=== PATIENT | male | born 1965 | race Caucasian/White ===

== ENCOUNTER 2020-08-30 17:25 | Inpatient (IN) | payer MEDICAID, SELFPAY ==
[2020-08-30] VITALS (10 sets, daily range): BP systolic 108–186; BP diastolic 54–142; PULSE 89–116; RESP 16–32; TEMP 36.4–36.6; O2SAT 92–98; BMI 48.8
--- NOTE | 2020-08-30 17:41 | XRR_ITS ---
PROCEDURE INFORMATION: Exam: XR Chest, 1 View Exam date and time: 08/30/2020 5:45 PM Age: 55 years old Clinical indication: Shortness of breath; Additional info: Edema, shortness of breath TECHNIQUE: Imaging protocol: XR of the chest Views: 1 view. COMPARISON: No relevant prior studies available. FINDINGS: Lungs: Mild pulmonary venous congestion demonstrated. No consolidative pulmonary infiltrate noted. Pleural space: No pleural effusion. No pneumothorax. Heart/Mediastinum: Mild cardiomegaly is noted. Bones/joints: Unremarkable. XR/XR chest 1V portable [id number] IMPRESSION: 1. Mild cardiomegaly is noted. 2. Mild pulmonary venous congestion demonstrated. No consolidative pulmonary infiltrate noted.
--- NOTE | 2020-08-30 17:47 | ECG_ITS ---
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 Measurements Intervals [place] Rate: 111 P: -9 NH: 190 QRS: -3 QRSD: 75 T: 0 QT: 329 QTc: 449 Interpretive Statements SINUS TACHYCARDIA LOW QRS VOLTAGE [QRS DEFLECTION < 0.5/1.0 mV IN LIMB/CHEST LEADS] ANTEROSEPTAL MYOCARDIAL INFARCTION , OF INDETERMINATE AGE [40+ ms Q WAVE IN V1-V4] No previous ECG available for comparison Electronically Signed On 08-30-2020 18:37:29 TRANSPLANT CASE MANAGER by Reynaldo Vizcaino M.D. [id number]
--- NOTE | 2020-08-30 18:01 | ED_ITS ---
Documented by User: MADDISON Mccann 08/30/20 18:31 HPI - SOB/Dyspnea General: Chief Complaint: Shortness of Breath/Dyspnea Stated Complaint: SEVERE PITTING EDEMA/ WEAKNESS Time Seen by Provider: 08/30/20 17:53 History of Present Illness: HPI Narrative: Patient arrives via ambulance with complaints of increasing shortness of breath over the last month. Patient has swelling which he said started in his feet is moved his way up to his chest now. Patient has not been able to take care of himself due to the increased swelling. Does have shortness of breath with exertion. Does complain about sores about his body. Said is been a while since he has had any health care provided. Says he has no history of CHF. Lives at home with his . He has no history of medical problems that he is aware of patient states MD elicited complaint: shortness of breath Timing: constant and progressively worsening Severity: severe Relieving factors: upright position Associated symptoms: Reports no associated symptoms and orthopnea; Deny abdominal pain, chest pain, extremity pain, fever(s), nausea or vomiting Treatment prior to arrival: none Review of Systems Const: Denies: fever(s), chills or body aches Eyes: Denies: change in vision or blurry vision ENMT: Denies: throat pain or nasal congestion Card: Reports: edema, dyspnea on exertion and orthopnea; Denies: chest pain Resp: Denies: dyspnea, productive cough or non-productive cough GI: Denies: abdominal pain, nausea or vomiting : Denies: difficulty urinating Musc: Denies: extremity pain Skin/Breast: Reports: rash and erythema Neuro: Denies: headache(s) Psych: Denies: anxiety or depression Sorin/Lymph: Denies: easy bruising PFSH ED PFSH: Medical History (Updated 08/31/20 @ 00:38 by Jone Trevino MD, [facility] [place] No pertinent past medical history Surgical History (Updated 08/30/20 @ 21:35 by Misael Quinonez MD) No pertinent past surgical history Family History (Updated 08/30/20 @ 21:35 by Misael Quinonez MD) Mother CAD (coronary artery disease) Social History (Updated 08/30/20 @ 21:35 by Misael Quinonez MD) Smoking and tobacco status: current every day smoker cigarettes [ Other cigar ette details: Has been smoking 2 packs/day, currently 1 pack/day ] Alcohol intake: never Substance/Drug Use: never Household members: spouse Housing: House Physical Exam Const: COMMON NORMALS: no acute distress and patient oriented x3 GENERAL APPEARANCE: disheveled and Edematous HENMT: COMMON NORMALS: normocephalic HEAD & SCALP: normal to inspection and normocephalic FACE & SINUS: normal facial exam Eye: COMMON NORMALS: conjunctivae normal GENERAL EYE: appearance normal, both eyes and all related structures CONJUNCTIVA: Yes conjunctivae normal Neck/C-Spine: COMMON NORMALS: no JVD Chest: COMMONS NORMALS: normal inspection of the chest Resp: EFFORT & INSPECTION: Yes tachypneic AUSCULTATION: diminished lung sounds PERCUSSION: dullness Cardio: COMMON NORMALS: no JVD and regular rhythm RATE: tachycardic RHYTHM: regular rhythm OTHER: 4+ 2+ edema from feet up to upper chest area redness and cold lower extremities. GI: INSPECTION: Yes Abdominal wall edema AUSCULTATION: Yes normoactive bowel sounds PALPATION: Yes Firmness to palpation present (GI) : SCROTUM: Yes edematous Extremity: COMMON NORMALS: normal to inspection and full ROM Neuro: COMMON NORMALS: patient oriented x3 Skin: OTHER: Scattered red papules across abdomen sores lower extremities extremities very cold Course Vital Signs: Vital signs: Vital Signs Temperature 97.9 F 08/30/20 22:45 Pulse Rate 114 H 08/30/20 22:45 Respiratory Rate 24 H 08/30/20 22:45 Blood Pressure 108/77 08/30/20 22:45 Pulse Oximetry 98 08/30/20 22:45 MDM - SOB/Dyspnea Lab Data: Labs: Lab Results 08/30/20 08/30/20 08/30/20 Range/Units 19:03 19:57 19:57 WBC 10.1 H (4.0-10.0) 10^3/ uL RBC 5.47 H (4.1-5.3) 10^6/u L Hgb 14.4 (11.7-16.6) g/dL Hct 47.1 (42.0-52.0) % MCV 86.1 (80-94) fL MCH 26.3 L (28.0-34.0) pg MCHC 30.6 (30.0-36.0) g/dL RDW 15.4 H (12.1-15.1) % Plt Count 368 (130-400) 10^3/c mm MPV 9.8 (7.4-10.4) fL Neut % (Auto) 78.1 % Lymph % (Auto) 14.4 % Evangeline % (Auto) 6.0 % Eos % (Auto) 0.6 % Baso % (Auto) 0.4 % Neut # (Auto) 7.88 H (1.8-7.7) 10^3/u L Lymph # (Auto) 1.5 (0.8-4.8) 10^3/u L Evangeline # (Auto) 0.6 (0.2-0.9) 10^3/u L Eos # (Auto) 0.1 (0.0-0.8) 10^3/u L Baso # (Auto) 0.0 (0.0-0.1) 10^3/u L Nucleated RBC % (a uto) 0 % Nucleated RBCs # 0.0 /100WBC PT (12.1-14.9) SECO NDS INR (0.8-1.2) D-Dimer (0-0.59) ug/mIFE U Specimen Type Arterial Sample Site Brachial, right ABG pH 7.41 (7.35-7.45) ABG pCO2 39.8 (35-45) mmHg ABG pO2 97.8 (80.0-100.0) mmH g ABG HCO3 25.3 (22-26) mmol/L ABG Base Excess 0.7 (-2.0-2.0) mmol/ L Benjamin Test N/a Hematocrit 43.6 (42-52) % Hgb O2 Saturation 95.9 (95-100) % Carboxyhemoglobin 1.3 (0.4-20.1) %THgb Methemoglobin 0.7 (0.4-1.5) % Total Hemoglobin 14.2 (14-18) g/dL O2 Delivery Device Nc O2 Liters/Min 2.0 % Metal Trades Instructor ID Harkr Sodium 140 (136-145) mmol/L Potassium 4.3 (3.5-5.1) mmol/L Chloride 103 (98-107) mmol/L Carbon Dioxide 28 (22-29) mmol/L Anion Gap 13.3 (5-19) BUN 10 (6-20) mg/dL Creatinine 0.8 (0.7-1.2) mg/dL GFR Calculation 101.1 (90-130) mL/min Glucose 202 H (65-115) mg/dL Estimat Average Gl ucose Hemoglobin A1c (4.0-6.0) % Calculated Osmolal ity 295 (285-295) mOsm/k g Calcium 9.4 (8.5-10.5) mg/dL Total Bilirubin 0.5 (0.15-1.2) mg/dL AST 15 (0-40) U/L ALT 15 (0-41) U/L Alkaline Phosphata se 208 H (40-130) IU/L Troponin T Baselin e (0-15) ng/L NT-Pro-B Natriuret Pep 6129 H (0-125) pg/mL Total Protein 6.2 L (6.6-8.7) g/dL Albumin 3.5 (3.5-5.2) g/dL Globulin 2.7 (1.3-4.6) g/dL TSH (0.27-4.20) uIU/ mL Urine Color (Yellow) Urine Appearance (CLEAR) Urine pH (5-7) Ur Specific Gravit y (1.005-1.030) Urine Protein (Negative) Urine Glucose (UA) (Normal) Urine Ketones (Negative) Urine Blood (Negative) Urine Nitrate (Negative) Urine Bilirubin (Negative) Urine Urobilinogen (Negative) mg/dL Ur Leukocyte Kusum ase (Negative) Urine RBC (0-2) /hpf Urine WBC (0-5) /hpf Ur Squamous Epith Cells (0-5) /hpf Amorphous Sediment /hpf Urine Bacteria (NONE) /hpf Hyaline Casts /lpf 08/30/20 08/30/20 08/30/20 Range/Units 19:57 19:57 19:57 WBC (4.0-10.0) 10^3/ uL RBC (4.1-5.3) 10^6/u L Hgb (11.7-16.6) g/dL Hct (42.0-52.0) % MCV (80-94) fL MCH (28.0-34.0) pg MCHC (30.0-36.0) g/dL RDW (12.1-15.1) % Plt Count (130-400) 10^3/c mm MPV (7.4-10.4) fL Neut % (Auto) % Lymph % (Auto) % Evangeline % (Auto) % Eos % (Auto) % Baso % (Auto) % Neut # (Auto) (1.8-7.7) 10^3/u L Lymph # (Auto) (0.8-4.8) 10^3/u L Evangeline # (Auto) (0.2-0.9) 10^3/u L Eos # (Auto) (0.0-0.8) 10^3/u L Baso # (Auto) (0.0-0.1) 10^3/u L Nucleated RBC % (a uto) % Nucleated RBCs # /100WBC PT 14.60 (12.1-14.9) SECO NDS INR 1.11 (0.8-1.2) D-Dimer 1.92 H (0-0.59) ug/mIFE U Specimen Type Sample Site ABG pH (7.35-7.45) ABG pCO2 (35-45) mmHg ABG pO2 (80.0-100.0) mmH g ABG HCO3 (22-26) mmol/L ABG Base Excess (-2.0-2.0) mmol/ L Benajmin Test Hematocrit (42-52) % Hgb O2 Saturation (95-100) % Carboxyhemoglobin (0.4-20.1) %THgb Methemoglobin (0.4-1.5) % Total Hemoglobin (14-18) g/dL O2 Delivery Device O2 Liters/Min % Metal Trades Instructor ID Sodium (136-145) mmol/L Potassium (3.5-5.1) mmol/L Chloride (98-107) mmol/L Carbon Dioxide (22-29) mmol/L Anion Gap (5-19) BUN (6-20) mg/dL Creatinine (0.7-1.2) mg/dL GFR Calculation (90-130) mL/min Glucose (65-115) mg/dL Estimat Average Gl ucose Hemoglobin A1c (4.0-6.0) % Calculated Osmolal ity (285-295) mOsm/k g Calcium (8.5-10.5) mg/dL Total Bilirubin (0.15-1.2) mg/dL AST (0-40) U/L ALT (0-41) U/L Alkaline Phosphata se (40-130) IU/L Troponin T Baselin e 49 H (0-15) ng/L NT-Pro-B Natriuret Pep (0-125) pg/mL Total Protein (6.6-8.7) g/dL Albumin (3.5-5.2) g/dL Globulin (1.3-4.6) g/dL TSH (0.27-4.20) uIU/ mL Urine Color (Yellow) Urine Appearance (CLEAR) Urine pH (5-7) Ur Specific Gravit y (1.005-1.030) Urine Protein (Negative) Urine Glucose (UA) (Normal) Urine Ketones (Negative) Urine Blood (Negative) Urine Nitrate (Negative) Urine Bilirubin (Negative) Urine Urobilinogen (Negative) mg/dL Ur Leukocyte Kusum ase (Negative) Urine RBC (0-2) /hpf Urine WBC (0-5) /hpf Ur Squamous Epith Cells (0-5) /hpf Amorphous Sediment /hpf Urine Bacteria (NONE) /hpf Hyaline Casts /lpf 08/30/20 08/30/20 08/30/20 Range/Units 19:57 19:57 21:15 WBC (4.0-10.0) 10^3/ uL RBC (4.1-5.3) 10^6/u L Hgb (11.7-16.6) g/dL Hct (42.0-52.0) % MCV (80-94) fL MCH (28.0-34.0) pg MCHC (30.0-36.0) g/dL RDW (12.1-15.1) % Plt Count (130-400) 10^3/c mm MPV (7.4-10.4) fL Neut % (Auto) % Lymph % (Auto) % Evangeline % (Auto) % Eos % (Auto) % Baso % (Auto) % Neut # (Auto) (1.8-7.7) 10^3/u L Lymph # (Auto) (0.8-4.8) 10^3/u L Evangeline # (Auto) (0.2-0.9) 10^3/u L Eos # (Auto) (0.0-0.8) 10^3/u L Baso # (Auto) (0.0-0.1) 10^3/u L Nucleated RBC % (a uto) % Nucleated RBCs # /100WBC PT (12.1-14.9) SECO NDS INR (0.8-1.2) D-Dimer (0-0.59) ug/mIFE U Specimen Type Sample Site ABG pH (7.35-7.45) ABG pCO2 (35-45) mmHg ABG pO2 (80.0-100.0) mmH g ABG HCO3 (22-26) mmol/L ABG Base Excess (-2.0-2.0) mmol/ L Benjamin Test Hematocrit (42-52) % Hgb O2 Saturation (95-100) % Carboxyhemoglobin (0.4-20.1) %THgb Methemoglobin (0.4-1.5) % Total Hemoglobin (14-18) g/dL O2 Delivery Device O2 Liters/Min % Metal Trades Instructor ID Sodium (136-145) mmol/L Potassium (3.5-5.1) mmol/L Chloride (98-107) mmol/L Carbon Dioxide (22-29) mmol/L Anion Gap (5-19) BUN (6-20) mg/dL Creatinine (0.7-1.2) mg/dL GFR Calculation (90-130) mL/min Glucose (65-115) mg/dL Estimat Average Gl ucose 318 Hemoglobin A1c 12.7 H (4.0-6.0) % Calculated Osmolal ity (285-295) mOsm/k g Calcium (8.5-10.5) mg/dL Total Bilirubin (0.15-1.2) mg/dL AST (0-40) U/L ALT (0-41) U/L Alkaline Phosphata se (40-130) IU/L Troponin T Baselin e (0-15) ng/L NT-Pro-B Natriuret Pep (0-125) pg/mL Total Protein (6.6-8.7) g/dL Albumin (3.5-5.2) g/dL Globulin (1.3-4.6) g/dL TSH 4.66 H (0.27-4.20) uIU/ mL Urine Color Yellow (Yellow) Urine Appearance Sl cloudy A (CLEAR) Urine pH 5 (5-7) Ur Specific Gravit y 1.020 (1.005-1.030) Urine Protein 3+ H (Negative) Urine Glucose (UA) Norm (Normal) Urine Ketones 1+ H (Negative) Urine Blood 2+ H (Negative) Urine Nitrate Negative (Negative) Urine Bilirubin Neg (Negative) Urine Urobilinogen 1 H (Negative) mg/dL Ur Leukocyte Kusum ase Trace H (Negative) Urine RBC 5-10 H (0-2) /hpf Urine WBC 0-4 H (0-5) /hpf Ur Squamous Epith Cells 0-4 H (0-5) /hpf Amorphous Sediment 2+ /hpf Urine Bacteria 1+ H (NONE) /hpf Hyaline Casts 0-4 H /lpf Discharge Plan Discharge Patient Disposition: Admitted As Inpatient Admit Provider: Misael Quinonez Clinical Impression: New onset of congestive heart failure, Anasarca, Acute respiratory failure with hypoxia Condition: Stable Coding Level of Care Code ED Secondary Market Manager for Chg Fwd Exam Comprehensive Documented by User: Jone Trevino [place], [facility]/31/20 00:38 HPI - SOB/Dyspnea General: Chief Complaint: Shortness of Breath/Dyspnea Stated Complaint: SEVERE PITTING EDEMA/ WEAKNESS Time Seen by Provider: 08/30/20 17:53 [facility] ED PFSH: Medical History (Updated 08/31/20 @ 00:38 by Jone Trevino MD, [facility] No pertinent past medical history Surgical History (Updated 08/30/20 @ 21:35 by Misael Quinonez MD) No pertinent past surgical history Family History (Updated 08/30/20 @ 21:35 by Misael Quinonez MD) Mother CAD (coronary artery disease) Social History (Updated 08/30/20 @ 21:35 by Misael Quinonez MD) Smoking and tobacco status: current every day smoker cigarettes [ Other cigarette details: Has been smoking 2 packs/day, currently 1 pack/day ] Alcohol intake: never Substance/Drug Use: never Household members: spouse Housing: House Course Vital Signs: Vital signs: Vital Signs Temperature 97.9 F 08/30/20 22:45 Pulse Rate 114 H 08/30/20 22:45 Respiratory Rate 24 H 08/30/20 22:45 Blood Pressure 108/77 08/30/20 22:45 Pulse Oximetry 98 08/30/20 22:45 MDM - SOB/Dyspnea MDM Narrative: Medical decision making narrative: See the VERIFYING SPECIALIST's note for history and physical. I evaluated and examined this patient. Essentially the patient is a 55-year-old male with no prior history of CHF but who presents with a month-long history of gradual generalized body swelling. He has anasarca and on evaluation congestive heart failure. He is also short of breath and hypoxic and required oxygen supplementation. He is admitted to the hospital for further evaluation and management. Patient is admitted under the care of Dr. Quinonez. Lab Data: Labs: Lab Results 08/30/20 08/30/20 08/30/20 Range/Units 19:03 19:57 19:57 WBC 10.1 H (4.0-10.0) 10^3/ uL RBC 5.47 H (4.1-5.3) 10^6/u L Hgb 14.4 (11.7-16.6) g/dL Hct 47.1 (42.0-52.0) % MCV 86.1 (80-94) fL MCH 26.3 L (28.0-34.0) pg MCHC 30.6 (30.0-36.0) g/dL RDW 15.4 H (12.1-15.1) % Plt Count 368 (130-400) 10^3/c mm MPV 9.8 (7.4-10.4) fL Neut % (Auto) 78.1 % Lymph % (Auto) 14.4 % Evangeline % (Auto) 6.0 % Eos % (Auto) 0.6 % Baso % (Auto) 0.4 % Neut # (Auto) 7.88 H (1.8-7.7) 10^3/u L Lymph # (Auto) 1.5 (0.8-4.8) 10^3/u L Evangeline # (Auto) 0.6 (0.2-0.9) 10^3/u L Eos # (Auto) 0.1 (0.0-0.8) 10^3/u L Baso # (Auto) 0.0 (0.0-0.1) 10^3/u L Nucleated RBC % (a uto) 0 % Nucleated RBCs # 0.0 /100WBC PT (12.1-14.9) SECO NDS INR (0.8-1.2) D-Dimer (0-0.59) ug/mIFE U Specimen Type Arterial Sample Site Brachial, right ABG pH 7.41 (7.35-7.45) ABG pCO2 39.8 (35-45) mmHg ABG pO2 97.8 (80.0-100.0) mmH g ABG HCO3 25.3 (22-26) mmol/L ABG Base Excess 0.7 (-2.0-2.0) mmol/ L Benjamin Test N/a Hematocrit 43.6 (42-52) % Hgb O2 Saturation 95.9 (95-100) % Carboxyhemoglobin 1.3 (0.4-20.1) %THgb Methemoglobin 0.7 (0.4-1.5) % Total Hemoglobin 14.2 (14-18) g/dL O2 Delivery Device Nc O2 Liters/Min 2.0 % Metal Trades Instructor ID Harkr Sodium 140 (136-145) mmol/L Potassium 4.3 (3.5-5.1) mmol/L Chloride 103 (98-107) mmol/L Carbon Dioxide 28 (22-29) mmol/L Anion Gap 13.3 (5-19) BUN 10 (6-20) mg/dL Creatinine 0.8 (0.7-1.2) mg/dL GFR Calculation 101.1 (90-130) mL/min Glucose 202 H (65-115) mg/dL Estimat Average Gl ucose Hemoglobin A1c (4.0-6.0) % Calculated Osmolal ity 295 (285-295) mOsm/k g Calcium 9.4 (8.5-10.5) mg/dL Total Bilirubin 0.5 (0.15-1.2) mg/dL AST 15 (0-40) U/L ALT 15 (0-41) U/L Alkaline Phosphata se 208 H (40-130) IU/L Troponin T Baselin e (0-15) ng/L NT-Pro-B Natriuret Pep 6129 H (0-125) pg/mL Total Protein 6.2 L (6.6-8.7) g/dL Albumin 3.5 (3.5-5.2) g/dL Globulin 2.7 (1.3-4.6) g/dL TSH (0.27-4.20) uIU/ mL Urine Color (Yellow) Urine Appearance (CLEAR) Urine pH (5-7) Ur Specific Gravit y (1.005-1.030) Urine Protein (Negative) Urine Glucose (UA) (Normal) Urine Ketones (Negative) Urine Blood (Negative) Urine Nitrate (Negative) Urine Bilirubin (Negative) Urine Urobilinogen (Negative) mg/dL Ur Leukocyte Kusum ase (Negative) Urine RBC (0-2) /hpf Urine WBC (0-5) /hpf Ur Squamous Epith Cells (0-5) /hpf Amorphous Sediment /hpf Urine Bacteria (NONE) /hpf Hyaline Casts /lpf 08/30/20 08/30/20 08/30/20 Range/Units 19:57 19:57 19:57 WBC (4.0-10.0) 10^3/ uL RBC (4.1-5.3) 10^6/u L Hgb (11.7-16.6) g/dL Hct (42.0-52.0) % MCV (80-94) fL MCH (28.0-34.0) pg MCHC (30.0-36.0) g/dL RDW (12.1-15.1) % Plt Count (130-400) 10^3/c mm MPV (7.4-10.4) fL Neut % (Auto) % Lymph % (Auto) % Evangeline % (Auto) % Eos % (Auto) % Baso % (Auto) % Neut # (Auto) (1.8-7.7) 10^3/u L Lymph # (Auto) (0.8-4.8) 10^3/u L Evangeline # (Auto) (0.2-0.9) 10^3/u L Eos # (Auto) (0.0-0.8) 10^3/u L Baso # (Auto) (0.0-0.1) 10^3/u L Nucleated RBC % (a uto) % Nucleated RBCs # /100WBC PT 14.60 (12.1-14.9) SECO NDS INR 1.11 (0.8-1.2) D-Dimer 1.92 H (0-0.59) ug/mIFE U Specimen Type Sample Site ABG pH (7.35-7.45) ABG pCO2 (35-45) mmHg ABG pO2 (80.0-100.0) mmH g ABG HCO3 (22-26) mmol/L ABG Base Excess (-2.0-2.0) mmol/ L Benjamin Test Hematocrit (42-52) % Hgb O2 Saturation (95-100) % Carboxyhemoglobin (0.4-20.1) %THgb Methemoglobin (0.4-1.5) % Total Hemoglobin (14-18) g/dL O2 Delivery Device O2 Liters/Min % Metal Trades Instructor ID Sodium (136-145) mmol/L Potassium (3.5-5.1) mmol/L Chloride (98-107) mmol/L Carbon Dioxide (22-29) mmol/L Anion Gap (5-19) BUN (6-20) mg/dL Creatinine (0.7-1.2) mg/dL GFR Calculation (90-130) mL/min Glucose (65-115) mg/dL Estimat Average Gl ucose Hemoglobin A1c (4.0-6.0) % Calculated Osmolal ity (285-295) mOsm/k g Calcium (8.5-10.5) mg/dL Total Bilirubin (0.15-1.2) mg/dL AST (0-40) U/L ALT (0-41) U/L Alkaline Phosphata se (40-130) IU/L Troponin T Baselin e 49 H (0-15) ng/L NT-Pro-B Natriuret Pep (0-125) pg/mL Total Protein (6.6-8.7) g/dL Albumin (3.5-5.2) g/dL Globulin (1.3-4.6) g/dL TSH (0.27-4.20) uIU/ mL Urine Color (Yellow) Urine Appearance (CLEAR) Urine pH (5-7) Ur Specific Gravit y (1.005-1.030) Urine Protein (Negative) Urine Glucose (UA) (Normal) Urine Ketones (Negative) Urine Blood (Negative) Urine Nitrate (Negative) Urine Bilirubin (Negative) Urine Urobilinogen (Negative) mg/dL Ur Leukocyte Kusum ase (Negative) Urine RBC (0-2) /hpf Urine WBC (0-5) /hpf Ur Squamous Epith Cells (0-5) /hpf Amorphous Sediment /hpf Urine Bacteria (NONE) /hpf Hyaline Casts /lpf 08/30/20 08/30/20 08/30/20 Range/Units 19:57 19:57 21:15 WBC (4.0-10.0) 10^3/ uL RBC (4.1-5.3) 10^6/u L Hgb (11.7-16.6) g/dL Hct (42.0-52.0) % MCV (80-94) fL MCH (28.0-34.0) pg MCHC (30.0-36.0) g/dL RDW (12.1-15.1) % Plt Count (130-400) 10^3/c mm MPV (7.4-10.4) fL Neut % (Auto) % Lymph % (Auto) % Evangeline % (Auto) % Eos % (Auto) % Baso % (Auto) % Neut # (Auto) (1.8-7.7) 10^3/u L Lymph # (Auto) (0.8-4.8) 10^3/u L Evangeline # (Auto) (0.2-0.9) 10^3/u L Eos # (Auto) (0.0-0.8) 10^3/u L Baso # (Auto) (0.0-0.1) 10^3/u L Nucleated RBC % (a uto) % Nucleated RBCs # /100WBC PT (12.1-14.9) SECO NDS INR (0.8-1.2) D-Dimer (0-0.59) ug/mIFE U Specimen Type Sample Site ABG pH (7.35-7.45) ABG pCO2 (35-45) mmHg ABG pO2 (80.0-100.0) mmH g ABG HCO3 (22-26) mmol/L ABG Base Excess (-2.0-2.0) mmol/ L Benjamin Test Hematocrit (42-52) % Hgb O2 Saturation (95-100) % Carboxyhemoglobin (0.4-20.1) %THgb Methemoglobin (0.4-1.5) % Total Hemoglobin (14-18) g/dL O2 Delivery Device O2 Liters/Min % Metal Trades Instructor ID Sodium (136-145) mmol/L Potassium (3.5-5.1) mmol/L Chloride (98-107) mmol/L Carbon Dioxide (22-29) mmol/L Anion Gap (5-19) BUN (6-20) mg/dL Creatinine (0.7-1.2) mg/dL GFR Calculation (90-130) mL/min Glucose (65-115) mg/dL Estimat Average Gl ucose 318 Hemoglobin A1c 12.7 H (4.0-6.0) % Calculated Osmolal ity (285-295) mOsm/k g Calcium (8.5-10.5) mg/dL Total Bilirubin (0.15-1.2) mg/dL AST (0-40) U/L ALT (0-41) U/L Alkaline Phosphata se (40-130) IU/L Troponin T Baselin e (0-15) ng/L NT-Pro-B Natriuret Pep (0-125) pg/mL Total Protein (6.6-8.7) g/dL Albumin (3.5-5.2) g/dL Globulin (1.3-4.6) g/dL TSH 4.66 H (0.27-4.20) uIU/ mL Urine Color Yellow (Yellow) Urine Appearance Sl cloudy A (CLEAR) Urine pH 5 (5-7) Ur Specific Gravit y 1.020 (1.005-1.030) Urine Protein 3+ H (Negative) Urine Glucose (UA) Norm (Normal) Urine Ketones 1+ H (Negative) Urine Blood 2+ H (Negative) Urine Nitrate Negative (Negative) Urine Bilirubin Neg (Negative) Urine Urobilinogen 1 H (Negative) mg/dL Ur Leukocyte Kusum ase Trace H (Negative) Urine RBC 5-10 H (0-2) /hpf Urine WBC 0-4 H (0-5) /hpf Ur Squamous Epith Cells 0-4 H (0-5) /hpf Amorphous Sediment 2+ /hpf Urine Bacteria 1+ H (NONE) /hpf Hyaline Casts 0-4 H /lpf Discharge Plan Discharge Patient Disposition: Admitted As Inpatient Admit Provider: Misael Quinonez Clinical Impression: New onset of congestive heart failure, Anasarca, Acute respiratory failure with hypoxia Condition: Stable Coding Level of Care Code ED Secondary Market Manager for Chg Fwd Exam Comprehensive
[2020-08-30 19:23] LABS: ABG PCO2 39.8 mmHg (35-45); ABG PH Result 7.41 (7.35-7.45); Arterial Blood Gas Hematocrit 43.6 % (42-52); Base Excess ABG 0.7 mmol/L (-2.0-2.0); Blood Gas Sample Type Arterial; Carboxyhemoglobin 1.3 %THgb (0.4-20.1); HCO3 ABG 25.3 mmol/L (22-26); HGB O2 Sat 95.9 % (95-100); Methemoglobin 0.7 % (0.4-1.5); PO2 ABG 97.8 mmHg (80.0-100.0); Total Hemoglobin 14.2 g/dL (14-18)
[2020-08-30 19:24] LABS: Blood Gas Operator Identificat HARKR; Blood Gas Sample Site Brachial, right; Oxygen Device NC
--- NOTE | 2020-08-30 19:47 | ECG_ITS ---
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 Measurements Intervals Harvel Rate: 110 P: -2 AK: 192 QRS: 10 QRSD: 77 T: 0 QT: 313 QTc: 425 Interpretive Statements SINUS TACHYCARDIA LOW QRS VOLTAGE [QRS DEFLECTION < 0.5/1.0 mV IN LIMB/CHEST LEADS] ANTEROSEPTAL MYOCARDIAL INFARCTION , PROBABLY OLD [40+ ms Q WAVE IN V1-V4] Compared to ECG 08/30/2020 18:08:44 No significant changes Electronically Signed On 08-31-2020 8:51:51 HAIR WORKER by Nati Rubio M.D. [id number]
[2020-08-30 20:07] LABS: Basophils % 0.4 %; Eosinophils # 0.1 10^3/uL (0.0-0.8); Eosinophils % 0.6 %; Hematocrit 47.1 % (42.0-52.0); Hemoglobin 14.4 g/dL (11.7-16.6); Lymphocytes # 1.5 10^3/uL (0.8-4.8); Lymphocytes % 14.4 %; Mean Corpuscular HGB Conc 30.6 g/dL (30.0-36.0); Mean Corpuscular Hemoglobin 26.3 pg (28.0-34.0); Mean Corpuscular Volume 86.1 fL (80-94); Mean Platelet Volume 9.8 fL (7.4-10.4); Monocytes # 0.6 10^3/uL (0.2-0.9); Neutrophils # 7.88 10^3/uL (1.8-7.7); Neutrophils % 78.1 %; Nucleated Red Blood Cells % 0 %; Platelet Count 368 10^3/cmm (130-400); Red Blood Count 5.47 10^6/uL (4.1-5.3); Red Cell Distribution Width 15.4 % (12.1-15.1); White Blood Count 10.1 10^3/uL (4.0-10.0)
--- NOTE | 2020-08-30 20:19 | PC.NURSE ---
EKG done at 2017 and shown to ER physician
[2020-08-30 20:21] LABS: INR 1.11 (0.8-1.2)
[2020-08-30 20:27] LABS: Troponin(5th) Baseline 49 ng/L (0-15)
[2020-08-30 20:37] LABS: Alanine Aminotransferase 15 U/L (0-41); Albumin Level 3.5 g/dL (3.5-5.2); Alkaline Phosphatase 208 IU/L (40-130); Aspartate Amino Transferase 15 U/L (0-40); Blood Urea Nitrogen 10 mg/dL (6-20); Calcium 9.4 mg/dL (8.5-10.5); Carbon Dioxide 28 mmol/L (22-29); Chloride 103 mmol/L (98-107); Globulin 2.7 g/dL (1.3-4.6); Glomerular Filtration Rate 101.1 mL/min (90-130); Glucose 202 mg/dL (65-115); NT Pro B Type Natriuretic Pept 6129 pg/mL (0-125); Osmolality Calculated 295 mOsm/kg (285-295); Sodium 140 mmol/L (136-145); Total Bilirubin 0.5 mg/dL (0.15-1.2); Total Protein 6.2 g/dL (6.6-8.7)
[2020-08-30 20:39] LABS: Anion Gap 13.3 (5-19); Potassium 4.3 mmol/L (3.5-5.1)
[2020-08-30] MEDS: FUROsemide 10 mg/mL SDV 4mL 40 MG IVP (20:59)
--- NOTE | 2020-08-30 21:00 | P.HP_ITS ---
Providers/Chief Complaint Chief Complaint: SEVERE PITTING EDEMA/ WEAKNESS History of Present Illness Aby Clement is a 55 year old male who has not seen his PCP in a long time came in today with worsening edema. Patient is stating that he smokes cigarettes about 1 to 1.5 packs a day, quit alcohol long time ago, never had any NE, CHF stroke or cancer diagnosis. He mostly keeps him to himself although lives with his son and . He has been using bedside commode. In last 1 to 2 months he has been noticing that he is getting more swollen, initially he did not pay any attention, but lately this has been making his breathing very difficult because of distended abdomen. He is denying chest pain, nausea, vomiting, fever. He is stating that he is not able to lay flat at all, he mostly lie on his right left lateral position however endorses orthopnea and PND. He seems to have very poor insight. Diagnosis in the ER revealed hypertensive urgency, tachycardia, anasarca, BNP 6000 with pulmonary edema. I have requested D-dimer which came back high, TSH 4.6. He has been given 40 mg IV Lasix Review of Systems Const: Reports: body aches, change in weight, fatigue and malaise; Denies: fever(s) or chills Eyes: Denies: change in vision ENMT: Denies: throat pain Card: Reports: edema, swelling of feet/ankles, dyspnea on exertion and orthopnea Resp: Reports: dyspnea and non-productive cough GI: Reports: abdominal pain and constipation; Denies: nausea or vomiting : Denies: flank pain Musc: Reports: muscle cramps Skin/Breast: Reports: new lesions, lesions, dry skin and nail changes Neuro: Denies: headache(s) Psych: Denies: anxiety Endo: Denies: polyuria Sorin/Lymph: Denies: easy bruising All/Imm: Denies: urticaria Medications/Allergies Home Medications Medication Instructions Recorded Confirmed Last Taken Type acetaminophen [Tylenol Extra 250 - 500 mg PO PRN 08/30/20 08/30/20 Unknown History Strength] Allergies Allergy/AdvReac Type Severity Reaction Status Date / Time No Known Allergies Allergy Verified 08/30/20 19:29 PFSH Acute PFSH: Medical History (Updated 08/30/20 @ 22:02 by Misael Quinonez MD) No pertinent past medical history Surgical History (Updated 08/30/20 @ 21:35 by Misael Quinonez MD) No pertinent past surgical history Family History (Updated 08/30/20 @ 21:35 by Misael Quinonez MD) Mother CAD (coronary artery disease) Social History (Updated 08/30/20 @ 21:35 by Misael Quinonez MD) Smoking and tobacco status: current every day smoker cigarettes [ Other cigarette details: Has been smoking 2 packs/day, currently 1 pack/day ] Alcohol intake: never Substance/Drug Use: never Household members: spouse Housing: House Vitals/I&O/Wt Last Vital Signs Temp 97.5 F L 08/30/20 17:35 Pulse 115 H 08/30/20 19:38 Resp 18 08/30/20 18:30 BP 159/142 08/30/20 19:38 Pulse Ox 93 08/30/20 19:38 Weight last 48 hrs Weight 158.757 kg Physical Exam Narrative: EXAM NARRATIVE: Morbidly obese male Appears more than stated age, unkempt appearance, and appropriate hygiene He is soiled with feces and urine on his legs Anasarca Hyperemia around eyes without pain on eye movement no active discharge No proptosis S1, S2 sinus tachycardia active signs of fluid overload 3+ pitting edema extending from legs up to his abdominal wall, Scrotal wall edema noted as well, 3+ Abdomen distended, nontender, bowel sounds present, ascites positive Neurologically nonfocal exam awake alert oriented x3 GCS 15 Seems to have poor insight Flat affect Bilateral diminished breath sounds without audible wheeze Data : 08/30/20 19:57 08/30/20 19:57 A&P Assessment and plan (1) New onset of congestive heart failure: Status: Acute (2) Anasarca: Status: Acute (3) Acute respiratory failure with hypoxia: Status: Acute Additional A&P Information Generalized anasarca Most likely new onset CHF We will get echo in the morning, since he is na?ve to Lasix I would keep him on 40 IV Lasix for now Abnormal TSH, will check free T4 Abnormal D-dimer, requested CTA to rule out PE Genital edema: Would request Light catheter placement for accurate urine output, no active gangrene noted Acute hypoxic respiratory failure requiring 3 L nasal cannula I do believe this is secondary to abdominal distention and bibasilar atelectasis and pulmonary congestion ABG revealed PaO2 97% on 2 L: Considering D-dimer I have requested CTA For now I would start him on therapeutic dose of Lovenox until PE is ruled out Unkempt appearance and low mood We will start him on low-dose antidepressant as well Nicotine dependence: Would need extensive counseling, will start him on nicotine replacement therapy DVT prophylaxis not needed currently on therapeutic dose of Lovenox Cardiac diet with fluid restriction Full code Will need to set up primary care physician for him as well before discharge Attestations Medical Necessity Statement*: Anticipating discharge in less than 48 hours continued work-up for anasarca, new onset CHF, Time Spent in Patient Care: (>than 50% of time spent in counselling and/or direct pt care on unit) . 45mins Coding Level of Care Code Acute Mica Splitter for Dale Castillo Diagnoses New onset of congestive heart failure I50.9 Anasarca R60.1 Acute respiratory failure with hypoxia J96.01
[2020-08-30 21:31] LABS: Blood Urine 2+ (Negative); Glucose Urine UA Norm (Normal); Ketones Urine 1+ (Negative); Protein Urine 3+ (Negative); Urine Color Yellow (Yellow); pH Urine 5 (5-7)
[2020-08-30 21:32] LABS: Add Urine Microscopic? YES; Bilirubin Urine Neg (Negative); Leukocyte Esterase Urine Trace (Negative); Nitrate Urine Negative (Negative); Urobilinogen Urine 1 mg/dL (Negative)
[2020-08-30 21:33] LABS: D Dimer 1.92 ug/mIFEU (0-0.59)
[2020-08-30 21:40] LABS: Thyroid Stimulating Hormone 4.66 uIU/mL (0.27-4.20)
[2020-08-30 21:44] LABS: Add Urine Culture? Yes; Amorphous Sediment Urine 2+ /hpf; Bacteria Urine 1+ /hpf; Hyaline Casts Urine 0-4 /lpf; Squamous Epithelial Cell Urine 0-4 /hpf (0-5); WBC Urine 0-4 /hpf (0-5)
--- NOTE | 2020-08-30 21:52 | CTR_ITS ---
PROCEDURE INFORMATION: Exam: CT Angiography Chest With Contrast Exam date and time: 08/30/2020 9:55 PM Age: 55 years old Clinical indication: Bloating; Cough and shortness of breath; Patient HX: Cough, SOB, and hypoxia. Abd distention. Weeping edema. TECHNIQUE: Imaging protocol: Computed tomographic angiography of the chest with intravenous contrast. 3D rendering (Not supervised by radiologist): MIP and/or 3D reconstructed images were created by the technologist. Radiation optimization: All CT scans at this facility use at least one of these dose optimization techniques: automated exposure control; mA and/or kV adjustment per patient size (includes targeted exams where dose is matched to clinical indication); or iterative reconstruction. Contrast material: OMNI 350; Contrast volume: 95 ml; Contrast route: INTRAVENOUS (IV); COMPARISON: CR XR chest 1V portable [id number] 08/30/2020 5:41 PM RADIATION DOSE METRICS: Total DLP (mGy-cm): 2742.94 FINDINGS: Pulmonary arteries: Pulmonary arteries are well opacified. Pulmonary arteries are normal in caliber. No filling defects are demonstrated. No evidence of pulmonary embolism. Aorta: Aorta is unopacified. No aortic aneurysm. Lungs: Mild compressive atelectasis in the right lower lobe posteriorly. The left lung is free of infiltrates. Pleural space: Small to moderate sized right pleural effusion. No left pleural effusion. Heart: Cardiomegaly is present. No pericardial effusion. Lymph nodes: Unremarkable. No enlarged lymph nodes. Bones/joints: Mild degenerative spine changes. No acute osseous abnormality. Soft tissues: Diffuse subcutaneous edema, consistent with anasarca. IMPRESSION: 1. Cardiomegaly is present. No pericardial effusion. 2. Small to moderate sized right pleural effusion. 3. Diffuse subcutaneous edema, consistent with anasarca. 4. Pulmonary arteries are well opacified. Pulmonary arteries are normal in caliber. No filling defects are demonstrated. No evidence of pulmonary embolism. PROCEDURE INFORMATION: Exam: CT Abdomen And Pelvis With Contrast Exam date and time: 08/30/2020 9:55 PM Age: 55 years old Clinical indication: Bloating; Cough and shortness of breath; Patient HX: Cough, SOB, and hypoxia. Abd distention. Weeping edema. TECHNIQUE: Imaging protocol: Computed tomography of the abdomen and pelvis with intravenous contrast. Radiation optimization: All CT scans at this facility use at least one of these dose optimization techniques: automated exposure control; mA and/or kV adjustment per patient size (includes targeted exams where dose is matched to clinical indication); or iterative reconstruction. Contrast material: OMNI 350; Contrast volume: 95 ml; Contrast route: INTRAVENOUS (IV); COMPARISON: CR XR chest 1V portable [id number] 08/30/2020 5:41 PM RADIATION DOSE METRICS: Total DLP (mGy-cm): 2742.94 FINDINGS: Lungs: Please see accompanying CT chest report from same date. Liver: The liver is unremarkable in appearance. Gallbladder and bile ducts: No calcified stones. No ductal dilation. Pancreas: The pancreas is normal in appearance. No pancreatic duct dilatation. Spleen: The spleen is normal in size and appearance. Adrenal glands: The adrenal glands appear within normal limits. Kidneys and ureters: 2.6 cm simple appearing right renal cyst. No hydronephrosis of the kidneys. Stomach and bowel: No acute gastric abnormality demonstrated. The small bowel is unremarkable as demonstrated. Appendix: No evidence of appendicitis. Intraperitoneal space: Moderate ascites in the abdomen and pelvis. Vasculature: The aorta is atherosclerotic. No aortic aneurysm. Lymph nodes: Mild nonspecific bilateral inguinal adenopathy. Lymph nodes measuring up to 2 cm in length are noted. Urinary bladder: The urinary bladder is unremarkable in appearance. Reproductive: Unremarkable as visualized. Bones/joints: Unremarkable. No acute fracture. Soft tissues: Diffuse subcutaneous edema, consistent with anasarca. Small left inguinal hernia noted, containing only fat. CT/CT angio chest w abd pel w con IMPRESSION: 1. Moderate ascites in the abdomen and pelvis. 2. Diffuse subcutaneous edema, consistent with anasarca. 3. Mild nonspecific bilateral inguinal adenopathy. Lymph nodes measuring up to 2 cm in length are noted. 4. Small left inguinal hernia noted, containing only fat. COMMENTS: Consistent with the [employer]'s Incidental Findings Committee white paper (J Am Jessica Radiol 2018): Any incidental renal lesion less than 1 cm or classified as too small to characterize, or any incidental cystic renal lesion characterized as simple-appearing, is likely benign. No follow-up imaging is recommended for these lesions per consensus recommendations based on imaging criteria. Radiation Dose CTDIVOL = (mGy): DLP = 2742.94~2742.94 (mGy-cm)
[2020-08-30] MEDS: iohexol 350 mg/mL 100 mL Btl 95 ML IV (22:04)
[2020-08-30 22:34] LABS: Troponin 5 2HR 46.67 ng/L (0-15)
[2020-08-30 22:43] LABS: Troponin 5 2HR Delta -2.33 ABS# (0-10)
--- NOTE | 2020-08-30 23:47 | ECG_ITS ---
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 Measurements Intervals [place] Rate: 111 P: -13 AL: 192 QRS: 36 QRSD: 76 T: 0 QT: 342 QTc: 465 Interpretive Statements SINUS TACHYCARDIA LOW QRS VOLTAGE [QRS DEFLECTION < 0.5/1.0 mV IN LIMB/CHEST LEADS] ANTEROSEPTAL MYOCARDIAL INFARCTION [40+ ms Q WAVE IN V1-V4], PROBABLY OLD Compared to ECG 08/30/2020 20:15:56 No significant changes Electronically Signed On 08-31-2020 8:45:23 PREMIUM SERVICE REPRESENTATIVE by Nati Rubio M.D. [id number]
[2020-08-30] MEDS: enoxaparin 80 mg/0.8 mL Syringe 160 MG SUBCUT (23:56)
[2020-08-31] VITALS (9 sets, daily range): BP systolic 85–135; BP diastolic 52–94; PULSE 103–113; RESP 17–71; TEMP 36.3–37.2; O2SAT 93–97
[2020-08-31 00:20] LABS: Estmated Average Glucose 318; Hemoglobin A1C 12.7 % (4.0-6.0)
[2020-08-31 00:58] LABS: Urine Creatinine 116 mg/dL (39-259); Urine Random Sodium 53 mmol/L
[2020-08-31 01:03] LABS: Creatinine Urine, Random 116 mg/dL (39-259)
[2020-08-31 01:20] LABS: Microalbum Creatinine Ratio Ur 1457 mg/dL (0-20); Microalbumin Random Urine 169 ug/dL (0-20)
[2020-08-31 01:25] LABS: Potassium Urine Random 26.16
[2020-08-31] MEDS: FUROsemide 10 mg/mL SDV 4mL 40 MG IVP ×2 (09:27→21:49)
--- NOTE | 2020-08-31 12:13 | PM.PN ---
Subjective Subjective: Interval history: Mr. Clement, his reporting that his current symptoms, of generalized swelling of the entire body and decreased functional status, started roughly 2-3 months back and has got progressively worsened. His vitals have for most part remained stable,has remained afebrile, is saturating well on 2-3 Ls oxygen via NC.Though he has been tachycardic. Making good urine output ( 1650 ml ) Medications: Reviewed: Yes Vitals/I&O/Wt Last Vital Signs Temp 98.1 F 08/31/20 11:26 Pulse 112 H 08/31/20 11:26 Resp 18 08/31/20 11:26 BP 104/69 08/31/20 11:26 Pulse Ox 94 08/31/20 11:26 08/30/20 08/31/20 08/31/20 22:59 06:59 14:59 Intake Total 240 / 240 1194 / 1194 Output Total 950 / 950 400 / 400 Balance -710 / -710 794 / 794 Weight last 48 hrs Weight 158.757 kg Physical Exam Const: COMMON NORMALS: patient oriented x3 HENMT: COMMON NORMALS: normocephalic and atraumatic HEAD & SCALP: normocephalic and atraumatic Chest: COMMONS NORMALS: normal inspection of the chest CHEST: Yes Symmetrical chest wall rise Resp: COMMON NORMALS: normal respiratory effort EFFORT & INSPECTION: Yes symmetric chest movement OTHER: Diminished Breath Sounds at the bases Cardio: COMMON NORMALS: regular rate, regular rhythm, S1 normal heart sound present, S2 normal heart sound present, No gallops present (Cardio), No murmurs present (Cardio), No rub (Cardio) and Peripheral pulses 2+ throughout RATE: regular rate RHYTHM: regular rhythm HEART SOUNDS: S1 normal heart sound present and S2 normal heart sound present PERIPHERAL PULSES: Peripheral pulses 2+ throughout GI: COMMON NORMALS: Soft to palpation, non-tender and no masses AUSCULTATION: Yes normoactive bowel sounds PALPATION: Yes Soft to palpation RECTAL EXAM: Yes deferred OTHER: Abodominal distension, Generalized pitting edema of the anterior abdominal wall Extremity: OTHER: 3+ B/L Pitting edema Upto the mid leg with chronic skin changes, features of stasis dermatitis present. Neuro: COMMON NORMALS: patient oriented x3 Data : 08/30/20 19:57 08/30/20 19:57 A&P Assessment and plan (1) New onset of congestive heart failure: Patient has been admitted with worsening generalized swelling of whole body as well as worsening SOB. Pro Bnp : 6129 2D Echo :Pending EKG: Sinus tachycardia, QRS, rate 111, corrected QTC is 465. Continue Lasix 40 mg IV every 12 hours Monitor intake output Monitor daily weight We will decrease lisinopril dose to 5 mg oral daily, given borderline blood pressure Status: Acute (2) Anasarca: Likely secondary to decompensated heart failure Has generalized swelling of the entire body. Also has ascites, pleural effusion. Serum Albumin is normal: 3.5. We will continue with IV diuresis for now Status: Acute (3) Diabetes: Newly diagnosed UnControlled diabetes. Will order ( 4 autoantibodies are markers of beta cell autoimmunity in type 1 diabetes: islet cell antibodies (ICA, against cytoplasmic proteins in the beta cell), antibodies to glutamic acid decarboxylase (KATHYA-65), insulin autoantibodies (IAA), and IA-2A, to protein tyrosine phosphatase ) LDSSI FSG Status: Acute (4) Acute respiratory failure with hypoxia: Status: Acute Additional A&P Information DVT PPX: Lovenox 40 Mg sc daily Code Status :Full code Disposition :Home Attestations Medical Necessity Statement*: Needs to be in hospital for the management of decompensated heart failure and anasarca as well as hypoxic respiratory failure, and the need of IV diuresis. Coding Level of Care Code Acute Electrical Electronics Technician for [facility] Fwd Diagnoses New onset of congestive heart failure I50.9 Anasarca R60.1 Diabetes E11.9 Acute respiratory failure with hypoxia J96.01
--- NOTE | 2020-08-31 13:21 | PC.CHAP ---
Pastoral Care Encounter/Spiritual Assessment Type of Contact [] Declined vp legal affairs visit [] Patient/Family/Request visit [] Outpatient visit [] Follow-up visit [] Physician referral [] Code/Alert [X] Routine visit [] Staff referral [] Actively dying [] Patient sleeping [] Family support [] [] Out of room [] Palliative care [] [] Receiving care in room [] Pre-surgical visit [] Trauma [] Long length of stay [] ICU visit [] Other: Relational/Emotional Strength [X] Patient feels connected with others/family/visitors/staff [] Distress [] Loneliness/isolation [] Abandonment Spirituality of Patient [] Person of Yaneth [] Attends Druze of their Yaneth [X] Believes in Prayer [] Reads Bible or Hoahaoism materials [] There are Spiritual issues to be addressed [facility] Interventions [X] Prayer [X] Active listening [X] Non-anxious presence [] Spiritual/emotional support [] Crisis/trauma care [] Spiritual counseling [] Bereavement support [] Provided bereavement packet [] Provided Bible/devotional materials [] Provided toy/stuffed animal, coloring book to patient or family member [] Provided Communion [] Anointing/[place] [] Salvation [X] Completed spiritual assessment [] Other: Impact on Illness or Injury [] Angry [] Fearful [] Anxious [] Often cries [] Exhaustion [] Unable to work [] Unable to attend orthodox [] Unable to walk/stand [] Unable to read [] Unable to drive [] Unable to eat/drink [] Unable to sleep [] Unable to be with family [] Patient intubated [] Other: Summary: Pt was uncomfortable and sad. He had been dealing with the fluid buildup for some time and admits that he should have sought care sooner. He has a 9yo son who is worried and wants to see his dad. Pt was teary throughout the visit and appreciated the prayer. Time spent with patient: 5 - 7 mins
[2020-08-31 16:50] LABS: Glucose Point of Care 148 mg/dL (70-110)
[2020-08-31] MEDS: acetaminophen-codeine 300-30mg Tablet 1 TAB PO (17:55)
[2020-08-31 21:05] LABS: Glucose Point of Care 160 mg/dL (70-110)
[2020-09-01] VITALS (8 sets, daily range): BP systolic 104–123; BP diastolic 62–76; PULSE 57–116; RESP 16–26; TEMP 36.4–37.6; O2SAT 92–99
--- NOTE | 2020-09-01 | USCV_ITS ---
Aby Clement Age: 55 Gender: M : 1965 Exam Date: 09/01/2020 09:59 Ordering Phys: Misael Quinonez MD Technologist: Katharine Cason [place] [facility] [place] CHF BP: 115 / 76 HR: 111 Rhythm: Sinus tachycardia Technical Quality: Suboptimal MEASUREMENTS (Male / Female) Normal Values 2D ECHO LV Diastolic Diameter PLAX 5.3 cm 4.2 - 5.9 / 3.9 - 5.3 cm LV Systolic Diameter PLAX 5.0 cm LV Chamber Size 5.1 cm IVS Diastolic Thickness 1.1 cm 0.6 - 1.0 / 0.6 - 0.9 cm IVS Systolic Thickness 1.3 cm LVPW Diastolic Thickness 1.0 cm 0.6 - 1.0 / 0.6 - 0.9 cm LVPW Systolic Thickness 1.3 cm RV Chamber Size 4.4 cm LV Ejection Fraction 2D Teich 14.3 % LA Width 4.4 cm LA Height 6.1 cm RA Width 5.5 cm RA Height 5.9 cm M-MODE LV Diastolic Diameter MM 6.8 cm 4.2 - 5.9 / 3.9 - 5.3 cm LV Systolic Diameter MM 6.2 cm LV Ejection Fraction MM Teich 19.1 % IVS Diastolic Thickness MM 0.7 cm 0.6 - 1.0 / 0.6 - 0.9 cm IVS Systolic Thickness MM 0.6 cm LVPW Diastolic Thickness MM 1.3 cm 0.6 - 1.0 / 0.6 - 0.9 cm LVPW Systolic Thickness MM 1.5 cm RV Diastolic Diameter MM 1.6 cm FINDINGS Left Ventricle Mildly increased left ventricular cavity size. Severely decreased left ventricular systolic function. Left ventricular ejection fraction is estimated at 15 %. Severe global hypokinesis. Flattened septum in diastole consistent with right ventricle volume overload. Right Ventricle Mildly increased right ventricular size. Moderately decreased right ventricular systolic function. Right ventricular systolic pressure 31 mmHg. Right Atrium Normal right atrial size. Right atrial pressure estimated at 15 mmHg. Left Atrium Mildly increased left atrial size. Mitral Valve Structurally normal mitral valve. No mitral valve stenosis. Mild mitral valve regurgitation. Aortic Valve Structurally normal trileaflet aortic valve. No aortic valve stenosis. No aortic valve regurgitation. Tricuspid Valve Structurally normal tricuspid valve. No tricuspid valve stenosis. [id number] tricuspid valve regurgitation. Pulmonic Valve Structurally normal pulmonic valve. Trace pulmonary valve regurgitation. Pericardium No pericardial effusion. Aorta Normal-sized aortic root. Dilated inferior vena cava with less than 50% respiratory variation. CONCLUSIONS 1. Mildly dilated left ventricular cavity. Severely decreased left ventricular systolic function. Left ventricular ejection fraction is estimated at 15 %. Severe global hypokinesis. Flattened septum in diastole consistent with right ventricle volume overload. 2. Mildly dilated right ventricle. Moderately decreased right ventricular systolic function. 3. Pulmonary artery pressure estimated at 31 mmHg. 4. Mild mitral valve regurgitation. 5. Mild to moderate tricuspid valve regurgitation. 6. No prior similar studies to compare. Nati Rubio MD Edited by: CV Domestic Cleaner (Electronically Signed) Final Date: 01 September 2020 16:06 Amended: 03 September 2020 10:47 C
[2020-09-01 05:34] LABS: Basophils # 0.1 10^3/uL (0.0-0.1); Basophils % 0.6 %; Eosinophils # 0.1 10^3/uL (0.0-0.8); Eosinophils % 1.1 %; Hematocrit 40.9 % (42.0-52.0); Hemoglobin 12.3 g/dL (11.7-16.6); Lymphocytes # 1.5 10^3/uL (0.8-4.8); Lymphocytes % 19.1 %; Mean Corpuscular HGB Conc 30.1 g/dL (30.0-36.0); Mean Corpuscular Hemoglobin 25.8 pg (28.0-34.0); Mean Corpuscular Volume 85.7 fL (80-94); Monocytes # 0.5 10^3/uL (0.2-0.9); Monocytes % 6.2 %; Neutrophils # 5.72 10^3/uL (1.8-7.7); Neutrophils % 72.7 %; Nucleated Red Blood Cells % 0 %; Platelet Count 317 10^3/cmm (130-400); Red Blood Count 4.77 10^6/uL (4.1-5.3); Red Cell Distribution Width 15.5 % (12.1-15.1); White Blood Count 7.9 10^3/uL (4.0-10.0)
[2020-09-01 05:59] LABS: Alanine Aminotransferase 12 U/L (0-41); Albumin Level 3.2 g/dL (3.5-5.2); Alkaline Phosphatase 161 IU/L (40-130); Anion Gap 13.7 (5-19); Aspartate Amino Transferase 13 U/L (0-40); Blood Urea Nitrogen 13 mg/dL (6-20); Calcium 8.7 mg/dL (8.5-10.5); Carbon Dioxide 26 mmol/L (22-29); Chloride 105 mmol/L (98-107); Globulin 2.5 g/dL (1.3-4.6); Glomerular Filtration Rate 78.2 mL/min (90-130); Glucose 119 mg/dL (65-115); Magnesium 1.8 mg/dL (1.7-2.3); Osmolality Calculated 293 mOsm/kg (285-295); Potassium 3.7 mmol/L (3.5-5.1); Sodium 141 mmol/L (136-145); Total Bilirubin 0.4 mg/dL (0.15-1.2); Total Protein 5.7 g/dL (6.6-8.7)
[2020-09-01 06:41] LABS: Glucose Point of Care 124 mg/dL (70-110)
[2020-09-01] MEDS: polyethylene glycol 3350 Pkt 17 gm PO (08:05)
[2020-09-01] MEDS: lisinopril 5 mg Tablet PO (08:05)
[2020-09-01] MEDS: metoprolol tartrate 25 mg Tablet 12.5 MG PO (08:52)
[2020-09-01] MEDS: FUROsemide 10 mg/mL SDV 4mL 40 MG IVP ×2 (08:53→22:14)
[2020-09-01] MEDS: enoxaparin 40 mg/0.4 mL Syringe SUBCUT (10:30)
--- NOTE | 2020-09-01 10:45 | USR_ITS ---
PROCEDURE INFORMATION: Exam: US Duplex Lower Extremity Veins, Bilateral Exam date and time: 09/01/2020 12:44 PM Age: 55 years old Clinical indication: Edema, localized; Lower extremity, bilateral; Additional info: Dvt TECHNIQUE: Imaging protocol: Real-time duplex ultrasound of the extremities with 2-D mercer scale, color Doppler flow and spectral waveform analysis with image documentation. Complete exam focused on the bilateral lower extremity veins. COMPARISON: No relevant prior studies available. FINDINGS: Right deep veins: Unremarkable. The common femoral, femoral, proximal profunda femoral and popliteal veins are patent without thrombus. Normal Doppler waveforms. Normal compressibility and/or augmentation response. Right superficial veins: Saphenofemoral junction is patent without thrombus. Left deep veins: Unremarkable. The common femoral, femoral, proximal profunda femoral and popliteal veins are patent without thrombus. Normal Doppler waveforms. Normal compressibility and/or augmentation response. Left superficial veins: Saphenofemoral junction is patent without thrombus. Soft tissues: Unremarkable. This exam is limited by the patient's body habitus. US/CV venous duplex [facility] [id number] IMPRESSION: No evidence of deep vein thrombosis.
[2020-09-01 11:17] LABS: Glucose Point of Care 148 mg/dL (70-110)
[2020-09-01] MEDS: cefTRIAXone 1,000 MG in sodium chloride 0.9% (plus) 50 ML 100 MG IV (11:44)
--- NOTE | 2020-09-01 15:41 | PM.CONSULT ---
Providers/Reason For Consult Consulting Physican/Specialty*: Dr. Rubio, cardiology Reason for Consult*: Decompensated congestive heart failure, newly diagnosed cardiomyopathy Attending Physician: Clark Doyle MD History of Present Illness History of Present Illness Aby Clement is a 55 year old male who does not see a doctor on a regular basis. He is a chronic active smoker and smokes 1 to 1.5 pack/day with no prior known history of [place], CHF or CVA. He presented to the hospital with worsening leg swelling that has progressively worsened in the last 1 to 2 months. He also complains of shortness of breath and abdominal distention with fluid leak from legs and hands. Positive orthopnea and paroxysmal nocturnal dyspnea. Blood pressure on arrival was 157/106 mmHg. labs on arrival with hemoglobin 14.4, WBC 10.1, potassium 4.3, CO2 28, BUN 10, creatinine 0.8, hemoglobin A1c 12.7. Alkaline phosphatase elevated at 208, baseline troponin T of 49 that decreased to 47 and at 2 hours. NT proBNP of 6129. Total protein 6.2 and albumin 3.5. TSH 4.7. Since admission he was started on Lasix IV and his total urine output has been 3.6 L and he is -1.5 L since admission. Review of Systems Const: Reports: body aches, change in weight, fatigue and malaise; Denies: fever(s) or chills Eyes: Denies: change in vision ENMT: Denies: throat pain Card: Reports: edema, swelling of feet/ankles, dyspnea on exertion and orthopnea Resp: Reports: dyspnea and non-productive cough GI: Reports: abdominal pain and constipation; Denies: nausea or vomiting : Denies: flank pain Musc: Reports: muscle cramps Skin/Breast: Reports: new lesions, lesions, dry skin and nail changes Neuro: Denies: headache(s) Psych: Denies: anxiety Endo: Denies: polyuria Sorin/Lymph: Denies: easy bruising All/Imm: Denies: urticaria Meds/Allergies Home Medications and Allergies Home Medications Medication Instructions Recorded Confirmed Last Taken Type acetaminophen [Tylenol Extra 250 - 500 mg PO PRN 08/30/20 08/30/20 Unknown History Strength] Allergies Allergy/AdvReac Type Severity Reaction Status Date / Time No Known Allergies Allergy Verified 08/30/20 19:29 Current Medications Current Medications Generic Name Dose Route Start Last Admin Trade Name Freq PRN Reason Stop Dose Admin Acetaminophen/Codeine Phosphate 1 tab 08/31/20 17:39 08/31/20 17:55 Acetaminophen-Codeine 300-30mg Tablet PO 1 tab Q4H PRN Administration MODERATE PAIN Enoxaparin Sodium 40 mg 09/01/20 10:00 09/01/20 10:30 Enoxaparin 40 Mg/0.4 Ml Syringe SUBCUT 40 mg Q24H [facility] Administration Furosemide 40 mg 08/31/20 19:00 09/01/20 08:53 Furosemide 10 Mg/Ml Sdv 4ml IVP 40 mg Q12H [facility] Administration Ceftriaxone Sodium 1,000 mg/ 50 mls @ 100 mls/hr 09/01/20 11:00 09/01/20 11:44 Sodium Chloride IV 100 mls/hr Q24H [facility] Administration Protocol Insulin Aspart 0 unit 08/31/20 18:00 09/01/20 11:48 Insulin Aspart 100 Unit/1 Ml SUBCUT 2 unit WM&BEDTIME [facility] Administration Protocol Lisinopril 5 mg 09/01/20 09:00 09/01/20 08:05 Lisinopril 5 Mg Tablet PO 5 mg DAILY [facility] Administration Polyethylene Glycol 17 gm 08/31/20 09:00 09/01/20 08:05 Polyethylene Glycol 3350 Pkt 17 Gm PO 17 gm DAILY [facility] Administration PFSH Acute PFSH: Medical History No pertinent past medical history Surgical History No pertinent past surgical history Family History Mother CAD (coronary artery disease) Social History Smoking and tobacco status: current every day smoker cigarettes [ Other cigarette details: Has been smoking 2 packs/day, currently 1 pack/day ] Alcohol intake: never Substance/Drug Use: never Household members: spouse Housing: House Vitals/I&O/Wt Last Vital Signs Temp 98.3 F 09/01/20 12:00 Pulse 112 H 09/01/20 12:00 Resp 17 09/01/20 12:00 BP 106/72 09/01/20 12:00 Pulse Ox 93 09/01/20 12:00 09/01/20 09/01/20 09/01/20 06:59 14:59 22:59 Intake Total 540 / 540 60 / 600 Output Total 700 / 1775 925 / 925 Balance -700 / -461 -385 / -385 60 / -325 Weight last 48 hrs Weight 350 lb Physical Exam Const: COMMON NORMALS: no acute distress, patient oriented x3, alert and well nourished GENERAL APPEARANCE: cooperative, comfortable, well kempt and well developed NUTRITIONAL APPEARANCE: obese ORIENTATION/CONSCIOUSNESS: Yes oriented to person, Yes oriented to place and Yes oriented to time HENMT: COMMON NORMALS: normocephalic, atraumatic, hearing grossly normal bilaterally, external ears normal and Normal external nose present HEAD & SCALP: normocephalic and atraumatic FACE & SINUS: face symmetric NOSE: Normal external nose present EXTERNAL EAR: Yes external ears normal Eye: COMMON NORMALS: Equal, round and reactive pupils present, EOMs intact bilaterally and conjunctivae normal ALIGNMENT: Yes alignment normal CONJUNCTIVA: Yes conjunctivae normal SCLERA: sclerae normal PUPIL: Yes Equal, round and reactive pupils present Neck/C-Spine: COMMON NORMALS: no lymphadenopathy, supple, no JVD and Thyroid normal; negative for No carotid bruits GENERAL: Yes trachea midline THYROID: Thyroid normal Lymph: LYMPHATIC: No no lymphadenopathy noted Chest: COMMONS NORMALS: normal inspection of the chest CHEST: Yes Symmetrical chest wall rise and No tenderness Resp: COMMON NORMALS: normal respiratory effort, No use of accessory muscles and clear to auscultation bilaterally EFFORT & INSPECTION: Yes able to speak in complete sentences and No audible wheezes AUSCULTATION: clear to auscultation bilaterally, no crackles, no rales, no rhonchi and no wheezes Cardio: COMMON NORMALS: no JVD, regular rate, regular rhythm, S1 normal heart sound present, S2 normal heart sound present and Peripheral pulses 2+ throughout; negative for No gallops present (Cardio) and negative for No clicks present (Cardio) JUGULAR VENOUS DISTENTION: no JVD PALPATION: normal PMI, no heave, no palpable S3, no palpable S4 and no thrill RATE: regular rate RHYTHM: regular rhythm HEART SOUNDS: S1 normal heart sound present, S2 normal heart sound present, no gallops and no murmurs BRUITS: no carotid bruits PERIPHERAL PULSES: Peripheral pulses 2+ throughout GI: COMMON NORMALS: Normal to inspection, nondistended, normoactive bowel sounds present and non-tender INSPECTION: Yes Abdominal wall edema and Yes Anasarca PALPATION: Yes Firmness to palpation present (GI) and Yes Other GI palpation findings present (obese and distended) PERCUSSION: dullness to percussion RECTAL EXAM: Yes deferred : PENIS: other (scrotal and penile edema) Back/Pelvis: GENERAL BACK: Yes other (edema noted on back) Extremity: NARRATIVE EXTREMITY EXAM: 4+ edema, Anasarca+ , woody induration noted Neuro: COMMON NORMALS: patient oriented x3 and no focal motor deficits SENSORIUM/ORIENTATION: Yes alert, Yes oriented to person, Yes oriented to place and Yes oriented to time CRANIAL NERVES: Yes CN normal except as noted Psych: COMMON NORMALS: Normal thought process present APPEARANCE: Yes well kempt MOOD & AFFECT: Yes euthymic mood THOUGHT PROCESS: Normal thought process present THOUGHT CONTENT: Yes Normal thought content present ATTENTION/CONCENTRATION: Yes attention grossly intact MEMORY/COGNITION: Yes memory grossly intact INSIGHT: Good insight present (Psych) JUDGEMENT: Good judgement present (Psych) Skin: NARRATIVE SKIN EXAM: Bilateral leg erythema and serous to pustular discharge Data Micro: Micro: Microbiology 08/30/20 21:15 Urine Culture - Pr eliminary Urine,Clean Catch Imaging^: CXR: I personally reviewed and interpreted this imaging study as follows: My impression: Chest x-ray with mild cardiomegaly and mild pulmonary venous congestion. Other Data: Other data: CT scan of chest abdomen and pelvis on 30 August 2020 IMPRESSION: 1. Cardiomegaly is present. No pericardial effusion. 2. Small to moderate sized right pleural effusion. 3. Diffuse subcutaneous edema, consistent with anasarca. 4. Pulmonary arteries are well opacified. Pulmonary arteries are normal in caliber. No filling defects are demonstrated. No evidence of pulmonary embolism. IMPRESSION: 1. Moderate ascites in the abdomen and pelvis. 2. Diffuse subcutaneous edema, consistent with anasarca. 3. Mild nonspecific bilateral inguinal adenopathy. Lymph nodes measuring up to 2 cm in length are noted. 4. Small left inguinal hernia noted, containing only fat. Venous duplex on 01 September 2020 with no evidence of DVT. EKG on arrival showed sinus tachycardia with normal axis and low QRS voltage and possible old anteroseptal infarct. A&P Assessment and plan (1) Acute respiratory failure with hypoxia: Status: Acute (2) New onset of congestive heart failure: Severely depressed LVEF of 15% along with moderately depressed RV function. -newly diagnosed. continue with IV lasix. -I/O charting and daily weight. -Further work up for ischemic etiology once patient is euvolemic. Status: Acute (3) Anasarca: Status: Acute (4) Diabetes: Status: Acute Qualifiers: Diabetes mellitus type: type 2 Diabetes mellitus half-way insulin use: unspecified half-way insulin use status Additional A&P Information Bilateral leg cellulitis Elevated alkaline phosphatase Elevated TSH Suspect Sleep apnea Morbid obesity Chronic active smoker Thank you for allowing me to participate in patient's care. Please feel free to call with questions or concerns. Coding Level of Care Code Acute Operations Intelligence for Dale Fwd Exam Comprehensive Diagnoses Acute respiratory failure with hypoxia J96.01 New onset of congestive heart failure I50.9 Anasarca R60.1 Diabetes E11.9 Diabetes mellitus type: type 2 Diabetes mellitus technician terminal and repeater insulin use: unspecified half-way insulin use status
[2020-09-01 16:58] LABS: Glucose Point of Care 185 mg/dL (70-110)
[2020-09-01] MEDS: carvedilol 3.125 mg Tablet PO (17:03)
--- NOTE | 2020-09-01 21:00 | PM.PN ---
Subjective Subjective: Interval history: Patient was seen and examined today by the bedside. Deny any chest pain,still have sob on ambulation deny nausea,vomiting. He is diuresing well with I.V lasix with net negative of 1.3 Litres. Has remained afebrile though has tachycardia. Other vitals and labs have been reviewed. Medications: Reviewed: Yes Vitals/I&O/Wt Last Vital Signs Temp 99.6 F 09/01/20 19:20 Pulse 108 H 09/01/20 20:04 Resp 16 09/01/20 20:04 BP 104/73 09/01/20 19:20 Pulse Ox 94 09/01/20 20:04 09/01/20 09/01/20 09/01/20 06:59 14:59 22:59 Intake Total 540 / 540 360 / 900 Output Total 700 / 1775 925 / 925 150 / 1075 Balance -700 / -461 -385 / -385 210 / -175 Physical Exam Const: COMMON NORMALS: patient oriented x3 HENMT: COMMON NORMALS: normocephalic and atraumatic HEAD & SCALP: normocephalic and atraumatic Chest: COMMONS NORMALS: normal inspection of the chest and normal palpation of entire chest wall CHEST: Yes Symmetrical chest wall rise Resp: COMMON NORMALS: normal respiratory effort and clear to auscultation bilaterally EFFORT & INSPECTION: Yes symmetric chest movement AUSCULTATION: clear to auscultation bilaterally Cardio: COMMON NORMALS: regular rate, regular rhythm, S1 normal heart sound present, S2 normal heart sound present, No gallops present (Cardio), No murmurs present (Cardio) and No rub (Cardio) RATE: regular rate RHYTHM: regular rhythm HEART SOUNDS: S1 normal heart sound present and S2 normal heart sound present GI: AUSCULTATION: Yes normoactive bowel sounds RECTAL EXAM: Yes deferred OTHER: Generalized pitting edema of the anterior abdominal wall : OTHER: Scrotal swelling due to edema present Extremity: OTHER: 3+ B/L Pitting edema Upto the mid leg with chronic skin changes, features of stasis dermatitis present and weeping wounds. Neuro: COMMON NORMALS: patient oriented x3 Data : 09/01/20 05:08 09/01/20 05:08 Micro: Microbiology 08/30/20 21:15 Urine Culture - Preliminary Urine,Clean Catch A&P Assessment and plan (1) New onset of congestive heart failure: Patient has been admitted with worsening generalized swelling of whole body as well as worsening SOB. Pro Bnp : 6129 2D Echo : LVEF 15 % (Final report pending ) EKG: Sinus tachycardia, QRS, rate 111, corrected QTC is 465. Lasix 40 mg IV every 12 hours Linopril dose to 5 mg oral daily Cravedelol 3.125 mg q12 h daily Metolazone 5 mg PO Daily Monitor intake output Monitor daily weight Appreciate Cardiology Rec Status: Acute (2) Cellulitis: Cellulitis of B/L L/E CV venous duplex LE BI:No DVT Continue Ceftriaxone 1 gm I.V Q24H Daily Wound care consult Status: Acute (3) Anasarca: Likely secondary to decompensated heart failure Has generalized swelling of the entire body. Also has ascites, pleural effusion. Serum Albumin is normal: 3.5. We will continue with IV diuresis for now Status: Acute (4) Diabetes: Newly diagnosed UnControlled diabetes. Will order ( 4 autoantibodies are markers of beta cell autoimmunity in type 1 diabetes: islet cell antibodies (ICA, against cytoplasmic proteins in the beta cell), antibodies to glutamic acid decarboxylase ([id number]), insulin autoantibodies (IAA), and IA-2A, to protein tyrosine phosphatase ) LDSSI FSG Status: Acute Qualifiers: Diabetes mellitus type: type 2 Diabetes mellitus ocean transportation intermediary insulin use: unspecified ocean transportation intermediary insulin use status (5) Acute respiratory failure with hypoxia: Status: Acute Additional A&P Information DVT PPX: Lovenox 40 Mg sc daily Code Status :Full code Disposition :Home Attestations Medical Necessity Statement*: Patient needs to be in hospital for the management of Decompensated H.F Coding Level of Care Code Acute Orientation & Mobility Specialist for g Fwd Diagnoses New onset of congestive heart failure I50.9 Cellulitis L03.90 Anasarca R60.1 Diabetes E11.9 Diabetes mellitus type: type 2 Diabetes mellitus mcfp insulin use: unspecified ocean transportation intermediary insulin use status Acute respiratory failure with hypoxia J96.01
[2020-09-01 21:01] LABS: Glucose Point of Care 185 mg/dL (70-110)
[2020-09-02] VITALS (10 sets, daily range): BP systolic 91–124; BP diastolic 68–81; PULSE 82–104; RESP 16–20; TEMP 36.1–37; O2SAT 92–100
[2020-09-02] MEDS: acetaminophen-codeine 300-30mg Tablet 1 TAB PO ×2 (02:48→22:01)
[2020-09-02 05:16] LABS: Basophils # 0.1 10^3/uL (0.0-0.1); Basophils % 0.6 %; Eosinophils # 0.1 10^3/uL (0.0-0.8); Eosinophils % 0.9 %; Hematocrit 41.2 % (42.0-52.0); Hemoglobin 12.5 g/dL (11.7-16.6); Lymphocytes # 1.3 10^3/uL (0.8-4.8); Lymphocytes % 14.7 %; Mean Corpuscular HGB Conc 30.3 g/dL (30.0-36.0); Mean Corpuscular Hemoglobin 26.3 pg (28.0-34.0); Mean Corpuscular Volume 86.6 fL (80-94); Mean Platelet Volume 9.9 fL (7.4-10.4); Monocytes # 0.6 10^3/uL (0.2-0.9); Monocytes % 6.6 %; Neutrophils # 6.95 10^3/uL (1.8-7.7); Neutrophils % 76.9 %; Nucleated Red Blood Cells % 0 %; Platelet Count 311 10^3/cmm (130-400); Red Blood Count 4.76 10^6/uL (4.1-5.3); Red Cell Distribution Width 15.5 % (12.1-15.1)
[2020-09-02 05:37] LABS: Alanine Aminotransferase 13 U/L (0-41); Albumin Level 2.9 g/dL (3.5-5.2); Alkaline Phosphatase 175 IU/L (40-130); Anion Gap 15.1 (5-19); Aspartate Amino Transferase 17 U/L (0-40); Blood Urea Nitrogen 16 mg/dL (6-20); Calcium 8.6 mg/dL (8.5-10.5); Carbon Dioxide 25 mmol/L (22-29); Chloride 108 mmol/L (98-107); Globulin 2.7 g/dL (1.3-4.6); Glomerular Filtration Rate 78.2 mL/min (90-130); Glucose 145 mg/dL (65-115); Osmolality Calculated 302 mOsm/kg (285-295); Potassium 4.1 mmol/L (3.5-5.1); Sodium 144 mmol/L (136-145); Total Bilirubin 0.5 mg/dL (0.15-1.2); Total Protein 5.6 g/dL (6.6-8.7)
[2020-09-02 06:46] LABS: Glucose Point of Care 124 mg/dL (70-110)
[2020-09-02] MEDS: carvedilol 3.125 mg Tablet PO ×2 (08:14→17:22)
[2020-09-02] MEDS: metOLazone 5 MG Tablet PO (08:14)
[2020-09-02] MEDS: lisinopril 5 mg Tablet PO (08:14)
[2020-09-02] MEDS: enoxaparin 40 mg/0.4 mL Syringe SUBCUT (08:15)
[2020-09-02] MEDS: FUROsemide 10 mg/mL SDV 4mL 40 MG IVP (09:22)
[2020-09-02 11:05] LABS: Glucose Point of Care 218 mg/dL (70-110)
[2020-09-02] MEDS: cefTRIAXone 1,000 MG in sodium chloride 0.9% (plus) 50 ML 100 MG IV (11:35)
--- NOTE | 2020-09-02 11:35 | PC.NURSE ---
Let nurse know about high heart rate 101
--- NOTE | 2020-09-02 13:16 | P.PN_ITS ---
Subjective Subjective: Interval history: Continues to complain of shortness of breath. No events on telemetry. Urine output 2.5 L from yesterday with negative balance of 1.9 L. Length of stay -3.1 L. Medications: Reviewed: Yes Medication Review Details: Current Medications Acetaminophen/Codeine Phosphate (Acetaminophen-Codeine 300-30mg Tablet) 1 tab PO Q4H PRN PRN Reason: MODERATE PAIN Last Admin: 09/02/20 02:48 Dose: 1 tab Documented by: Albuterol/Ipratropium (Ipratropium-Albuterol 3 Ml Neb) 3 ml INHALATION Q6H PRN PRN Reason: SHORTNESS OF BREATH Carvedilol (Carvedilol 3.125 Mg Tablet) 3.125 mg PO BID COUNTS INCLUDE 234 BEDS AT THE [facility] Last Admin: 09/02/20 17:22 Dose: 3.125 mg Documented by: Dextrose (Dextrose 50% Syringe 50 Ml) 25 ml IVP ONCE PRN; Protocol PRN Reason: hypoglycemia protocol Dextrose (Dextrose 50% Syringe 50 Ml) 50 ml IVP PRN PRN; Protocol PRN Reason: hypoglycemia protocol Enoxaparin Sodium (Enoxaparin 40 Mg/0.4 Ml Syringe) 40 mg SUBCUT Q24H COUNTS INCLUDE 234 BEDS AT THE [facility] Last Admin: 09/02/20 08:15 Dose: 40 mg Documented by: Furosemide (Furosemide 10 Mg/Ml Sdv 10ml) 60 mg IVP 0800,1600 COUNTS INCLUDE 234 BEDS AT THE [facility] Last Admin: 09/02/20 16:41 Dose: 60 mg Documented by: Glucagon (Glucagon 1 Mg/Ml Inj 1 Ml) 1 mg IM ONCE PRN; Protocol PRN Reason: Adult Acute Hypoglycemia Prot. Dextrose (D5w) 500 mls @ 100 mls/hr IV ONCE PRN; Protocol PRN Reason: Adult Acute Hypoglycemia Prot Ceftriaxone Sodium 1,000 mg/ (Sodium Chloride) 50 mls @ 100 mls/hr IV Q24H COUNTS INCLUDE 234 BEDS AT THE [facility]; Protocol Last Admin: 09/02/20 11:35 Dose: 100 mls/hr Documented by: Insulin Aspart (Insulin Aspart 100 Unit/1 Ml) 0 unit SUBCUT WM&BEDTIME COUNTS INCLUDE 234 BEDS AT THE [facility]; Protocol Last Admin: 09/02/20 17:22 Dose: 4 unit Documented by: Lisinopril (Lisinopril 5 Mg Tablet) 5 mg PO DAILY COUNTS INCLUDE 234 BEDS AT THE [facility] Last Admin: 09/02/20 08:14 Dose: 5 mg Documented by: Metolazone (Metolazone 5 Mg Tablet) 5 mg PO DAILY COUNTS INCLUDE 234 BEDS AT THE [facility] Last Admin: 09/02/20 08:14 Dose: 5 mg Documented by: Polyethylene Glycol (Polyethylene Glycol 3350 Pkt 17 Gm) 17 gm PO DAILY COUNTS INCLUDE 234 BEDS AT THE [facility] Last Admin: 09/02/20 08:17 Dose: Not Given Documented by: Vitals/I&O/Wt Last Vital Signs Temp 97.4 F L 09/02/20 11:27 Pulse 101 H 09/02/20 11:27 Resp 19 H 09/02/20 11:27 BP 100/70 09/02/20 11:27 Pulse Ox 96 09/02/20 11:27 09/01/20 09/02/20 09/02/20 22:59 06:59 14:59 Intake Total 360 / 950 220 / 220 Output Total 150 / 1075 400 / 1475 1000 / 1000 Balance 210 / -125 -400 / -525 -780 / -780 Physical Exam Const: COMMON NORMALS: no acute distress, patient oriented x3, alert and well nourished GENERAL APPEARANCE: cooperative, comfortable, well kempt and well developed NUTRITIONAL APPEARANCE: obese ORIENTATION/CONSCIOUSNESS: Yes oriented to person, Yes oriented to place and Yes oriented to time HENMT: COMMON NORMALS: normocephalic, atraumatic, hearing grossly normal bilaterally, external ears normal and Normal external nose present HEAD & SCALP: normocephalic and atraumatic FACE & SINUS: face symmetric NOSE: Normal external nose present EXTERNAL EAR: Yes external ears normal Eye: COMMON NORMALS: Equal, round and reactive pupils present, EOMs intact bilaterally and conjunctivae normal ALIGNMENT: Yes alignment normal CONJUNCTIVA: Yes conjunctivae normal SCLERA: sclerae normal PUPIL: Yes Equal, round and reactive pupils present Neck/C-Spine: COMMON NORMALS: no lymphadenopathy, supple, no JVD and Thyroid normal; negative for No carotid bruits GENERAL: Yes trachea midline THYROID: Thyroid normal Lymph: LYMPHATIC: No no lymphadenopathy noted Chest: COMMONS NORMALS: normal inspection of the chest CHEST: Yes Symmetrical chest wall rise and No tenderness Resp: COMMON NORMALS: normal respiratory effort, No use of accessory muscles and clear to auscultation bilaterally EFFORT & INSPECTION: Yes able to speak in complete sentences and No audible wheezes AUSCULTATION: clear to auscultation bilaterally, no crackles, no rales, no rhonchi and no wheezes Cardio: COMMON NORMALS: no JVD, regular rate, regular rhythm, S1 normal heart sound present, S2 normal heart sound present and Peripheral pulses 2+ throughout; negative for No gallops present (Cardio) and negative for No clicks present (Cardio) JUGULAR VENOUS DISTENTION: no JVD PALPATION: normal PMI, no heave, no palpable S3, no palpable S4 and no thrill RATE: regular rate RHYTHM: regular rhythm HEART SOUNDS: S1 normal heart sound present, S2 normal heart sound present, no gallops and no murmurs BRUITS: no carotid bruits PERIPHERAL PULSES: Peripheral pulses 2+ throughout GI: COMMON NORMALS: Normal to inspection, nondistended, normoactive bowel sounds present and non-tender INSPECTION: Yes Abdominal wall edema and Yes Anasarca PALPATION: Yes Firmness to palpation present (GI) and Yes Other GI palpation findings present (obese and distended) PERCUSSION: dullness to percussion RECTAL EXAM: Yes deferred : PENIS: other (scrotal and penile edema) Back/Pelvis: GENERAL BACK: Yes other (edema noted on back) Extremity: NARRATIVE EXTREMITY EXAM: 4+ edema, Anasarca+ , woody induration noted Neuro: COMMON NORMALS: patient oriented x3 and no focal motor deficits SENSORIUM/ORIENTATION: Yes alert, Yes oriented to person, Yes oriented to place and Yes oriented to time CRANIAL NERVES: Yes CN normal except as noted Psych: COMMON NORMALS: Normal thought process present APPEARANCE: Yes well kempt MOOD & AFFECT: Yes euthymic mood THOUGHT PROCESS: Normal thought process present THOUGHT CONTENT: Yes Normal thought content present ATTENTION/CONCENTRATION: Yes attention grossly intact MEMORY/COGNITION: Yes memory grossly intact INSIGHT: Good insight present (Psych) JUDGEMENT: Good judgement present (Psych) Skin: NARRATIVE SKIN EXAM: Bilateral leg erythema and serous to pustular discharge Data : 09/02/20 05:04 09/02/20 05:04 Micro: Microbiology 08/30/20 21:15 Urine Culture - Final Urine,Clean Catch Attestation for Other Data: I personally reviewed and interpreted the following: Other data: # TTE (09/01/20) 1. Mildly dilated left ventricular cavity. Severely decreased left ventricular systolic function. Left ventricular ejection fraction is estimated at 15 %. Severe global hypokinesis. Flattened septum in diastole consistent with right ventricle volume overload. 2. Mildly dilated right ventricle. Moderately decreased right ventricular systolic function. 3. Pulmonary artery pressure estimated at 31 mmHg. 4. Mild mitral valve regurgitation. 5. Mild to moderate tricuspid valve regurgitation. A&P Assessment and plan (1) Acute respiratory failure with hypoxia: In setting of decompensated congestive heart failure Status: Acute (2) New onset of congestive heart failure: Severely depressed LVEF of 15% along with moderately depressed RV function. -newly diagnosed. continue with 60 mg IV lasix BID. Metolazone added. -Started on low-dose Coreg -I/O charting and daily weight. -Further work up for ischemic etiology once patient is euvolemic. Status: Acute (3) Anasarca: Status: Acute (4) Diabetes: Status: Acute Qualifiers: Diabetes mellitus group home insulin use: unspecified processor solid propellant insulin use status Diabetes mellitus type: type 2 Additional A&P Information Mild mitral regurgitation Mild to moderate tricuspid valve regurgitation Bilateral leg cellulitis : On antibiotics as per primary team. Elevated alkaline phosphatase Elevated TSH Suspect Sleep apnea Morbid obesity Chronic active smoker Thank you for allowing me to participate in patient's care. Please feel free to call with questions or concerns. Attestations Medical Necessity Statement*: Needs to stay in the hospital for decompensated congestive heart failure Time Spent in Patient Care: 16 - 35 minutes (>than 50% of time spent in counselling and/or direct pt care on unit) . Coding Level of Care Code Acute Software Intern for Dale Fwparul Exam Comprehensive Diagnoses Acute respiratory failure with hypoxia J96.01 New onset of congestive heart failure I50.9 Anasarca R60.1 Diabetes E11.9 Diabetes mellitus processor solid propellant insulin use: unspecified group home insulin use status Diabetes mellitus type: type 2
--- NOTE | 2020-09-02 16:22 | PM.PN ---
Subjective Subjective: Interval history: Aby reports he still feels quite swollen. History and physical as well as progress notes reviewed. Medications: Reviewed: Yes Vitals/I&O/Wt Last Vital Signs Temp 97.4 F L 09/02/20 16:00 Pulse 103 H 09/02/20 16:00 Resp 18 09/02/20 16:00 BP 100/70 09/02/20 16:00 Pulse Ox 100 09/02/20 16:00 09/02/20 09/02/20 09/02/20 06:59 14:59 22:59 Intake Total 460 / 460 Output Total 400 / 1475 1000 / 1000 Balance -400 / -525 -540 / -540 Physical Exam Narrative: EXAM NARRATIVE: General exam is mild respiratory distress Cardiovascular regular rate and rhythm, no murmur Lungs clear Abdomen is soft, pitting edema noted. Extremities 4+ edema Data : 09/02/20 05:04 09/02/20 05:04 Micro: Microbiology 08/30/20 21:15 Urine Culture - Final Urine,Clean Catch A&P Assessment and plan (1) New onset of congestive heart failure: Awaiting echocardiogram report. Apparently EF is quite low Appreciate cardiology consultation Lasix increased today to 60 mg IV every 12 hours. Metolazone 5 mg a day as well Continue carvedilol, and lisinopril as tolerated by blood pressure Further cardiac work-up when compensation is better Status: Acute (2) Cellulitis: Was placed on ceftriaxone for concern of bilateral lower extremity cellulitis We will follow closely and if no evidence of this by tomorrow I will discontinue Rocephin. 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
[2020-09-02] MEDS: FUROsemide 10 mg/mL SDV 10mL 60 MG IVP (16:41)
[2020-09-02 16:57] LABS: Glucose Point of Care 190 mg/dL (70-110)
--- NOTE | 2020-09-02 18:34 | PM.CONSULT ---
Providers/Reason For Consult Consulting Physican/Specialty*: Urology/Wild Reason for Consult*: Retention, inability to pass catheter Attending Physician: Ole Masters MD History of Present Illness History of Present Illness Aby Clement is a 55 year old male being treated for hypoxia, worsening edema, and malaise. Has managed to void but began having increased difficulty emptying bladder and it was felt necessary to place clay. Has severe genital edema PROCEDURE: CYSTOSCOPY/CATHETER PLACEMENT Could not reach the glans penis even after direct compression of penis. Prepped and draped with sterile technique. Flex cysto passed into preputial skin and glans penis identified deeply retracted in the edematous mons. Able to manipulate scope into the meatus and into bladder which was distended. Guidewire passed into bladder then a 14 fr [place] tipped catheter placed over guidewire with good function. had to pass as far in as possible to be able to inflate balloon in bladder, clear of prostatic lumen. Drained well. Recommend maintaining clay until edema better controlled. Review of Systems Narrative: orthopnea Const: Reports: body aches, change in weight, fatigue and malaise Eyes: Denies: change in vision ENMT: Denies: throat pain Card: Reports: edema, swelling of feet/ankles, dyspnea on exertion and orthopnea Resp: Reports: dyspnea and non-productive cough GI: Reports: abdominal pain and constipation; Denies: nausea : Denies: flank pain Musc: Reports: muscle cramps Skin/Breast: Reports: new lesions, lesions, dry skin and nail changes Neuro: Denies: headache(s) Psych: Denies: anxiety Endo: Denies: polyuria Sorin/Lymph: Denies: easy bruising All/Imm: Denies: urticaria Meds/Allergies Home Medications and Allergies Home Medications Medication Instructions Recorded Confirmed Last Taken Type acetaminophen [Tylenol Extra 250 - 500 mg PO PRN 08/30/20 08/30/20 Unknown History Strength] Allergies Allergy/AdvReac Type Severity Reaction Status Date / Time No Known Allergies Allergy Verified 08/30/20 19:29 Current Medications Current Medications Generic Name Dose Route Start Last Admin Trade Name Freq PRN Reason Stop Dose Admin Acetaminophen/Codeine Phosphate 1 tab 08/31/20 17:39 09/02/20 02:48 Acetaminophen-Codeine 300-30mg Tablet PO 1 tab Q4H PRN Administration MODERATE PAIN Carvedilol 3.125 mg 09/01/20 18:00 09/02/20 17:22 Carvedilol 3.125 Mg Tablet PO 3.125 mg BID [facility] Administration Enoxaparin Sodium 40 mg 09/01/20 10:00 09/02/20 08:15 Enoxaparin 40 Mg/0.4 Ml Syringe SUBCUT 40 mg Q24H [facility] Administration Furosemide 60 mg 09/02/20 16:00 09/02/20 16:41 Furosemide 10 Mg/Ml Sdv 10ml IVP 60 mg 0800,1600 [facility] Administration Ceftriaxone Sodium 1,000 mg/ 50 mls @ 100 mls/hr 09/01/20 11:00 09/02/20 11:35 Sodium Chloride IV 100 mls/hr Q24H [facility] Administration Protocol Insulin Aspart 0 unit 08/31/20 18:00 09/02/20 17:22 Insulin Aspart 100 Unit/1 Ml SUBCUT 4 unit WM&BEDTIME [facility] Administration Protocol Lisinopril 5 mg 09/01/20 09:00 09/02/20 08:14 Lisinopril 5 Mg Tablet PO 5 mg DAILY [facility] Administration Metolazone 5 mg 09/02/20 09:00 09/02/20 08:14 Metolazone 5 Mg Tablet PO 5 mg DAILY [facility] Administration Polyethylene Glycol 17 gm 08/31/20 09:00 09/02/20 08:17 Polyethylene Glycol 3350 Pkt 17 Gm PO Not Given DAILY [facility] PFSH Acute PFSH: Medical History No pertinent past medical history Surgical History No pertinent past surgical history Family History Mother CAD (coronary artery disease) Social History Smoking and tobacco status: current every day smoker cigarettes [ Other cigarette details: Has been smoking 2 packs/day, currently 1 pack/day ] Alcohol intake: never Substance/Drug Use: never Household members: spouse Housing: House Vitals/I&O/Wt Last Vital Signs Temp 97.4 F L 09/02/20 16:00 Pulse 103 H 09/02/20 16:00 Resp 18 09/02/20 16:00 BP 100/70 09/02/20 16:00 Pulse Ox 100 09/02/20 16:00 09/02/20 09/02/20 09/02/20 06:59 14:59 22:59 Intake Total 460 / 460 Output Total 400 / 1475 1000 / 1000 900 / 1900 Balance -400 / -525 -540 / -540 -900 / -1440 Physical Exam Const: COMMON NORMALS: no acute distress, alert and well nourished GENERAL APPEARANCE: well kempt and well developed ORIENTATION/CONSCIOUSNESS: not confused HENMT: COMMON NORMALS: normocephalic and atraumatic HEAD & SCALP: normocephalic and atraumatic Eye: COMMON NORMALS: conjunctivae normal and no scleral icterus CONJUNCTIVA: Yes conjunctivae normal Neck/C-Spine: COMMON NORMALS: full ROM Resp: COMMON NORMALS: normal respiratory effort EFFORT & INSPECTION: No labored and No Actively coughing : PENIS: uncircumcised and Localized penile swelling present (severe) MEATUS: other (can't see due to edema) SCROTUM: Yes scrotal swelling TESTES: Yes other (Can't palpate through scrotal edema) Extremity: OTHER: Severe edema Neuro: SENSORIUM/ORIENTATION: Yes alert Psych: COMMON NORMALS: mental status grossly normal APPEARANCE: Yes grossly normal and Yes well kempt ATTITUDE: Yes calm and Yes engaged Skin: COMMON NORMALS: no rashes or lesions noted and no jaundice GENERAL SKIN EXAM: no rashes or lesions noted Urinary Catheter Management^: Clay: Cath Placed During This Visit: yes Reason for Continuing Indwelling Catheter: Accurate Measurement of Urinary Output in Critically Ill Patients Urinary Catheter Date of Insertion: 09/02/20 Urinary Catheter Time of Insertion: 09:00 Data Micro: Micro: Microbiology 08/30/20 21:15 Urine Culture - Fi nal Urine,Clean Catch A&P Assessment and plan (1) Acute urinary retention: Status: Acute (2) Genital edema, male: Status: Acute (3) Anasarca: Status: Acute Consult Attestations Medical Necessity Statement: see attending Coding Level of Care Code 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
--- NOTE | 2020-09-02 18:51 | P.PCN_ITS ---
Other Information: PROCEDURE: CYSTOSCOPY/CATHETER PLACEMENT Could not reach the glans penis even after direct compression of penis. Prepped and draped with sterile technique. Flex cysto passed into preputial skin and glans penis identified deeply retracted in the edematous mons. Able to manipulate scope into the meatus and into bladder which was distended. Guidewire passed into bladder then a 14 fr [place] tipped catheter placed over guidewire with good function. had to pass as far in as possible to be able to inflate balloon in bladder, clear of prostatic lumen. Drained well. Coding Level of Care Code Acute Pattern Keeper for [facility]
--- NOTE | 2020-09-02 21:06 | US_ITS ---
WS: [id number] TESTICULAR ULTRASOUND HISTORY: Scrotal swelling COMPARISON: None available. TECHNIQUE: Real-time and color Doppler imaging or utilized to perform a testicular ultrasound. Difficult and limited evaluation of the testicles due to the severe scrotal edema. Right testicle: 4.3 cm x 2.7 cm x 3.3 cm. Normal size and echogenicity. No mass or torsion. Limited evaluation by color Doppler due to the displacement of the testicles by edema. There does [place] ear to be normal Doppler present. Diastolic velocity is limited. No significant hydrocele. Right epididymis: Echogenic epididymis. No increased vascularity. Left testicle: 3.8 cm x 2.9 cm x 3.0 cm. Normal size and echogenicity. No mass or torsion. Limited Doppler evaluation. Systolic and diastolic velocities are both present. No significant hydrocele. Left epididymis: Mild echogenic epididymis. Diffuse severe scrotal wall edema. There is subcutaneous edema and scrotal wall edema displacing the testicles. Edema extends into the thighs in the perineum. US/US scrotum [id number] IMPRESSION: 1. Severe diffuse scrotal wall and surrounding soft tissue edema. 2. No abnormality in the testicles identified but limited evaluation due to th e displacement by the edema.
[2020-09-02 21:12] LABS: Glucose Point of Care 181 mg/dL (70-110)
[2020-09-03] VITALS (7 sets, daily range): BP systolic 99–109; BP diastolic 68–75; PULSE 95–101; RESP 18–19; TEMP 36.2–36.7; O2SAT 92–98
[2020-09-03 06:42] LABS: Glucose Point of Care 133 mg/dL (70-110)
--- NOTE | 2020-09-03 07:21 | P.PN_ITS ---
Subjective Subjective: Interval history: States that he feels somewhat better. He thinks his swelling has decreased slightly. Catheter seems to be functioning well. No gross hematuria. Tolerating it well. Still having some shortness of breath. Vitals/I&O/Wt Last Vital Signs Temp 97.2 F L 09/03/20 04:00 Pulse 98 09/03/20 04:00 Resp 18 09/03/20 04:00 BP 102/75 09/03/20 04:00 Pulse Ox 94 09/03/20 04:00 09/02/20 09/03/20 09/03/20 22:59 06:59 14:59 Intake Total 180 / 640 Output Total 1800 / 2800 1100 / 3900 Balance -1620 / -2160 -1100 / -3260 Physical Exam Const: COMMON NORMALS: no acute distress, alert and well nourished GENERAL APPEARANCE: well developed ORIENTATION/CONSCIOUSNESS: not confused HENMT: COMMON NORMALS: normocephalic and atraumatic HEAD & SCALP: normocephalic and atraumatic Eye: COMMON NORMALS: conjunctivae normal and no scleral icterus CONJUNCTIVA: Yes conjunctivae normal Resp: COMMON NORMALS: normal respiratory effort EFFORT & INSPECTION: No labored and No Actively coughing : OTHER: Not dramatically reduced as far as genital edema. Catheter in good position for yesterday's placement findings. Urine is clear. Neuro: SENSORIUM/ORIENTATION: Yes alert Psych: COMMON NORMALS: mental status grossly normal ATTITUDE: Yes calm and Yes engaged Urinary Catheter Management^: Light: Cath Placed During This Visit: yes Reason for Continuing Indwelling Catheter: Acute Urinary Retention or Obstruction Urinary Catheter Date of Insertion: 09/02/20 Urinary Catheter Time of Insertion: 09:00 Data : 09/02/20 05:04 09/02/20 05:04 Micro: Microbiology 08/30/20 21:15 Urine Culture - Final Urine,Clean Catch A&P Assessment and plan (1) Genital edema, male: About the same clinically. Catheter is functioning well. Recommend maintaining catheter until significant reduction in genital edema. Would require a repeat flexible cystoscopy for catheter placement if the catheter was removed at this stage and he was unable to void adequately. Status: Acute (2) Acute urinary retention: No severe progressive symptoms prior. 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
[2020-09-03] MEDS: FUROsemide 10 mg/mL SDV 10mL 60 MG IVP ×2 (07:52→18:27)
[2020-09-03 08:24] LABS: Basophils # 0.1 10^3/uL (0.0-0.1); Basophils % 0.6 %; Eosinophils # 0.2 10^3/uL (0.0-0.8); Hematocrit 43.1 % (42.0-52.0); Hemoglobin 13.2 g/dL (11.7-16.6); Lymphocytes # 1.3 10^3/uL (0.8-4.8); Lymphocytes % 14.1 %; Mean Corpuscular HGB Conc 30.6 g/dL (30.0-36.0); Mean Corpuscular Hemoglobin 26.2 pg (28.0-34.0); Mean Corpuscular Volume 85.7 fL (80-94); Mean Platelet Volume 9.9 fL (7.4-10.4); Monocytes # 0.5 10^3/uL (0.2-0.9); Monocytes % 5.7 %; Neutrophils # 6.82 10^3/uL (1.8-7.7); Neutrophils % 77.1 %; Nucleated Red Blood Cells % 0 %; Platelet Count 309 10^3/cmm (130-400); Red Blood Count 5.03 10^6/uL (4.1-5.3); Red Cell Distribution Width 15.5 % (12.1-15.1); White Blood Count 8.8 10^3/uL (4.0-10.0)
[2020-09-03] MEDS: lisinopril 5 mg Tablet PO (08:48)
[2020-09-03] MEDS: metOLazone 5 MG Tablet PO (08:48)
[2020-09-03] MEDS: carvedilol 3.125 mg Tablet PO ×2 (08:48→18:28)
[2020-09-03 08:52] LABS: Alanine Aminotransferase 13 U/L (0-41); Albumin Level 3.1 g/dL (3.5-5.2); Alkaline Phosphatase 177 IU/L (40-130); Anion Gap 13.8 (5-19); Aspartate Amino Transferase 15 U/L (0-40); Blood Urea Nitrogen 19 mg/dL (6-20); Calcium 8.8 mg/dL (8.5-10.5); Carbon Dioxide 29 mmol/L (22-29); Chloride 96 mmol/L (98-107); Globulin 2.8 g/dL (1.3-4.6); Glucose 124 mg/dL (65-115); Magnesium 1.9 mg/dL (1.7-2.3); Osmolality Calculated 284 mOsm/kg (285-295); Potassium 3.8 mmol/L (3.5-5.1); Sodium 135 mmol/L (136-145); Total Bilirubin 0.4 mg/dL (0.15-1.2); Total Protein 5.9 g/dL (6.6-8.7)
[2020-09-03] MEDS: enoxaparin 40 mg/0.4 mL Syringe SUBCUT (08:53)
[2020-09-03] MEDS: polyethylene glycol 3350 Pkt 17 gm PO (08:54)
--- NOTE | 2020-09-03 09:40 | P.PN_ITS ---
Subjective Subjective: Interval history: Aby reports he is feeling less swollen. Less short of breath. Overall feels better. Medications: Reviewed: Yes Vitals/I&O/Wt Last Vital Signs Temp 97.5 F L 09/03/20 07:39 Pulse 99 09/03/20 08:03 Resp 18 09/03/20 08:03 BP 105/73 09/03/20 07:39 Pulse Ox 95 09/03/20 08:03 09/02/20 09/03/20 09/03/20 22:59 06:59 14:59 Intake Total 180 / 640 Output Total 1800 / 2800 1100 / 3900 Balance -1620 / -2160 -1100 / -3260 Physical Exam Narrative: EXAM NARRATIVE: General exam is mild respiratory distress Cardiovascular regular rate and rhythm, no murmur Lungs clear Abdomen is soft, pitting edema noted. Extremities 4+ edema Urinary Catheter Management^: Light: Cath Placed During This Visit: yes Reason for Continuing Indwelling Catheter: Acute Urinary Retention or Obstruction Urinary Catheter Date of Insertion: 09/02/20 Urinary Catheter Time of Insertion: 09:00 Data : 09/03/20 08:00 09/03/20 08:00 Micro: Microbiology 08/30/20 21:15 Urine Culture - Final Urine,Clean Catch A&P Assessment and plan (1) New onset of congestive heart failure: Awaiting echocardiogram report. Apparently EF is quite low Appreciate cardiology consultation Continue Lasix 60 mg IV every 12 hours. Metolazone 5 mg a day as well. Currently diuresing well, over 3500 cc over the last 24 hours. Continue carvedilol, and lisinopril as tolerated by blood pressure Further cardiac work-up when compensation is better Status: Acute (2) Cellulitis: Was placed on ceftriaxone for concern of bilateral lower extremity cellulitis We will follow closely and if no evidence of this by tomorrow I will discontinue Rocephin. The concern may have been generated secondary to appearance of venous stasis with some ulceration. 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 Coding Level of Care Code Acute Uat Tester for g Fwd Diagnoses New onset of congestive heart failure I50.9 Cellulitis L03.90 Anasarca R60.1 Diabetes E11.9 Diabetes mellitus type: type 2 Diabetes mellitus intermediate insulin use: unspecified intermediate insulin use status Acute respiratory failure with hypoxia J96.01
[2020-09-03 10:47] LABS: Glucose Point of Care 243 mg/dL (70-110)
[2020-09-03] MEDS: acetaminophen-codeine 300-30mg Tablet 1 TAB PO ×2 (11:52→20:33)
--- NOTE | 2020-09-03 13:26 | PC.RESP ---
SMOKING CESSATION INFORMATION SENT TO PATIENT.
[2020-09-03 16:51] LABS: Glucose Point of Care 169 mg/dL (70-110)
--- NOTE | 2020-09-03 18:17 | P.PN_ITS ---
Subjective Subjective: Interval history: He had Light catheter placed yesterday by Dr. Wild. Patient states that his symptom of shortness of breath has improved and is is able to move his feet today. Short runs of NSVT on telemetry. Tachycardia has improved. Echo was read over the weekend but seems like it did not crossed over to expanse until today. # TTE (09/01/20) 1. Mildly dilated left ventricular cavity. Severely decreased left ventricular systolic function. Left ventricular ejection fraction is estimated at 15 %. Severe global hypokinesis. Flattened septum in diastole consistent with right ventricle volume overload. 2. Mildly dilated right ventricle. Moderately decreased right ventricular systolic function. 3. Pulmonary artery pressure estimated at 31 mmHg. 4. Mild mitral valve regurgitation. 5. Mild to moderate tricuspid valve regurgitation. Medications: Reviewed: Yes Medication Review Details: Current Medications Acetaminophen/Codeine Phosphate (Acetaminophen-Codeine 300-30mg Tablet) 1 tab PO Q4H PRN PRN Reason: MODERATE PAIN Last Admin: 09/03/20 11:52 Dose: 1 tab Documented by: Albuterol/Ipratropium (Ipratropium-Albuterol 3 Ml Neb) 3 ml INHALATION Q6H PRN PRN Reason: SHORTNESS OF BREATH Carvedilol (Carvedilol 3.125 Mg Tablet) 3.125 mg PO BID [facility] Last Admin: 09/03/20 08:48 Dose: 3.125 mg Documented by: Dextrose (Dextrose 50% Syringe 50 Ml) 25 ml IVP ONCE PRN; Protocol PRN Reason: hypoglycemia protocol Dextrose (Dextrose 50% Syringe 50 Ml) 50 ml IVP PRN PRN; Protocol PRN Reason: hypoglycemia protocol Enoxaparin Sodium (Enoxaparin 40 Mg/0.4 Ml Syringe) 40 mg SUBCUT Q24H [facility] Last Admin: 09/03/20 08:53 Dose: 40 mg Documented by: Furosemide (Furosemide 10 Mg/Ml Sdv 10ml) 60 mg IVP 0800,1600 [facility] Last Admin: 09/03/20 07:52 Dose: 60 mg Documented by: Glucagon (Glucagon 1 Mg/Ml Inj 1 Ml) 1 mg IM ONCE PRN; Protocol PRN Reason: Adult Acute Hypoglycemia Prot. Dextrose (D5w) 500 mls @ 100 mls/hr IV ONCE PRN; Protocol PRN Reason: Adult Acute Hypoglycemia Prot Insulin Aspart (Insulin Aspart 100 Unit/1 Ml) 0 unit SUBCUT WM&BEDTIME [facility]; Protocol Last Admin: 09/03/20 13:01 Dose: 6 unit Documented by: Lisinopril (Lisinopril 5 Mg Tablet) 5 mg PO DAILY [facility] Last Admin: 09/03/20 08:48 Dose: 5 mg Documented by: Metolazone (Metolazone 5 Mg Tablet) 5 mg PO DAILY [facility] Last Admin: 09/03/20 08:48 Dose: 5 mg Documented by: Polyethylene Glycol (Polyethylene Glycol 3350 Pkt 17 Gm) 17 gm PO DAILY [facility] Last Admin: 09/03/20 08:54 Dose: 17 gm Documented by: Vitals/I&O/Wt Last Vital Signs Temp 98.0 F 09/03/20 16:00 Pulse 98 09/03/20 16:00 Resp 18 09/03/20 16:00 BP 100/69 09/03/20 16:00 Pulse Ox 94 09/03/20 16:00 09/03/20 09/03/20 09/03/20 06:59 14:59 22:59 Intake Total 520 / 520 120 / 640 Output Total 1100 / 3900 1000 / 1000 Balance -1100 / -3260 -480 / -480 120 / -360 Physical Exam Narrative: EXAM NARRATIVE: Const COMMON NORMALS: no acute distress, patient oriented x3, alert and well nourished GENERAL APPEARANCE: cooperative, comfortable, well kempt and well developed NUTRITIONAL APPEARANCE: obese ORIENTATION/CONSCIOUSNESS: Yes oriented to person, Yes oriented to place and Yes oriented to time [facility] COMMON NORMALS: normocephalic, atraumatic, hearing grossly normal bilaterally, external ears normal and Normal external nose present HEAD & SCALP: normocephalic and atraumatic FACE & SINUS: face symmetric NOSE: Normal external nose present EXTERNAL EAR: Yes external ears normal Eye COMMON NORMALS: Equal, round and reactive pupils present, EOMs intact bilaterally and conjunctivae normal ALIGNMENT: Yes alignment normal CONJUNCTIVA: Yes conjunctivae normal SCLERA: sclerae normal PUPIL: Yes Equal, round and reactive pupils present Neck/C-Spine COMMON NORMALS: no lymphadenopathy, supple, no JVD and Thyroid normal; negative for No carotid bruits GENERAL: Yes trachea midline THYROID: Thyroid normal Lymph LYMPHATIC: No no lymphadenopathy noted Chest COMMONS NORMALS: normal inspection of the chest CHEST: Yes Symmetrical chest wall rise and No tenderness Resp COMMON NORMALS: normal respiratory effort, No use of accessory muscles and clear to auscultation bilaterally EFFORT & INSPECTION: Yes able to speak in complete sentences and No audible wheezes AUSCULTATION: clear to auscultation bilaterally, no crackles, no rales, no rhonchi and no wheezes Cardio COMMON NORMALS: no JVD, regular rate, regular rhythm, S1 normal heart sound present, S2 normal heart sound present and Peripheral pulses 2+ throughout; negative for No gallops present (Cardio) and negative for No clicks present (Cardio) JUGULAR VENOUS DISTENTION: no JVD PALPATION: normal PMI, no heave, no palpable S3, no palpable S4 and no thrill RATE: regular rate RHYTHM: regular rhythm HEART SOUNDS: S1 normal heart sound present, S2 normal heart sound present, no gallops and no murmurs BRUITS: no carotid bruits PERIPHERAL PULSES: Peripheral pulses 2+ throughout GI COMMON NORMALS: Normal to inspection, nondistended, normoactive bowel sounds present and non-tender INSPECTION: Yes Abdominal wall edema and Yes Anasarca PALPATION: Yes Firmness to palpation present (GI) and Yes Other GI palpation findings present (obese and distended) PERCUSSION: dullness to percussion RECTAL EXAM: Yes deferred PENIS: other (scrotal and penile edema) Back/Pelvis GENERAL BACK: Yes other (edema noted on back) Extremity NARRATIVE EXTREMITY EXAM: 4+ edema, Anasarca+ , woody induration noted Neuro COMMON NORMALS: patient oriented x3 and no focal motor deficits SENSORIUM/ORIENTATION: Yes alert, Yes oriented to person, Yes oriented to place and Yes oriented to time CRANIAL NERVES: Yes CN normal except as noted Psych COMMON NORMALS: Normal thought process present APPEARANCE: Yes well kempt MOOD & AFFECT: Yes euthymic mood THOUGHT PROCESS: Normal thought process present THOUGHT CONTENT: Yes Normal thought content present ATTENTION/CONCENTRATION: Yes attention grossly intact MEMORY/COGNITION: Yes memory grossly intact INSIGHT: Good insight present (Psych) JUDGEMENT: Good judgement present (Psych) Skin NARRATIVE SKIN EXAM: Bilateral leg erythema and serous to pustular discharge Urinary Catheter Management^: Light: Cath Placed During This Visit: yes Reason for Continuing Indwelling Catheter: Acute Urinary Retention or Obstruction Urinary Catheter Date of Insertion: 09/02/20 Urinary Catheter Time of Insertion: 09:00 Data : 09/03/20 08:00 09/03/20 08:00 Attestation for Other Data: I personally reviewed and interpreted the following: Other data: # TTE (09/01/20) 1. Mildly dilated left ventricular cavity. Severely decreased left ventricular systolic function. Left ventricular ejection fraction is estimated at 15 %. Severe global hypokinesis. Flattened septum in diastole consistent with right ventricle volume overload. 2. Mildly dilated right ventricle. Moderately decreased right ventricular systolic function. 3. Pulmonary artery pressure estimated at 31 mmHg. 4. Mild mitral valve regurgitation. 5. Mild to moderate tricuspid valve regurgitation. A&P Assessment and plan (1) Acute respiratory failure with hypoxia: In setting of decompensated congestive heart failure Status: Acute (2) New onset of congestive heart failure: Severely depressed LVEF of 15% along with moderately depressed RV function. -newly diagnosed. continue with 60 mg IV lasix BID. Metolazone added. -continue low-dose Coreg; urine output 9.1 L with negative balance of 5.3 L; urine output 3.9 L from yesterday -3.2 L. -I/O charting and daily weight. -Further work up for ischemic etiology once patient is euvolemic. Status: Acute (3) Anasarca: Status: Acute (4) Diabetes: Status: Acute Qualifiers: Diabetes mellitus type: type 2 Diabetes mellitus snf insulin use: unspecified terminal gauger insulin use status Additional A&P Information Mild mitral regurgitation Mild to moderate tricuspid valve regurgitation Bilateral leg cellulitis : On antibiotics as per primary team. Elevated alkaline phosphatase Elevated TSH Suspect Sleep apnea Morbid obesity Chronic active smoker Thank you for allowing me to participate in patient's care. Please feel free to call with questions or concerns. Attestations Medical Necessity Statement*: Needs to stay in the hospital for decompensated congestive heart failure Time Spent in Patient Care: 16 - 35 minutes (>than 50% of time spent in counselling and/or direct pt care on unit) . Coding Level of Care Code Established Pt Acute Television Inspector for Dale Castillo Patient Type Established History Detailed Exam Detailed Medical Decision Making Moderate Complexity Diagnoses Acute respiratory failure with hypoxia J96.01 New onset of congestive heart failure I50.9 Anasarca R60.1 Diabetes E11.9 Diabetes mellitus type: type 2 Diabetes mellitus terminal gauger insulin use: unspecified terminal gauger insulin use status Time Spent (min) 25
--- NOTE | 2020-09-03 19:02 | PC.NURSE ---
Report to Eileen GUILLERMO at this time.
[2020-09-03] MEDS: docusate sodium 100 mg Capsule 200 MG PO (20:32)
[2020-09-03] MEDS: potassium chloride ER 20 mEq Tablet PO (20:32)
[2020-09-03] MEDS: magnesium oxide 400 mg tablet PO (20:33)
[2020-09-03 20:47] LABS: Glucose Point of Care 331 mg/dL (70-110)
[2020-09-04] VITALS (7 sets, daily range): BP systolic 90–113; BP diastolic 60–83; PULSE 62–101; RESP 17–20; TEMP 36.4–37.9; O2SAT 90–94
[2020-09-04 07:26] LABS: Glucose Point of Care 128 mg/dL (70-110)
[2020-09-04] MEDS: FUROsemide 10 mg/mL SDV 10mL 60 MG IVP ×2 (08:38→15:50)
[2020-09-04 09:25] LABS: Anion Gap 15.1 (5-19); Blood Urea Nitrogen 21 mg/dL (6-20); Calcium 8.9 mg/dL (8.5-10.5); Carbon Dioxide 29 mmol/L (22-29); Chloride 98 mmol/L (98-107); Glucose 105 mg/dL (65-115); Magnesium 1.9 mg/dL (1.7-2.3); Osmolality Calculated 289 mOsm/kg (285-295); Potassium 4.1 mmol/L (3.5-5.1); Sodium 138 mmol/L (136-145)
[2020-09-04] MEDS: magnesium oxide 400 mg tablet PO (09:28)
[2020-09-04] MEDS: lisinopril 5 mg Tablet PO (09:29)
[2020-09-04] MEDS: metOLazone 5 MG Tablet PO (09:29)
[2020-09-04] MEDS: carvedilol 3.125 mg Tablet PO ×2 (09:29→18:16)
[2020-09-04] MEDS: potassium chloride ER 20 mEq Tablet PO (09:29)
[2020-09-04] MEDS: enoxaparin 40 mg/0.4 mL Syringe SUBCUT (10:48)
--- NOTE | 2020-09-04 10:54 | P.PN_ITS ---
Subjective Subjective: Interval history: Aby reports he is doing okay today. Feels a little less swollen. Some cramping in his extremities. Medications: Reviewed: Yes Vitals/I&O/Wt Last Vital Signs Temp 98.3 F 09/04/20 08:00 Pulse 98 09/04/20 08:00 Resp 18 09/04/20 08:00 BP 107/74 09/04/20 08:00 Pulse Ox 93 09/04/20 08:00 09/03/20 09/04/20 09/04/20 22:59 06:59 14:59 Intake Total 400 / 920 240 / 240 Output Total 1650 / 2650 725 / 3375 950 / 950 Balance -1250 / -1730 -725 / -2455 -710 / -710 Physical Exam Narrative: EXAM NARRATIVE: General exam is mild respiratory distress Cardiovascular regular rate and rhythm, no murmur Lungs clear Abdomen is soft, pitting edema noted. Extremities 4+ edema. Legs appear slightly looser. Some erythema around the excoriations but nothing that appears like overt cellulitis. Urinary Catheter Management^: Light: Cath Placed During This Visit: yes Reason for Continuing Indwelling Catheter: Acute Urinary Retention or Obstruction Urinary Catheter Date of Insertion: 09/02/20 Urinary Catheter Time of Insertion: 09:00 Data : 09/03/20 08:00 09/04/20 08:08 A&P Assessment and plan (1) New onset of congestive heart failure: Awaiting echocardiogram report. Apparently EF is quite low Appreciate cardiology consultation Continue Lasix 60 mg IV every 12 hours. Metolazone 5 mg a day as well. Diure sed slightly less than 3 L. In the last 24 hours. He continues to diurese very well. Continue carvedilol, and lisinopril as tolerated by blood pressure Further cardiac work-up when compensation is better Status: Acute (2) Cellulitis: Was placed on ceftriaxone for concern of bilateral lower extremity cellulitis We will follow closely and if no evidence of this by tomorrow I will discontinue Rocephin. The concern may have been generated secondary to appearance of venous stasis with some ulceration. Rocephin has been discontinued Status: Acute (3) Anasarca: Continue IV diuresis Status: Acute (4) Diabetes: Sliding scale insulin Status: Acute Qualifiers: Diabetes mellitus type: type 2 Diabetes mellitus emt intermediate insulin use: unspecified emt intermediate insulin use status (5) Acute respiratory failure with hypoxia: Oxygen as needed, wean as tolerated Status: Acute Additional A&P Information Full code Lovenox for DVT prophylaxis Attestations Medical Necessity Statement*: Needs continued diuresis secondary to anasarca and hospitalization for this. Coding Level of Care Code Acute Renewals Representative for [facility] Fwd Diagnoses New onset of congestive heart failure I50.9 Cellulitis L03.90 Anasarca R60.1 Diabetes E11.9 Diabetes mellitus type: type 2 Diabetes mellitus emt intermediate insulin use: unspecified custodial insulin use status Acute respiratory failure with hypoxia J96.01
[2020-09-04 11:12] LABS: Glucose Point of Care 203 mg/dL (70-110)
[2020-09-04 17:18] LABS: Glucose Point of Care 197 mg/dL (70-110)
--- NOTE | 2020-09-04 19:21 | P.PN_ITS ---
Subjective Subjective: Interval history: No new complaints; moved his bowels. NSVT's on telemetry. Medications: Reviewed: Yes Medication Review Details: Current Medications Albuterol/Ipratropium (Ipratropium-Albuterol 3 Ml Neb) 3 ml INHALATION Q6H PRN PRN Reason: SHORTNESS OF BREATH Carvedilol (Carvedilol 3.125 Mg Tablet) 3.125 mg PO BID [facility] Last Admin: 09/04/20 18:16 Dose: 3.125 mg Documented by: Dextrose (Dextrose 50% Syringe 50 Ml) 25 ml IVP ONCE PRN; Protocol PRN Reason: hypoglycemia protocol Dextrose (Dextrose 50% Syringe 50 Ml) 50 ml IVP PRN PRN; Protocol PRN Reason: hypoglycemia protocol Docusate Sodium (Docusate Sodium 100 Mg Capsule) 200 mg PO BEDTIME [facility] Last Admin: 09/03/20 20:32 Dose: 200 mg Documented by: Enoxaparin Sodium (Enoxaparin 40 Mg/0.4 Ml Syringe) 40 mg SUBCUT Q24H [facility] Last Admin: 09/04/20 10:48 Dose: 40 mg Documented by: Furosemide (Furosemide 10 Mg/Ml Sdv 10ml) 60 mg IVP 0800,1600 [facility] Last Admin: 09/04/20 08:38 Dose: 60 mg Documented by: Glucagon (Glucagon 1 Mg/Ml Inj 1 Ml) 1 mg IM ONCE PRN; Protocol PRN Reason: Adult Acute Hypoglycemia Prot. Dextrose (D5w) 500 mls @ 100 mls/hr IV ONCE PRN; Protocol PRN Reason: Adult Acute Hypoglycemia Prot Insulin Aspart (Insulin Aspart 100 Unit/1 Ml) 0 unit SUBCUT WM&BEDTIME [facility]; Protocol Last Admin: 09/04/20 18:16 Dose: 4 unit Documented by: Lisinopril (Lisinopril 5 Mg Tablet) 5 mg PO DAILY [facility] Last Admin: 09/04/20 09:29 Dose: 5 mg Documented by: Magnesium Oxide (Magnesium Oxide 400 Mg Tablet) 400 mg PO DAILY [facility] Last Admin: 09/04/20 09:28 Dose: 400 mg Documented by: Metolazone (Metolazone 5 Mg Tablet) 5 mg PO DAILY [facility] Last Admin: 09/04/20 09:29 Dose: 5 mg Documented by: Polyethylene Glycol (Polyethylene Glycol 3350 Pkt 17 Gm) 17 gm PO DAILY [facility] Last Admin: 09/04/20 09:28 Dose: Not Given Documented by: Potassium Chloride (Potassium Chloride Er 20 Meq Tablet) 20 meq PO DAILY [facility] Last Admin: 09/04/20 09:29 Dose: 20 meq Documented by: Vitals/I&O/Wt Last Vital Signs Temp 100.2 F H 09/04/20 15:35 Pulse 84 09/04/20 15:35 Resp 18 09/04/20 15:35 BP 90/60 09/04/20 15:35 Pulse Ox 90 09/04/20 15:35 09/04/20 09/04/20 09/04/20 06:59 14:59 22:59 Intake Total 480 / 480 240 / 720 Output Total 725 / 3375 950 / 950 1 / 951 Balance -725 / -2455 -470 / -470 239 / -231 Intake & Output 09/02/20 09/03/20 09/04/20 09/05/20 06:59 06:59 06:59 06:59 Intake Total 950 / 950 640 / 640 920 / 920 720 / 720 Output Total 1475 / 1475 3900 / 3900 3375 / 3375 951 / 951 Balance -525 / -525 -3260 / -3260 -2455 / -2455 -231 / -231 Physical Exam Narrative: EXAM NARRATIVE: Const COMMON NORMALS: no acute distress, patient oriented x3, alert and well nourished GENERAL APPEARANCE: cooperative, comfortable, well kempt and well developed NUTRITIONAL APPEARANCE: obese ORIENTATION/CONSCIOUSNESS: Yes oriented to person, Yes oriented to place and Yes oriented to time [facility] COMMON NORMALS: normocephalic, atraumatic, hearing grossly normal bilaterally, external ears normal and Normal external nose present HEAD & SCALP: normocephalic and atraumatic FACE & SINUS: face symmetric NOSE: Normal external nose present EXTERNAL EAR: Yes external ears normal Eye COMMON NORMALS: Equal, round and reactive pupils present, EOMs intact bilaterally and conjunctivae normal ALIGNMENT: Yes alignment normal CONJUNCTIVA: Yes conjunctivae normal SCLERA: sclerae normal PUPIL: Yes Equal, round and reactive pupils present Neck/C-Spine COMMON NORMALS: no lymphadenopathy, supple, no JVD and Thyroid normal; negative for No carotid bruits GENERAL: Yes trachea midline THYROID: Thyroid normal Lymph LYMPHATIC: No no lymphadenopathy noted Chest COMMONS NORMALS: normal inspection of the chest CHEST: Yes Symmetrical chest wall rise and No tenderness Resp COMMON NORMALS: normal respiratory effort, No use of accessory muscles and clear to auscultation bilaterally EFFORT & INSPECTION: Yes able to speak in complete sentences and No audible wheezes AUSCULTATION: clear to auscultation bilaterally, no crackles, no rales, no rhonchi and no wheezes Cardio COMMON NORMALS: no JVD, regular rate, regular rhythm, S1 normal heart sound present, S2 normal heart sound present and Peripheral pulses 2+ throughout; negative for No gallops present (Cardio) and negative for No clicks present (Cardio) JUGULAR VENOUS DISTENTION: no JVD PALPATION: normal PMI, no heave, no palpable S3, no palpable S4 and no thrill RATE: regular rate RHYTHM: regular rhythm HEART SOUNDS: S1 normal heart sound present, S2 normal heart sound present, no gallops and no murmurs BRUITS: no carotid bruits PERIPHERAL PULSES: Peripheral pulses 2+ throughout GI COMMON NORMALS: Normal to inspection, nondistended, normoactive bowel sounds present and non-tender INSPECTION: Yes Abdominal wall edema and Yes Anasarca PALPATION: Yes Firmness to palpation present (GI) and Yes Other GI palpation findings present (obese and distended) PERCUSSION: dullness to percussion RECTAL EXAM: Yes deferred PENIS: other (scrotal and penile edema) Back/Pelvis GENERAL BACK: Yes other (edema noted on back) Extremity NARRATIVE EXTREMITY EXAM: 4+ edema, Anasarca+ Neuro COMMON NORMALS: patient oriented x3 and no focal motor deficits SENSORIUM/ORIENTATION: Yes alert, Yes oriented to person, Yes oriented to place and Yes oriented to time CRANIAL NERVES: Yes CN normal except as noted Psych COMMON NORMALS: Normal thought process present APPEARANCE: Yes well kempt MOOD & AFFECT: Yes euthymic mood THOUGHT PROCESS: Normal thought process present THOUGHT CONTENT: Yes Normal thought content present ATTENTION/CONCENTRATION: Yes attention grossly intact MEMORY/COGNITION: Yes memory grossly intact INSIGHT: Good insight present (Psych) JUDGEMENT: Good judgement present (Psych) Skin NARRATIVE SKIN EXAM: Bilateral leg erythema and serous to yellowish discharge Urinary Catheter Management^: Light: Cath Placed During This Visit: yes Reason for Continuing Indwelling Catheter: Acute Urinary Retention or Obstruction Urinary Catheter Date of Insertion: 09/02/20 Urinary Catheter Time of Insertion: 09:00 Data : 12/22/20 08:00 09/04/20 08:08 A&P Assessment and plan (1) Acute respiratory failure with hypoxia: In setting of decompensated congestive heart failure Status: Acute (2) New onset of congestive heart failure: Severely depressed LVEF of 15% along with moderately depressed RV function. -newly diagnosed. continue with 60 mg IV lasix BID. Metolazone added. -continue low-dose Coreg -I/O charting and daily weight. -Further work up for ischemic etiology once patient is euvolemic. Status: Acute (3) Anasarca: Status: Acute (4) Diabetes: Status: Acute Qualifiers: Diabetes mellitus type: type 2 Diabetes mellitus long-term insulin use: unspecified long-term insulin use status Additional A&P Information Mild mitral regurgitation Mild to moderate tricuspid valve regurgitation Bilateral leg cellulitis : On antibiotics as per primary team. Elevated alkaline phosphatase Elevated TSH Suspect Sleep apnea Morbid obesity Chronic active smoker Thank you for allowing me to participate in patient's care. Please feel free to call with questions or concerns. Attestations Medical Necessity Statement*: Needs to stay in the hospital for decompensated congestive heart failure Time Spent in Patient Care: 16 - 35 minutes (>than 50% of time spent in counselling and/or direct pt care on unit) . Coding Level of Care Code Acute Chief Librarian Circulation Department for Dale Castillo Diagnoses Acute respiratory failure with hypoxia J96.01 New onset of congestive heart failure I50.9 Anasarca R60.1 Diabetes E11.9 Diabetes mellitus type: type 2 Diabetes mellitus adjunct faculty for medical terminology insulin use: unspecified long-term insulin use status
[2020-09-04 20:25] LABS: Glucose Point of Care 217 mg/dL (70-110)
[2020-09-04] MEDS: acetaminophen-codeine 300-30mg Tablet 1 TAB PO (20:52)
[2020-09-05] VITALS (8 sets, daily range): BP systolic 97–111; BP diastolic 67–75; PULSE 81–97; RESP 16–20; TEMP 36.6–37.1; O2SAT 90–97
[2020-09-05] MEDS: acetaminophen-codeine 300-30mg Tablet 1 TAB PO ×2 (04:09→19:00)
[2020-09-05 06:17] LABS: Glucose Point of Care 178 mg/dL (70-110)
[2020-09-05 06:44] LABS: Basophils % 0.5 %; Eosinophils # 0.1 10^3/uL (0.0-0.8); Eosinophils % 1.6 %; Hematocrit 43.1 % (42.0-52.0); Lymphocytes # 1.3 10^3/uL (0.8-4.8); Lymphocytes % 16.6 %; Mean Corpuscular HGB Conc 30.2 g/dL (30.0-36.0); Mean Corpuscular Hemoglobin 25.7 pg (28.0-34.0); Mean Corpuscular Volume 85.2 fL (80-94); Mean Platelet Volume 9.9 fL (7.4-10.4); Monocytes # 0.6 10^3/uL (0.2-0.9); Monocytes % 7.7 %; Neutrophils # 5.81 10^3/uL (1.8-7.7); Neutrophils % 73.2 %; Nucleated Red Blood Cells % 0 %; Platelet Count 326 10^3/cmm (130-400); Red Blood Count 5.06 10^6/uL (4.1-5.3); Red Cell Distribution Width 15.5 % (12.1-15.1); White Blood Count 7.9 10^3/uL (4.0-10.0)
[2020-09-05 07:09] LABS: Anion Gap 13.5 (5-19); Blood Urea Nitrogen 26 mg/dL (6-20); Calcium 8.8 mg/dL (8.5-10.5); Carbon Dioxide 32 mmol/L (22-29); Chloride 97 mmol/L (98-107); Glucose 198 mg/dL (65-115); Osmolality Calculated 296 mOsm/kg (285-295); Potassium 4.5 mmol/L (3.5-5.1); Sodium 138 mmol/L (136-145)
[2020-09-05] MEDS: FUROsemide 10 mg/mL SDV 10mL 60 MG IVP ×2 (09:19→16:13)
[2020-09-05] MEDS: carvedilol 3.125 mg Tablet PO ×2 (09:49→18:45)
[2020-09-05] MEDS: metOLazone 5 MG Tablet PO (09:49)
[2020-09-05] MEDS: lisinopril 5 mg Tablet PO (09:49)
[2020-09-05] MEDS: magnesium oxide 400 mg tablet PO (09:49)
[2020-09-05] MEDS: potassium chloride ER 20 mEq Tablet PO (09:50)
[2020-09-05] MEDS: enoxaparin 40 mg/0.4 mL Syringe SUBCUT (10:40)
--- NOTE | 2020-09-05 11:06 | PM.PN ---
Subjective Subjective: Interval history: Patient is feeling well. He denies any complaints of chest pain, shortness of breath or palpitations. He still has significant lower extremity edema. Vitals/I&O/Wt Last Vital Signs Temp 98.0 F 09/05/20 08:00 Pulse 97 09/05/20 08:40 Resp 16 09/05/20 08:40 BP 103/75 09/05/20 08:00 Pulse Ox 93 09/05/20 08:40 09/04/20 09/05/20 09/05/20 22:59 06:59 14:59 Intake Total 270 / 750 210 / 960 Output Total 301 / 1251 450 / 1701 800 / 800 Balance -31 / -501 -240 / -741 -800 / -800 Physical Exam Narrative: EXAM NARRATIVE: Const COMMON NORMALS: no acute distress and patient oriented x3 HENMT COMMON NORMALS: oropharynx normal Neck/C-Spine COMMON NORMALS: no JVD Resp COMMON NORMALS: normal respiratory effort AUSCULTATION: diminished lung sounds Cardio COMMON NORMALS: no JVD, regular rhythm, S1 normal heart sound present, S2 normal heart sound present and No murmurs present (Cardio) RHYTHM: regular rhythm HEART SOUNDS: S1 normal heart sound present and S2 normal heart sound present GI COMMON NORMALS: Normal to inspection, nondistended, normoactive bowel sounds present, Soft to palpation and non-tender PALPATION: Yes Soft to palpation Extremity COMMON NORMALS: no joint enlargement GENERAL: Yes edema (2+ both legs up to the thighs and lower abdomen) Neuro COMMON NORMALS: patient oriented x3 and moves all extremities Skin COMMON NORMALS: no rashes or lesions noted GENERAL SKIN EXAM: no rashes or lesions noted Urinary Catheter Management^: Light: Cath Placed During This Visit: yes Reason for Continuing Indwelling Catheter: Acute Urinary Retention or Obstruction Urinary Catheter Date of Insertion: 09/02/20 Urinary Catheter Time of Insertion: 09:00 Data : 09/06/20 05:25 09/06/20 05:25 A&P Assessment and plan (1) Acute respiratory failure with hypoxia: In setting of decompensated congestive heart failure Status: Acute (2) New onset of congestive heart failure: Severely depressed LVEF of 15% along with moderately depressed RV function. -newly diagnosed. continue with 60 mg IV lasix BID and Metolazone. -continue low-dose Coreg -I/O charting and daily weight. -Further work up for ischemic etiology once patient is euvolemic. Status: Acute (3) Anasarca: Status: Acute (4) Diabetes: Status: Acute Qualifiers: Diabetes mellitus type: type 2 Diabetes mellitus group home insulin use: unspecified group home insulin use status Additional A&P Information Mild mitral regurgitation Mild to moderate tricuspid valve regurgitation Bilateral leg cellulitis : On antibiotics as per primary team. Elevated alkaline phosphatase Elevated TSH Suspect Sleep apnea Morbid obesity Chronic active smoker Thank you for allowing me to participate in patient's care. Please feel free to call with questions or concerns. Attestations Medical Necessity Statement*: Care expected to cross 2 midnights Coding Level of Care Code Acute Senior Chemical Engineer for Dale Guptad Diagnoses Acute respiratory failure with hypoxia J96.01 New onset of congestive heart failure I50.9 Anasarca R60.1 Diabetes E11.9 Diabetes mellitus type: type 2 Diabetes mellitus group home insulin use: unspecified submarine element coordinator insulin use status
[2020-09-05 11:14] LABS: Glucose Point of Care 301 mg/dL (70-110)
[2020-09-05 18:32] LABS: Glucose Point of Care 183 mg/dL (70-110)
--- NOTE | 2020-09-05 19:19 | P.PN_ITS ---
Subjective Subjective: Interval history: He feels he is doing little better. Denies any chest pain or pressure. States his swelling has been coming down. Vitals/I&O/Wt Last Vital Signs Temp 98.7 F 09/05/20 15:44 Pulse 81 09/05/20 15:44 Resp 16 09/05/20 15:44 BP 103/73 09/05/20 15:44 Pulse Ox 96 09/05/20 15:44 09/05/20 09/05/20 09/05/20 06:59 14:59 22:59 Intake Total 210 / 960 1020 / 1020 300 / 1320 Output Total 450 / 1701 2600 / 2600 1900 / 4500 Balance -240 / -741 -1580 / -1580 -1600 / -3180 Physical Exam Const: COMMON NORMALS: no acute distress and patient oriented x3 HENMT: COMMON NORMALS: oropharynx normal Neck/C-Spine: COMMON NORMALS: no JVD Resp: COMMON NORMALS: normal respiratory effort AUSCULTATION: diminished lung sounds Cardio: COMMON NORMALS: no JVD, regular rhythm, S1 normal heart sound present, S2 normal heart sound present and No murmurs present (Cardio) RHYTHM: regular rhythm HEART SOUNDS: S1 normal heart sound present and S2 normal heart sound present GI: COMMON NORMALS: Normal to inspection, nondistended, normoactive bowel sounds present, Soft to palpation and non-tender PALPATION: Yes Soft to palpation Extremity: COMMON NORMALS: no joint enlargement GENERAL: Yes edema (2+ both legs up to the thighs and lower abdomen) Neuro: COMMON NORMALS: patient oriented x3 and moves all extremities Skin: COMMON NORMALS: no rashes or lesions noted GENERAL SKIN EXAM: no rash es or lesions noted Urinary Catheter Management^: Light: Cath Placed During This Visit: yes Reason for Continuing Indwelling Catheter: Acute Urinary Retention or Obstruction Urinary Catheter Date of Insertion: 09/02/20 Urinary Catheter Time of Insertion: 09:00 Data : 09/05/20 06:22 09/05/20 06:22 A&P Assessment and plan (1) New onset of congestive heart failure: Continue diuresis for anasarca. Swelling has been gradually improving. EF noted 15% on TTE, mild dilated related left ventricular cavity. Mildly dilated right ventricular cavity, moderately decreased right ventricular systolic function. PA pressure estimated at 31 mmHg. Mild MR. Moderate TR. Appreciate cardiology consultation Continue Lasix 60 mg IV every 12 hours. Metolazone 5 mg a day as well. Diur esing well. Continue carvedilol, and lisinopril as tolerated by blood pressure Further cardiac work-up when compensation is better If willing, prior to discharge may benefit also from setting up for LifeVest. Status: Acute (2) Cellulitis: Chronic venous stasis bilateral lower extremities. Monitor for any superimposed acute cellulitis. Was temporarily on Rocephin which was discontinued. Status: Acute (3) Anasarca: Gradually improving. Continue IV diuresis Status: Acute (4) Diabetes: Sliding scale insulin Status: Acute Qualifiers: Diabetes mellitus type: type 2 Diabetes mellitus rodent exterminator insulin use: unspecified custodial insulin use status (5) Acute respiratory failure with hypoxia: Oxygen as needed, wean as tolerated. Weaning down to room air. Status: Acute Additional A&P Information Full code Lovenox for DVT prophylaxis Attestations Medical Necessity Statement*: Continue admission for assessment of management of new CHF, anasarca. Coding Level of Care Code Acute Billing And Accounting Staff Assistant for [facility] Fwd Diagnoses New onset of congestive heart failure I50.9 Cellulitis L03.90 Anasarca R60.1 Diabetes E11.9 Diabetes mellitus type: type 2 Diabetes mellitus custodial insulin use: unspecified custodial insulin use status Acute respiratory failure with hypoxia J96.01
[2020-09-05 21:16] LABS: Glucose Point of Care 201 mg/dL (70-110)
[2020-09-06] VITALS (8 sets, daily range): BP systolic 90–107; BP diastolic 64–82; PULSE 85–101; RESP 17–19; TEMP 36.4–36.8; O2SAT 91–98
[2020-09-06 05:57] LABS: Basophils # 0.1 10^3/uL (0.0-0.1); Basophils % 0.7 %; Eosinophils # 0.2 10^3/uL (0.0-0.8); Eosinophils % 2.4 %; Hematocrit 42.4 % (42.0-52.0); Lymphocytes # 1.7 10^3/uL (0.8-4.8); Lymphocytes % 20.6 %; Mean Corpuscular HGB Conc 30.7 g/dL (30.0-36.0); Mean Corpuscular Hemoglobin 25.9 pg (28.0-34.0); Mean Corpuscular Volume 84.5 fL (80-94); Monocytes # 0.6 10^3/uL (0.2-0.9); Monocytes % 7.5 %; Neutrophils % 68.2 %; Nucleated Red Blood Cells % 0 %; Platelet Count 334 10^3/cmm (130-400); Red Blood Count 5.02 10^6/uL (4.1-5.3); Red Cell Distribution Width 15.5 % (12.1-15.1); White Blood Count 8.4 10^3/uL (4.0-10.0)
[2020-09-06 06:08] LABS: Glucose Point of Care 150 mg/dL (70-110)
[2020-09-06 07:00] LABS: Anion Gap 14.2 (5-19); Blood Urea Nitrogen 24 mg/dL (6-20); Calcium 9.3 mg/dL (8.5-10.5); Carbon Dioxide 32 mmol/L (22-29); Chloride 94 mmol/L (98-107); Glomerular Filtration Rate 78.2 mL/min (90-130); Glucose 149 mg/dL (65-115); Osmolality Calculated 289 mOsm/kg (285-295); Potassium 4.2 mmol/L (3.5-5.1); Sodium 136 mmol/L (136-145)
[2020-09-06] MEDS: metOLazone 5 MG Tablet PO (08:53)
[2020-09-06] MEDS: acetaminophen-codeine 300-30mg Tablet 1 TAB PO ×3 (08:54→20:19)
[2020-09-06] MEDS: lisinopril 5 mg Tablet PO (08:54)
[2020-09-06] MEDS: potassium chloride ER 20 mEq Tablet PO (08:54)
[2020-09-06] MEDS: carvedilol 3.125 mg Tablet PO ×2 (08:54→18:13)
[2020-09-06] MEDS: magnesium oxide 400 mg tablet PO (08:54)
[2020-09-06] MEDS: FUROsemide 10 mg/mL SDV 10mL 60 MG IVP ×2 (09:42→17:58)
--- NOTE | 2020-09-06 10:41 | P.PN_ITS ---
Subjective Subjective: Interval history: Patient has been doing well. No chest pain, shortness of breath or palpitations. Patient still has lower extremity edema. He is diuresing well. Vitals/I&O/Wt Last Vital Signs Temp 98.1 F 09/06/20 07:39 Pulse 85 09/06/20 09:00 Resp 18 09/06/20 09:00 BP 107/82 09/06/20 07:39 Pulse Ox 92 09/06/20 09:00 09/05/20 09/06/20 09/06/20 22:59 06:59 14:59 Intake Total 300 / 1320 0 / 1320 Output Total 1900 / 4500 1700 / 6200 600 / 600 Balance -1600 / -3180 -1700 / -4880 -600 / -600 Physical Exam Narrative: EXAM NARRATIVE: Const COMMON NORMALS: no acute distress and patient oriented x3 HENMT COMMON NORMALS: oropharynx normal Neck/C-Spine COMMON NORMALS: no JVD Resp COMMON NORMALS: normal respiratory effort AUSCULTATION: diminished lung sounds Cardio COMMON NORMALS: no JVD, regular rhythm, S1 normal heart sound present, S2 normal heart sound present and No murmurs present (Cardio) RHYTHM: regular rhythm HEART SOUNDS: S1 normal heart sound present and S2 normal heart sound present GI COMMON NORMALS: Normal to inspection, nondistended, normoactive bowel sounds present, Soft to palpation and non-tender PALPATION: Yes Soft to palpation Extremity COMMON NORMALS: no joint enlargement GENERAL: Yes edema (2+ both legs up to the thighs and lower abdomen) Neuro COMMON NORMALS: patient oriented x3 and moves all extremities Skin COMMON NORMALS: no rashes or lesions noted GENERAL SKIN EXAM: no rashes or lesions noted Urinary Catheter Management^: Light: Cath Placed During This Visit: yes Reason for Continuing Indwelling Catheter: Acute Urinary Retention or Obstruction Urinary Catheter Date of Insertion: 09/02/20 Urinary Catheter Time of Insertion: 09:00 Data : 09/07/20 05:46 09/07/20 05:46 A&P Assessment and plan (1) Acute respiratory failure with hypoxia: In setting of decompensated congestive heart failure. Now improved Status: Acute (2) New onset of congestive heart failure: Severely depressed LVEF of 15% along with moderately depressed RV function. -newly diagnosed. continue with 60 mg IV lasix BID and Metolazone. IS about 18 L negative balance. However patient's renal function is normal. -continue low-dose Coreg -I/O charting and daily weight. -Further work up for ischemic etiology once patient is euvolemic. Status: Acute (3) Anasarca: Status: Acute (4) Diabetes: Status: Acute Qualifiers: Diabetes mellitus type: type 2 Diabetes mellitus usp insulin use: unspecified watermelon harvesting supervisor insulin use status Additional A&P Information Mild mitral regurgitation Mild to moderate tricuspid valve regurgitation Bilateral leg cellulitis : On antibiotics as per primary team. Elevated alkaline phosphatase Elevated TSH Suspect Sleep apnea Morbid obesity Chronic active smoker Thank you for allowing me to participate in patient's care. Please feel free to call with questions or concerns. Attestations Medical Necessity Statement*: Care expected to cross 2 midnights. Coding Level of Care Code Acute Gaming Department Head for Dale Castillo Diagnoses Acute respiratory failure with hypoxia J96.01 New onset of congestive heart failure I50.9 Anasarca R60.1 Diabetes E11.9 Diabetes mellitus type: type 2 Diabetes mellitus watermelon harvesting supervisor insulin use: unspecified watermelon harvesting supervisor insulin use status
[2020-09-06] MEDS: enoxaparin 40 mg/0.4 mL Syringe SUBCUT (10:49)
[2020-09-06 12:01] LABS: Glucose Point of Care 217 mg/dL (70-110)
--- NOTE | 2020-09-06 16:54 | P.PN_ITS ---
Subjective Subjective: Interval history: He is complaining of some pain in his feet. Otherwise he is doing all right. Denies trouble breathing. No chest pain or pressure. No abdominal discomfort or diarrhea. Vitals/I&O/Wt Last Vital Signs Temp 97.5 F L 09/06/20 16:00 Pulse 85 09/06/20 16:00 Resp 18 09/06/20 16:00 BP 91/64 09/06/20 16:00 Pulse Ox 96 09/06/20 16:00 09/06/20 09/06/20 09/06/20 06:59 14:59 22:59 Intake Total 0 / 1320 360 / 360 Output Total 1700 / 6200 600 / 600 3250 / 3850 Balance -1700 / -4880 -240 / -240 -3250 / -3490 Physical Exam Const: COMMON NORMALS: no acute distress and patient oriented x3 GENERAL APPEARANCE: disheveled NUTRITIONAL APPEARANCE: obese HENMT: COMMON NORMALS: oropharynx normal Neck/C-Spine: COMMON NORMALS: no JVD Resp: COMMON NORMALS: normal respiratory effort AUSCULTATION: diminished lung sounds Cardio: COMMON NORMALS: no JVD, regular rhythm, S1 normal heart sound present, S2 normal heart sound present and No murmurs present (Cardio) RHYTHM: regular rhythm HEART SOUNDS: S1 normal heart sound present and S2 normal heart sound present GI: COMMON NORMALS: Normal to inspection, nondistended, normoactive bowel sounds present, Soft to palpation and non-tender PALPATION: Yes Soft to palpation Extremity: COMMON NORMALS: no joint enlargement GENERAL: Yes edema (2+ both legs up to the thighs and lower abdomen) OTHER: Feet with some dry cracking skin, no erythema, no suggestion of cellulitis, no open wounds. No cyanosis or dusky appearance. Neuro: COMMON NORMALS: patient oriented x3 and moves all extremities Skin: GENERAL SKIN EXAM: dry skin LESIONS: lesion noted (Chronic ulcerations mid right palm, no further drainage. ) OTHER: No surrounding erythema to suggest cellulitis. Chronic venous stasis dermatitis. Urinary Catheter Management^: Light: Cath Placed During This Visit: yes Reason for Continuing Indwelling Catheter: Acute Urinary Retention or Obstruction Urinary Catheter Date of Insertion: 09/02/20 Urinary Catheter Time of Insertion: 09:00 Data : 09/06/20 05:25 09/06/20 05:25 A&P Assessment and plan (1) New onset of congestive heart failure: He is diuresing well. He still has quite significant anasarca, however, there is no weeping from his ulcerations on the right palm. Skin is otherwise drying out and appears to be having little bit of tracking. Reinforced application of moisturizer with nursing staff. Respiratory naranjo he is doing well. We will continue with IV diuretics currently, continue to monitor intake and output, volume status, renal function. Additional work-up as per cardiology once volume status is more optimized. EF noted 15% on TTE, mild dilated related left ventricular cavity. Mildly dilated right ventricular cavity, moderately decreased right ventricular systolic function. PA pressure estimated at 31 mmHg. Mild MR. Moderate TR. Continue Lasix 60 mg IV every 12 hours. Metolazone 5 mg a day as well. Continue carvedilol, and lisinopril as tolerated by blood pressure If willing, prior to discharge may benefit also from setting up for LifeVest. Status: Acute (2) Cellulitis: Chronic venous stasis bilateral lower extremities. Monitor for any superimposed acute cellulitis. Was temporarily on Rocephin which was discontinued. Status: Acute (3) Anasarca: Gradually improving. Continue IV diuresis Status: Acute (4) Diabetes: Sliding scale insulin Status: Acute Qualifiers: Diabetes mellitus type: type 2 Diabetes mellitus medical terminologist insulin use: unspecified correction insulin use status (5) Acute respiratory failure with hypoxia: Oxygen as needed, wean as tolerated. Pretty well down to room air. Status: Acute Additional A&P Information Pain in his feet: This appears to be perhaps secondary to diuresis, shrinking of his swollen extremities, with some drying and cracking of the skin. Pulses were dopplered and marked at bedside. Requested for some moisturizer, lidocaine jelly if still in pain. Discussed with the nurse and this appears to have helped him immensely. Full code Lovenox for DVT prophylaxis Attestations Medical Necessity Statement*: Continue admission for management of CHF. Coding Level of Care Code Acute Quality Assurance Clerk for [facility] Fwd Diagnoses New onset of congestive heart failure I50.9 Cellulitis L03.90 Anasarca R60.1 Diabetes E11.9 Diabetes mellitus type: type 2 Diabetes mellitus medical terminologist insulin use: unspecified correction insulin use status Acute respiratory failure with hypoxia J96.01
[2020-09-06 17:15] LABS: Creatine Phosphokinase 39 U/L (39-308)
[2020-09-06 17:15] LABS: Glucose Point of Care 177 mg/dL (70-110)
[2020-09-06 20:58] LABS: Glucose Point of Care 282 mg/dL (70-110)
[2020-09-07] VITALS (8 sets, daily range): BP systolic 92–110; BP diastolic 54–70; PULSE 66–88; RESP 16–19; TEMP 36.4–37; O2SAT 90–98
[2020-09-07] MEDS: acetaminophen-codeine 300-30mg Tablet 1 TAB PO (05:41)
[2020-09-07 06:27] LABS: Basophils # 0.1 10^3/uL (0.0-0.1); Basophils % 0.7 %; Eosinophils # 0.2 10^3/uL (0.0-0.8); Eosinophils % 2.7 %; Hematocrit 42.2 % (42.0-52.0); Hemoglobin 12.8 g/dL (11.7-16.6); Lymphocytes # 1.3 10^3/uL (0.8-4.8); Lymphocytes % 15.6 %; Mean Corpuscular HGB Conc 30.3 g/dL (30.0-36.0); Mean Corpuscular Volume 85.8 fL (80-94); Mean Platelet Volume 10.2 fL (7.4-10.4); Monocytes # 0.7 10^3/uL (0.2-0.9); Monocytes % 7.6 %; Neutrophils % 72.9 %; Nucleated Red Blood Cells % 0 %; Platelet Count 315 10^3/cmm (130-400); Red Blood Count 4.92 10^6/uL (4.1-5.3); Red Cell Distribution Width 15.5 % (12.1-15.1); White Blood Count 8.5 10^3/uL (4.0-10.0)
[2020-09-07 06:34] LABS: Anion Gap 11.1 (5-19); Blood Urea Nitrogen 22 mg/dL (6-20); Calcium 9.2 mg/dL (8.5-10.5); Carbon Dioxide 36 mmol/L (22-29); Chloride 92 mmol/L (98-107); Glomerular Filtration Rate 78.2 mL/min (90-130); Glucose 144 mg/dL (65-115); Osmolality Calculated 286 mOsm/kg (285-295); Potassium 4.1 mmol/L (3.5-5.1); Sodium 135 mmol/L (136-145)
[2020-09-07 06:56] LABS: Glucose Point of Care 181 mg/dL (70-110)
[2020-09-07] MEDS: potassium chloride ER 20 mEq Tablet PO (08:52)
[2020-09-07] MEDS: lisinopril 5 mg Tablet PO (08:53)
[2020-09-07] MEDS: magnesium oxide 400 mg tablet PO (08:53)
[2020-09-07] MEDS: carvedilol 3.125 mg Tablet PO ×2 (08:54→18:01)
[2020-09-07] MEDS: enoxaparin 40 mg/0.4 mL Syringe SUBCUT (08:54)
[2020-09-07] MEDS: metOLazone 5 MG Tablet PO (08:54)
[2020-09-07] MEDS: FUROsemide 10 mg/mL SDV 10mL 60 MG IVP ×2 (10:26→16:08)
[2020-09-07 11:09] LABS: Glucose Point of Care 188 mg/dL (70-110)
[2020-09-07 15:31] LABS: Glucose Point of Care 336 mg/dL (70-110)
[2020-09-07] MEDS: nicotine 2 mg Gum BUCCAL (20:15)
[2020-09-07 20:27] LABS: Glucose Point of Care 218 mg/dL (70-110)
--- NOTE | 2020-09-07 21:08 | P.PN_ITS ---
Subjective Subjective: Interval history: He is doing well. Pain in his feet is better. Denies chest pain or pressure. Says breathing is comfortable. Continues to diurese well. Later in the day request for nicotine gum. Vitals/I&O/Wt Last Vital Signs Temp 98.6 F 09/07/20 20:00 Pulse 78 09/07/20 20:00 Resp 17 09/07/20 20:00 BP 110/63 09/07/20 20:00 Pulse Ox 94 09/07/20 20:00 09/07/20 09/07/20 09/07/20 06:59 14:59 22:59 Intake Total 500 / 500 260 / 760 Output Total 1500 / 6650 2800 / 2800 2300 / 5100 Balance -1500 / -5890 -2300 / -2300 -2040 / -4340 Physical Exam Const: COMMON NORMALS: no acute distress and patient oriented x3 GENERAL APPEARANCE: disheveled NUTRITIONAL APPEARANCE: obese HENMT: COMMON NORMALS: oropharynx normal Neck/C-Spine: COMMON NORMALS: no JVD Resp: COMMON NORMALS: normal respiratory effort AUSCULTATION: diminished lung sounds Cardio: COMMON NORMALS: no JVD, regular rhythm, S1 normal heart sound present, S2 normal heart sound present and No murmurs present (Cardio) RHYTHM: regular rhythm HEART SOUNDS: S1 normal heart sound present and S2 normal heart sound present GI: COMMON NORMALS: Normal to inspection, nondistended, normoactive bowel sounds present, Soft to palpation and non-tender PALPATION: Yes Soft to palpation Extremity: COMMON NORMALS: no joint enlargement GENERAL: Yes edema (2+ both legs up to the thighs and lower abdomen) OTHER: Feet with some dry cracking skin with improvement after moisturizer, no suggestion of cellulitis, no open wounds. No cyanosis or dusky appearance. Neuro: COMMON NORMALS: patient oriented x3 and moves all extremities Skin: GENERAL SKIN EXAM: dry skin LESIONS: lesion noted (Chronic ulcerations mid right palm, no further drainage. ) OTHER: No surrounding erythema to suggest cellulitis. Chronic venous stasis dermatitis. Urinary Catheter Management^: Light: Cath Placed During This Visit: yes Reason for Continuing Indwelling Catheter: Accurate Measurement of Urinary Output in Critically Ill Patients Urinary Catheter Date of Insertion: 09/02/20 Urinary Catheter Time of Insertion: 09:00 Data : 09/07/20 05:46 09/07/20 05:46 A&P Assessment and plan (1) New onset of congestive heart failure: Continues to diurese well. In negative balance. Renal function remained stable. Discussed with cardiology. Continue diuresis until volume status is optimized. Tentative plan for possible angiogram if continues to do well sometime early next week. Discussed with patient and he is in agreement. Moisturize lower extremities as they are shrinking down, skin is drying out and cracking. Pain in his feet responded well to moisturizer. Respiratory naranjo he is doing well. On room air. We will continue with IV diuretics currently, continue to monitor intake and output, volume status, renal function. EF noted 15% on TTE, mild dilated related left ventricular cavity. Mildly dilated right ventricular cavity, moderately decreased right ventricular systolic function. PA pressure estimated at 31 mmHg. Mild MR. Moderate TR. Continue Lasix 60 mg IV every 12 hours. Metolazone 5 mg a day as well. Continue carvedilol, and lisinopril as tolerated by blood pressure If willing, prior to discharge may benefit also from setting up for LifeVest. Status: Acute (2) Cellulitis: Chronic venous stasis bilateral lower extremities. Monitor for any superimposed acute cellulitis. Was temporarily on Rocephin which was discontinued. Status: Acute (3) Anasarca: Gradually improving. Continue IV diuresis Status: Acute (4) Diabetes: Sliding scale insulin Status: Acute Qualifiers: Diabetes mellitus technician terminal and repeater insulin use: unspecified fpc insulin u se status Diabetes mellitus type: type 2 (5) Acute respiratory failure with hypoxia: Oxygen as needed, wean as tolerated. Pretty well down to room air. Status: Acute Additional A&P Information Pain in his feet: Improved. This appears to be perhaps secondary to diuresis, shrinking of his swollen extremities, with some drying and cracking of the skin. Pulses were dopplered and marked at bedside. Requested for some moisturizer, lidocaine jelly if still in pain. Discussed with the nurse and this appears to have helped him immensely. Full code Lovenox for DVT prophylaxis Attestations Medical Necessity Statement*: Continue admission for assessment management of CHF, pending additional cardiology assessment for coronary disease. Coding Level of Care Code Acute Director Of Pupil Personnel Program for g Fwd Exam Comprehensive Diagnoses New onset of congestive heart failure I50.9 Cellulitis L03.90 Azebsarca R60.1 Diabetes E11.9 Diabetes mellitus fpc insulin use: unspecified fpc insulin use status Diabetes mellitus type: type 2 Acute respiratory failure with hypoxia J96.01
--- NOTE | 2020-09-07 22:03 | PM.PN ---
Subjective Subjective: Interval history: Patient has been doing well. Denies any complaints of chest pain, shortness of breath or palpitations. He is negative 18 L balance since admission. Renal function is still normal. Vitals/I&O/Wt Last Vital Signs Temp 98.6 F 09/07/20 20:00 Pulse 78 09/07/20 20:00 Resp 17 09/07/20 20:00 BP 110/63 09/07/20 20:00 Pulse Ox 94 09/07/20 20:00 09/07/20 09/07/20 09/07/20 06:59 14:59 22:59 Intake Total 500 / 500 260 / 760 Output Total 1500 / 6650 2800 / 2800 2300 / 5100 Balance -1500 / -5890 -2300 / -2300 -2040 / -4340 Physical Exam Narrative: EXAM NARRATIVE: Narrative EXAM NARRATIVE: Const COMMON NORMALS: no acute distress and patient oriented x3 HENMT COMMON NORMALS: oropharynx normal Neck/C-Spine COMMON NORMALS: no JVD Resp COMMON NORMALS: normal respiratory effort AUSCULTATION: diminished lung sounds Cardio COMMON NORMALS: no JVD, regular rhythm, S1 normal heart sound present, S2 normal heart sound present and No murmurs present (Cardio) RHYTHM: regular rhythm HEART SOUNDS: S1 normal heart sound present and S2 normal heart sound present GI COMMON NORMALS: Normal to inspection, nondistended, normoactive bowel sounds present, Soft to palpation and non-tender PALPATION: Yes Soft to palpation Extremity COMMON NORMALS: no joint enlargement GENERAL: Yes edema (2+ both legs up to the thighs and lower abdomen) Neuro COMMON NORMALS: patient oriented x3 and moves all extremities Skin COMMON NORMALS: no rashes or lesions noted GENERAL SKIN EXAM: no rashes or lesions noted Urinary Catheter Management^: Light: Cath Placed During This Visit: yes Reason for Continuing Indwelling Catheter: Accurate Measurement of Urinary Output in Critically Ill Patients Urinary Catheter Date of Insertion: 09/02/20 Urinary Catheter Time of Insertion: 09:00 Data : 09/08/20 05:57 09/08/20 05:57 A&P Assessment and plan (1) Acute respiratory failure with hypoxia: In setting of decompensated congestive heart failure. Now improved. On room air now. Status: Acute (2) New onset of congestive heart failure: Severely depressed LVEF of 15% along with moderately depressed RV function. -newly diagnosed. continue with 60 mg IV lasix BID and Metolazone. IS about 18 L negative balance. However patient's renal function is normal. -continue low-dose Coreg -I/O charting and daily weight. -Further work up for ischemic etiology once patient is euvolemic. Status: Acute (3) Anasarca: Status: Acute (4) Diabetes: Status: Acute Qualifiers: Diabetes mellitus type: type 2 Diabetes mellitus skilled nursing insulin use: unspecified skilled nursing insulin use status Additional A&P Information Mild mitral regurgitation Mild to moderate tricuspid valve regurgitation Bilateral leg cellulitis : On antibiotics as per primary team. Elevated alkaline phosphatase Elevated TSH Suspect Sleep apnea Morbid obesity Chronic active smoker Thank you for allowing me to participate in patient's care. Please feel free to call with questions or concerns. Attestations Medical Necessity Statement*: Care expected to cross 2 midnights. Coding Level of Care Code Acute Ladle Puller for [facility] Castillo Diagnoses Acute respiratory failure with hypoxia J96.01 New onset of congestive heart failure I50.9 Anasarca R60.1 Diabetes E11.9 Diabetes mellitus type: type 2 Diabetes mellitus long term care pharmacist insulin use: unspecified skilled nursing insulin use status
[2020-09-08] VITALS (9 sets, daily range): BP systolic 93–104; BP diastolic 62–75; PULSE 83–97; RESP 16–24; TEMP 36.3–36.9; O2SAT 91–97
--- NOTE | 2020-09-08 06:05 | PC.NURSE ---
Shift summary Patient has slept somewhat well this shift. He has had a couple bowel movements this shift. Patient is getting up to bedside commode by himself. He denied his colace this shift. His vitals have been good this shift. He has not complained of pain or had any pain medications this shift. He is still very swollen with 4+ pitting bilateral legs. His scrotum is still very swollen.
[2020-09-08 06:15] LABS: Basophils # 0.1 10^3/uL (0.0-0.1); Basophils % 0.7 %; Eosinophils # 0.2 10^3/uL (0.0-0.8); Eosinophils % 1.9 %; Hematocrit 41.6 % (42.0-52.0); Lymphocytes # 1.3 10^3/uL (0.8-4.8); Lymphocytes % 15.7 %; Mean Corpuscular HGB Conc 31.3 g/dL (30.0-36.0); Mean Corpuscular Hemoglobin 26.6 pg (28.0-34.0); Mean Corpuscular Volume 85.1 fL (80-94); Mean Platelet Volume 9.5 fL (7.4-10.4); Monocytes # 0.7 10^3/uL (0.2-0.9); Monocytes % 8.4 %; Neutrophils # 5.87 10^3/uL (1.8-7.7); Neutrophils % 72.8 %; Nucleated Red Blood Cells % 0 %; Platelet Count 339 10^3/cmm (130-400); Red Blood Count 4.89 10^6/uL (4.1-5.3); Red Cell Distribution Width 15.4 % (12.1-15.1); White Blood Count 8.1 10^3/uL (4.0-10.0)
[2020-09-08 06:23] LABS: Glucose Point of Care 136 mg/dL (70-110)
[2020-09-08 06:38] LABS: Anion Gap 10.2 (5-19); Blood Urea Nitrogen 24 mg/dL (6-20); Calcium 9.3 mg/dL (8.5-10.5); Carbon Dioxide 36 mmol/L (22-29); Chloride 93 mmol/L (98-107); Glomerular Filtration Rate 88.3 mL/min (90-130); Glucose 155 mg/dL (65-115); Magnesium 1.9 mg/dL (1.7-2.3); Osmolality Calculated 287 mOsm/kg (285-295); Potassium 4.2 mmol/L (3.5-5.1); Sodium 135 mmol/L (136-145)
[2020-09-08] MEDS: acetaminophen-codeine 300-30mg Tablet 1 TAB PO (06:45)
[2020-09-08] MEDS: magnesium oxide 400 mg tablet PO (10:38)
[2020-09-08] MEDS: carvedilol 3.125 mg Tablet PO ×2 (10:39→17:32)
[2020-09-08] MEDS: potassium chloride ER 20 mEq Tablet PO (10:39)
[2020-09-08] MEDS: lisinopril 5 mg Tablet PO (10:39)
[2020-09-08] MEDS: enoxaparin 40 mg/0.4 mL Syringe SUBCUT (10:40)
[2020-09-08] MEDS: metOLazone 5 MG Tablet PO (10:48)
[2020-09-08 12:40] LABS: Glucose Point of Care 215 mg/dL (70-110)
[2020-09-08] MEDS: nicotine 2 mg Gum BUCCAL (15:33)
--- NOTE | 2020-09-08 15:44 | P.PN_ITS ---
Subjective Subjective: Interval history: Urology follow-up: Continues to improve overall with large decrease in lower extremity and genitourinary edema. Swells up when he sits up though. Physical findings: Still has significant genitourinary edema. It would be difficult to get the catheter back and if we took it out at this time. No gross hematuria. No fever or chills. No renal colic Recommendations: 1. Continue Light catheter for now until significant and durable reduction in genitourinary edema. 2. Consider TAMSULOSIN 0.4 mg p.o. nightly if not contraindicated from a c ardiac perspective given his retention symptoms prior to catheter placement. Vitals/I&O/Wt Last Vital Signs Temp 97.4 F L 09/08/20 12:00 Pulse 88 09/08/20 12:00 Resp 18 09/08/20 12:00 BP 97/67 09/08/20 12:00 Pulse Ox 94 09/08/20 12:00 09/08/20 09/08/20 09/08/20 06:59 14:59 22:59 Intake Total 720 / 720 Output Total 2050 / 7150 600 / 600 Balance -2050 / -6390 120 / 120 Physical Exam Const: COMMON NORMALS: no acute distress and alert : OTHER: Still with severe scrotal and penile edema. Cannot retract the foreskin yet. It is improved but increases when he sits up for any length of time. Neuro: SENSORIUM/ORIENTATION: Yes alert Psych: COMMON NORMALS: mental status grossly normal, Normal thought process present and cooperative ATTITUDE: Yes calm and Yes engaged THOUGHT PROCESS: Normal thought process present Urinary Catheter Management^: Light: Cath Placed During This Visit: yes Reason for Continuing Indwelling Catheter: Accurate Measurement of Urinary Output in Critically Ill Patients Urinary Catheter Date of Insertion: 09/02/20 Urinary Catheter Time of Insertion: 09:00 Data : 09/08/20 05:57 09/08/20 05:57 A&P Assessment and plan (1) Genital edema, male: As a part of systemic fluid retention. Complicated by acute urinary retention requiring Light catheter with difficult catheter placement due to woody edema of the genitalia. Status: Acute (2) Acute urinary retention: Denies a significant preceding history of bladder or obstructive symptoms but did present with acute retention symptoms at time of admission for other made complaints. Recommend considering TAMSULOSIN 0.4 mg p.o. nightly if can be tolerated from a cardiac perspective. Status: Acute Attestations Medical Necessity Statement*: See attending Coding Level of Care Code Acute Nursery School Teacher for Dale Castillo Diagnoses Genital edema, male N50.89 Acute urinary retention R33.8
[2020-09-08] MEDS: FUROsemide 10 mg/mL SDV 10mL 60 MG IVP (16:49)
--- NOTE | 2020-09-08 16:51 | PC.NURSE ---
PT LOST IV ACCESS, GAVE LASIX WHEN RN GOT IV ACCESS
--- NOTE | 2020-09-08 17:24 | PM.PN ---
Subjective Subjective: Interval history: no new complaints, LE swelling improving Medications: Reviewed: Yes Vitals/I&O/Wt Last Vital Signs Temp 97.8 F 09/08/20 16:00 Pulse 84 09/08/20 16:00 Resp 17 09/08/20 16:00 BP 102/75 09/08/20 16:00 Pulse Ox 95 09/08/20 16:00 09/08/20 09/08/20 09/08/20 06:59 14:59 22:59 Intake Total 720 / 720 Output Total 2050 / 7150 600 / 600 1250 / 1850 Balance -2050 / -6390 120 / 120 -1250 / -1130 Physical Exam Urinary Catheter Management^: Light: Cath Placed During This Visit: yes Reason for Continuing Indwelling Catheter: Accurate Measurement of Urinary Output in Critically Ill Patients Urinary Catheter Date of Insertion: 09/02/20 Urinary Catheter Time of Insertion: 09:00 Data : 09/08/20 05:57 09/08/20 05:57 A&P Assessment and plan (1) New onset of congestive heart failure: Continues to diurese well. In negative balance. Renal function remained stable. Tentative plan for possible angiogram if continues to do well sometime early next week. Discussed with patient and he is in agreement. Pain in his feet responded well to moisturizer. Respiratory naranjo he is doing well. On room air. We will continue with IV diuretics currently, continue to monitor intake and output, volume status, renal function. EF noted 15% on TTE, mild dilated related left ventricular cavity. Mildly dilated right ventricular cavity, moderately decreased right ventricular systolic function. PA pressure estimated at 31 mmHg. Mild MR. Moderate TR. Continue Lasix 60 mg IV every 12 hours. Metolazone 5 mg a day as well. Continue carvedilol, and lisinopril as tolerated by blood pressure If willing, prior to discharge may benefit also from setting up for LifeVest. Status: Acute (2) Cellulitis: Chronic venous stasis bilateral lower extremities. Monitor for any superimposed acute cellulitis. Was temporarily on Rocephin which was discontinued. Status: Acute (3) Anasarca: Gradually improving. 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 Pretty well down to room air. Status: Acute Additional A&P Information Pain in his feet: Improved. This appears to be perhaps secondary to diuresis, shrinking of his swollen extremities, with some drying and cracking of the skin. Pulses were dopplered and marked at bedside. Requested for some moisturizer, lidocaine jelly if still in pain. Discussed with the nurse and this appears to have helped him immensely. 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
[2020-09-08 17:53] LABS: Glucose Point of Care 186 mg/dL (70-110)
[2020-09-08 20:48] LABS: Glucose Point of Care 231 mg/dL (70-110)
--- NOTE | 2020-09-08 21:42 | PM.PN ---
Subjective Subjective: Interval history: Patient is feeling well. No complaints of chest pain, shortness of breath or palpitations. Patient is negative 28 L since admission. Creatinine is stable. Vitals/I&O/Wt Last Vital Signs Temp 98.5 F 09/08/20 19:38 Pulse 86 09/08/20 19:38 Resp 17 09/08/20 19:38 BP 94/62 09/08/20 19:38 Pulse Ox 92 09/08/20 19:38 09/08/20 09/08/20 09/08/20 06:59 14:59 22:59 Intake Total 720 / 720 300 / 1020 Output Total 2050 / 7150 600 / 600 3250 / 3850 Balance -2050 / -6390 120 / 120 -2950 / -2830 Physical Exam Narrative: EXAM NARRATIVE: Const COMMON NORMALS: no acute distress and patient oriented x3 HENMT COMMON NORMALS: oropharynx normal Neck/C-Spine COMMON NORMALS: no JVD Resp COMMON NORMALS: normal respiratory effort AUSCULTATION: diminished lung sounds Cardio COMMON NORMALS: no JVD, regular rhythm, S1 normal heart sound present, S2 normal heart sound present and No murmurs present (Cardio) RHYTHM: regular rhythm HEART SOUNDS: S1 normal heart sound present and S2 normal heart sound present GI COMMON NORMALS: Normal to inspection, nondistended, normoactive bowel sounds present, Soft to palpation and non-tender PALPATION: Yes Soft to palpation Extremity COMMON NORMALS: no joint enlargement GENERAL: Yes edema (2+ both legs up to the thighs and lower abdomen) Neuro COMMON NORMALS: patient oriented x3 and moves all extremities Skin COMMON NORMALS: no rashes or lesions noted GENERAL SKIN EXAM: no rashes or lesions noted Urinary Catheter Management^: Light: Cath Placed During This Visit: yes Reason for Continuing Indwelling Catheter: Acute Urinary Retention or Obstruction Urinary Catheter Date of Insertion: 09/02/20 Urinary Catheter Time of Insertion: 09:00 Data : 09/08/20 05:57 09/08/20 05:57 A&P Assessment and plan (1) Acute respiratory failure with hypoxia: In setting of decompensated congestive heart failure. Now improved. On room air now. Status: Acute (2) New onset of congestive heart failure: Severely depressed LVEF of 15% along with moderately depressed RV function. -newly diagnosed. continue with 60 mg IV lasix BID and Metolazone. Is about 28 L negative balance. However patient's renal function is normal. -continue low-dose Coreg -I/O charting and daily weight. -Further work up for ischemic etiology once patient is euvolemic. Status: Acute (3) Anasarca: Status: Acute (4) Diabetes: Status: Acute Qualifiers: Diabetes mellitus type: type 2 Diabetes mellitus long-term insulin use: unspecified rn long term care insulin use status Additional A&P Information Mild mitral regurgitation Mild to moderate tricuspid valve regurgitation Bilateral leg cellulitis : On antibiotics as per primary team. Elevated alkaline phosphatase Elevated TSH Suspect Sleep apnea Morbid obesity Chronic active smoker Thank you for allowing me to participate in patient's care. Please feel free to call with questions or concerns. 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
[2020-09-09] VITALS (8 sets, daily range): BP systolic 98–114; BP diastolic 66–76; PULSE 86–95; RESP 16–24; TEMP 36.2–36.9; O2SAT 93–97
[2020-09-09] MEDS: acetaminophen-codeine 300-30mg Tablet 1 TAB PO ×2 (06:02→23:37)
--- NOTE | 2020-09-09 07:22 | PM.PN ---
Subjective Subjective: Interval history: Currently saturating well on room air. No new complaints. Lasix transition from IV to p.o. today. Possibly plan for cath tomorrow morning. Medications: Reviewed: Yes Medication Review Details: Current Medications Albuterol/Ipratropium (Ipratropium-Albuterol 3 Ml Neb) 3 ml INHALATION Q6H PRN PRN Reason: SHORTNESS OF BREATH Carvedilol (Carvedilol 3.125 Mg Tablet) 3.125 mg PO BID [facility] Last Admin: 09/04/20 18:16 Dose: 3.125 mg Documented by: Dextrose (Dextrose 50% Syringe 50 Ml) 25 ml IVP ONCE PRN; Protocol PRN Reason: hypoglycemia protocol Dextrose (Dextrose 50% Syringe 50 Ml) 50 ml IVP PRN PRN; Protocol PRN Reason: hypoglycemia protocol Docusate Sodium (Docusate Sodium 100 Mg Capsule) 200 mg PO BEDTIME [facility] Last Admin: 09/03/20 20:32 Dose: 200 mg Documented by: Enoxaparin Sodium (Enoxaparin 40 Mg/0.4 Ml Syringe) 40 mg SUBCUT Q24H [facility] Last Admin: 09/04/20 10:48 Dose: 40 mg Documented by: Furosemide (Furosemide 10 Mg/Ml Sdv 10ml) 60 mg IVP 0800,1600 [facility] Last Admin: 09/04/20 08:38 Dose: 60 mg Documented by: Glucagon (Glucagon 1 Mg/Ml Inj 1 Ml) 1 mg IM ONCE PRN; Protocol PRN Reason: Adult Acute Hypoglycemia Prot. Dextrose (D5w) 500 mls @ 100 mls/hr IV ONCE PRN; Protocol PRN Reason: Adult Acute Hypoglycemia Prot Insulin Aspart (Insulin Aspart 100 Unit/1 Ml) 0 unit SUBCUT WM&BEDTIME [facility]; Protocol Last Admin: 09/04/20 18:16 Dose: 4 unit Documented by: Lisinopril (Lisinopril 5 Mg Tablet) 5 mg PO DAILY [facility] Last Admin: 09/04/20 09:29 Dose: 5 mg Documented by: Magnesium Oxide (Magnesium Oxide 400 Mg Tablet) 400 mg PO DAILY [facility] Last Admin: 09/04/20 09:28 Dose: 400 mg Documented by: Metolazone (Metolazone 5 Mg Tablet) 5 mg PO DAILY [facility] Last Admin: 09/04/20 09:29 Dose: 5 mg Documented by: Polyethylene Glycol (Polyethylene Glycol 3350 Pkt 17 Gm) 17 gm PO DAILY [facility] Last Admin: 09/04/20 09:28 Dose: Not Given Documented by: Potassium Chloride (Potassium Chloride Er 20 Meq Tablet) 20 meq PO DAILY [facility] Last Admin: 09/04/20 09:29 Dose: 20 meq Documented by: Vitals/I&O/Wt Last Vital Signs Temp 97.1 F L 09/09/20 04:00 Pulse 91 09/09/20 04:00 Resp 16 09/09/20 04:00 BP 105/73 09/09/20 04:00 Pulse Ox 93 09/09/20 04:00 09/08/20 09/09/20 09/09/20 22:59 06:59 14:59 Intake Total 300 / 1020 Output Total 3250 / 3850 1000 / 4850 Balance -2950 / -2830 -1000 / -3830 Physical Exam Narrative: EXAM NARRATIVE: GEN: Awake, alert and oriented, no acute distress CVS: S1S2 N RS: CTA B/L Abd: Soft, nt/nd , bs+ 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 In negative balance. Renal function remained stable. Lasix transition from 60 mg IV every 12 hours to 100 mg p.o. twice daily today Continue to monitor KADEN, daily output. Continue metolazone 5 mg p.o. daily. EF noted 15% on TTE, mild dilated related left ventricular cavity. Mildly dilated right ventricular cavity, moderately decreased right ventricular systolic function. PA pressure estimated at 31 mmHg. Mild MR. Moderate TR. Continue carvedilol, and lisinopril as tolerated by blood pressure Plan for cardiac cath possibly tomorrow if continues to remain euvolemic. If willing, prior to discharge may benefit also from setting up for LifeVest. Status: Acute (2) Cellulitis: More suggestive of chronic venous stasis, less likely to be cellulitis, patient afebrile, no leukocytosis. Antibiotics have been discontinued, patient doing well currently. Status: Acute (3) Anasarca: Gradually improving. 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 Pretty well down to room air. Status: Acute Additional A&P Information Pain in his feet: Improved. This appears to be perhaps secondary to diuresis, shrinking of his swollen extremities, with some drying and cracking of the skin. Pulses were dopplered and marked at bedside. Requested for some moisturizer, lidocaine jelly if still in pain. Discussed with the nurse and this appears to have helped him immensely. Full code Lovenox for DVT prophylaxis Attestations Medical Necessity Statement*: Likely plan for cardiac cath tomorrow morning. 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
[2020-09-09 08:10] LABS: Glucose Point of Care 179 mg/dL (70-110)
[2020-09-09] MEDS: tamsulosin 0.4 mg Capsule PO (08:54)
[2020-09-09] MEDS: carvedilol 3.125 mg Tablet PO ×2 (08:54→18:15)
[2020-09-09] MEDS: potassium chloride ER 20 mEq Tablet PO (08:54)
[2020-09-09] MEDS: magnesium oxide 400 mg tablet PO (08:54)
[2020-09-09] MEDS: lisinopril 5 mg Tablet PO (08:55)
[2020-09-09] MEDS: metOLazone 5 MG Tablet PO (08:55)
[2020-09-09] MEDS: FUROsemide 40 mg Tablet 100 MG PO ×2 (08:55→15:48)
[2020-09-09] MEDS: polyethylene glycol 3350 Pkt 17 gm PO (08:59)
--- NOTE | 2020-09-09 09:49 | PC.CHAP ---
Pastoral Care Encounter/Spiritual Assessment Type of Contact [] Declined limited radiology technician visit [] Patient/Family/Request visit [] Outpatient visit [] Follow-up visit [] Physician referral [] Code/Alert [x] Routine visit [] Staff referral [] Actively dying [] Patient sleeping [] Family support [] [] Out of room [] Palliative care [] [] Receiving care in room [] Pre-surgical visit [] Trauma [] Long length of stay [] ICU visit [] Other: Relational/Emotional Strength [x] Patient feels connected with others/family/visitors/staff [] Distress [] Loneliness/isolation [] Abandonment Spirituality of Patient [x] Person of Yaneth [] Attends Buddhism of their [place] [] Believes in Prayer [] Reads Bible or Hinduism materials [] There are Spiritual issues to be addressed Loss Control Technician Interventions [x] Prayer [x] Active listening [] Non-anxious presence [] Spiritual/emotional support [] Crisis/trauma care [] Spiritual counseling [] Bereavement support [] Provided bereavement packet [] Provided Bible/devotional materials [] Provided toy/stuffed animal, coloring book to patient or family member [] Provided Communion [] Anointing/[place] [] Salvation [x] Completed spiritual assessment [] Other: Impact on Illness or Injury [] Angry [] Fearful [] Anxious [] Often cries [] Exhaustion [] Unable to work [] Unable to attend jain [] Unable to walk/stand [] Unable to read [] Unable to drive [] Unable to eat/drink [] Unable to sleep [] Unable to be with family [] Patient intubated [] Other: Summary patient doing much better starting to stand n few steps Time spent with patient 10 min
[2020-09-09 10:24] LABS: Basophils # 0.1 10^3/uL (0.0-0.1); Basophils % 0.6 %; Eosinophils # 0.2 10^3/uL (0.0-0.8); Eosinophils % 2.2 %; Hematocrit 41.2 % (42.0-52.0); Hemoglobin 12.6 g/dL (11.7-16.6); Lymphocytes # 1.3 10^3/uL (0.8-4.8); Lymphocytes % 16.7 %; Mean Corpuscular HGB Conc 30.6 g/dL (30.0-36.0); Mean Corpuscular Volume 85.1 fL (80-94); Monocytes # 0.5 10^3/uL (0.2-0.9); Monocytes % 6.6 %; Neutrophils # 5.87 10^3/uL (1.8-7.7); Neutrophils % 73.2 %; Nucleated Red Blood Cells % 0 %; Platelet Count 346 10^3/cmm (130-400); Red Blood Count 4.84 10^6/uL (4.1-5.3); Red Cell Distribution Width 15.4 % (12.1-15.1)
[2020-09-09] MEDS: enoxaparin 40 mg/0.4 mL Syringe SUBCUT (10:50)
[2020-09-09 10:53] LABS: Alanine Aminotransferase 20 U/L (0-41); Albumin Level 3.4 g/dL (3.5-5.2); Alkaline Phosphatase 240 IU/L (40-130); Anion Gap 14.9 (5-19); Aspartate Amino Transferase 22 U/L (0-40); Blood Urea Nitrogen 21 mg/dL (6-20); Calcium 9.3 mg/dL (8.5-10.5); Carbon Dioxide 31 mmol/L (22-29); Chloride 92 mmol/L (98-107); Globulin 3.2 g/dL (1.3-4.6); Glomerular Filtration Rate 101.1 mL/min (90-130); Glucose 243 mg/dL (65-115); Osmolality Calculated 289 mOsm/kg (285-295); Potassium 3.9 mmol/L (3.5-5.1); Sodium 134 mmol/L (136-145); Total Bilirubin 0.3 mg/dL (0.15-1.2); Total Protein 6.6 g/dL (6.6-8.7)
--- NOTE | 2020-09-09 11:18 | P.PN_ITS ---
Subjective Subjective: Interval history: He has diuresed well overall and is ~-30 L since admission. He feels well. Denies having any chest pain or shortness of breath. Leg swelling and scrotal swelling has improved Medications: Reviewed: Yes Medication Review Details: Current Medications Acetaminophen/Codeine Phosphate (Acetaminophen-Codeine 300-30mg Tablet) 1 tab PO Q4H PRN PRN Reason: MODERATE PAIN Last Admin: 09/09/20 06:02 Dose: 1 tab Documented by: Albuterol/Ipratropium (Ipratropium-Albuterol 3 Ml Neb) 3 ml INHALATION Q6H PRN PRN Reason: SHORTNESS OF BREATH Carvedilol (Carvedilol 3.125 Mg Tablet) 3.125 mg PO BID [facility] Last Admin: 09/09/20 08:54 Dose: 3.125 mg Documented by: Dextrose (Dextrose 50% Syringe 50 Ml) 25 ml IVP ONCE PRN; Protocol PRN Reason: hypoglycemia protocol Dextrose (Dextrose 50% Syringe 50 Ml) 50 ml IVP PRN PRN; Protocol PRN Reason: hypoglycemia protocol Docusate Sodium (Docusate Sodium 100 Mg Capsule) 200 mg PO BEDTIME [facility] Last Admin: 09/08/20 21:21 Dose: Not Given Documented by: Enoxaparin Sodium (Enoxaparin 40 Mg/0.4 Ml Syringe) 40 mg SUBCUT Q24H [facility] Last Admin: 09/09/20 10:50 Dose: 40 mg Documented by: Furosemide (Furosemide 40 Mg Tablet) 100 mg PO BID@08,16 [facility] Last Admin: 09/09/20 08:55 Dose: 100 mg Documented by: Glucagon (Glucagon 1 Mg/Ml Inj 1 Ml) 1 mg IM ONCE PRN; Protocol PRN Reason: Adult Acute Hypoglycemia Prot. Dextrose (D5w) 500 mls @ 100 mls/hr IV ONCE PRN; Protocol PRN Reason: Adult Acute Hypoglycemia Prot Insulin Aspart (Insulin Aspart 100 Unit/1 Ml) 0 unit SUBCUT WM&BEDTIME [facility]; Protocol Last Admin: 09/09/20 12:31 Dose: 4 unit Documented by: Lidocaine HCl (Lidocaine 2% Jelly 5 Ml) 1 applic TOPICAL PRN PRN PRN Reason: PAIN Lisinopril (Lisinopril 5 Mg Tablet) 5 mg PO DAILY [facility] Last Admin: 09/09/20 08:55 Dose: 5 mg Documented by: Magnesium Oxide (Magnesium Oxide 400 Mg Tablet) 400 mg PO DAILY [facility] Last Admin: 09/09/20 08:54 Dose: 400 mg Documented by: Metolazone (Metolazone 5 Mg Tablet) 5 mg PO DAILY [facility] Last Admin: 09/09/20 08:55 Dose: 5 mg Documented by: Nicotine Polacrilex (Nicotine 2 Mg Gum) 2 mg [place] Q2H PRN PRN Reason: smoker Last Admin: 09/08/20 15:33 Dose: 2 mg Documented by: Polyethylene Glycol (Polyethylene Glycol 3350 Pkt 17 Gm) 17 gm PO DAILY [facility] Last Admin: 09/09/20 08:59 Dose: 17 gm Documented by: Potassium Chloride (Potassium Chloride Er 20 Meq Tablet) 20 meq PO DAILY [facility] Last Admin: 09/09/20 08:54 Dose: 20 meq Documented by: Tamsulosin HCl (Tamsulosin 0.4 Mg Capsule) 0.4 mg PO DAILY [facility] Last Admin: 09/09/20 08:54 Dose: 0.4 mg Documented by: Vitals/I&O/Wt Last Vital Signs Temp 97.7 F 09/09/20 08:00 Pulse 91 09/09/20 08:40 Resp 17 09/09/20 08:40 BP 114/76 09/09/20 08:00 Pulse Ox 96 09/09/20 08:40 09/08/20 09/09/20 09/09/20 22:59 06:59 14:59 Intake Total 300 / 1020 Output Total 3250 / 3850 1000 / 4850 800 / 800 Balance -2950 / -2830 -1000 / -3830 -800 / -800 Physical Exam Narrative: EXAM NARRATIVE: Const COMMON NORMALS: no acute distress, patient oriented x3, alert and well nourished GENERAL APPEARANCE: cooperative, comfortable, well kempt and well developed NUTRITIONAL APPEARANCE: obese ORIENTATION/CONSCIOUSNESS: Yes oriented to person, Yes oriented to place and Yes oriented to time [facility] COMMON NORMALS: normocephalic, atraumatic, hearing grossly normal bilaterally, external ears normal and Normal external nose present HEAD & SCALP: normocephalic and atraumatic FACE & SINUS: face symmetric NOSE: Normal external nose present EXTERNAL EAR: Yes external ears normal Eye COMMON NORMALS: Equal, round and reactive pupils present, EOMs intact bilaterally and conjunctivae normal ALIGNMENT: Yes alignment normal CONJUNCTIVA: Yes conjunctivae normal SCLERA: sclerae normal PUPIL: Yes Equal, round and reactive pupils present Neck/C-Spine COMMON NORMALS: no lymphadenopathy, supple, no JVD and Thyroid normal; negative for No carotid bruits GENERAL: Yes trachea midline THYROID: Thyroid normal Chest COMMONS NORMALS: normal inspection of the chest CHEST: Yes Symmetrical chest wall rise and No tenderness Resp COMMON NORMALS: normal respiratory effort, No use of accessory muscles and clear to auscultation bilaterally EFFORT & INSPECTION: Yes able to speak in complete sentences and No audible wheezes AUSCULTATION: clear to auscultation bilaterally, no crackles, no rales, no rhonchi and no wheezes Cardio COMMON NORMALS: no JVD, regular rate, regular rhythm, S1 normal heart sound present, S2 normal heart sound present and Peripheral pulses 2+ throughout; negative for No gallops present (Cardio) and negative for No clicks present (Cardio) JUGULAR VENOUS DISTENTION: no JVD PALPATION: normal PMI, no heave, no palpable S3, no palpable S4 and no thrill RATE: regular rate RHYTHM: regular rhythm HEART SOUNDS: S1 normal heart sound present, S2 normal heart sound present, no gallops and no murmurs BRUITS: no carotid bruits PERIPHERAL PULSES: Peripheral pulses 2+ throughout GI COMMON NORMALS: Normal to inspection, nondistended, normoactive bowel sounds present and non-tender INSPECTION: Yes Abdominal wall edema and Yes Anasarca PALPATION: Yes Firmness to palpation present (GI) and Yes Other GI palpation findings present (obese and distended) PERCUSSION: dullness to percussion RECTAL EXAM: Yes deferred PENIS: other (scrotal and penile edema) Back/Pelvis GENERAL BACK: Yes other (edema noted on back) Extremity NARRATIVE EXTREMITY EXAM: 1-2+ edema extending above knees Neuro COMMON NORMALS: patient oriented x3 and no focal motor deficits SENSORIUM/ORIENTATION: Yes alert, Yes oriented to person, Yes oriented to place and Yes oriented to time CRANIAL NERVES: Yes CN normal except as noted Psych COMMON NORMALS: Normal thought process present APPEARANCE: Yes well kempt MOOD & AFFECT: Yes euthymic mood THOUGHT PROCESS: Normal thought process present THOUGHT CONTENT: Yes Normal thought content present ATTENTION/CONCENTRATION: Yes attention grossly intact MEMORY/COGNITION: Yes memory grossly intact INSIGHT: Good insight present (Psych) JUDGEMENT: Good judgement present (Psych) Skin NARRATIVE SKIN EXAM: Bilateral leg erythema, erythematous pruritic rash on back Urinary Catheter Management^: Light: Cath Placed During This Visit: yes Reason for Continuing Indwelling Catheter: Acute Urinary Retention or Obstruction Urinary Catheter Date of Insertion: 09/02/20 Urinary Catheter Time of Insertion: 09:00 Data : 09/09/20 09:48 09/09/20 09:48 A&P Assessment and plan (1) New onset of congestive heart failure: Severely depressed LVEF of 15% along with moderately depressed RV function. -newly diagnosed. Transitioned to lasix 100 mg PO BID today. stop Metolazone. add spironolactone 25 mg in morning. -continue low-dose Coreg and lisinopril. -I/O charting and daily weight. -I had a long discussion with the patient about coronary angiogram. Risks and benefits and alternate management options discussed. -Patient would like to think about it. I will discuss with him again later this evening. Status: Acute (2) Anasarca: Status: Acute (3) Diabetes: Status: Acute Qualifiers: Diabetes mellitus terminal supervisor insulin use: unspecified terminal supervisor insulin use status Diabetes mellitus type: type 2 Additional A&P Information Mild mitral regurgitation Mild to moderate tricuspid valve regurgitation Bilateral leg cellulitis : On antibiotics as per primary team. Elevated alkaline phosphatase Elevated TSH Suspect Sleep apnea Morbid obesity Chronic active smoker Thank you for allowing me to participate in patient's care. Please feel free to call with questions or concerns. Attestations Medical Necessity Statement*: Needs hospital stay for newly diagnosed CHF Time Spent in Patient Care: 16 - 35 minutes (>than 50% of time spent in counselling and/or direct pt care on unit) . Coding Level of Care Code Established Pt Acute Area Coordinator for [facility] Castillo Patient Type Established History Detailed Exam Detailed Medical Decision Making Moderate Complexity Diagnoses New onset of congestive heart failure I50.9 Anasarca R60.1 Diabetes E11.9 Diabetes mellitus terminal supervisor insulin use: unspecified terminal supervisor insulin use status Diabetes mellitus type: type 2 Time Spent (min) 30
[2020-09-09 11:55] LABS: Glucose Point of Care 192 mg/dL (70-110)
[2020-09-09] MEDS: FUROsemide 10 mg/mL SDV 4mL 40 MG IVP (13:19)
[2020-09-09 18:06] LABS: Glucose Point of Care 261 mg/dL (70-110)
[2020-09-09 22:03] LABS: Glucose Point of Care 181 mg/dL (70-110)
[2020-09-09] MEDS: docusate sodium 100 mg Capsule 200 MG PO (22:22)
[2020-09-10] VITALS (55 sets, daily range): BP systolic 71–119; BP diastolic 49–87; PULSE 83–100; RESP 10–32; TEMP 36.2–36.7; O2SAT 86–99
[2020-09-10 06:49] LABS: Glucose Point of Care 166 mg/dL (70-110)
[2020-09-10 06:56] LABS: Alanine Aminotransferase 22 U/L (0-41); Albumin Level 3.2 g/dL (3.5-5.2); Alkaline Phosphatase 233 IU/L (40-130); Aspartate Amino Transferase 22 U/L (0-40); Blood Urea Nitrogen 23 mg/dL (6-20); Calcium 9.3 mg/dL (8.5-10.5); Carbon Dioxide 32 mmol/L (22-29); Chloride 92 mmol/L (98-107); Globulin 3.1 g/dL (1.3-4.6); Glucose 149 mg/dL (65-115); Osmolality Calculated 286 mOsm/kg (285-295); Sodium 135 mmol/L (136-145); Total Bilirubin 0.4 mg/dL (0.15-1.2); Total Protein 6.3 g/dL (6.6-8.7)
[2020-09-10 07:14] LABS: Chol HDL Ratio 3.13 mg/dL (1.0-5.00); Cholesterol 119 mg/dL (0-200); HDL Cholesterol 38 mg/dL (60-100); LDL Cholesterol Calculated 63 mg/dL (50-129); LDL HDL Ratio 1.66 RATIO (0.00-3.22); Magnesium 1.8 mg/dL (1.7-2.3); Triglycerides 88 mg/dL (0-150)
[2020-09-10] MEDS: FUROsemide 40 mg Tablet 100 MG PO (07:58)
[2020-09-10] MEDS: aspirin 325 mg EC Tablet PO (08:00)
[2020-09-10] MEDS: magnesium oxide 400 mg tablet PO (08:00)
[2020-09-10] MEDS: tamsulosin 0.4 mg Capsule PO (08:00)
[2020-09-10] MEDS: lisinopril 5 mg Tablet PO (08:00)
[2020-09-10] MEDS: potassium chloride ER 20 mEq Tablet PO (08:00)
[2020-09-10] MEDS: carvedilol 3.125 mg Tablet PO ×2 (08:01→18:48)
[2020-09-10] MEDS: polyethylene glycol 3350 Pkt 17 gm PO (08:01)
[2020-09-10] MEDS: spironolactone 25 mg Tablet PO (08:01)
--- NOTE | 2020-09-10 09:48 | XACV_ITS ---
Exam Room: [facility] Ht: 180 cm Wt: 159 kg BSA: 2.90 m2 Gender: Male : 1965 Any Known Allergies: No known allergies Exam Priority: Routine Procedure(s): Procedure Description: Diagnostic procedure Procedure Description: Left Heart Catheterization Procedure Description: Right Heart Catheterization Procedure Description: Coronary Angiography Diagnostic Cath Status: Elective Diagnostic Findings * LM has luminal irregularities. * CX gives rise to 2 OM branches. OM1 is a small sized vessel. It has subtotal occlusion. Otherwise mild luminal irregularities are noted. * RCA arises from right coronary cusp. No significant stenosis is noted in RCA. * LAD has mid vessel subtotal occlusion. * Distal to that vessel is * small in size. * LAD gives rise to * large diagonal branch which is free of significant disease. mLAD: Severe 99% stenosis, CINDI: 3 flow. Mid LAD is a calcified vessel. * Right heart cath findings: RA pressure: 25/26, mean 22 mmHg RV pressure: 53/12, mean 24 mmHg PCW: 32/28, mean 28 mmHg PA pressure: 55/30, mean 42 mmHg PA sat: 52.2% Ao sat: 84% Cardiac output 5.3 L/min (By Sadia) Cardiac index 2.3 L/min/m2 (By Sadia). * Coronary angiography shows right dominance. Conclusions 1. There is severe coronary artery disease with subtotal occlusion of mid LAD. Patient also has subtotal occlusion of OM1 which is a small sized vessel.. 2. Elevated right and left-sided cardiac pressures. 3. There is subtotal occlusion of mid LAD. Will recommend getting viability study prior to attempting revascularization. Recommendations * Aggressive diuresis. * Medical management for heart failure. * If viability study shows viable myocardium in the LAD territory, will attempt revascularization of mid LAD subtotal occlusion. Diagnostic RX Recommendation: medical therapy and/or counseling Pressures Phase:Rest AO : 103 / 70 ( 84 ) @ 10:56:00 AM 104 / 66 ( 83 ) @ 10:56:00 AM 104 / 73 ( 86 ) @ 10:56:00 AM 99 / 78 ( 89 ) @ 10:57:00 AM LV : 114 / -3 / @ 10:55:00 AM 114 / -3 / @ 10:56:00 AM RV : 53 / 12 / @ 10:45:00 AM PA : 55 / 30 ( 42 ) @ 10:47:00 AM RA : a wave = v wave = mean = 22 @ 10:45:00 AM Valves Phase:DefaultPhase AV : 11.0 @ 5:15:55 PM AV Mean Gradient: 9.0 @ 5:15:55 PM Clinical Evaluation EBL: 5mL-10mL Procedural Details Procedure Consent Obtained. Pre-Procedure Time Out. Identified patient by full name and date of as verbalized by the patient/guarantor. Does the consent match the physician's order: Yes. Accurate & Complete Informed Consent: Yes. Inpatient/Outpatient History & Physical on Chart: Yes. If H&P is completed, is and addenduem needed: No; If yes, is the addendum complete: N/A. Visualize and Verify Site with Patient/Guarantor: N/A. Relevant Radiology Images available: N/A. Pre-op teaching completed and patient verbalized understanding. The risks, benefits, and alternatives of sedation and/or procedure were discussed by physician. The patient agrees to continue. Procedure started. [facility] Clinical Fraility Score: 4: Vulnerable. Health Care Coordinator Indications: Cardiomyopathy. Chest Pain Symptom Assessment: Non-anginal Chest Pain. Cardiovascular Instability: No. Correct patient, site and procedure confirmed by cath team. PERRLA. Strong, equal hand operator command support systems bilaterally. Lungs clear x 5 lobes. A 20 gauge IV was started in the right anticubital using aseptic technique. IV Fluids: 0.9% NaCl at KVO. 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 IV Site on Arrival: 18 gauge in the right wrist. Physician arrived. Equipment: 6F - Radial. Cardiac Cath Pack. ACIST Manifold Kit Model BT 2000. Heparinized Saline (2 units/mL), 1000 mL bag. Pre Procedural Pulses: bilateral dorsalis pedis was Doppled. Pre Procedural Pulses: bilateral posterior tibial was Doppled. Pre Procedural Pulses: bilateral radial was 1+. bilateral groins was prepped with chloroprep then draped in the usual sterile fashion. right radial was prepped with chloroprep then draped in the usual sterile fashion. right brachial was prepped with chloroprep then draped in the usual sterile fashion. Baseline sample Acquired. HR: 94 BPM. Physician scrubbed in. Immediate Pre-Procedure Time Out. Correct Patient: Yes; Correct Procedure: Yes; Correct Site: Yes; Correct Patient Position: Yes; Correct Supplies: Yes; Dried Flammable Prep: Yes; Blood Products Available: N/A;. Wire inserted through IV catheter in right brachial vein. IV catheter removed over wire. Lidocaine 1% infiltrated to the right brachial. Gower-Dave MON catheter inserted. Gower-Dave out. Lidocaine 1% infiltrated to the right radial. Arterial access obtained. IV fluids running at 25 ml/hr. A 5 estonian TIG catheter in over wire. Oxygen started at 2liters/min via nasal canula. EDP Sample taken: LV 114/-4,24; HR: 91 BPM; SpO2: 87%. Pullback taken: LV 114/-4,23; AO 103/70(84); Mean: 9mmHg, Peak to Peak: 11mmHg, SEP: 22sec/min; HR: 90 BPM; SpO2: 87%. Multiple views taken of left coronary artery. Catheter redirected to the RCA. Catheter removed over the exchange wire. A 5 estonian JR4 catheter in over wire. Multiple views taken of right coronary artery. Catheter removed over the exchange wire. Sheath flushed periodically to maintain patency. Physician scrubbed out. A Manual Compression was successful obtaining hemostatsis at the Right Brachial Vein insertion site. A TR Band was successful obtaining hemostatsis at the Right Radial artery insertion site. TR band placed. Hemostasis obtained. Post Procedure: Pulses reassessed and unchanged. PERRLA. Strong, equal hand operator command support systems bilaterally. No VTE prophylaxis required. Contrast type used: Omnipaque 300 mgI/mL, 500 mL bottle. Medication's Wasted: Lidocaine 1% = 16 mL. Medication's Wasted: Nitro = 49.8 mg. Medication's Wasted: Heparin = 1000 units. Medication's Wasted: Other = versed 1 mg. Medication's Wasted: Other = fentanyl 75 mcg. Total IV fluids: 21.7 mL. Post-op diagnosis: severe mid LAD stenosis. Complications: none. Estimated blood loss: 5mL-10mL. Procedure completed. Patient transferred by bed to 1st floor. Vital chart was stopped. Access Site Site: Right Brachial Vein Sheath Size: 6 Fr Hemostasis Method: Manual Compression Hemostasis Success: Successful Site: Right Radial artery Sheath Size: 6 Fr Hemostasis Method: TR Band Hemostasis Success: Successful Procedure Medications Start: 4:37 PM Stop: 4:37 PM Medication: Versed Amount: 1 mg Route: I.V. Start: 4:37 PM Stop: 4:37 PM Medication: Fentanyl Amount: 25 mcg Route: I.V. Start: 4:46 PM Stop: 4:46 PM Medication: Versed Amount: 1 mg Route: I.V. Start: 4:53 PM Stop: 4:53 PM Medication: Nitrogylcerin Amount: 100 mcg Route: I.A. Start: 4:55 PM Stop: 4:55 PM Medication: Heparin Amount: 5000 units Route: I.V. Start: 5:05 PM Stop: 5:05 PM Medication: Versed Amount: 1 mg Route: I.V. I, the attending physician, have reviewed and verified all procedure medications. Yes, all medications given per verbal order History/Risk Factors Hypertension: No Dyslipidemia: No Peripheral Arterial Disease (PAD): No Myocardial Infarction (SD): No Obesity: Yes Renal Disease: No Tobacco Use: Current/Recent(w/in 1 year) Prior Interventions PCI: No CABG: No Valve Surgery: No Report Signatures Finalized by Pastor Farias MD on 09/18/2020 11:06 AM
--- NOTE | 2020-09-10 09:52 | P.PN_ITS ---
Subjective Subjective: Interval history: Patient is agreeable to proceed with cath this am. He is having runs of NSVT on telemetry. -5.5 L and urine output 5.7 L. Medications: Reviewed: Yes Medication Review Details: Current Medications Acetaminophen/Codeine Phosphate (Acetaminophen-Codeine 300-30mg Tablet) 1 tab PO Q4H PRN PRN Reason: MODERATE PAIN Last Admin: 09/09/20 23:37 Dose: 1 tab Documented by: Albuterol/Ipratropium (Ipratropium-Albuterol 3 Ml Neb) 3 ml INHALATION Q6H PRN PRN Reason: SHORTNESS OF BREATH Aspirin (Aspirin 325 Mg Ec Tablet) 325 mg PO DAILY [facility] Last Admin: 09/10/20 08:00 Dose: 325 mg Documented by: Carvedilol (Carvedilol 3.125 Mg Tablet) 3.125 mg PO BID [facility] Last Admin: 09/10/20 08:01 Dose: 3.125 mg Documented by: Dextrose (Dextrose 50% Syringe 50 Ml) 25 ml IVP ONCE PRN; Protocol PRN Reason: hypoglycemia protocol Dextrose (Dextrose 50% Syringe 50 Ml) 50 ml IVP PRN PRN; Protocol PRN Reason: hypoglycemia protocol Docusate Sodium (Docusate Sodium 100 Mg Capsule) 200 mg PO BEDTIME [facility] Last Admin: 09/09/20 22:22 Dose: 200 mg Documented by: Enoxaparin Sodium (Enoxaparin 40 Mg/0.4 Ml Syringe) 40 mg SUBCUT Q24H [facility] Last Admin: 09/09/20 10:50 Dose: 40 mg Documented by: Furosemide (Furosemide 40 Mg Tablet) 100 mg PO BID@08,16 [facility] Last Admin: 09/10/20 07:58 Dose: 100 mg Documented by: Glucagon (Glucagon 1 Mg/Ml Inj 1 Ml) 1 mg IM ONCE PRN; Protocol PRN Reason: Adult Acute Hypoglycemia Prot. Dextrose (D5w) 500 mls @ 100 mls/hr IV ONCE PRN; Protocol PRN Reason: Adult Acute Hypoglycemia Prot Sodium Chloride (Sodium Chloride 0.9%) 1,000 mls @ 50 mls/hr IV .Q20H ONE Stop: 09/11/20 05:47 Insulin Aspart (Insulin Aspart 100 Unit/1 Ml) 0 unit SUBCUT WM&BEDTIME [facility]; Protocol Last Admin: 09/10/20 07:56 Dose: 2 unit Documented by: Lidocaine HCl (Lidocaine 2% Jelly 5 Ml) 1 applic TOPICAL PRN PRN PRN Reason: PAIN Lisinopril (Lisinopril 5 Mg Tablet) 5 mg PO DAILY [facility] Last Admin: 09/10/20 08:00 Dose: 5 mg Documented by: Magnesium Oxide (Magnesium Oxide 400 Mg Tablet) 400 mg PO DAILY [facility] Last Admin: 09/10/20 08:00 Dose: 400 mg Documented by: Nicotine Polacrilex (Nicotine 2 Mg Gum) 2 mg BUCCAL Q2H PRN PRN Reason: smoker Last Admin: 09/08/20 15:33 Dose: 2 mg Documented by: Polyethylene Glycol (Polyethylene Glycol 3350 Pkt 17 Gm) 17 gm PO DAILY [facility] Last Admin: 09/10/20 08:01 Dose: 17 gm Documented by: Potassium Chloride (Potassium Chloride Er 20 Meq Tablet) 20 meq PO DAILY [facility] Last Admin: 09/10/20 08:00 Dose: 20 meq Documented by: Spironolactone (Spironolactone 25 Mg Tablet) 25 mg PO DAILY [facility] Last Admin: 09/10/20 08:01 Dose: 25 mg Documented by: Tamsulosin HCl (Tamsulosin 0.4 Mg Capsule) 0.4 mg PO DAILY [facility] Last Admin: 09/10/20 08:00 Dose: 0.4 mg Documented by: Vitals/I&O/Wt Last Vital Signs Temp 98.0 F 09/10/20 07:36 Pulse 92 09/10/20 09:02 Resp 20 H 09/10/20 07:36 BP 114/78 09/10/20 07:36 Pulse Ox 98 09/10/20 07:36 09/09/20 09/10/20 09/10/20 22:59 06:59 14:59 Output Total 1650 / 4450 1250 / 5700 Balance -1650 / -4230 -1250 / -5480 Physical Exam Narrative: EXAM NARRATIVE: Const COMMON NORMALS: no acute distress, patient oriented x3, alert and well nourished GENERAL APPEARANCE: cooperative, comfortable, well kempt and well developed NUTRITIONAL APPEARANCE: obese ORIENTATION/CONSCIOUSNESS: Yes oriented to person, Yes oriented to place and Yes oriented to time HENOR COMMON NORMALS: normocephalic, atraumatic, hearing grossly normal bilaterally, external ears normal and Normal external nose present HEAD & SCALP: normocephalic and atraumatic FACE & SINUS: face symmetric NOSE: Normal external nose present EXTERNAL EAR: Yes external ears normal Eye COMMON NORMALS: Equal, round and reactive pupils present, EOMs intact bilaterally and conjunctivae normal ALIGNMENT: Yes alignment normal CONJUNCTIVA: Yes conjunctivae normal SCLERA: sclerae normal PUPIL: Yes Equal, round and reactive pupils present Neck/C-Spine COMMON NORMALS: no lymphadenopathy, supple, no JVD and Thyroid normal; negative for No carotid bruits GENERAL: Yes trachea midline THYROID: Thyroid normal Chest COMMONS NORMALS: normal inspection of the chest CHEST: Yes Symmetrical chest wall rise and No tenderness Resp COMMON NORMALS: normal respiratory effort, No use of accessory muscles and clear to auscultation bilaterally EFFORT & INSPECTION: Yes able to speak in complete sentences and No audible wheezes AUSCULTATION: clear to auscultation bilaterally, no crackles, no rales, no rhonchi and no wheezes Cardio COMMON NORMALS: no JVD, regular rate, regular rhythm, S1 normal heart sound present, S2 normal heart sound present and Peripheral pulses 2+ throughout; negative for No gallops present (Cardio) and negative for No clicks present (Cardio) JUGULAR VENOUS DISTENTION: no JVD PALPATION: normal PMI, no heave, no palpable S3, no palpable S4 and no thrill RATE: regular rate RHYTHM: regular rhythm HEART SOUNDS: S1 normal heart sound present, S2 normal heart sound present, no gallops and no murmurs BRUITS: no carotid bruits PERIPHERAL PULSES: Peripheral pulses 2+ throughout GI COMMON NORMALS: Normal to inspection, nondistended, normoactive bowel sounds present and non-tender INSPECTION: Yes Abdominal wall edema and Yes Anasarca PALPATION: Yes Firmness to palpation present (GI) and Yes Other GI palpation findings present (obese and distended) PERCUSSION: dullness to percussion RECTAL EXAM: Yes deferred PENIS: other (scrotal and penile edema) Back/Pelvis GENERAL BACK: Yes other (edema noted on back) Extremity NARRATIVE EXTREMITY EXAM: trace edema extending above knees Neuro COMMON NORMALS: patient oriented x3 and no focal motor deficits SENSORIUM/ORIENTATION: Yes alert, Yes oriented to person, Yes oriented to place and Yes oriented to time CRANIAL NERVES: Yes CN normal except as noted Psych COMMON NORMALS: Normal thought process present APPEARANCE: Yes well kempt MOOD & AFFECT: Yes euthymic mood THOUGHT PROCESS: Normal thought process present THOUGHT CONTENT: Yes Normal thought content present ATTENTION/CONCENTRATION: Yes attention grossly intact MEMORY/COGNITION: Yes memory grossly intact INSIGHT: Good insight present (Psych) JUDGEMENT: Good judgement present (Psych) Skin NARRATIVE SKIN EXAM: Bilateral leg discoloration Urinary Catheter Management^: Light: Cath Placed During This Visit: yes Reason for Continuing Indwelling Catheter: Accurate Measurement of Urinary Output in Critically Ill Patients Urinary Catheter Date of Insertion: 09/02/20 Urinary Catheter Time of Insertion: 09:00 Data : 09/09/20 09:48 09/10/20 05:05 A&P Assessment and plan (1) New onset of congestive heart failure: Severely depressed LVEF of 15% along with moderately depressed RV function. -newly diagnosed. Add spironolactone 25 mg in morning. -We will hold further Lasix until coronary angiogram. -continue low-dose Coreg and lisinopril. -I/O charting and daily weight. -I had a long discussion with the patient about coronary angiogram. Risks and benefits and alternate management options discussed. -Patient is agreeable to proceed with coronary angiogram this morning. -I had a discussion about LifeVest with the patient as well. He would like to think about it. Status: Acute (2) Anasarca: Resolved Status: Acute (3) Diabetes: Newly diagnosed. Status: Acute Qualifiers: Diabetes mellitus type: type 2 Diabetes mellitus fdc insulin use: unspecified fdc insulin use status Additional A&P Information Mild mitral regurgitation Mild to moderate tricuspid valve regurgitation Bilateral leg cellulitis : On antibiotics as per primary team. Elevated alkaline phosphatase Elevated TSH Suspect Sleep apnea: Oxygen saturation have been good here overnight. Will revisit as an outpatient Morbid obesity Chronic active smoker Thank you for allowing me to participate in patient's care. Please feel free to call with questions or concerns. Attestations Medical Necessity Statement*: Requires hospital stay for new diagnosed cardiomyopathy Time Spent in Patient Care: 16 - 35 minutes (>than 50% of time spent in counselling and/or direct pt care on unit) . 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
[2020-09-10 10:46] LABS: Glucose Point of Care 168 mg/dL (70-110)
[2020-09-10] MEDS: enoxaparin 40 mg/0.4 mL Syringe SUBCUT (11:13)
--- NOTE | 2020-09-10 13:13 | PM.PN ---
Subjective Subjective: Interval history: No new complaints today. Patient states breathing is not labored. Net -4.7 L over last 24 hours. Urine output 4.3 L. Creatinine stable at 0.7. Afebrile and hemodynamically stable. Plan for cath likely later this afternoon. Medications: Reviewed: Yes Medication Review Details: Current Medications Acetaminophen/Codeine Phosphate (Acetaminophen-Codeine 300-30mg Tablet) 1 tab PO Q4H PRN PRN Reason: MODERATE PAIN Last Admin: 09/09/20 23:37 Dose: 1 tab Documented by: Albuterol/Ipratropium (Ipratropium-Albuterol 3 Ml Neb) 3 ml INHALATION Q6H PRN PRN Reason: SHORTNESS OF BREATH Aspirin (Aspirin 325 Mg Ec Tablet) 325 mg PO DAILY [facility] Last Admin: 09/10/20 08:00 Dose: 325 mg Documented by: Carvedilol (Carvedilol 3.125 Mg Tablet) 3.125 mg PO BID [facility] Last Admin: 09/10/20 08:01 Dose: 3.125 mg Documented by: Dextrose (Dextrose 50% Syringe 50 Ml) 25 ml IVP ONCE PRN; Protocol PRN Reason: hypoglycemia protocol Dextrose (Dextrose 50% Syringe 50 Ml) 50 ml IVP PRN PRN; Protocol PRN Reason: hypoglycemia protocol Docusate Sodium (Docusate Sodium 100 Mg Capsule) 200 mg PO BEDTIME [facility] Last Admin: 09/09/20 22:22 Dose: 200 mg Documented by: Enoxaparin Sodium (Enoxaparin 40 Mg/0.4 Ml Syringe) 40 mg SUBCUT Q24H [facility] Last Admin: 09/09/20 10:50 Dose: 40 mg Documented by: Furosemide (Furosemide 40 Mg Tablet) 100 mg PO BID@08,16 [facility] Last Admin: 09/10/20 07:58 Dose: 100 mg Documented by: Glucagon (Glucagon 1 Mg/Ml Inj 1 Ml) 1 mg IM ONCE PRN; Protocol PRN Reason: Adult Acute Hypoglycemia Prot. Dextrose (D5w) 500 mls @ 100 mls/hr IV ONCE PRN; Protocol PRN Reason: Adult Acute Hypoglycemia Prot Sodium Chloride (Sodium Chloride 0.9%) 1,000 mls @ 50 mls/hr IV .Q20H ONE Stop: 09/11/20 05:47 Insulin Aspart (Insulin Aspart 100 Unit/1 Ml) 0 unit SUBCUT WM&BEDTIME [facility]; Protocol Last Admin: 09/10/20 07:56 Dose: 2 unit Documented by: Lidocaine HCl (Lidocaine 2% Jelly 5 Ml) 1 applic TOPICAL PRN PRN PRN Reason: PAIN Lisinopril (Lisinopril 5 Mg Tablet) 5 mg PO DAILY [facility] Last Admin: 09/10/20 08:00 Dose: 5 mg Documented by: Magnesium Oxide (Magnesium Oxide 400 Mg Tablet) 400 mg PO DAILY [facility] Last Admin: 09/10/20 08:00 Dose: 400 mg Documented by: Nicotine Polacrilex (Nicotine 2 Mg Gum) 2 mg BUCCAL Q2H PRN PRN Reason: smoker Last Admin: 09/08/20 15:33 Dose: 2 mg Documented by: Polyethylene Glycol (Polyethylene Glycol 3350 Pkt 17 Gm) 17 gm PO DAILY [facility] Last Admin: 09/10/20 08:01 Dose: 17 gm Documented by: Potassium Chloride (Potassium Chloride Er 20 Meq Tablet) 20 meq PO DAILY [facility] Last Admin: 09/10/20 08:00 Dose: 20 meq Documented by: Spironolactone (Spironolactone 25 Mg Tablet) 25 mg PO DAILY [facility] Last Admin: 09/10/20 08:01 Dose: 25 mg Documented by: Tamsulosin HCl (Tamsulosin 0.4 Mg Capsule) 0.4 mg PO DAILY [facility] Last Admin: 09/10/20 08:00 Dose: 0.4 mg Documented by: Vitals/I&O/Wt Last Vital Signs Temp 98.1 F 09/10/20 11:11 Pulse 86 09/10/20 12:55 Resp 19 H 09/10/20 12:55 BP 107/73 09/10/20 12:55 Pulse Ox 93 09/10/20 12:55 09/09/20 09/10/20 09/10/20 22:59 06:59 14:59 Output Total 1650 / 4450 1250 / 5700 1800 / 1800 Balance -1650 / -4230 -1250 / -5480 -1800 / -1800 Physical Exam Narrative: EXAM NARRATIVE: GEN: Awake, alert and oriented, no acute distress CVS: S1S2 N RS: CTA B/L Abd: Soft, nt/nd , bs+ 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 In negative balance. Renal function remained stable. Continue Lasix 100 mg p.o. twice daily today, temporarily on hold for cardiac cath, spironolactone 25 mg p.o. daily added per cardiology recommendations. Continue to monitor KADEN, daily output. EF noted 15% on TTE, mild dilated related left ventricular cavity. Mildly dilated right ventricular cavity, moderately decreased right ventricular systolic function. PA pressure estimated at 31 mmHg. Mild MR. Moderate TR. Continue carvedilol, and lisinopril as tolerated by blood pressure Plan for cardiac cath later this afternoon. If willing, prior to discharge may benefit also from setting up for LifeVest. Status: Acute (2) Cellulitis: More suggestive of chronic venous stasis, no gross signs of cellulitis on exam, patient remains afebrile hemodynamically stable, without leukocytosis. Status: Acute (3) Anasarca: Gradually improving. 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 Currently patient saturating well on room air. Status: Acute Additional A&P Information Full code Lovenox for DVT prophylaxis Attestations Medical Necessity Statement*: Cardiac cath this afternoon. Coding Level of Care Code Acute Binding Cementer French Cord for [facility] Fwd Diagnoses New onset of congestive heart failure I50.9 Cellulitis L03.90 Anasarca R60.1 Diabetes E11.9 Diabetes mellitus type: type 2 Diabetes mellitus ferry terminal supervisor insulin use: unspecified ferry terminal supervisor insulin use status Acute respiratory failure with hypoxia J96.01
--- NOTE | 2020-09-10 16:15 | PC.NURSE ---
Patient to heart salvage laborer on carrier.
[2020-09-10 16:19] LABS: Glucose Point of Care 134 mg/dL (70-110)
--- NOTE | 2020-09-10 16:25 | W.PM.OPSUD ---
Surgery/Procedure H&P Update DATE OF PROCEDURE: September 10, 2020 DATE H&P PERFORMED: 09/01/20 H&P UPDATE INFORMATION: I have reviewed H&P completed within last 30 days and I have examined patient prior to procedure CHANGES TO PREVIOUS DOCUMENTATION: Patient has diuresed significantly now with almost 34 liters negative balance. PREOP DIAGNOSIS: Acute heart failure with reduced EF PRIMARY INDICATION FOR PROCEDURE: Acute heart failure with reduced EF PLANNED PROCEDURE: Right heart cath+left heart cath+/- Percutaneous coronary intervention PATIENT REASSESSED PRIOR TO SEDATION, WITH NO CHANGE NOTED: Yes PHYSICAL EXAM: alert, oriented x 3, clear to auscultation bilaterally and regular rate & rhythm AIRWAY EVAL/ANESTHESIA PLAN: normal airway, ASA III, Risks, benefits & alternatives of sedation and/or procedure discussed and Patient agrees to continue as planned
--- NOTE | 2020-09-10 20:43 | PC.NURSE ---
PT RESTING IN BED. PT DENIES PAIN. RIGHT BRACHIAL AND RADIAL SITES ARE C/D/I. PT C/O BEING HUNGRY SANDWICH AND SODA WAS GIVEN. PT REFUSED COLACE. WILL CONTINUE TO MONITOR.
--- NOTE | 2020-09-10 22:55 | PC.NURSE ---
Initiated TR band removal per protocol at 2145 removing 2-3ml of air every 15-20min. TR band off at this time. No s/s of bleeding or hematoma formation observed. Cleaned site. Applied 2x2 and bio-occlusive dressing. Instructed patient on site care and restrictions. Patient verbalized understanding. Patient requested sandwich which was provided.
[2020-09-11] VITALS (11 sets, daily range): BP systolic 92–106; BP diastolic 60–80; PULSE 86–99; RESP 16–27; TEMP 35.8–36.9; O2SAT 92–97
--- NOTE | 2020-09-11 00:16 | PC.NURSE ---
PT IS RESTING IN BED. RN REMOVED TR BAND. SITE IS C/D/I. PT DENIES PAIN AT THIS TIME. WILL CONTINUE TO MONITOR.
--- NOTE | 2020-09-11 02:39 | PC.NURSE ---
PT IS RESTING IN BED. PT DENIES PAIN. DRESSING TO RIGHT RADIAL IS C/D/I. WILL CONTINUE TO MONITOR.
[2020-09-11 05:27] LABS: Basophils % 0.5 %; Eosinophils # 0.2 10^3/uL (0.0-0.8); Eosinophils % 2.8 %; Hematocrit 41.8 % (42.0-52.0); Hemoglobin 12.8 g/dL (11.7-16.6); Lymphocytes # 1.4 10^3/uL (0.8-4.8); Lymphocytes % 18.5 %; Mean Corpuscular HGB Conc 30.6 g/dL (30.0-36.0); Mean Corpuscular Hemoglobin 25.9 pg (28.0-34.0); Mean Corpuscular Volume 84.6 fL (80-94); Mean Platelet Volume 10.1 fL (7.4-10.4); Monocytes # 0.5 10^3/uL (0.2-0.9); Monocytes % 6.9 %; Neutrophils # 5.46 10^3/uL (1.8-7.7); Neutrophils % 70.4 %; Nucleated Red Blood Cells % 0 %; Platelet Count 373 10^3/cmm (130-400); Red Blood Count 4.94 10^6/uL (4.1-5.3); Red Cell Distribution Width 15.2 % (12.1-15.1); White Blood Count 7.8 10^3/uL (4.0-10.0)
[2020-09-11 06:26] LABS: Alanine Aminotransferase 19 U/L (0-41); Albumin Level 3.2 g/dL (3.5-5.2); Alkaline Phosphatase 227 IU/L (40-130); Anion Gap 19.8 (5-19); Aspartate Amino Transferase 19 U/L (0-40); Blood Urea Nitrogen 24 mg/dL (6-20); Calcium 7.2 mg/dL (8.5-10.5); Carbon Dioxide 28 mmol/L (22-29); Chloride 95 mmol/L (98-107); Globulin 3.3 g/dL (1.3-4.6); Glomerular Filtration Rate 88.3 mL/min (90-130); Glucose 181 mg/dL (65-115); Osmolality Calculated 293 mOsm/kg (285-295); Potassium 5.8 mmol/L (3.5-5.1); Sodium 137 mmol/L (136-145); Total Bilirubin 0.4 mg/dL (0.15-1.2); Total Protein 6.5 g/dL (6.6-8.7)
[2020-09-11 07:56] LABS: Magnesium 1.1 mg/dL (1.7-2.3)
[2020-09-11] MEDS: tamsulosin 0.4 mg Capsule PO (08:13)
[2020-09-11] MEDS: aspirin 81 mg EC Tablet PO (08:13)
[2020-09-11] MEDS: lisinopril 5 mg Tablet PO (08:13)
[2020-09-11] MEDS: magnesium oxide 400 mg tablet PO (08:13)
[2020-09-11] MEDS: FUROsemide 40 mg Tablet 100 MG PO ×2 (08:13→15:20)
[2020-09-11] MEDS: carvedilol 3.125 mg Tablet PO ×2 (08:14→18:00)
[2020-09-11] MEDS: spironolactone 25 mg Tablet PO (08:14)
[2020-09-11 08:29] LABS: Glucose Point of Care 305 mg/dL (70-110)
[2020-09-11] MEDS: enoxaparin 40 mg/0.4 mL Syringe SUBCUT (09:53)
[2020-09-11 11:59] LABS: Glucose Point of Care 305 mg/dL (70-110)
--- NOTE | 2020-09-11 13:35 | PM.PN ---
Subjective Subjective: Interval history: s/p LHC via right radial access. No CP. Medications: Reviewed: Yes Medication Review Details: Current Medications Acetaminophen (Acetaminophen 325 Mg Tablet) 650 mg PO Q6H PRN PRN Reason: MILD PAIN Acetaminophen/Codeine Phosphate (Acetaminophen-Codeine 300-30mg Tablet) 1 tab PO Q4H PRN PRN Reason: MODERATE PAIN Last Admin: 09/09/20 23:37 Dose: 1 tab Documented by: Al Hydrox/Mg Hydrox/Simethicone (Bkva-Iqr-Vdnliycwv-Daljit 30 Ml Udc) 30 ml PO Q15M PRN PRN Reason: INDIGESTION Albuterol/Ipratropium (Ipratropium-Albuterol 3 Ml Neb) 3 ml INHALATION Q6H PRN PRN Reason: SHORTNESS OF BREATH Alprazolam (Alprazolam 0.25 Mg Tablet) 0.25 mg PO TID PRN PRN Reason: ANXIETY Aspirin (Aspirin 81 Mg Ec Tablet) 81 mg PO DAILY [facility] Last Admin: 09/11/20 08:13 Dose: 81 mg Documented by: Atorvastatin Calcium (Atorvastatin 40 Mg Tablet) 10 mg PO BEDTIME [facility] Atropine Sulfate (Atropine 1 Mg/Ml Sdv 1 Ml) 0.5 mg IVP PRN PRN PRN Reason: Symptomatic bradycardia Carvedilol (Carvedilol 3.125 Mg Tablet) 3.125 mg PO BID [facility] Last Admin: 09/11/20 08:14 Dose: 3.125 mg Documented by: Dextrose (Dextrose 50% Syringe 50 Ml) 25 ml IVP ONCE PRN; Protocol PRN Reason: hypoglycemia protocol Dextrose (Dextrose 50% Syringe 50 Ml) 50 ml IVP PRN PRN; Protocol PRN Reason: hypoglycemia protocol Docusate Sodium (Docusate Sodium 100 Mg Capsule) 200 mg PO BEDTIME [facility] Last Admin: 09/10/20 20:39 Dose: Not Given Documented by: Enoxaparin Sodium (Enoxaparin 40 Mg/0.4 Ml Syringe) 40 mg SUBCUT Q24H [facility] Last Admin: 09/11/20 09:53 Dose: 40 mg Documented by: Fentanyl (Fentanyl 50 Mcg/Ml Inj 2ml) 50 mcg IVP PRN PRN PRN Reason: Prior to sheath removal Furosemide (Furosemide 40 Mg Tablet) 100 mg PO BID@08,16 [facility] Last Admin: 09/11/20 08:13 Dose: 100 mg Documented by: Glucagon (Glucagon 1 Mg/Ml Inj 1 Ml) 1 mg IM ONCE PRN; Protocol PRN Reason: Adult Acute Hypoglycemia Prot. Dextrose (D5w) 500 mls @ 100 mls/hr IV ONCE PRN; Protocol PRN Reason: Adult Acute Hypoglycemia Prot Insulin Aspart (Insulin Aspart 100 Unit/1 Ml) 0 unit SUBCUT WM&BEDTIME [facility]; Protocol Last Admin: 09/11/20 12:28 Dose: 10 unit Documented by: Lidocaine HCl (Lidocaine 2% Jelly 5 Ml) 1 applic TOPICAL PRN PRN PRN Reason: PAIN Lisinopril (Lisinopril 5 Mg Tablet) 5 mg PO DAILY [facility] Last Admin: 09/11/20 08:13 Dose: 5 mg Documented by: Magnesium Hydroxide (Magnesium Hydroxide 30 Ml Udc) 30 ml PO DAILY PRN PRN Reason: CONSTIPATION Magnesium Oxide (Magnesium Oxide 400 Mg Tablet) 400 mg PO DAILY [facility] Last Admin: 09/11/20 08:13 Dose: 400 mg Documented by: Naloxone HCl (Naloxone 0.4 Mg/Ml Sdv) 0.1 mg IVP Q2M PRN PRN Reason: RESPIRATORY RATE < 8/MIN Nicotine Polacrilex (Nicotine 2 Mg Gum) 2 mg BUCCAL Q2H PRN PRN Reason: smoker Last Admin: 09/08/20 15:33 Dose: 2 mg Documented by: Nitroglycerin (Nitroglycerin 0.4 Mg Sublingual Tablet) 0.4 mg SUBLINGUAL Q5M PRN PRN Reason: CHEST PAIN Polyethylene Glycol (Polyethylene Glycol 3350 Pkt 17 Gm) 17 gm PO DAILY [facility] Last Admin: 09/11/20 08:16 Dose: Not Given Documented by: Spironolactone (Spironolactone 25 Mg Tablet) 25 mg PO DAILY [facility] Last Admin: 09/11/20 08:14 Dose: 25 mg Documented by: Tamsulosin HCl (Tamsulosin 0.4 Mg Capsule) 0.4 mg PO DAILY [facility] Last Admin: 09/11/20 08:13 Dose: 0.4 mg Documented by: Temazepam (Temazepam 15 Mg Capsule) 15 mg PO BEDTIME PRN PRN Reason: INSOMNIA Vitals/I&O/Wt Last Vital Signs Temp 96.4 F L 09/11/20 11:23 Pulse 89 09/11/20 11:23 Resp 22 H 09/11/20 11:23 BP 98/69 09/11/20 11:23 Pulse Ox 95 09/11/20 11:23 09/10/20 09/11/20 09/11/20 22:59 06:59 14:59 Intake Total 500 / 500 120 / 120 Output Total 550 / 3150 1800 / 4950 Balance -550 / -3150 -1300 / -4450 120 / 120 Intake & Output 09/09/20 09/10/20 09/11/20 09/12/20 06:59 06:59 06:59 06:59 Intake Total 1020 / 1020 220 / 220 500 / 500 120 / 120 Output Total 4850 / 4850 5700 / 5700 4950 / 4950 Balance -3830 / -3830 -5480 / -5480 -4450 / -4450 120 / 120 Weight 241 lb 4 oz Cumulative I&O 08/30/20 17:24 thru 09/11/20 08:00 Intake Total 9724 Output Total 43367 Balance -17866 Weight last 48 hrs Weight 241 lb 4 oz Physical Exam Narrative: EXAM NARRATIVE: EXAM NARRATIVE: Const COMMON NORMALS: no acute distress, patient oriented x3, alert and well nourished GENERAL APPEARANCE: cooperative, comfortable, well kempt and well developed NUTRITIONAL APPEARANCE: obese ORIENTATION/CONSCIOUSNESS: Yes oriented to person, Yes oriented to place and Yes oriented to time HENMT COMMON NORMALS: normocephalic, atraumatic, hearing grossly normal bilaterally, external ears normal and Normal external nose present HEAD & SCALP: normocephalic and atraumatic FACE & SINUS: face symmetric NOSE: Normal external nose present EXTERNAL EAR: Yes external ears normal Eye COMMON NORMALS: Equal, round and reactive pupils present, EOMs intact bilaterally and conjunctivae normal ALIGNMENT: Yes alignment normal CONJUNCTIVA: Yes conjunctivae normal SCLERA: sclerae normal PUPIL: Yes Equal, round and reactive pupils present Neck/C-Spine COMMON NORMALS: no lymphadenopathy, supple, no JVD and Thyroid normal; negative for No carotid bruits GENERAL: Yes trachea midline THYROID: Thyroid normal Chest COMMONS NORMALS: normal inspection of the chest CHEST: Yes Symmetrical chest wall rise and No tenderness Resp COMMON NORMALS: normal respiratory effort, No use of accessory muscles and clear to auscultation bilaterally EFFORT & INSPECTION: Yes able to speak in complete sentences and No audible wheezes AUSCULTATION: clear to auscultation bilaterally, no crackles, no rales, no rhonchi and no wheezes Cardio COMMON NORMALS: no JVD, regular rate, regular rhythm, S1 normal heart sound present, S2 normal heart sound present and Peripheral pulses 2+ throughout; negative for No gallops present (Cardio) and negative for No clicks present (Cardio) JUGULAR VENOUS DISTENTION: no JVD PALPATION: normal PMI, no heave, no palpable S3, no palpable S4 and no thrill RATE: regular rate RHYTHM: regular rhythm HEART SOUNDS: S1 normal heart sound present, S2 normal heart sound present, no gallops and no murmurs BRUITS: no carotid bruits PERIPHERAL PULSES: Peripheral pulses 2+ throughout GI COMMON NORMALS: Normal to inspection, nondistended, normoactive bowel sounds present and non-tender INSPECTION: Yes Abdominal wall edema and Anasarca significantly improved PALPATION: Yes soft to palpation present (GI) and Yes Other GI palpation findings present (obese and distended) PERCUSSION: dullness to percussion RECTAL EXAM: Yes deferred PENIS: other (scrotal and penile edema improved) Back/Pelvis GENERAL BACK: Yes other (edema noted on back) Extremity NARRATIVE EXTREMITY EXAM: trace edema extending above knees Neuro COMMON NORMALS: patient oriented x3 and no focal motor deficits SENSORIUM/ORIENTATION: Yes alert, Yes oriented to person, Yes oriented to place and Yes oriented to time CRANIAL NERVES: Yes CN normal except as noted Psych COMMON NORMALS: Normal thought process present APPEARANCE: Yes well kempt MOOD & AFFECT: Yes euthymic mood THOUGHT PROCESS: Normal thought process present THOUGHT CONTENT: Yes Normal thought content present ATTENTION/CONCENTRATION: Yes attention grossly intact MEMORY/COGNITION: Yes memory grossly intact INSIGHT: Good insight present (Psych) JUDGEMENT: Good judgement present (Psych) Skin NARRATIVE SKIN EXAM: Bilateral leg discoloration Urinary Catheter Management^ Light: Cath Placed During This Visit: yes Reason for Continuing Indwelling Catheter: Accurate Measurement of Urinary Output in Critically Ill Patients Urinary Catheter Date of Insertion: 09/02/20 Urinary Catheter Time of Insertion: 09:00 Urinary Catheter Management^: Light: Cath Placed During This Visit: yes Reason for Continuing Indwelling Catheter: Accurate Measurement of Urinary Output in Critically Ill Patients Urinary Catheter Date of Insertion: 09/02/20 Urinary Catheter Time of Insertion: 09:00 Data : 09/11/20 04:00 09/11/20 04:00 A&P Assessment and plan (1) New onset of congestive heart failure: Severely depressed LVEF of 15% along with moderately depressed RV function. -newly diagnosed. Continue spironolactone 25 mg in morning. -We will hold further Lasix until coronary angiogram. -continue low-dose Coreg and lisinopril. -I/O charting and daily weight. -I had a long discussion with the patient about findings on coronary angiogram. -Mid LAD in its proximal segment has about 95% stenosis with calcification and distal portion of mid LAD with calcification and mild diffusly diseased distal segment. RCA and LCX with no severe stenosis. -Right heart catheterization with mean PA pressure of 42, RA pressure of 22 and wedge pressure of 30. I am unable to see hemodynamic data at this point. -Continue Lasix 100 mg twice a day. Hold potassium given hyperkalemia today. -I had a discussion about LifeVest with the patient as well. He declined life vest. -Possible discharge tomorrow. -Follow-up with cardiology in 1 week with our nurse practitioner. Follow-up BMP in 1 week. -Follow-up with me in heart care services in 1 month. Status: Acute (2) Anasarca: Resolved Status: Acute (3) Diabetes: Newly diagnosed. -Management as per primary team. He will need to be established with a primary care physician. Status: Acute Qualifiers: Diabetes mellitus mcfp insulin use: unspecified apparatus cleaner insulin use status Diabetes mellitus type: type 2 Additional A&P Information Mild mitral regurgitation Mild to moderate tricuspid valve regurgitation Bilateral leg cellulitis : Finished antibiotics. Elevated alkaline phosphatase Elevated TSH Suspect Sleep apnea: Oxygen saturation have been good here overnight. Will revisit as an outpatient Morbid obesity Chronic active smoker: Counseled extensively on smoking cessation. Urinary retention: Still has Light in place. Urology on board. Hyperkalemia: Potassium was held, follow-up BMP in morning. Thank you for allowing me to participate in patient's care. Please feel free to call with questions or concerns. Attestations Medical Necessity Statement*: Requires hospital stay for new diagnosed cardiomyopathy w/u Time Spent in Patient Care: 16 - 35 minutes (>than 50% of time spent in counselling and/or direct pt care on unit). 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
--- NOTE | 2020-09-11 14:04 | P.PN_ITS ---
Subjective Subjective: Interval history: underwent coronary angiogram yesetrday with findings of mid LAD occlusion, elevated filling pressures, likely non viable myocardium in affcted territory. reports no new symptoms today, afebrile, hemodynamically stable Medications: Reviewed: Yes Medication Review Details: Current Medications Acetaminophen (Acetaminophen 325 Mg Tablet) 650 mg PO Q6H PRN PRN Reason: MILD PAIN Acetaminophen/Codeine Phosphate (Acetaminophen-Codeine 300-30mg Tablet) 1 tab PO Q4H PRN PRN Reason: MODERATE PAIN Last Admin: 09/09/20 23:37 Dose: 1 tab Documented by: Al Hydrox/Mg Hydrox/Simethicone (Qflf-Bqx-Gaaopowzs-Daljit 30 Ml Udc) 30 ml PO Q15M PRN PRN Reason: INDIGESTION Albuterol/Ipratropium (Ipratropium-Albuterol 3 Ml Neb) 3 ml INHALATION Q6H PRN PRN Reason: SHORTNESS OF BREATH Alprazolam (Alprazolam 0.25 Mg Tablet) 0.25 mg PO TID PRN PRN Reason: ANXIETY Aspirin (Aspirin 81 Mg Ec Tablet) 81 mg PO DAILY [facility] Last Admin: 09/11/20 08:13 Dose: 81 mg Documented by: Atorvastatin Calcium (Atorvastatin 40 Mg Tablet) 10 mg PO BEDTIME [facility] Atropine Sulfate (Atropine 1 Mg/Ml Sdv 1 Ml) 0.5 mg IVP PRN PRN PRN Reason: Symptomatic bradycardia Carvedilol (Carvedilol 3.125 Mg Tablet) 3.125 mg PO BID [facility] Last Admin: 09/11/20 08:14 Dose: 3.125 mg Documented by: Dextrose (Dextrose 50% Syringe 50 Ml) 25 ml IVP ONCE PRN; Protocol PRN Reason: hypoglycemia protocol Dextrose (Dextrose 50% Syringe 50 Ml) 50 ml IVP PRN PRN; Protocol PRN Reason: hypoglycemia protocol Docusate Sodium (Docusate Sodium 100 Mg Capsule) 200 mg PO BEDTIME [facility] Last Admin: 09/10/20 20:39 Dose: Not Given Documented by: Enoxaparin Sodium (Enoxaparin 40 Mg/0.4 Ml Syringe) 40 mg SUBCUT Q24H [facility] Last Admin: 09/11/20 09:53 Dose: 40 mg Documented by: Fentanyl (Fentanyl 50 Mcg/Ml Inj 2ml) 50 mcg IVP PRN PRN PRN Reason: Prior to sheath removal Furosemide (Furosemide 40 Mg Tablet) 100 mg PO BID@08,16 [facility] Last Admin: 09/11/20 08:13 Dose: 100 mg Documented by: Glucagon (Glucagon 1 Mg/Ml Inj 1 Ml) 1 mg IM ONCE PRN; Protocol PRN Reason: Adult Acute Hypoglycemia Prot. Dextrose (D5w) 500 mls @ 100 mls/hr IV ONCE PRN; Protocol PRN Reason: Adult Acute Hypoglycemia Prot Insulin Aspart (Insulin Aspart 100 Unit/1 Ml) 0 unit SUBCUT WM&BEDTIME [facility]; Protocol Last Admin: 09/11/20 12:28 Dose: 10 unit Documented by: Lidocaine HCl (Lidocaine 2% Jelly 5 Ml) 1 applic TOPICAL PRN PRN PRN Reason: PAIN Lisinopril (Lisinopril 5 Mg Tablet) 5 mg PO DAILY [facility] Last Admin: 09/11/20 08:13 Dose: 5 mg Documented by: Magnesium Hydroxide (Magnesium Hydroxide 30 Ml Udc) 30 ml PO DAILY PRN PRN Reason: CONSTIPATION Magnesium Oxide (Magnesium Oxide 400 Mg Tablet) 400 mg PO DAILY [facility] Last Admin: 09/11/20 08:13 Dose: 400 mg Documented by: Naloxone HCl (Naloxone 0.4 Mg/Ml Sdv) 0.1 mg IVP Q2M PRN PRN Reason: RESPIRATORY RATE < 8/MIN Nicotine Polacrilex (Nicotine 2 Mg Gum) 2 mg BUCCAL Q2H PRN PRN Reason: smoker Last Admin: 09/08/20 15:33 Dose: 2 mg Documented by: Nitroglycerin (Nitroglycerin 0.4 Mg Sublingual Tablet) 0.4 mg SUBLINGUAL Q5M PRN PRN Reason: CHEST PAIN Polyethylene Glycol (Polyethylene Glycol 3350 Pkt 17 Gm) 17 gm PO DAILY [facility] Last Admin: 09/11/20 08:16 Dose: Not Given Documented by: Spironolactone (Spironolactone 25 Mg Tablet) 25 mg PO DAILY [facility] Last Admin: 09/11/20 08:14 Dose: 25 mg Documented by: Tamsulosin HCl (Tamsulosin 0.4 Mg Capsule) 0.4 mg PO DAILY [facility] Last Admin: 09/11/20 08:13 Dose: 0.4 mg Documented by: Temazepam (Temazepam 15 Mg Capsule) 15 mg PO BEDTIME PRN PRN Reason: INSOMNIA Vitals/I&O/Wt Last Vital Signs Temp 96.4 F L 09/11/20 11:23 Pulse 89 09/11/20 11:23 Resp 22 H 09/11/20 11:23 BP 98/69 09/11/20 11:23 Pulse Ox 95 09/11/20 11:23 09/10/20 09/11/20 09/11/20 22:59 06:59 14:59 Intake Total 500 / 500 120 / 120 Output Total 550 / 3150 1800 / 4950 Balance -550 / -3150 -1300 / -4450 120 / 120 Weight last 48 hrs Weight 109.429 kg Physical Exam Narrative: EXAM NARRATIVE: GEN: Awake, alert and oriented, no acute distress CVS: S1S2 N RS: CTA B/L Abd: Soft, nt/nd , bs+ SEWER: no focal neuro deficits lower extremity 2+ pitting edema present Urinary Catheter Management^: Light: Cath Placed During This Visit: yes Reason for Continuing Indwelling Catheter: Accurate Measurement of Urinary Output in Critically Ill Patients Urinary Catheter Date of Insertion: 09/02/20 Urinary Catheter Time of Insertion: 09:00 Data : 09/11/20 04:00 09/11/20 04:00 A&P Assessment and plan (1) New onset of congestive heart failure: Continue Lasix 100 mg p.o. twice daily today, spironolactone 25 mg p.o. daily Continue to monitor KADEN, daily output. EF noted 15% on TTE, mild dilated related left ventricular cavity. Mildly dilated right ventricular cavity, moderately decreased right ventricular systolic function. PA pressure estimated at 31 mmHg. Mild MR. Moderate TR. Continue carvedilol, and lisinopril as tolerated by blood pressure cardiac cath with 95% mid LAD occlusion viability study to be perfromed as outapatient If willing, prior to discharge may benefit also from setting up for LifeVest. Status: Acute (2) Cellulitis: More suggestive of chronic venous stasis, no gross signs of cellulitis on exam, patient remains afebrile hemodynamically stable, without leukocytosis. Status: Acute (3) Anasarca: Lasix 100mg po BID, transitioned iv to po in anticipation of discharge Status: Acute (4) Diabetes: newly diagnosed, Hba1c 12, discharge on insulin, pen education prior to discharge Status: Acute Qualifiers: Diabetes mellitus type: type 2 Diabetes mellitus intermediate insulin use: unspecified intermediate insulin use status (5) Acute respiratory failure with hypoxia: This is currently resolved, will secondary to pulmonary edema initially upon admission. Currently patient saturating well on room air. 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
[2020-09-11 17:11] LABS: Glucose Point of Care 167 mg/dL (70-110)
[2020-09-11] MEDS: atorvastatin 40 mg Tablet 10 MG PO (21:00)
[2020-09-11 21:19] LABS: Glucose Point of Care 241 mg/dL (70-110)
--- NOTE | 2020-09-11 22:33 | PC.NURSE ---
PT IS RESTING IN BED. PT DENIES PAIN. WILL CONTINUE TO MONITOR.
[2020-09-12] VITALS (11 sets, daily range): BP systolic 86–110; BP diastolic 52–80; PULSE 83–94; RESP 18–25; TEMP 36.1–36.6; O2SAT 93–97
[2020-09-12 04:19] LABS: Alanine Aminotransferase 24 U/L (0-41); Albumin Level 3.3 g/dL (3.5-5.2); Alkaline Phosphatase 250 IU/L (40-130); Anion Gap 14.2 (5-19); Aspartate Amino Transferase 25 U/L (0-40); Blood Urea Nitrogen 26 mg/dL (6-20); Calcium 9.2 mg/dL (8.5-10.5); Carbon Dioxide 30 mmol/L (22-29); Chloride 97 mmol/L (98-107); Globulin 3.3 g/dL (1.3-4.6); Glomerular Filtration Rate 78.2 mL/min (90-130); Glucose 173 mg/dL (65-115); Osmolality Calculated 293 mOsm/kg (285-295); Potassium 4.2 mmol/L (3.5-5.1); Sodium 137 mmol/L (136-145); Total Bilirubin 0.3 mg/dL (0.15-1.2); Total Protein 6.6 g/dL (6.6-8.7)
[2020-09-12 04:24] LABS: Magnesium 1.9 mg/dL (1.7-2.3)
--- NOTE | 2020-09-12 04:27 | PC.NURSE ---
PT HAD AN UNEVENTFUL NIGHT. DENIES PAIN. WILL CONTINUE TO MONITOR.
[2020-09-12 06:37] LABS: Glucose Point of Care 214 mg/dL (70-110)
--- NOTE | 2020-09-12 07:24 | PC.NURSE ---
patient sitting on the side of the bed to eat breakfast. assessment performed and charted. call light within reach. no other needs identified at this time.
[2020-09-12] MEDS: FUROsemide 40 mg Tablet 100 MG PO ×2 (08:07→17:01)
[2020-09-12] MEDS: spironolactone 25 mg Tablet PO (08:44)
[2020-09-12] MEDS: lisinopril 5 mg Tablet PO (08:44)
[2020-09-12] MEDS: carvedilol 3.125 mg Tablet PO ×2 (08:44→17:01)
[2020-09-12] MEDS: tamsulosin 0.4 mg Capsule PO (08:44)
[2020-09-12] MEDS: magnesium oxide 400 mg tablet PO (08:44)
[2020-09-12] MEDS: aspirin 81 mg EC Tablet PO (08:44)
[2020-09-12] MEDS: enoxaparin 40 mg/0.4 mL Syringe SUBCUT (08:45)
--- NOTE | 2020-09-12 09:56 | P.PN_ITS ---
Subjective Subjective: Interval history: Patient is feeling well. His work of breathing is increased compared to before. Still has lower extremity edema. On angiogram, his right and left sided pressures were still high. Vitals/I&O/Wt Last Vital Signs Temp 96.9 F L 09/12/20 07:15 Pulse 83 09/12/20 07:15 Resp 20 H 09/12/20 07:15 BP 90/52 09/12/20 07:15 Pulse Ox 97 09/12/20 07:15 09/11/20 09/12/20 09/12/20 22:59 06:59 14:59 Intake Total 360 / 480 120 / 600 Output Total 1350 / 3000 1850 / 4850 Balance -990 / -2520 -1730 / -4250 Weight last 48 hrs Weight 232 lb 12.8 oz Weight 241 lb 4 oz Physical Exam Narrative: EXAM NARRATIVE: Const COMMON NORMALS: no acute distress, patient oriented x3, alert and well nourished GENERAL APPEARANCE: cooperative, comfortable, well kempt and well developed NUTRITIONAL APPEARANCE: obese ORIENTATION/CONSCIOUSNESS: Yes oriented to person, Yes oriented to place and Yes oriented to time HENMT COMMON NORMALS: normocephalic, atraumatic, hearing grossly normal bilaterally, external ears normal and Normal external nose present HEAD & SCALP: normocephalic and atraumatic FACE & SINUS: face symmetric NOSE: Normal external nose present EXTERNAL EAR: Yes external ears normal Eye COMMON NORMALS: Equal, round and reactive pupils present, EOMs intact bilaterally and conjunctivae normal ALIGNMENT: Yes alignment normal CONJUNCTIVA: Yes conjunctivae normal SCLERA: sclerae normal PUPIL: Yes Equal, round and reactive pupils present Neck/C-Spine COMMON NORMALS: no lymphadenopathy, supple, no JVD and Thyroid normal; negative for No carotid bruits GENERAL: Yes trachea midline THYROID: Thyroid normal Chest COMMONS NORMALS: normal inspection of the chest CHEST: Yes Symmetrical chest wall rise and No tenderness Resp COMMON NORMALS: normal respiratory effort, No use of accessory muscles and has mild crackles bilaterally EFFORT & INSPECTION: Yes able to speak in complete sentences and No audible w heezes AUSCULTATION: clear to auscultation bilaterally, no crackles, no rales, no rhonchi and no wheezes Cardio COMMON NORMALS: no JVD, regular rate, regular rhythm, S1 normal heart sound present, S2 normal heart sound present and Peripheral pulses 2+ throughout; negative for No gallops present (Cardio) and negative for No clicks present (Cardio) JUGULAR VENOUS DISTENTION: no JVD PALPATION: normal PMI, no heave, no palpable S3, no palpable S4 and no thrill RATE: regular rate RHYTHM: regular rhythm HEART SOUNDS: S1 normal heart sound present, S2 normal heart sound present, no gallops and no murmurs BRUITS: no carotid bruits PERIPHERAL PULSES: Peripheral pulses 2+ throughout GI COMMON NORMALS: Normal to inspection, nondistended, normoactive bowel sounds present and non-tender INSPECTION: Yes Abdominal wall edema and Anasarca significantly improved PALPATION: Yes soft to palpation present (GI) and Yes Other GI palpation findings present (obese and distended) PERCUSSION: dullness to percussion RECTAL EXAM: Yes deferred PENIS: other (scrotal and penile edema improved) Back/Pelvis GENERAL BACK: Yes other (edema noted on back) Extremity NARRATIVE EXTREMITY EXAM: trace edema extending above knees Neuro COMMON NORMALS: patient oriented x3 and no focal motor deficits SENSORIUM/ORIENTATION: Yes alert, Yes oriented to person, Yes oriented to place and Yes oriented to time CRANIAL NERVES: Yes CN normal except as noted Psych COMMON NORMALS: Normal thought process present APPEARANCE: Yes well kempt MOOD & AFFECT: Yes euthymic mood THOUGHT PROCESS: Normal thought process present THOUGHT CONTENT: Yes Normal thought content present ATTENTION/CONCENTRATION: Yes attention grossly intact MEMORY/COGNITION: Yes memory grossly intact INSIGHT: Good insight present (Psych) JUDGEMENT: Good judgement present (Psych) Skin NARRATIVE SKIN EXAM: Bilateral leg discoloration Urinary Catheter Management^: Light: Cath Placed During This Visit: yes Reason for Continuing Indwelling Catheter: Acute Urinary Retention or Obstruction Urinary Catheter Date of Insertion: 09/02/20 Urinary Catheter Time of Insertion: 09:00 Data : 09/13/20 04:15 09/12/20 03:10 A&P Assessment and plan (1) New onset of congestive heart failure: Severely depressed LVEF of 15% along with moderately depressed RV function. -newly diagnosed. Continue spironolactone 25 mg in morning. -IV lasix for today. Will reevaluate tomorrow. -continue low-dose Coreg and lisinopril. -I/O charting and daily weight. -I had a long discussion with the patient about findings on coronary angiogram. -Mid LAD has about 95% stenosis with calcification and distal portion of mid LAD with calcification and mild diffusly diseased distal segment. RCA and LCX with no severe stenosis. As outpatient, patient can have viability study to assess if intervention of mid LAD is going to benefit. Distal LAD is a small vessel and has diffuse disease. -Right heart catheterization with mean PA pressure of 42, RA pressure of 22 and wedge pressure of 30. -IV lasix today given increased work of breathing and elevated pressures on right heart cath. Can switch back to PO lasix tomorrow. -Patient has declined LifeVest before -Possible discharge tomorrow if improves significantly. -Follow-up with cardiology in 1 week with our nurse practitioner. Follow-up BMP in 1 week. -Follow-up with me in heart care services in 1 month. Status: Acute (2) Anasarca: Resolved Status: Acute (3) Diabetes: Newly diagnosed. -Management as per primary team. He will need to be established with a primary care physician. Status: Acute Qualifiers: Diabetes mellitus type: type 2 Diabetes mellitus intermediate manager insulin use: unspecified usp insulin use status Additional A&P Information Mild mitral regurgitation Mild to moderate tricuspid valve regurgitation Bilateral leg cellulitis : Finished antibiotics. Elevated alkaline phosphatase Elevated TSH Suspect Sleep apnea: Oxygen saturation have been good here overnight. Will revisit as an outpatient Morbid obesity Chronic active smoker: Counseled extensively on smoking cessation. Urinary retention: Still has Light in place. Urology on board. Hyperkalemia: Recheck BMP today Thank you for allowing me to participate in patient's care. Please feel free to call with questions or concerns. Attestations Medical Necessity Statement*: Care expected to cross 2 midnights. 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
--- NOTE | 2020-09-12 10:00 | PC.NURSE ---
dr have suggested that patient goes home with a lifevest. when patient educated about this patient is refusing to get it.
--- NOTE | 2020-09-12 11:42 | PM.PN ---
Subjective Subjective: Interval history: Urology follow-up: Doing much better. Marked reduction in overall as well as genital edema. The foreskin is now retractable enough to see the meatus of the penis. Decrease pain. Good function of the catheter. Reviewed removal of the catheter is being reasonable now from a urologic perspective. He did have some retention symptoms that were acute and what he described as normal voiding prior to that episode. I expect that he will be able to void well by can replace the catheter if he fails a voiding trial I will be out of town beginning today until 23 September. Please call if you have any concerns or questions. If he voids well I would not necessarily need to see him on outpatient basis. If he fails voiding trial and the catheter requires to be replaced he can be seen in my office next week by MADDISON Caruso for voiding trial and SCIC instruction. I reviewed this with the patient. Vitals/I&O/Wt Last Vital Signs Temp 97.2 F L 09/12/20 11:18 Pulse 92 09/12/20 11:18 Resp 22 H 09/12/20 11:18 BP 98/74 09/12/20 11:18 Pulse Ox 97 09/12/20 11:18 09/11/20 09/12/20 09/12/20 22:59 06:59 14:59 Intake Total 360 / 480 120 / 600 240 / 240 Output Total 1350 / 3000 1850 / 4850 900 / 900 Balance -990 / -2520 -1730 / -4250 -660 / -660 Weight last 48 hrs Weight 232 lb 12.8 oz Weight 241 lb 4 oz Physical Exam Const: COMMON NORMALS: no acute distress and alert : BLADDER/KIDNEY EXAM: Yes bladder normal to palpation MEATUS: meatus normal SCROTUM: Yes testes descended bilaterally and No Scrotal tenderness present TESTES: No testicular mass OTHER: Significant reduction in penile and scrotal edema. Foreskin is now retractable. Neuro: SENSORIUM/ORIENTATION: Yes alert Psych: COMMON NORMALS: mental status grossly normal, Normal thought process present and cooperative ATTITUDE: Yes calm and Yes engaged THOUGHT PROCESS: Normal thought process present Urinary Catheter Management^: Light: Cath Placed During This Visit: yes Reason for Continuing Indwelling Catheter: Acute Urinary Retention or Obstruction Urinary Catheter Date of Insertion: 09/02/20 Urinary Catheter Time of Insertion: 09:00 Data : 09/11/20 04:00 09/12/20 03:10 A&P Assessment and plan (1) Genital edema, male: Not completely resolved but much better. Should be able to replace the catheter if necessary at this point. So it is reasonable to remove the Light catheter was no longer necessary from a medical perspective. Would have his bladder scanned and out catheterization if needed due to the episode of retention that occurred requiring catheter. He has a good baseline voiding history so I expect that he will probably do fine. Status: Acute (2) Acute urinary retention: Can replace the catheter if necessary and follow-up in my office with nurse practitioner next week for voiding trial. 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
[2020-09-12 11:56] LABS: Glucose Point of Care 304 mg/dL (70-110)
[2020-09-12] MEDS: FUROsemide 10 mg/mL SDV 4mL 40 MG IVP (12:34)
--- NOTE | 2020-09-12 12:45 | PM.PN ---
Documented by User: AngieJARRET Morataya [facility] 09/12/20 15:37 Subjective Subjective: Interval history: Mr. Clement is a 55 yo male with h/o diabetes that has been diagnosed with congestive heart failure with a EF of 15%. Pt had no complaints today except for itchy legs. Pt denies SOB, chest pain, dyspnea, headache, nausea, vomiting, and diarrhea. Dr. Sloan asked him again today if he would be interested in wearing a LifeVest, and he said no. However, he did not seem to fully why he needed one. He said he would feel uncomfortable wearing it and he felt paranoid about these types of things. Dr. Sloan asked him to reconsider, and he told us to talk to his . His told Dr. Sloan that he was very stubborn about these kinds of things, and that it took her 3 months to convince him to come to the hospital for this visit. Dr. Sloan discussed with pt about being discharged tomorrow morning, and the patient agreed. Medications: Reviewed: Yes Medication Review Details: Current Medications Acetaminophen (Acetaminophen 325 Mg Tablet) 650 mg PO Q6H PRN PRN Reason: MILD PAIN Acetaminophen/Codeine Phosphate (Acetaminophen-Codeine 300-30mg Tablet) 1 tab PO Q4H PRN PRN Reason: MODERATE PAIN Last Admin: 09/09/20 23:37 Dose: 1 tab Documented by: Al Hydrox/Mg Hydrox/Simethicone (Alui-Fiz-Ugdgrssra-Daljit 30 Ml Udc) 30 ml PO Q15M PRN PRN Reason: INDIGESTION Albuterol/Ipratropium (Ipratropium-Albuterol 3 Ml Neb) 3 ml INHALATION Q6H PRN PRN Reason: SHORTNESS OF BREATH Alprazolam (Alprazolam 0.25 Mg Tablet) 0.25 mg PO TID PRN PRN Reason: ANXIETY Aspirin (Aspirin 81 Mg Ec Tablet) 81 mg PO DAILY [facility] Last Admin: 09/11/20 08:13 Dose: 81 mg Documented by: Atorvastatin Calcium (Atorvastatin 40 Mg Tablet) 10 mg PO BEDTIME [facility] Atropine Sulfate (Atropine 1 Mg/Ml Sdv 1 Ml) 0.5 mg IVP PRN PRN PRN Reason: Symptomatic bradycardia Carvedilol (Carvedilol 3.125 Mg Tablet) 3.125 mg PO BID [facility] Last Admin: 09/11/20 08:14 Dose: 3.125 mg Documented by: Dextrose (Dextrose 50% Syringe 50 Ml) 25 ml IVP ONCE PRN; Protocol PRN Reason: hypoglycemia protocol Dextrose (Dextrose 50% Syringe 50 Ml) 50 ml IVP PRN PRN; Protocol PRN Reason: hypoglycemia protocol Docusate Sodium (Docusate Sodium 100 Mg Capsule) 200 mg PO BEDTIME [facility] Last Admin: 09/10/20 20:39 Dose: Not Given Documented by: Enoxaparin Sodium (Enoxaparin 40 Mg/0.4 Ml Syringe) 40 mg SUBCUT Q24H [facility] Last Admin: 09/11/20 09:53 Dose: 40 mg Documented by: Fentanyl (Fentanyl 50 Mcg/Ml Inj 2ml) 50 mcg IVP PRN PRN PRN Reason: Prior to sheath removal Furosemide (Furosemide 40 Mg Tablet) 100 mg PO BID@08,16 [facility] Last Admin: 09/11/20 08:13 Dose: 100 mg Documented by: Glucagon (Glucagon 1 Mg/Ml Inj 1 Ml) 1 mg IM ONCE PRN; Protocol PRN Reason: Adult Acute Hypoglycemia Prot. Dextrose (D5w) 500 mls @ 100 mls/hr IV ONCE PRN; Protocol PRN Reason: Adult Acute Hypoglycemia Prot Insulin Aspart (Insulin Aspart 100 Unit/1 Ml) 0 unit SUBCUT WM&BEDTIME [facility]; Protocol Last Admin: 09/11/20 12:28 Dose: 10 unit Documented by: Lidocaine HCl (Lidocaine 2% Jelly 5 Ml) 1 applic TOPICAL PRN PRN PRN Reason: PAIN Lisinopril (Lisinopril 5 Mg Tablet) 5 mg PO DAILY [facility] Last Admin: 09/11/20 08:13 Dose: 5 mg Documented by: Magnesium Hydroxide (Magnesium Hydroxide 30 Ml Udc) 30 ml PO DAILY PRN PRN Reason: CONSTIPATION Magnesium Oxide (Magnesium Oxide 400 Mg Tablet) 400 mg PO DAILY [facility] Last Admin: 09/11/20 08:13 Dose: 400 mg Documented by: Naloxone HCl (Naloxone 0.4 Mg/Ml Sdv) 0.1 mg IVP Q2M PRN PRN Reason: RESPIRATORY RATE < 8/MIN Nicotine Polacrilex (Nicotine 2 Mg Gum) 2 mg BUCCAL Q2H PRN PRN Reason: smoker Last Admin: 09/08/20 15:33 Dose: 2 mg Documented by: Nitroglycerin (Nitroglycerin 0.4 Mg Sublingual Tablet) 0.4 mg SUBLINGUAL Q5M PRN PRN Reason: CHEST PAIN Polyethylene Glycol (Polyethylene Glycol 3350 Pkt 17 Gm) 17 gm PO DAILY [facility] Last Admin: 09/11/20 08:16 Dose: Not Given Documented by: Spironolactone (Spironolactone 25 Mg Tablet) 25 mg PO DAILY [facility] Last Admin: 09/11/20 08:14 Dose: 25 mg Documented by: Tamsulosin HCl (Tamsulosin 0.4 Mg Capsule) 0.4 mg PO DAILY [facility] Last Admin: 09/11/20 08:13 Dose: 0.4 mg Documented by: Temazepam (Temazepam 15 Mg Capsule) 15 mg PO BEDTIME PRN PRN Reason: INSOMNIA Vitals/I&O/Wt Last Vital Signs Temp 97.2 F L 09/12/20 11:18 Pulse 92 09/12/20 11:18 Resp 22 H 09/12/20 11:18 BP 98/74 09/12/20 11:18 Pulse Ox 97 09/12/20 11:18 09/11/20 09/12/20 09/12/20 22:59 06:59 14:59 Intake Total 360 / 480 120 / 600 240 / 240 Output Total 1350 / 3000 1850 / 4850 900 / 900 Balance -990 / -2520 -1730 / -4250 -660 / -660 Weight last 48 hrs Weight 105.596 kg Weight 109.429 kg Physical Exam Narrative: EXAM NARRATIVE: GEN: Awake, alert and oriented, no acute distress CVS: S1S2 N RS: CTA B/L Abd: Soft, nt/nd , bs+ REHABILITATION PHYSICIAN: no focal neuro deficits lower extremity 2+ pitting edema present Const: COMMON NORMALS: no acute distress, patient oriented x3, alert and well nourished GENERAL APPEARANCE: cooperative, comfortable, well kempt, well developed, disheveled and Edematous NUTRITIONAL APPEARANCE: obese ORIENTATION/CONSCIOUSNESS: Yes oriented to person, Yes oriented to place and Yes oriented to time; not confused HENMT: COMMON NORMALS: normocephalic, atraumatic, hearing grossly normal bilaterally, external ears normal, Normal external nose present and oropharynx normal HEAD & SCALP: normal to inspection, normocephalic and atraumatic FACE & SINUS: normal facial exam and face symmetric NOSE: Normal external nose present EXTERNAL EAR: Yes external ears normal MOUTH: Normal oral and palatal mucosa present Eye: COMMON NORMALS: Equal, round and reactive pupils present, EOMs intact bilaterally, conjunctivae normal and no scleral icterus GENERAL EYE: appearance normal, both eyes and all related structures ALIGNMENT: Yes alignment normal CONJUNCTIVA: Yes conjunctivae normal SCLERA: sclerae normal PUPIL: Yes Equal, round and reactive pupils present Neck/C-Spine: COMMON NORMALS: full ROM, no lymphadenopathy, supple, no JVD and Thyroid normal; negative for No carotid bruits GENERAL: Yes trachea midline THYROID: Thyroid normal Lymph: LYMPHATIC: No no lymphadenopathy noted Chest: COMMONS NORMALS: normal inspection of the chest and normal palpation of entire chest wall CHEST: Yes Symmetrical chest wall rise and No tenderness Resp: COMMON NORMALS: normal respiratory effort, No use of accessory muscles and clear to auscultation bilaterally EFFORT & INSPECTION: Yes able to speak in complete sentences, Yes symmetric chest movement, Yes tachypneic, No labored, No Actively coughing and No audible wheezes AUSCULTATION: clear to auscultation bilaterally, no crackles, no rales, no rhonchi, no wheezes and diminished lung sounds PERCUSSION: dullness OTHER: Diminished Breath Sounds at the bases Cardio: COMMON NORMALS: no JVD, regular rate, regular rhythm, S1 normal heart sound present, S2 normal heart sound present, No gallops present (Cardio), No murmurs present (Cardio), No rub (Cardio) and Peripheral pulses 2+ throughout; negative for No clicks present (Cardio) JUGULAR VENOUS DISTENTION: no JVD PALPATION: normal PMI, no heave, no palpable S3, no palpable S4 and no thrill RATE: regular rate and tachycardic RHYTHM: regular rhythm HEART SOUNDS: S1 normal heart sound present, S2 normal heart sound present, no gallops and no murmurs BRUITS: no carotid bruits PERIPHERAL PULSES: Peripheral pulses 2+ throughout OTHER: 4+ 2+ edema from feet up to upper chest area redness and cold lower extremities. GI: COMMON NORMALS: Normal to inspection, nondistended, normoactive bowel sounds present, Soft to palpation, non-tender and no masses INSPECTION: Yes Anasarca AUSCULTATION: Yes normoactive bowel sounds PALPATION: Yes Soft to palpation, Yes Firmness to palpation present (GI) and Yes Other GI palpation findings present (obese and distended) PERCUSSION: dullness to percussion RECTAL EXAM: Yes deferred OTHER: Generalized pitting edema of the anterior abdominal wall : BLADDER/KIDNEY EXAM: Yes bladder normal to palpation PENIS: uncircumcised, Localized penile swelling present (severe) and other (scrotal and penile edema) MEATUS: meatus normal and other (can't see due to edema) SCROTUM: Yes testes descended bilaterally, No Scrotal tenderness present, Yes edematous and Yes scrotal swelling TESTES: No testicular mass and Yes other (Can't palpate through scrotal edema) OTHER: Significant reduction in penile and scrotal edema. Foreskin is now retractable. Back/Pelvis: GENERAL BACK: Yes other (edema noted on back) LUMBAR SPINE/LOWER BACK: Yes normal to inspection Extremity: COMMON NORMALS: normal to inspection, full ROM and no joint enlargement NARRATIVE EXTREMITY EXAM: 4+ edema, Anasarca+ , woody induration noted GENERAL: Yes edema (2+ both legs up to the thighs and lower abdomen) OTHER: Feet with some dry cracking skin with improvement after moisturizer, no suggestion of cellulitis, no open wounds. No cyanosis or dusky appearance. Neuro: COMMON NORMALS: patient oriented x3, moves all extremities and no focal motor deficits SENSORIUM/ORIENTATION: Yes alert, Yes oriented to person, Yes oriented to place and Yes oriented to time CRANIAL NERVES: Yes CN normal except as noted Psych: COMMON NORMALS: mental status grossly normal, Normal thought process present and cooperative APPEARANCE: Yes grossly normal and Yes well kempt ATTITUDE: Yes calm and Yes engaged MOOD & AFFECT: Yes euthymic mood THOUGHT PROCESS: Normal thought process present THOUGHT CONTENT: Yes Normal thought content present ATTENTION/CONCENTRATION: Yes attention grossly intact MEMORY/COGNITION: Yes memory grossly intact INSIGHT: Good insight present (Psych) JUDGEMENT: Good judgement present (Psych) Skin: COMMON NORMALS: no rashes or lesions noted and no jaundice NARRATIVE SKIN EXAM: Bilateral leg erythema and serous to pustular discharge GENERAL SKIN EXAM: no rashes or lesions noted and dry skin LESIONS: lesion noted (Chronic ulcerations mid right palm, no further drainage. ) OTHER: No surrounding erythema to suggest cellulitis. Chronic venous stasis dermatitis. Urinary Catheter Management^: Light: Cath Placed During This Visit: yes Reason for Continuing Indwelling Catheter: Acute Urinary Retention or Obstruction Urinary Catheter Date of Insertion: 09/02/20 Urinary Catheter Time of Insertion: 09:00 Data : 09/11/20 04:00 09/12/20 03:10 A&P Assessment and plan (1) Genital edema, male: Not completely resolved but much better. Should be able to replace the catheter if necessary at this point. So it is reasonable to remove the Light catheter was no longer necessary from a medical perspective. Would have his bladder scanned and out catheterization if needed due to the episode of retention that occurred requiring catheter. He has a good baseline voiding history so I expect that he will probably do fine. Status: Acute (2) Acute urinary retention: Can replace the catheter if necessary and follow-up in my office with nurse practitioner next week for voiding trial. Status: Acute Additional A&P Information (1) New onset of congestive heart failure: Continue Lasix 100 mg p.o. twice daily today, spironolactone 25 mg p.o. daily Continue to monitor KADEN, daily output. EF noted 15% on TTE, mild dilated related left ventricular cavity. Mildly dilated right ventricular cavity, moderately decreased right ventricular systolic function. PA pressure estimated at 31 mmHg. Mild MR. Moderate TR. Continue carvedilol, and lisinopril as tolerated by blood pressure cardiac cath with 95% mid LAD occlusion viability study to be perfromed as outapatient If willing, prior to discharge may benefit also from setting up for LifeVest. (2) Cellulitis: More suggestive of chronic venous stasis, no gross signs of cellulitis on exam, patient remains afebrile hemodynamically stable, without leukocytosis. (3) Anasarca: Lasix 100mg po BID, transitioned iv to po in anticipation of discharge (4) Diabetes: newly diagnosed, Hba1c 12, discharge on insulin, pen education prior to discharge (5) Acute respiratory failure with hypoxia: This is currently resolved, will secondary to pulmonary edema initially upon admission. Currently patient saturating well on room air. 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 Agree with A&P above Patient appears more tachypneic today, will give additional dose of 40mg iv lasix and monitor for response Encouraged to consider life vest Insulin education today as he will be discharged with Lantus and novolog pens Anticipate discharge in the upcomig 24 hrs Coding Level of Care Code Acute Reconnaissance Crewmember for g Fwd Exam Comprehensive Diagnoses Genital edema, male N50.89 Acute urinary retention R33.8
[2020-09-12 17:23] LABS: Glucose Point of Care 181 mg/dL (70-110)
[2020-09-12] MEDS: insulin glargine 100 units/1 mL 15 UNIT SUBCUT (20:27)
[2020-09-12] MEDS: docusate sodium 100 mg Capsule 200 MG PO (20:28)
[2020-09-12] MEDS: atorvastatin 40 mg Tablet 10 MG PO (20:30)
[2020-09-12 21:10] LABS: Glucose Point of Care 198 mg/dL (70-110)
[2020-09-13] VITALS (7 sets, daily range): BP systolic 93–108; BP diastolic 65–74; PULSE 84–97; RESP 17–28; TEMP 36.3–36.6; O2SAT 92–97
[2020-09-13 04:45] LABS: Basophils # 0.1 10^3/uL (0.0-0.1); Basophils % 0.9 %; Eosinophils # 0.3 10^3/uL (0.0-0.8); Eosinophils % 4.1 %; Hemoglobin 13.7 g/dL (11.7-16.6); Lymphocytes # 1.7 10^3/uL (0.8-4.8); Lymphocytes % 21.4 %; Mean Corpuscular HGB Conc 31.1 g/dL (30.0-36.0); Mean Corpuscular Hemoglobin 26.2 pg (28.0-34.0); Mean Corpuscular Volume 84.1 fL (80-94); Mean Platelet Volume 9.5 fL (7.4-10.4); Monocytes # 0.6 10^3/uL (0.2-0.9); Neutrophils # 5.31 10^3/uL (1.8-7.7); Neutrophils % 65.6 %; Nucleated Red Blood Cells % 0 %; Platelet Count 389 10^3/cmm (130-400); Red Blood Count 5.23 10^6/uL (4.1-5.3); Red Cell Distribution Width 15.1 % (12.1-15.1); White Blood Count 8.1 10^3/uL (4.0-10.0)
[2020-09-13 06:56] LABS: Glucose Point of Care 146 mg/dL (70-110)
[2020-09-13] MEDS: FUROsemide 40 mg Tablet 100 MG PO (07:57)
[2020-09-13] MEDS: tamsulosin 0.4 mg Capsule PO (08:00)
[2020-09-13] MEDS: lisinopril 5 mg Tablet PO (08:00)
[2020-09-13] MEDS: carvedilol 3.125 mg Tablet PO (08:00)
[2020-09-13] MEDS: spironolactone 25 mg Tablet PO (08:00)
[2020-09-13] MEDS: aspirin 81 mg EC Tablet PO (08:00)
[2020-09-13] MEDS: magnesium oxide 400 mg tablet PO (08:01)
--- NOTE | 2020-09-13 09:45 | P.PN_ITS ---
Subjective Subjective: Interval history: Patient is doing well. No complaints of chest pain or shortness of breath. He has diuresed well over the last 24 hours. Vitals/I&O/Wt Last Vital Signs Temp 98 F 09/13/20 04:00 Pulse 97 09/13/20 07:45 Resp 19 H 09/13/20 07:45 BP 100/72 09/13/20 07:45 Pulse Ox 97 09/13/20 07:45 09/12/20 09/13/20 09/13/20 22:59 06:59 14:59 Intake Total 150 / 630 360 / 360 Output Total 2050 / 2950 2650 / 5600 Balance -2050 / -2470 -2500 / -4970 360 / 360 Weight last 48 hrs Weight 226 lb 8 oz Weight 232 lb 12.8 oz Physical Exam Narrative: EXAM NARRATIVE: Const COMMON NORMALS: no acute distress, patient oriented x3, alert and well nourished GENERAL APPEARANCE: cooperative, comfortable, well kempt and well developed NUTRITIONAL APPEARANCE: obese ORIENTATION/CONSCIOUSNESS: Yes oriented to person, Yes oriented to place and Yes oriented to time HENMT COMMON NORMALS: normocephalic, atraumatic, hearing grossly normal bilaterally, external ears normal and Normal external nose present HEAD & SCALP: normocephalic and atraumatic FACE & SINUS: face symmetric NOSE: Normal external nose present EXTERNAL EAR: Yes external ears normal Eye COMMON NORMALS: Equal, round and reactive pupils present, EOMs intact bilaterally and conjunctivae normal ALIGNMENT: Yes alignment normal CONJUNCTIVA: Yes conjunctivae normal SCLERA: sclerae normal PUPIL: Yes Equal, round and reactive pupils present Neck/C-Spine COMMON NORMALS: no lymphadenopathy, supple, no JVD and Thyroid normal; negative for No carotid bruits GENERAL: Yes trachea midline THYROID: Thyroid normal Chest COMMONS NORMALS: normal inspection of the chest CHEST: Yes Symmetrical chest wall rise and No tenderness Resp COMMON NORMALS: normal respiratory effort, No use of accessory muscles and has mild crackles bilaterally EFFORT & INSPECTION: Yes able to speak in complete sentences and No audible wheezes AUSCULTATION: clear to auscultation bilaterally, no crackles, no rales, no rhonchi and no wheezes Cardio COMMON NORMALS: no JVD, regular rate, regular rhythm, S1 normal heart sound present, S2 normal heart sound present and Peripheral pulses 2+ throughout; negative for No gallops present (Cardio) and negative for No clicks present (Cardio) JUGULAR VENOUS DISTENTION: no JVD PALPATION: normal PMI, no heave, no palpable S3, no palpable S4 and no thrill RATE: regular rate RHYTHM: regular rhythm HEART SOUNDS: S1 normal heart sound present, S2 normal heart sound present, no gallops and no murmurs BRUITS: no carotid bruits PERIPHERAL PULSES: Peripheral pulses 2+ throughout GI COMMON NORMALS: Normal to inspection, nondistended, normoactive bowel sounds present and non-tender INSPECTION: Yes Abdominal wall edema and Anasarca significantly improved PALPATION: Yes soft to palpation present (GI) and Yes Other GI palpation findings present (obese and distended) PERCUSSION: dullness to percussion RECTAL EXAM: Yes deferred PENIS: other (scrotal and penile edema improved) Back/Pelvis GENERAL BACK: Yes other (edema noted on back) Extremity NARRATIVE EXTREMITY EXAM: trace edema extending above knees Neuro COMMON NORMALS: patient oriented x3 and no focal motor deficits SENSORIUM/ORIENTATION: Yes alert, Yes oriented to person, Yes oriented to place and Yes oriented to time CRANIAL NERVES: Yes CN normal except as noted Psych COMMON NORMALS: Normal thought process present APPEARANCE: Yes well kempt MOOD & AFFECT: Yes euthymic mood THOUGHT PROCESS: Normal thought process present THOUGHT CONTENT: Yes Normal thought content present ATTENTION/CONCENTRATION: Yes attention grossly intact MEMORY/COGNITION: Yes memory grossly intact INSIGHT: Good insight present (Psych) JUDGEMENT: Good judgement present (Psych) Skin NARRATIVE SKIN EXAM: Bilateral leg discoloration Urinary Catheter Management^: Light: Cath Placed During This Visit: yes Reason for Continuing Indwelling Catheter: Acute Urinary Retention or Obstruction Urinary Catheter Date of Insertion: 09/02/20 Urinary Catheter Time of Insertion: 09:00 Data : 09/13/20 04:15 09/12/20 03:10 A&P Assessment and plan (1) New onset of congestive heart failure: Severely depressed LVEF of 15% along with moderately depressed RV function. -newly diagnosed. Continue spironolactone 25 mg in morning. -Switch to PO lasix today and patient can be discharged -continue low-dose Coreg and lisinopril. -I/O charting and daily weight. -I had a long discussion with the patient about findings on coronary angiogram. -Mid LAD has about 95% stenosis with calcification and distal portion of mid LAD with calcification and mild diffusly diseased distal segment. RCA and LCX with no severe stenosis. As outpatient, patient can have viability study to assess if intervention of mid LAD is going to benefit. Distal LAD is a small vessel and has diffuse disease. -Right heart catheterization with mean PA pressure of 42, RA pressure of 22 and wedge pressure of 30. -Patient has declined LifeVest before -Patient can be discharged today -Follow-up with cardiology in 1 week with our nurse practitioner. Follow-up BMP in 1 week. -Follow-up with me in heart care services in 1 month. Status: Acute (2) Anasarca: Resolved Status: Acute (3) Diabetes: Newly diagnosed. -Management as per primary team. He will need to be established with a primary care physician. 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 Elevated alkaline phosphatase Elevated TSH Suspect Sleep apnea: Oxygen saturation have been good here overnight. Will revisit as an outpatient Morbid obesity Chronic active smoker: Counseled extensively on smoking cessation. Urinary retention: Still has Light in place. Urology on board Thank you for allowing me to participate in patient's care. Please feel free to call with questions or concerns. Attestations Medical Necessity Statement*: Care expected to cross 2 midnights. Coding Level of Care Code Acute Remediation [employer] Consultant for Dale Castillo Diagnoses New onset of congestive heart failure I50.9 Anasarca R60.1 Diabetes E11.9 Diabetes mellitus type: type 2 Diabetes mellitus shelter insulin use: unspecified shelter insulin use status
[2020-09-13] MEDS: ipratropium-albuterol 3 mL Neb INHALATION (09:51)
[2020-09-13] MEDS: enoxaparin 40 mg/0.4 mL Syringe SUBCUT (10:00)
[2020-09-13 12:11] LABS: Glucose Point of Care 184 mg/dL (70-110)
--- NOTE | 2020-09-13 14:01 | PM.DCS ---
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 Reason for Visit Reason for Visit: SEVERE PITTING EDEMA/ WEAKNESS Physical Exam Urinary Catheter Management^: Light: Cath Placed During This Visit: yes Reason for Continuing Indwelling Catheter: Acute Urinary Retention or Obstruction Urinary Catheter Date of Insertion: 09/02/20 Urinary Catheter Time of Insertion: 09:00 Discharge Data Data Completed and Pending: Completed Studies During Hospitalization Category Date Time Status CT angio chest w abd pel w con Stat Cat Scan 08/30/20 21:52 Completed XR chest 1V ruddy ble [id number] Stat Exams 08/30/20 17:41 Completed CV echo complete* [id number] Routine Ultrasound 09/01/20 [place] [id number] Routin e Ultrasound 09/01/20 10:45 Completed US scrotum [id number] Routine Ultrasound 09/02/20 21:06 Completed Pending at discharge Category Date Time 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 Routin e Exams 09/10/20 09:48 Taken Labs from last 24 hours 09/13/20 09/13/20 09/13/20 11:38 06:35 04:15 WBC 8.1 RBC 5.23 Hgb 13.7 Hct 44.0 MCV 84.1 MCH 26.2 L MCHC 31.1 RDW 15.1 Plt Count 389 MPV 9.5 Neut % (Auto) 65.6 Lymph % (Auto) 21.4 [place] % (Auto) 7.0 Eos % (Auto) 4.1 Baso % (Auto) 0.9 Neut # (Auto) 5.31 Lymph # (Auto) 1.7 [place] # (Auto) 0.6 Eos # (Auto) 0.3 Baso # (Auto) 0.1 Nucleated RBC % (a uto) 0 Nucleated RBCs # 0.0 POC Glucose 184 H 146 H 09/12/20 09/12/20 20:18 16:41 WBC RBC Hgb Hct MCV MCH MCHC RDW Plt Count MPV Neut % (Auto) Lymph % (Auto) [place] % (Auto) Eos % (Auto) Baso % (Auto) Neut # (Auto) Lymph # (Auto) [place] # (Auto) Eos # (Auto) Baso # (Auto) Nucleated RBC % (a uto) Nucleated RBCs # POC Glucose 198 H 181 H Vitals: Last Vital Signs Temp 97.4 F L 09/13/20 12:23 Pulse 88 09/13/20 12:23 Resp 23 H 09/13/20 12:23 BP 93/70 09/13/20 12:23 Pulse Ox 94 09/13/20 09:58 Discharge Plan Discharge Patient Disposition: Home Health Service Condition: Stable Prescriptions: New furosemide 40 mg Tablet 100 mg PO BID@08,16 30 Days Qty: 60 RF: 0 atorvastatin 40 mg Tablet 10 mg PO BEDTIME 30 Days Qty: 30 RF: 0 aspirin 81 mg Tablet,Delayed Release (Dr/Ec) 81 mg PO DAILY 30 Days Qty: 30 RF: 0 spironolactone 25 mg Tablet 25 mg PO DAILY 30 Days Qty: 30 RF: 0 carvedilol 3.125 mg Tablet 3.125 mg PO BID 30 Days Qty: 60 RF: 0 magnesium oxide 400 mg (241.3 mg magnesium) Tablet 400 mg PO DAILY 30 Days Qty: 30 RF: 0 tamsulosin 0.4 mg Capsule 0.4 mg PO DAILY 30 Days Qty: 30 RF: 0 lisinopril 5 mg Tablet 5 mg PO DAILY 30 Days Qty: 30 RF: 0 Lantus Solostar U-100 Insulin 100 unit/mL (3 mL) insulin pen 15 unit SUBCUT QPM Qty: 15 RF: 1 (DME) Accu-Chek Azeb Plus test strp Strip See Rx Instructions .ROUTE .MEDSUPPLY Qty: 10 RF: 0 (DME) Accu-Chek Azeb Plus Meter Misc See Rx Instructions .ROUTE .MEDSUPPLY Qty: 1 RF: 0 Novolog Flexpen U-100 Insulin 100 unit/mL (3 mL) insulin pen 5 unit SUBCUT TID Qty: 15 RF: 0 acetaminophen 325 mg Tablet 650 mg PO Q6H PRN (Reason: Mild Pain) Qty: 0 RF: 0 Discontinued acetaminophen [Tylenol Extra Strength] 500 mg Tablet 250 - 500 mg PO PRN RF: 0 Discharge Orders: Discharge Order (Routine); Ordered 09/13/20 Ordered By: Isha Sloan Referrals: [facility] ([facility]) [Outside] (They will not be able to admit you until after you are established with a primary care physician. It is very important that you go to your follow up appointment. ) Davidson Wild MD [Physician] - 7-10 days ([facility] will contact you to schedule an follow-up appointment with Dr. Wild in 7 to 10 days. If you haven't heard from by Wednesday afternoon. Please call ) Harriet Dennis DO [Physician] - 09/19/20 9:00 am (Please follow-up with Dr. Harriet Dennis on September 19 at 9:00a.m. If you have any questions or need to reschedule. Please call ) Marv Marvin MD [Physician] - 2 weeks ([facility] will contact you to schedule an appointment in 2 weeks. If you haven't heard from them by Wednesday afternoon. Please call ) Nati Rubio MD [Physician] - 1 week Discharge Diet: Usual diet Discharge Activity: Increase activity as tolerated Patient Instructions: Spironolactone (By mouth), Lisinopril (By mouth), Furosemide (By mouth), Acetaminophen (By mouth), Atorvastatin (By mouth), Tamsulosin (By mouth), Carvedilol (By mouth), Insulin Aspart, Recombinant (Injection), Magnesium Oxide (By mouth), Insulin Glargine (Injection), Congestive Heart Failure, Left Heart Catheterization (DC), Urinary Retention in Men (GEN), Heart Healthy Diet (DC), Diabetes Mellitus Type 1 in Adults (DC), How to Give a Subcutaneous Injection (DC), How to Give a Subcutaneous Injection (GEN), Basic Carbohydrate Counting (DC), Meal Planning with Diabetes Exchanges (DC), CHF Stoplight, Post Angiogram Home Care Instructions Activity Restrictions/Additional Instructions: If you need assistance with a ride to or from your scheduled doctor's appointments, you may get this paid for by your Medicaid insurance by calling [employer] at [phone]. You have to call and give them at least a 5 business day notice. You will need your Medicaid ID number, the name and address of the provider you will be seeing, the address you will be picked up from, and the date and time of the appointment. Take 12 units of Lantus subcutaneously in the evening. Discharge Attestations Time Spent in Discharge Care*: greater than 30 min Quality Metrics Clinical Quality Measures During this hospital stay, did patient experience: None Coding Level of Care Code Acute Resilient Tile Installer for Dale Fwd Diagnoses New onset of congestive heart failure I50.9 Anasarca R60.1 Diabetes E11.9 Diabetes mellitus type: type 2 Diabetes mellitus intermediate insulin use: unspecified intermediate insulin use status
--- NOTE | 2020-09-13 14:55 | DCPLANNER ---
Discharge to home with at bedside and pt instructed and educated on pt's new meds dosing, actions, timing, frequency and possible side effects. Pt return demonstrate on how to use the insulin pens. Educated pt and on importance of monitoring his weights, swelling and the importance of taking his meds, monitoring his fluid intake. Pt needed reinforcement and support with family. Meds to bed given to pt. Pt and informed of the clay catheter will be kept in place until seen by his urologist. Discharge packet provided.
--- NOTE | 2020-09-13 15:43 | PC.NURSE ---
Addendum entered by Kay Nettles RN 09/13/20 15:56: Discharge packet provided to pt. Meds to bed given to pt. Original Note: Discharge to home Informed pt and to follow-up with the care providers as scheduled for him. Instructed pt and on his new meds actions, dosing, timing and frequency. Educated pt on the importance of taking all his meds, check his weight and blood sugar. Pt return demonstrate on how to give insulin subcutaneously. Informed Pt and to monitor for any increase swelling and increase weight. To call doctor or call 911 if any increasing SOB or Chest discomfort. Pt verbalizes understanding.
[2020-09-14 08:38] LABS: Glucose Point of Care 246 mg/dL (70-110)
[2020-09-14 08:38] LABS: Glucose Point of Care 305 mg/dL (70-110)
== END 2020-09-13 15:02 | disposition home health service (06) | DRG 286 ==
LOC: ER 18:57 → MEDSURG 21:44 → CSU 09-10 12:40
PROVIDERS: Internal Medicine; Internal Medicine Cardiovascular Disease; Admitting Provider Internal Medicine; Emergency Provider Nurse Practitioner Family; Visit Provider Student in an Organized Health Care Education/Training Program
PROC: 4A023N8 Measurement of Cardiac Sampling and Pressure, Bilateral, Percutaneous Approach (ICD-10-PCS; principal; 2020-09-10 16:30)
DX: I50.21 Acute systolic (congestive) heart failure (principal); J96.01 Acute respiratory failure with hypoxia; L03.116 Cellulitis of left lower limb; L03.115 Cellulitis of right lower limb; I47.1 Supraventricular tachycardia; I25.10 Atherosclerotic heart disease of native coronary artery without angina pectoris; F17.210 Nicotine dependence, cigarettes, uncomplicated; E11.65 Type 2 diabetes mellitus with hyperglycemia; E66.01 Morbid (severe) obesity due to excess calories; Z68.31 Body mass index [BMI] 31.0-31.9, adult; G47.30 Sleep apnea, unspecified; I08.1 Rheumatic disorders of both mitral and tricuspid valves; R33.9 Retention of urine, unspecified; N50.89 Other specified disorders of the male genital organs
CPT/HCPCS: 12345; 36415; 36416; 36600; 51702; 71045; 71275; 74177; 76870; 80048; 80053; 80061; 81001; 82044; 82550; 82570; 82805; 82962; 83036; 83519; 83735; 83880; 84133; 84300; 84443; 84484; 85025; 85378; 85610; 86337; 86341; 87086; 93005; 93306; 93308; 93460; 93970; 94640; 94660; 96372; 96375; 97110; 97161; 99283; C1751; C1769; C1887; C1894; G0378; J0696; J1644; J1650; J1815 ×2; J1940; J2250; J3010; J3490; J7030; Q9967

== ENCOUNTER → 2020-09-20 10:34 | Outpatient (BNVA) | payer MEDICAID, SELFPAY | PROVIDERS: PCP Family Medicine; Visit Provider Internal Medicine Cardiovascular Disease | DX: I50.9 Heart failure, unspecified (principal); I25.10 Atherosclerotic heart disease of native coronary artery without angina pectoris; R33.8 Other retention of urine; E11.9 Type 2 diabetes mellitus without complications | CPT/HCPCS: 80053; 81003; 83735; 83880 ==

== ENCOUNTER → 2020-11-14 09:50 | Outpatient (BNVA) | payer MEDICAID, SELFPAY | PROVIDERS: PCP Family Medicine; Visit Provider Family Medicine | DX: E11.9 Type 2 diabetes mellitus without complications (principal); I10 Essential (primary) hypertension; Z79.4 Long term (current) use of insulin | CPT/HCPCS: 80053; 83036 ==

== ENCOUNTER → 2021-03-10 11:24 | Outpatient (BNVA) | payer MEDICAID, SELFPAY | PROVIDERS: PCP Family Medicine; Visit Provider Family Medicine | DX: E11.9 Type 2 diabetes mellitus without complications (principal); I10 Essential (primary) hypertension; I50.9 Heart failure, unspecified; I25.10 Atherosclerotic heart disease of native coronary artery without angina pectoris; Z79.4 Long term (current) use of insulin | CPT/HCPCS: 80053; 83036 ==

== ENCOUNTER → 2021-06-10 09:42 | Outpatient (BNVA) | payer MEDICAID, SELFPAY | PROVIDERS: PCP Family Medicine; Visit Provider Family Medicine | DX: I10 Essential (primary) hypertension (principal); E78.5 Hyperlipidemia, unspecified; I50.9 Heart failure, unspecified; E11.9 Type 2 diabetes mellitus without complications; Z79.4 Long term (current) use of insulin; R79.89 Other specified abnormal findings of blood chemistry; I25.10 Atherosclerotic heart disease of native coronary artery without angina pectoris | CPT/HCPCS: 80053; 80061; 83036; 83880; 84439; 84443; 84481 ==

== ENCOUNTER 2021-08-13 08:11 | Outpatient (CLI) | payer MEDICAID, SELFPAY ==
--- NOTE | 2021-08-13 08:45 | USCV_ITS ---
Aby Clement Age: 56 Gender: M : 1965 Exam Date: 08/13/2021 08:41 Ordering Phys: Nati Rubio MD ([email or web address]) Technologist: [email or web address] [place] [facility] [place]: Congestive heart failure, tricuspid valve regurgitation BP: 122 / 84 HR: 86 Rhythm: Sinus Technical Quality: Adequate MEASUREMENTS (Male / Female) Normal Values 2D ECHO LV Diastolic Diameter PLAX 5.6 cm 4.2 - 5.9 / 3.9 - 5.3 cm LV Systolic Diameter PLAX 4.8 cm IVS Diastolic Thickness 1.1 cm 0.6 - 1.0 / 0.6 - 0.9 cm IVS Systolic Thickness 1.0 cm LVPW Diastolic Thickness 1.3 cm 0.6 - 1.0 / 0.6 - 0.9 cm LVPW Systolic Thickness 1.4 cm LVOT Diameter 2.1 cm LV Ejection Fraction 2D Teich 28.9 % LV Ejection Fraction MOD 2C 32.4 % LV Ejection Fraction 2C AL 28.9 % LA Diameter 3.3 cm LA Width 4.3 cm LA Height 5.3 cm RA Width 4.9 cm RA Height 4.9 cm Aorta at Sinotubular Diameter 2.8 cm M-MODE Aortic Annulus Diameter 3.6 cm LA Ao Ratio MM 1.0 MV E Point Septal Separation 1.3 cm DOPPLER TR Peak Velocity 211.6 cm/s TR Peak Gradient 17.9 mmHg TR Mean Velocity 164.2 cm/s TR Mean Gradient 12.0 mmHg TR Velocity Time Integral 59.0 cm FINDINGS Left Ventricle Mildly dilated left ventricle. Severely decreased left ventricular systolic function. Left ventricular ejection fraction is estimated at 20-25 %. Severe global hypokinesis. Right Ventricle Normal right ventricular size and low normal right ventricle systolic function. Right ventricular systolic pressure 23 mmHg. Right Atrium Normal right atrial size. Right atrial pressure estimated at 3 mm of Hg. Left Atrium Mildly increased left atrial size. Mitral Valve Structurally normal mitral valve. Aortic Valve Structurally normal trileaflet aortic valve. No aortic valve stenosis. Tricuspid Valve Structurally normal tricuspid valve. No tricuspid valve stenosis. Trace tricuspid valve regurgitation. Pulmonic Valve Structurally normal pulmonic valve. Pericardium No pericardial effusion. Aorta Normal-sized inferior vena cava. Normal-sized aortic root. CONCLUSIONS 1. Mildly dilated left ventricle. Severely decreased left ventricular systolic function. Left ventricular ejection fraction is estimated at 20-25 %. Severe global hypokinesis. 2. Normal right ventricular size and low normal right ventricle systolic function. 3. Pulmonary artery pressure estimated at 23 mmHg. 4. When compared to previous echocardiogram dated 09/01/2020, there has been some improvement in left and right ventricular systolic function. Nati Rubio MD (Electronically Signed) Final Date: 13 August 2021 12:54 S
== END 2021-08-13 08:12 | disposition home or self-care (01) ==
LOC: RAD 08:15
PROVIDERS: PCP Family Medicine; Visit Provider Internal Medicine Cardiovascular Disease
DX: I50.9 Heart failure, unspecified (principal)
CPT/HCPCS: 93308; 93325

== ENCOUNTER → 2022-01-14 09:59 | Outpatient (BNVA) | payer MEDICAID, SELFPAY | PROVIDERS: PCP Family Medicine; Visit Provider Family Medicine | DX: I10 Essential (primary) hypertension (principal); E11.9 Type 2 diabetes mellitus without complications; Z79.4 Long term (current) use of insulin; I50.9 Heart failure, unspecified; E78.5 Hyperlipidemia, unspecified; I25.10 Atherosclerotic heart disease of native coronary artery without angina pectoris | CPT/HCPCS: 80053; 83036 ==

== ENCOUNTER → 2022-08-11 08:43 | Outpatient (BNVA) | payer MEDICAID, SELFPAY | PROVIDERS: PCP Family Medicine; Visit Provider Family Medicine | DX: I10 Essential (primary) hypertension (principal); R33.8 Other retention of urine; E11.9 Type 2 diabetes mellitus without complications; I50.9 Heart failure, unspecified; Z79.4 Long term (current) use of insulin; E78.5 Hyperlipidemia, unspecified; I25.10 Atherosclerotic heart disease of native coronary artery without angina pectoris | CPT/HCPCS: 80053; 80061; 83036 ==

== ENCOUNTER → 2022-11-12 09:10 | Outpatient (BNVA) | payer BC, SELFPAY | PROVIDERS: PCP Family Medicine; Visit Provider Family Medicine | DX: E11.9 Type 2 diabetes mellitus without complications (principal); Z79.4 Long term (current) use of insulin; I10 Essential (primary) hypertension; R33.8 Other retention of urine; I50.9 Heart failure, unspecified; E78.5 Hyperlipidemia, unspecified; J44.9 Chronic obstructive pulmonary disease, unspecified; Z72.0 Tobacco use | CPT/HCPCS: 80048; 83036 ==

== ENCOUNTER 2023-07-04 15:18 | Inpatient (IN) | payer MEDICAID, SELFPAY ==
[2023-07-04] VITALS (7 sets, daily range): BP systolic 132–175; BP diastolic 84–106; PULSE 90–103; RESP 10–22; TEMP 36.5–36.8; O2SAT 94–96; BMI 43.0
--- NOTE | 2023-07-04 16:24 | W.ED.GENADLT ---
HPI - General Adult General: Chief complaint: Urogenital-Male Stated complaint: urinary / rash on legs Time Seen by Provider: 07/04/23 16:21 Source: patient Mode of arrival: ambulatory History of Present Illness: 58-year-old male presents emergency room with complaint of swelling and inflammation in the lower extremities and scrotum bilaterally. Began over the last few days. He is able to urinate presently getting 200 mL per urination. Patient has a history of severe cardiomyopathy with an ejection fraction of 15% he also has right-sided ventricular dysfunction. He has previously had severe exacerbation of COPD presented similarly in 2020 with leg and scrotal swelling required aggressive diuresis had a cath at that time. There was a lesion in the LAD and they recommended a viability study before proceeding with any attempt at revascularization. Patient had 1 follow-up visit with cardiology after that hospitalization several follow-up visits with his primary care doctor but no other cardiology visits. No chest pain at this time but does have orthopnea and severe lower extremity edema and swelling. He had been seeing Dr. Espinal at his last visit was in November of this year. Onset (ago): day(s) (2) Location: left, right and lower extremity Severity: severe Quality: aching Pain Consistency: constant Relieving factors: none Exacerbating factors: none Associated symptoms: Reports dyspnea, malaise and nausea; Deny chest pain or rash Treatments prior to arrival: none Review of Systems Const: Reports: change in weight, fatigue and malaise; Denies: fever(s) or chills Card: Reports: edema, swelling of feet/ankles and dyspnea on exertion; Denies: chest pain Resp: Reports: dyspnea GI: Reports: nausea; Denies: abdominal pain : Reports: difficulty urinating and urinary frequency; Denies: dysuria or urinary urgency Musc: Denies: neck pain or back pain Skin/Breast: Denies: rash PFSH ED PFSH: Medical History Acute urinary retention CAD (coronary artery disease) CHF (congestive heart failure) Diabetes Hyperlipidemia Hypertension Surgical History No pertinent past surgical history Family History Mother CAD (coronary artery disease) Grandmother Diabetes Denies family history of Stroke Social History Smoking and tobacco/nicotine status: current every day tobacco/nicotine user cigarettes Packs smoked per day: 0.5 [ Other cigarette details: Has been smoking 2 packs/day, currently 1 pack/day] Alcohol intake: current Alcohol intake frequency: holidays/special occasions only Substance/Drug Use: never Household members: spouse Housing: House Physical Exam Const: GENERAL APPEARANCE: cooperative and comfortable ORIENTATION/CONSCIOUSNESS: Yes awake, Yes oriented to person, Yes oriented to place and Yes oriented to time HENMT: COMMON NORMALS: normocephalic, atraumatic and hearing grossly normal bilaterally HEAD & SCALP: normocephalic and atraumatic Resp: COMMON NORMALS: normal respiratory effort, No retractions, No use of accessory muscles and clear to auscultation bilaterally AUSCULTATION: clear to auscultation bilaterally Cardio: COMMON NORMALS: regular rate, regular rhythm and No murmurs present (Cardio) RATE: regular rate RHYTHM: regular rhythm GI: COMMON NORMALS: No hepatosplenomegaly present AUSCULTATION: Yes normoactive bowel sounds PALPATION: No Tenderness to palpation present (GI), No Guarding due to palpation present (GI) and Yes No hepatosplenomegaly present OTHER: Anasarca to the level of the umbilicus Extremity: OTHER: 3+ edema lower extremities to the level of the thigh. Significant scrotal edema Neuro: SENSORIUM/ORIENTATION: Yes oriented to person, Yes oriented to place and Yes oriented to time Skin: OTHER: Changes chronic venous stasis edema lower extremities Course Vital Signs: Vital signs: Vital Signs Temperature 97.7 F 07/05/23 04:00 Pulse Rate 83 07/05/23 05:48 Respiratory Rate 19 H 07/05/23 04:00 Blood Pressure 138/85 07/05/23 04:00 Pulse Oximetry 90 07/05/23 04:00 Oxygen Delivery Me thod Room Air 07/05/23 00:00 MDM - General Adult Medical Decision Making Significant fluid overload with anasarca at the level of the umbilicus. Patient has history of ischemic cardiomyopathy with previous EF of 15% and right ventricular dysfunction on angiogram. Patient given Lasix 100 mg IV in the emergency room began to have good urinary output. Discussed with hospitalist will admit for further diuresis. Reviewing the old records at 1 point he had a distal LAD lesion and there was consideration given to intervention however they recommended viability study which in discussing with him does not appear was ever done. Medical Records I reviewed the patient's medical records. Lab Data I reviewed the patient's lab results. 07/05/23 04:19 07/05/23 04:19 Radiology Impressions Chest X-Ray 07/04/23 17:33 IMPRESSION: Cardiomegaly and minimal pulmonary vascular congestion. Laboratory Results WBC 9.72 10^3/uL (3.29-11.43) 07/04/23 16:50 RBC 4.78 10^6/uL (3.85-5.65) 07/04/23 16:50 Hgb 13.50 g/dL (11.27-16.99) 07/04/23 16:50 Hct 43.3 % (37-53) 07/04/23 16:50 MCV 90.6 fl (82-101) 07/04/23 16:50 MCH 28.2 pg (27-33) 07/04/23 16:50 MCHC 31.2 g/dL (30-55) 07/04/23 16:50 RDW 15.9 % (12.1-15.1) H 07/04/23 16:50 Plt Count 356 10^3/cmm (157-399) 07/04/23 16:50 MPV 9.8 fL (7.4-10.4) 07/04/23 16:50 Neut % (Auto) 75.9 % 07/04/23 16:50 Lymph % (Auto) 13.1 % 07/04/23 16:50 [place] % (Auto) 7.0 % 07/04/23 16:50 Eos % (Auto) 2.7 % 07/04/23 16:50 Baso % (Auto) 0.7 % 07/04/23 16:50 Neut # (Auto) 7.38 10^3/uL (1.8-7.7) 07/04/23 16:50 Lymph # (Auto) 1.3 10^3/uL (0.8-4.8) 07/04/23 16:50 [place] # (Auto) 0.7 10^3/uL (0.2-0.9) 07/04/23 16:50 Eos # (Auto) 0.3 10^3/uL (0.0-0.8) 07/04/23 16:50 Baso # (Auto) 0.1 10^3/uL (0.0-0.1) 07/04/23 16:50 Nucleated RBC % (auto) 0 % 07/04/23 16:50 Nucleated RBCs # 0.0 /100WBC 07/04/23 16:50 Sodium 138 mmol/L (136-145) 07/04/23 16:50 Potassium 4.0 mmol/L (3.5-5.1) 07/04/23 16:50 Chloride 101 mmol/L (98-107) 07/04/23 16:50 Carbon Dioxide 27 mmol/L (22-29) 07/04/23 16:50 Anion Gap 14.0 (5-19) 07/04/23 16:50 BUN 21 mg/dL (6-20) H 07/04/23 16:50 Creatinine 0.8 mg/dL (0.7-1.2) 07/04/23 16:50 GFR Calculation 100.0 mL/min (90-130) 07/04/23 16:50 Glucose 222 mg/dL (65-115) H 07/04/23 16:50 Calculated Osmolality 296 mOsm/kg (285-295) H 07/04/23 16:50 Calcium 9.1 mg/dL (8.5-10.5) 07/04/23 16:50 Total Bilirubin 0.5 mg/dL (0.15-1.2) 07/04/23 16:50 AST 13 U/L (0-40) 07/04/23 16:50 ALT 14 U/L (0-41) 07/04/23 16:50 Alkaline Phosphatase 168 U/L (40-130) H 07/04/23 16:50 Creatine Kinase 145 U/L (39-308) 07/04/23 16:50 NT-Pro-B Natriuret Pep 3400 pg/mL (0-125) H 07/04/23 16:50 Total Protein 6.4 g/dL (6.6-8.7) L 07/04/23 16:50 Albumin 3.3 g/dL (3.5-5.2) L 07/04/23 16:50 Globulin 3.1 g/dL (1.3-4.6) 07/04/23 16:50 Urine Color Yellow (Yellow) 07/04/23 18:50 Urine Appearance Clear (CLEAR) 07/04/23 18:50 Urine pH 6 (5-7) 07/04/23 18:50 Ur Specific [place] 1.015 (1.005-1.030) 07/04/23 18:50 Urine Protein 3+ (Negative) H 07/04/23 18:50 Urine Glucose (UA) Norm (Normal) 07/04/23 18:50 Urine Ketones 1+ (Negative) H 07/04/23 18:50 Urine Blood 2+ (Negative) H 07/04/23 18:50 Urine Nitrate Positive (Negative) H 07/04/23 18:50 Urine Bilirubin Neg (Negative) 07/04/23 18:50 Urine Urobilinogen 1 mg/dL (Negative) H 07/04/23 18:50 Ur Leukocyte Esterase Negative (Negative) 07/04/23 18:50 Urine RBC 5-10 /hpf (0-2) H 07/04/23 18:50 Urine WBC 0-4 /hpf (0-5) H 07/04/23 18:50 Ur Squamous Epith Cells 0-4 /hpf (0-5) H 07/04/23 18:50 Amorphous Sediment 2+ /hpf 07/04/23 18:50 Urine Bacteria Trace /hpf (NONE) 07/04/23 18:50 All radiology interpretation(s) finalized by discharge Discharge Plan Discharge Patient Disposition: Admitted As Inpatient Admit Provider: Husam Espinoza Clinical Impression: CHF (congestive heart failure), Hypertension, COPD (chronic obstructive pulmonary disease), Diabetes, Anasarca Condition: Stable Coding Level of Care Code ED 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
[2023-07-04 16:56] LABS: Basophils # 0.1 10^3/uL (0.0-0.1); Basophils % 0.7 %; Eosinophils # 0.3 10^3/uL (0.0-0.8); Eosinophils % 2.7 %; Hematocrit 43.3 % (37-53); Lymphocytes # 1.3 10^3/uL (0.8-4.8); Lymphocytes % 13.1 %; Mean Corpuscular HGB Conc 31.2 g/dL (30-55); Mean Corpuscular Hemoglobin 28.2 pg (27-33); Mean Corpuscular Volume 90.6 fl (82-101); Mean Platelet Volume 9.8 fL (7.4-10.4); Monocytes # 0.7 10^3/uL (0.2-0.9); Neutrophils # 7.38 10^3/uL (1.8-7.7); Neutrophils % 75.9 %; Nucleated Red Blood Cells % 0 %; Platelet Count 356 10^3/cmm (157-399); Red Blood Count 4.78 10^6/uL (3.85-5.65); Red Cell Distribution Width 15.9 % (12.1-15.1); White Blood Count 9.72 10^3/uL (3.29-11.43)
[2023-07-04 17:22] LABS: Alanine Aminotransferase 14 U/L (0-41); Albumin Level 3.3 g/dL (3.5-5.2); Alkaline Phosphatase 168 U/L (40-130); Aspartate Amino Transferase 13 U/L (0-40); Blood Urea Nitrogen 21 mg/dL (6-20); Calcium 9.1 mg/dL (8.5-10.5); Carbon Dioxide 27 mmol/L (22-29); Chloride 101 mmol/L (98-107); Creatinine Clr Calc Pharmacy 143.2538; Globulin 3.1 g/dL (1.3-4.6); Glucose 222 mg/dL (65-115); Osmolality Calculated 296 mOsm/kg (285-295); Sodium 138 mmol/L (136-145); Total Bilirubin 0.5 mg/dL (0.15-1.2); Total Protein 6.4 g/dL (6.6-8.7)
--- NOTE | 2023-07-04 17:33 | XRR_ITS ---
PROCEDURE INFORMATION: Exam: XR Chest Exam date and time: 07/04/2023 6:17 PM Age: 58 years old Clinical indication: Cough and shortness of breath; Patient HX: Dyspnea; Cough; Smoker TECHNIQUE: Imaging protocol: Radiologic exam of the chest. Views: 1 view. COMPARISON: CR XR chest 1V portable [id number] 08/30/2020 5:41 PM FINDINGS: Lungs: See Heart/Mediastinum finding. Pleural spaces: Unremarkable. No pleural effusion. No pneumothorax. Heart/Mediastinum: Cardiomegaly and minimal pulmonary vascular congestion. Bones/joints: Unremarkable. XR/XR chest 1V portable [id number] IMPRESSION: Cardiomegaly and minimal pulmonary vascular congestion.
[2023-07-04] MEDS: FUROsemide 10 mg/mL SDV 10mL 60 MG IVP (17:39)
[2023-07-04 18:00] LABS: Creatine Phosphokinase 145 U/L (39-308); NT Pro B Type Natriuretic Pept 3400 pg/mL (0-125)
[2023-07-04] MEDS: FUROsemide 10 mg/mL SDV 4mL 40 MG IVP (18:04)
--- NOTE | 2023-07-04 18:54 | PC.NURSE ---
RN AT BEDSIDE TO ATTEMPT TO PLACE LAY, UNABLE TO PLACE. ATTEMPTED WITH 16G COUDE AND UNABLE TO ADVANCE DUE TO EDEMA. MD INFORMED.
[2023-07-04 19:25] LABS: Glucose Urine UA Norm (Normal); Ketones Urine 1+ (Negative); Protein Urine 3+ (Negative); Specific Gravity, Urine 1.015 (1.005-1.030); Urine Appearance Clear (CLEAR); Urine Color Yellow (Yellow); pH Urine 6 (5-7)
[2023-07-04 19:26] LABS: Add Urine Microscopic? YES; Amorphous Sediment Urine 2+ /hpf; Bacteria Urine TRACE /hpf; Bilirubin Urine Neg (Negative); Blood Urine 2+ (Negative); Leukocyte Esterase Urine Negative (Negative); Nitrate Urine Positive (Negative); Squamous Epithelial Cell Urine 0-4 /hpf (0-5); Urobilinogen Urine 1 mg/dL (Negative); WBC Urine 0-4 /hpf (0-5)
[2023-07-04 19:27] LABS: Add Urine Culture? Yes
--- NOTE | 2023-07-04 20:35 | P.HP_ITS ---
Providers/Chief Complaint Admitting Physician: Husam Espinoza MD Primary Care Provider: Fidelina Espinal MD Chief Complaint: urinary / rash on legs History of Present Illness Aby Clement is a 58 year old male Acute urinary retention CAD (coronary artery disease) CHF (congestive heart failure) Diabetes Hyperlipidemia Hypertension Presented with complaint of bilateral lower extremity swelling abdominal swelling and genital and scrotal swelling since 1 week. He denies any complaint of fever cold cough chest pain shortness of breath abdominal pain nausea vomiting diarrhea or urinary complaints. He admits taking his medications regularly but has missed his Lasix for 2 days. Last time he saw his PCP was November 2022. Review of Systems Narrative: As per HPI Medications/Allergies Home Medications Medication Instructions Recorded Confirmed Last Taken Type acetaminophen 325 mg tablet 650 mg PO Q6H PRN Mild Pain #0 tabs 09/12/20 03/24/23 Unknown Rx blood sugar diagnostic (Accu-Chek #10 ea 09/12/20 03/24/23 Unknown Rx Azeb Plus test strips) blood-glucose meter (Accu-Chek #1 ea 09/12/20 03/24/23 Unknown Rx Azeb Plus Meter) lancets #100 ea 10/14/20 03/24/23 Unknown Rx alcohol swabs (BD Alcohol Swabs) See Rx Instructions .Route 12/30/21 03/24/23 Unknown Rx .COMPLEX #100 pad blood sugar diagnostic (Blood #100 ea 01/14/22 03/24/23 Unknown Rx Glucose Test strips) lancets #100 ea 01/14/22 03/24/23 Unknown Rx pen needle, diabetic 33 gauge x #100 ea 01/14/22 03/24/23 Unknown Rx 3/16 (Comfort EZ Pen [place]) blood-glucose meter,continuous #1 ea 01/26/22 03/24/23 Unknown Rx (Dexcom G6 Spiral Winding Machine Helper) aspirin 81 mg chewable tablet 81 mg PO DAILY #90 tabs 08/11/22 03/24/23 Unknown Rx albuterol sulfate 90 mcg/actuation 2 puff inhalation QID PRN 11/12/22 03/24/23 Unknown Rx aerosol inhaler (ProAir HFA) shortness of breath or wheezing 30 days #18 grams atorvastatin 20 mg tablet 20 mg PO BEDTIME 90 days #90 tabs 11/12/22 03/24/23 Unknown Rx blood-glucose transmitter (Dexcom #1 ea 11/12/22 03/24/23 Unknown Rx G6 Transmitter device) insulin aspart U-100 100 unit/mL 5 unit (0.05 mL) SUBCUT TIDWMEAL 11/12/22 03/24/23 Unknown Rx (3 mL) subcutaneous pen (Novolog 30 days #15 mL FlexPen U-100 Insulin aspart) insulin glargine 100 unit/mL (3 20 unit (0.2 mL) SUBCUT QPM 30 11/12/22 03/24/23 Unknown Rx mL) subcutaneous pen (Lantus days #6 mL Solostar U-100 Insulin) tamsulosin 0.4 mg capsule 0.4 mg PO DAILY 90 days #90 caps 11/12/22 03/24/23 Unknown Rx blood-glucose sensor (Dexcom G6 #3 ea 05/24/23 Unknown Rx Sensor device) carvedilol 6.25 mg tablet 6.25 mg PO BID 90 days #180 tabs 05/24/23 Unknown Rx furosemide 80 mg tablet 80 mg PO BID 90 days #180 tabs 06/26/23 Unknown Rx spironolactone 25 mg tablet See Rx Instructions .Route 06/26/23 Unknown Rx .COMPLEX 90 days #90 tabs Allergies Allergy/AdvReac Type Severity Reaction Status Date / Time lisinopril AdvReac Mild Cough Verified 07/04/23 15:42 PFSH Acute PFSH: Medical History Acute urinary retention CAD (coronary artery disease) CHF (congestive heart failure) Diabetes Hyperlipidemia Hypertension Surgical History No pertinent past surgical history Family History Mother CAD (coronary artery disease) Grandmother Diabetes Denies family history of Stroke Social History Smoking and tobacco/nicotine status: current every day tobacco/nicotine user cigarettes Packs smoked per day: 0.5 [ Other cigarette details: Has been smoking 2 packs/day, currently 1 pack/day] Alcohol intake: current Alcohol intake frequency: holidays/special occasions only Substance/Drug Use: never Household members: spouse Housing: House Vitals/I&O/Wt Last Vital Signs Temp 98.2 F 07/04/23 15:42 Pulse 90 07/04/23 19:42 Resp 20 H 07/04/23 19:42 BP 133/90 07/04/23 19:42 Pulse Ox 95 07/04/23 19:42 O2 Del Method Room Air 07/04/23 19:42 Weight last 48 hrs Weight 136.078 kg Physical Exam Narrative: He is alert awake oriented x3 morbidly obese not in acute distress Chest clear to auscultation bilaterally Cardiovascular normal heart sounds no murmurs Abdomen soft nontender distended normal bowel sounds Extremities bilateral 3+ pitting lower extremity edema present, chronic skin changes with few subcentimeter ulcerations present on bilateral lower extremit ies. Data 07/04/23 16:50 07/04/23 16:50 CXR: Radiologist's impression: IMPRESSION: Cardiomegaly and minimal pulmonary vascular congestion. A&P Assessment and plan (1) Anasarca: (2) CHF (congestive heart failure): Qualifiers: Heart failure type: unspecified Heart failure chronicity: chronic Qualified Code(s): I50.9 - Heart failure, unspecified Plan 58 year old male Acute urinary retention CAD (coronary artery disease) CHF (congestive heart failure) Diabetes Hyperlipidemia Hypertension Presented with complaint of bilateral lower extremity swelling abdominal swelling and genital and scrotal swelling since 1 week and found to have BNP of 3400 and chest x-ray consistent with pulmonary edema likely secondary to acute on chronic congestive heart failure. Will give IV Lasix 40 mg every 8 hours Daily weight Monitor I's and O's Resume home medications Will check 2D echo in a.m. Patient is known to Dr. Rubio, follow up with her in am. IV Pepcid 20 mg twice a day for stress ulcer prophylaxis Subcutaneous Lovenox 40 mg daily for DVT prophylaxis He is full code for now as per the discussion with the patient Attestations Medical Necessity Statement*: He needs less than 2 days of hospitalization. He is here for management of chronic heart failure with anasarca to be treated with IV Lasix, and repeat 2D echo Time Spent in Patient Care: 30 minutes Coding Level of Care Code Acute Code for [facility] Diagnoses Anasarca R60.1 CHF (congestive heart failure) I50.9 Heart failure type: unspecified Heart failure chronicity: chronic Time Spent (min) 30
--- NOTE | 2023-07-04 21:25 | ECG_ITS ---
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 Measurements Intervals [place] Rate: 92 P: 42 [place]: 167 QRS: -25 QRSD: 94 T: 91 QT: 382 QTc: 473 Interpretive Statements SINUS RHYTHM POSSIBLE LEFT ATRIAL ENLARGEMENT [-0.1mV P-WAVE IN V1/V2] LOW QRS VOLTAGE [QRS DEFLECTION < 0.5/1.0 mV IN LIMB/CHEST LEADS] POSSIBLE ANTERIOR MYOCARDIAL INFARCTION , PROBABLY OLD [30 ms Q WAVE IN V3/V4, OR R < 0.2 mV IN V4] WARNING: DATA QUALITY MAY AFFECT INTERPRETATION Compared to ECG 08/30/2020 23:52:03 Sinus tachycardia no longer present Myocardial infarct finding still present Electronically Signed On 07-05-2023 10:46:35 CDT by Nati Rubio M.D. [id number]
[2023-07-04] MEDS: enoxaparin 40 mg/0.4 mL Syringe SUBCUT (21:37)
[2023-07-04] MEDS: famotidine 20 mg/2 mL INJ IVP (22:10)
[2023-07-05] VITALS (9 sets, daily range): BP systolic 112–166; BP diastolic 72–95; PULSE 83–95; RESP 17–21; TEMP 36.5–37; O2SAT 90–95
[2023-07-05] MEDS: acetaminophen 325 mg Tablet 650 MG PO ×4 (00:31→23:05)
[2023-07-05 04:53] LABS: Basophils # 0.1 10^3/uL (0.0-0.1); Basophils % 0.7 %; Eosinophils # 0.3 10^3/uL (0.0-0.8); Eosinophils % 3.2 %; Hematocrit 40.9 % (37-53); Lymphocytes # 1.6 10^3/uL (0.8-4.8); Lymphocytes % 16.8 %; Mean Corpuscular HGB Conc 31.1 g/dL (30-55); Mean Corpuscular Volume 90.3 fl (82-101); Mean Platelet Volume 9.9 fL (7.4-10.4); Monocytes # 0.7 10^3/uL (0.2-0.9); Neutrophils # 6.71 10^3/uL (1.8-7.7); Neutrophils % 71.7 %; Nucleated Red Blood Cells % 0 %; Platelet Count 340 10^3/cmm (157-399); Red Blood Count 4.53 10^6/uL (3.85-5.65); Red Cell Distribution Width 15.7 % (12.1-15.1); White Blood Count 9.38 10^3/uL (3.29-11.43)
[2023-07-05 05:16] LABS: Alanine Aminotransferase 12 U/L (0-41); Albumin Level 2.9 g/dL (3.5-5.2); Alkaline Phosphatase 159 U/L (40-130); Anion Gap 11.9 (5-19); Aspartate Amino Transferase 15 U/L (0-40); Blood Urea Nitrogen 22 mg/dL (6-20); Calcium 8.8 mg/dL (8.5-10.5); Carbon Dioxide 29 mmol/L (22-29); Chloride 101 mmol/L (98-107); Glomerular Filtration Rate 87.3 mL/min (90-130); Glucose 216 mg/dL (65-115); Magnesium 1.7 mg/dL (1.7-2.3); Osmolality Calculated 296 mOsm/kg (285-295); Potassium 3.9 mmol/L (3.5-5.1); Sodium 138 mmol/L (136-145); Total Bilirubin 0.4 mg/dL (0.15-1.2); Total Protein 5.9 g/dL (6.6-8.7)
[2023-07-05 05:20] LABS: NT Pro B Type Natriuretic Pept 4373 pg/mL (0-125)
[2023-07-05] MEDS: FUROsemide 10 mg/mL SDV 4mL 40 MG IVP ×2 (06:03→13:43)
--- NOTE | 2023-07-05 08:00 | PC.NURSE ---
Pt has dexcom. Reading per dexcom is 200. Fingerstick shows BS of 327.
[2023-07-05] MEDS: perflutren protein-a microsphr 0.22 mg/mL SDV 3 mL IV (09:28)
[2023-07-05] MEDS: famotidine 20 mg/2 mL INJ IVP ×2 (10:07→21:41)
[2023-07-05] MEDS: tamsulosin 0.4 mg Capsule PO (10:07)
[2023-07-05] MEDS: cefTRIAXone 1,000 MG in sodium chloride 0.9% (plus) 50 ML 100 MG IV (10:07)
--- NOTE | 2023-07-05 10:09 | ECG_ITS ---
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 Measurements Intervals [place] Rate: 95 P: 36 [place]: 161 QRS: 3 QRSD: 88 T: 156 QT: 376 QTc: 474 Interpretive Statements SINUS RHYTHM POSSIBLE LEFT ATRIAL ENLARGEMENT [-0.1mV P-WAVE IN V1/V2] LOW QRS VOLTAGE IN EXTREMITY LEADS [QRS DEFLECTION < 0.5 mV IN LIMB LEADS] POSSIBLE ANTERIOR MYOCARDIAL INFARCTION , PROBABLY OLD [30 ms Q WAVE IN V3/V4, OR R < 0.2 mV IN V4] Compared to ECG 07/04/2023 21:25:49 No significant changes Electronically Signed On 07-05-2023 10:18:22 CDT by Nati Rubio M.D. [id number]
[2023-07-05 10:13] LABS: Troponin(5th) Baseline 39 ng/L (0-15)
[2023-07-05 11:50] LABS: Troponin 5 2HR 41.69 ng/L (0-15)
[2023-07-05 11:51] LABS: Troponin 5 2HR Delta 2.69 ABS# (0-10)
--- NOTE | 2023-07-05 12:07 | ECG_ITS ---
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 Measurements Intervals [place] Rate: 98 P: 41 [place]: 166 QRS: -7 QRSD: 94 T: 104 QT: 354 QTc: 453 Interpretive Statements SINUS RHYTHM POSSIBLE LEFT ATRIAL ENLARGEMENT [-0.1mV P-WAVE IN V1/V2] LOW QRS VOLTAGE IN EXTREMITY LEADS [QRS DEFLECTION < 0.5 mV IN LIMB LEADS] POSSIBLE ANTERIOR MYOCARDIAL INFARCTION , PROBABLY OLD [30 ms Q WAVE IN V3/V4, OR R < 0.2 mV IN V4] Compared to ECG 07/05/2023 10:09:07 No significant changes Electronically Signed On 07-05-2023 12:43:53 CDT by Nati Rubio M.D. [id number]
[2023-07-05 12:42] LABS: Glucose Point of Care 327 mg/dL (70-110)
[2023-07-05] MEDS: insulin lispro 100 unit/1 mL SUBCUT (13:41)
--- NOTE | 2023-07-05 15:04 | ECG_ITS ---
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 Measurements Intervals [place] Rate: 88 P: 34 NM: 161 QRS: -2 QRSD: 92 T: 102 QT: 378 QTc: 459 Interpretive Statements SINUS RHYTHM LOW QRS VOLTAGE IN EXTREMITY LEADS [QRS DEFLECTION < 0.5 mV IN LIMB LEADS] PATTERN CONSISTENT WITH PULMONARY DISEASE ABNORMAL QRS-T ANGLE [QRS-T AXIS DIFFERENCE > 60] Compared to ECG 07/05/2023 12:07:07 Myocardial infarct finding no longer present Electronically Signed On 07-05-2023 17:45:25 CDT by Nati Rubio M.D. [email or web address] Global [email or web address].[employer]/store/[id number]
[2023-07-05 16:06] LABS: Troponin 5 6HR 30.05 ng/L (0-15)
[2023-07-05 16:13] LABS: Troponin 5 6HR Delta -8.95 ng/L (0-12)
[2023-07-05] MEDS: carvedilol 6.25 mg Tablet PO (16:28)
[2023-07-05 17:00] LABS: Glucose Point of Care 139 mg/dL (70-110)
--- NOTE | 2023-07-05 18:40 | PM.PN ---
Subjective Subjective: Patient was seen this morning, he denies any chest pain, palpitations, he does tell me that his lower extremity edema is improving, denies any flank pain, no back pain Vitals/I&O/Wt Last Vital Signs Temp 98.6 F 07/05/23 16:00 Pulse 92 07/05/23 16:00 Resp 18 07/05/23 16:00 BP 166/92 07/05/23 16:00 Pulse Ox 94 07/05/23 16:00 O2 Del Method Room Air 07/05/23 00:00 07/05/23 07/05/23 07/05/23 06:59 14:59 22:59 Intake Total 530 / 530 240 / 770 Output Total 350 / 950 550 / 550 Balance -350 / -950 530 / 530 -310 / 220 Weight last 48 hrs Weight 135.851 kg Weight 136.078 kg Physical Exam Const: COMMON NORMALS: no acute distress and patient oriented x3 Resp: COMMON NORMALS: normal respiratory effort, No retractions, No use of accessory muscles and clear to auscultation bilaterally AUSCULTATION: clear to auscultation bilaterally Cardio: COMMON NORMALS: regular rate, regular rhythm, S1 normal heart sound present and S2 normal heart sound present RATE: regular rate RHYTHM: regular rhythm HEART SOUNDS: S1 normal heart sound present and S2 normal heart sound present GI: COMMON NORMALS: Normal to inspection, nondistended, normoactive bowel sounds present and non-tender Extremity: NARRATIVE EXTREMITY EXAM: 2+ pitting edema Neuro: COMMON NORMALS: patient oriented x3 Psych: COMMON NORMALS: mental status grossly normal Data 07/05/23 04:19 07/05/23 04:19 A&P Assessment and plan (1) Anasarca: (2) CHF (congestive heart failure): (3) UTI (urinary tract infection): (4) CAD (coronary artery disease): Qualifiers: Coronary Disease-Associated Artery/Lesion type: [place] artery [place] vs. transplanted heart: [place] heart Associated angina: without angina Qualified Code(s): I25.10 - Atherosclerotic heart disease of [place] coronary artery without angina pectoris (5) Acute exacerbation of CHF (congestive heart failure): (6) Systolic CHF, acute on chronic: Plan 58 year old male Acute urinary retention CAD (coronary artery disease) CHF (congestive heart failure) Diabetes Hyperlipidemia Hypertension Presented with complaint of bilateral lower extremity swelling abdominal swelling and genital and scrotal swelling since 1 week and found to have BNP of 3400 and chest x-ray consistent with pulmonary edema likely secondary to acute on chronic congestive heart failure. Acute systolic CHF exacerbation Lasix 40 mg IV twice daily Daily weight Monitor I's and O's Resume home medications Will check 2D echo in a.m. Urinary tract infection, continue Rocephin Type 2 diabetes mellitus, low-dose sliding scale, glargine 10 units at bedtime IV Pepcid 20 mg twice a day for stress ulcer prophylaxis Subcutaneous Lovenox 40 mg daily for DVT prophylaxis He is full code for now as per the discussion with the patient Attestations Medical Necessity Statement*: Patient requires hospitalization, inpatient, greater than 2 midnights, for UTI, acute systolic CHF exacerbation requiring IV diuresis Diagnoses Anasarca R60.1 CHF (congestive heart failure) I50.9 UTI (urinary tract infection) N39.0 CAD (coronary artery disease) I25.10 Coronary Disease-Associated Artery/Lesion type: [place] artery [place] vs. transplanted heart: [place] heart Associated angina: without angina Acute exacerbation of CHF (congestive heart failure) I50.9 Systolic CHF, acute on chronic I50.23
--- NOTE | 2023-07-05 19:10 | USCV_ITS ---
[place] Aby Age: 58 Gender: M : 1965 Exam Date: 07/05/2023 08:46 Ordering Phys: Husam Espinoza MD Technologist: Elder Gentile [place] [facility] [place]: chf BP: 160 / 90 HR: 52 Rhythm: Sinus Technical Quality: Adequate MEASUREMENTS (Male / Female) Normal Values 2D ECHO LV Diastolic Diameter PLAX 6.2 cm 4.2 - 5.9 / 3.9 - 5.3 cm LV Systolic Diameter PLAX 5.2 cm IVS Diastolic Thickness 1.0 cm 0.6 - 1.0 / 0.6 - 0.9 cm IVS Systolic Thickness 1.4 cm LVPW Diastolic Thickness 1.0 cm 0.6 - 1.0 / 0.6 - 0.9 cm LVPW Systolic Thickness 1.5 cm LVOT Diameter 2.2 cm LV Ejection Fraction 2D Teich 26.4 % LV Ejection Fraction MOD 2C 25.7 % LV Ejection Fraction 2C AL 24.2 % LA Diameter 4.3 cm M-MODE Aortic Annulus Diameter 3.8 cm LA Ao Ratio MM 1.1 MV E Point Septal Separation 2.5 cm DOPPLER AV Peak Velocity 104.0 cm/s LVOT Peak Velocity 61.0 cm/s AV Area Cont Eq vti 2.2 cm squared AV Area Cont Eq pk 2.2 cm squared MV Area PHT 5.9 cm squared Mitral E to A Ratio 2.4 MV E' Velocity 93.0 cm/s TR Peak Velocity 278.5 cm/s TR Peak Gradient 31.0 mmHg TV Peak E Velocity 82.0 cm/s Right Atrial Pressure 3.0 mmHg Pulmonary Artery Systolic Pressu 34.0 mmHg FINDINGS Left Ventricle Left ventricle is dilated. LV systolic function is severely reduced with EF 15 to 20%. Severe global hypokinesis seen. Grade 3 diastolic dysfunction Right Ventricle RV is hypokinetic. Right Atrium Normal in size Left Atrium Normal in size Mitral Valve Grossly normal. Aortic Valve Grossly normal. No significant stenosis or regurgitation. Tricuspid Valve Mild tricuspid regurgitation. Insufficient TR jet to calculate RVSP Pulmonic Valve Mild pulmonic regurgitation. Pericardium Normal Aorta Normal in size IVC Not well visualized CONCLUSIONS Left ventricle is dilated LV systolic function is severely reduced with EF of 15-20% Grade 3 diastolic dysfunction RV is hypokinetic Mild tricuspid regurgitation Mild pulmonic regurgitation Compared to prior echocardiogram from 08/13/2021, no significant changes are seen Pastor Farias MD (Electronically Signed) Final Date: 05 July 2023 11:57 S
[2023-07-05 20:18] LABS: Glucose Point of Care 207 mg/dL (70-110)
[2023-07-05] MEDS: enoxaparin 40 mg/0.4 mL Syringe SUBCUT (20:22)
[2023-07-05] MEDS: insulin glargine 100 units/1 mL 10 UNIT SUBCUT (20:22)
[2023-07-05] MEDS: atorvastatin 40 mg Tablet 20 MG PO (20:22)
[2023-07-05] MEDS: nicotine 2 mg Gum BUCCAL (21:14)
[2023-07-06 04:35] VITALS: BP 122/85; PULSE 83; RESP 20; TEMP 36.7; O2SAT 92
[2023-07-06 05:47] LABS: Basophils # 0.1 10^3/uL (0.0-0.1); Basophils % 0.6 %; Eosinophils # 0.3 10^3/uL (0.0-0.8); Eosinophils % 3.8 %; Hematocrit 40.5 % (37-53); Lymphocytes # 1.4 10^3/uL (0.8-4.8); Lymphocytes % 16.1 %; Mean Corpuscular HGB Conc 32.1 g/dL (30-55); Mean Corpuscular Hemoglobin 28.1 pg (27-33); Mean Corpuscular Volume 87.7 fl (82-101); Mean Platelet Volume 9.7 fL (7.4-10.4); Monocytes # 0.7 10^3/uL (0.2-0.9); Monocytes % 7.7 %; Neutrophils # 6.01 10^3/uL (1.8-7.7); Neutrophils % 71.1 %; Nucleated Red Blood Cells % 0 %; Platelet Count 334 10^3/cmm (157-399); Red Blood Count 4.62 10^6/uL (3.85-5.65); Red Cell Distribution Width 15.8 % (12.1-15.1); White Blood Count 8.45 10^3/uL (3.29-11.43)
[2023-07-06 06:04] LABS: Magnesium 2.1 mg/dL (1.7-2.3)
[2023-07-06 06:16] LABS: Anion Gap 11.1 (5-19); Blood Urea Nitrogen 23 mg/dL (6-20); Carbon Dioxide 28 mmol/L (22-29); Chloride 102 mmol/L (98-107); Glomerular Filtration Rate 87.3 mL/min (90-130); Glucose 244 mg/dL (65-115); NT Pro B Type Natriuretic Pept 2525 pg/mL (0-125); Osmolality Calculated 296 mOsm/kg (285-295); Potassium 4.1 mmol/L (3.5-5.1); Sodium 137 mmol/L (136-145)
[2023-07-06] MEDS: acetaminophen 325 mg Tablet 650 MG PO ×2 (06:39→22:22)
[2023-07-06 06:59] LABS: Glucose Point of Care 203 mg/dL (70-110)
[2023-07-06 08:00] VITALS: BP 115/78; PULSE 91; RESP 18; TEMP 36.8; O2SAT 93
[2023-07-06] MEDS: spironolactone 25 mg Tablet PO (08:36)
[2023-07-06] MEDS: aspirin 81 mg Chew Tablet PO (08:36)
[2023-07-06] MEDS: carvedilol 6.25 mg Tablet PO ×2 (08:36→17:21)
[2023-07-06] MEDS: tamsulosin 0.4 mg Capsule PO (08:36)
[2023-07-06] MEDS: famotidine 20 mg/2 mL INJ IVP ×2 (08:37→20:43)
[2023-07-06] MEDS: FUROsemide 10 mg/mL SDV 4mL 40 MG IVP ×2 (08:37→20:42)
[2023-07-06] MEDS: insulin lispro 100 unit/1 mL SUBCUT ×3 (08:37→17:21)
[2023-07-06] MEDS: cefTRIAXone 1,000 MG in sodium chloride 0.9% (plus) 50 ML 100 MG IV (08:38)
[2023-07-06] MEDS: metOLazone 5 MG Tablet PO (10:56)
[2023-07-06] MEDS: potassium chloride ER 20 mEq Tablet 40 MEQ PO (10:56)
[2023-07-06 11:27] LABS: Glucose Point of Care 259 mg/dL (70-110)
[2023-07-06 12:00] VITALS: BP 132/90; PULSE 84; RESP 18; TEMP 36.3; O2SAT 95
[2023-07-06 15:59] VITALS: BP 113/75; PULSE 84; RESP 18; TEMP 36.5; O2SAT 95
[2023-07-06] MEDS: morphine 4 mg/mL SDV 1 mL 1 MG IVP (16:04)
[2023-07-06 16:47] LABS: Glucose Point of Care 145 mg/dL (70-110)
[2023-07-06] MEDS: nicotine 2 mg Gum BUCCAL (17:21)
[2023-07-06] MEDS: nystatin cream 30 gm 1 APPLIC TOPICAL (17:22)
--- NOTE | 2023-07-06 18:19 | P.PN_ITS ---
Subjective Subjective: Patient was seen this morning, he tells me that he knows that he has a history of diminished ejection fraction of 15%, he refuses LifeVest, complains of scrotal swelling, he has had this for some period of time, Vitals/I&O/Wt Last Vital Signs Temp 97.7 F 07/06/23 15:59 Pulse 84 07/06/23 15:59 Resp 18 07/06/23 15:59 BP 113/75 07/06/23 15:59 Pulse Ox 95 07/06/23 15:59 O2 Del Method Room Air 07/05/23 23:22 07/06/23 07/06/23 07/06/23 06:59 14:59 22:59 Intake Total 240 / 1250 650 / 650 Output Total 600 / 1275 550 / 550 Balance -360 / -25 650 / 650 -550 / 100 Weight last 48 hrs Weight 135.851 kg Physical Exam Const: COMMON NORMALS: no acute distress and patient oriented x3 Resp: COMMON NORMALS: normal respiratory effort, No retractions, No use of accessory muscles and clear to auscultation bilaterally AUSCULTATION: clear to auscultation bilaterally Cardio: COMMON NORMALS: regular rate, regular rhythm, S1 normal heart sound present and S2 normal heart sound present RATE: regular rate RHYTHM: regular rhythm HEART SOUNDS: S1 normal heart sound present and S2 normal heart sound present GI: COMMON NORMALS: Normal to inspection, nondistended, normoactive bowel sounds present and non-tender Extremity: NARRATIVE EXTREMITY EXAM: 2+ pitting edema Neuro: COMMON NORMALS: patient oriented x3 Psych: COMMON NORMALS: mental status grossly normal Data 07/06/23 05:42 07/06/23 05:42 Micro: Microbiology 07/04/23 18:50 Urine Culture - Final Urine,Clean Catch A&P Assessment and plan (1) Anasarca: (2) CHF (congestive heart failure): (3) UTI (urinary tract infection): (4) CAD (coronary artery disease): Qualifiers: Coronary Disease-Associated Artery/Lesion type: [place] artery [place] vs. transplanted heart: [place] heart Associated angina: without angina Qualified Code(s): I25.10 - Atherosclerotic heart disease of [place] coronary artery without angina pectoris (5) Acute exacerbation of CHF (congestive heart failure): (6) Systolic CHF, acute on chronic: (7) Scrotal swelling: Plan 58 year old male Acute urinary retention CAD (coronary artery disease) CHF (congestive heart failure) Diabetes Hyperlipidemia Hypertension Presented with complaint of bilateral lower extremity swelling abdominal swelling and genital and scrotal swelling since 1 week and found to have BNP of 3400 and chest x-ray consistent with pulmonary edema likely secondary to acute on chronic congestive heart failure. Acute systolic CHF exacerbation EF of 15% Lasix 40 mg IV twice daily, with 1 dose of metolazone, if urine output does not improve, will increase Lasix to 40 mg IV every 8 hours Daily weight Monitor I's and O's Resume home medications Patient declines LifeVest, understands morbidity or mortality We will consider starting Entresto Continue Coreg Continue aspirin Continue statin Scrotal swelling, elevation, pain control, continue diuresis, ultrasound Urinary tract infection, continue Rocephin Type 2 diabetes mellitus, low-dose sliding scale, glargine 10 units at bedtime IV Pepcid 20 mg twice a day for stress ulcer prophylaxis Subcutaneous Lovenox 40 mg daily for DVT prophylaxis He is full code for now as per the discussion with the patient Attestations Medical Necessity Statement*: Patient requires hospitalization for acute systolic CHF exacerbation, requiring diuresis, UTI Diagnoses Anasarca R60.1 CHF (congestive heart failure) I50.9 UTI (urinary tract infection) N39.0 CAD (coronary artery disease) I25.10 Coronary Disease-Associated Artery/Lesion type: [place] artery [place] vs. transplanted heart: [place] heart Associated angina: without angina Acute exacerbation of CHF (congestive heart failure) I50.9 Systolic CHF, acute on chronic I50.23 Scrotal swelling N50.89
--- NOTE | 2023-07-06 18:24 | US_ITS ---
WS: [id number] TESTICULAR ULTRASOUND HISTORY: scrotal swellling COMPARISON: 09/02/2020 TECHNIQUE: Real-time and color Doppler imaging or utilized to perform a testicular ultrasound. Right testicle: 4.3 cm x 3.3 cm x 3.5 cm. Normal size and echogenicity. No mass or torsion. Testicles are being displaced posteriorly and media lly by marked scrotal wall edema and thickening. Normal color Doppler is present throughout. Systolic and diastolic velocities are both present. Small hydrocele. Right epididymis: As visualized normal. Left testicle: 4.0 cm x 3.3 cm x 3.1 cm. Normal size and echogenicity. No mass or torsion. Displaced by the scrotal wall edema. Normal color Doppler is present throughout. Systolic and diastolic velocities are both present. Small hydrocele. Left epididymis: Normal epididymis with no increased vascularity. There is marked soft tissue thickening and edema within the scrotum. This is symmetric and bilateral with no focal collections. Similar findings were present on the study of 09/02/2020 but it has progre ssed. IMPRESSION: 1. No testicular mass or torsion. 2. Severe scrotal wall thickening and edema. Scrotal wall is measuring greater than 4 cm. This edema may be due to diffuse fluid retention. Infectious process should be considered such as cellulitis. Th ere is no focal abscess or collection identified.
[2023-07-06 19:49] VITALS: BP 133/84; PULSE 82; RESP 18; TEMP 36.5
[2023-07-06 20:27] LABS: Anion Gap 13.7 (5-19); Blood Urea Nitrogen 24 mg/dL (6-20); Calcium 8.9 mg/dL (8.5-10.5); Carbon Dioxide 27 mmol/L (22-29); Chloride 103 mmol/L (98-107); Glomerular Filtration Rate 77.3 mL/min (90-130); Glucose 187 mg/dL (65-115); Osmolality Calculated 297 mOsm/kg (285-295); Potassium 4.7 mmol/L (3.5-5.1); Sodium 139 mmol/L (136-145)
[2023-07-06] MEDS: atorvastatin 40 mg Tablet 20 MG PO (20:42)
[2023-07-06] MEDS: insulin glargine 100 units/1 mL 10 UNIT SUBCUT (20:43)
[2023-07-06] MEDS: enoxaparin 40 mg/0.4 mL Syringe SUBCUT (20:43)
[2023-07-06 20:49] LABS: Glucose Point of Care 199 mg/dL (70-110)
[2023-07-06 22:00] VITALS: PULSE 77
[2023-07-07] VITALS (9 sets, daily range): BP systolic 100–150; BP diastolic 60–88; PULSE 77–100; RESP 16–22; TEMP 36.4–36.6; O2SAT 91–96
[2023-07-07] MEDS: FUROsemide 10 mg/mL SDV 4mL 40 MG IVP ×3 (03:36→20:38)
[2023-07-07] MEDS: acetaminophen 325 mg Tablet 650 MG PO ×3 (06:03→21:13)
[2023-07-07 06:11] LABS: Basophils # 0.1 10^3/uL (0.0-0.1); Basophils % 0.8 %; Eosinophils # 0.4 10^3/uL (0.0-0.8); Eosinophils % 5.4 %; Hematocrit 43.8 % (37-53); Lymphocytes # 1.5 10^3/uL (0.8-4.8); Lymphocytes % 19.2 %; Mean Corpuscular HGB Conc 30.6 g/dL (30-55); Mean Corpuscular Hemoglobin 27.9 pg (27-33); Mean Corpuscular Volume 91.1 fl (82-101); Mean Platelet Volume 9.7 fL (7.4-10.4); Monocytes # 0.7 10^3/uL (0.2-0.9); Monocytes % 9.2 %; Neutrophils # 5.17 10^3/uL (1.8-7.7); Neutrophils % 64.8 %; Nucleated Red Blood Cells % 0 %; Platelet Count 350 10^3/cmm (157-399); Red Blood Count 4.81 10^6/uL (3.85-5.65); Red Cell Distribution Width 15.9 % (12.1-15.1); White Blood Count 7.97 10^3/uL (3.29-11.43)
[2023-07-07 06:28] LABS: Magnesium 2.1 mg/dL (1.7-2.3); Phosphorus 5.1 mg/dL (2.5-4.5)
[2023-07-07 06:34] LABS: Glucose Point of Care 182 mg/dL (70-110)
[2023-07-07 06:39] LABS: Anion Gap 13.4 (5-19); Blood Urea Nitrogen 22 mg/dL (6-20); Calcium 9.5 mg/dL (8.5-10.5); Carbon Dioxide 30 mmol/L (22-29); Chloride 101 mmol/L (98-107); Glomerular Filtration Rate 87.3 mL/min (90-130); Glucose 191 mg/dL (65-115); NT Pro B Type Natriuretic Pept 2899 pg/mL (0-125); Osmolality Calculated 298 mOsm/kg (285-295); Potassium 4.4 mmol/L (3.5-5.1); Sodium 140 mmol/L (136-145)
[2023-07-07] MEDS: sacubitril/valsartan 24-26 mg Tablet 1 EACH PO ×2 (08:35→17:43)
[2023-07-07] MEDS: spironolactone 25 mg Tablet PO (08:35)
[2023-07-07] MEDS: aspirin 81 mg Chew Tablet PO (08:35)
[2023-07-07] MEDS: tamsulosin 0.4 mg Capsule PO (08:35)
[2023-07-07] MEDS: carvedilol 6.25 mg Tablet PO ×2 (08:35→17:43)
[2023-07-07] MEDS: nystatin cream 30 gm 1 APPLIC TOPICAL (08:36)
[2023-07-07] MEDS: insulin lispro 100 unit/1 mL SUBCUT ×3 (08:37→17:44)
[2023-07-07] MEDS: potassium chloride ER 20 mEq Tablet 40 MEQ PO (08:41)
[2023-07-07] MEDS: cefTRIAXone 1,000 MG in sodium chloride 0.9% (plus) 50 ML 100 MG IV (09:56)
[2023-07-07] MEDS: metOLazone 5 MG Tablet PO (09:56)
[2023-07-07] MEDS: morphine 4 mg/mL SDV 1 mL 1 MG IVP (10:15)
[2023-07-07] MEDS: famotidine 20 mg/2 mL INJ IVP ×2 (10:15→23:25)
[2023-07-07 11:49] LABS: Glucose Point of Care 226 mg/dL (70-110)
--- NOTE | 2023-07-07 14:56 | P.PN_ITS ---
Subjective Subjective: Patient was seen this morning he continues to complain of lower extremity edema, scrotal edema, no fevers, chills, he does admit the pain improves with scrotal elevation,, he also reports that the skin folds, around the scrotum, around his pannus, also have a foul odor Vitals/I&O/Wt Last Vital Signs Temp 97.9 F 07/07/23 11:14 Pulse 77 07/07/23 11:14 Resp 18 07/07/23 11:14 BP 108/75 07/07/23 11:14 Pulse Ox 93 07/07/23 11:14 O2 Del Method Room Air 07/07/23 11:14 07/06/23 07/07/23 07/07/23 22:59 06:59 14:59 Intake Total 290 / 290 Output Total 825 / 825 975 / 1800 1050 / 1050 Balance -825 / -175 -975 / -1150 -760 / -760 Weight last 48 hrs Weight 136.645 kg Physical Exam Const: COMMON NORMALS: no acute distress and patient oriented x3 Resp: COMMON NORMALS: normal respiratory effort, No retractions, No use of accessory muscles and clear to auscultation bilaterally AUSCULTATION: clear to auscultation bilaterally Cardio: COMMON NORMALS: regular rate, regular rhythm, S1 normal heart sound present and S2 normal heart sound present RATE: regular rate RHYTHM: regular rhythm HEART SOUNDS: S1 normal heart sound present and S2 normal heart sound present GI: COMMON NORMALS: Normal to inspection, nondistended, normoactive bowel sounds present and non-tender Neuro: COMMON NORMALS: patient oriented x3 Psych: COMMON NORMALS: mental status grossly normal Data 07/07/23 05:43 07/07/23 05:43 A&P Assessment and plan (1) Anasarca: (2) CHF (congestive heart failure): (3) UTI (urinary tract infection): (4) CAD (coronary artery disease): Qualifiers: Coronary Disease-Associated Artery/Lesion type: [place] artery [place] vs. transplanted heart: [place] heart Associated angina: without angina Qualif ied Code(s): I25.10 - Atherosclerotic heart disease of [place] coronary artery without angina pectoris (5) Acute exacerbation of CHF (congestive heart failure): (6) Systolic CHF, acute on chronic: (7) Scrotal swelling: Plan 58 year old male Acute urinary retention CAD (coronary artery disease) CHF (congestive heart failure) Diabetes Hyperlipidemia Hypertension Presented with complaint of bilateral lower extremity swelling abdominal swelling and genital and scrotal swelling since 1 week and found to have BNP of 3400 and chest x-ray consistent with pulmonary edema likely secondary to acute on chronic congestive heart failure. Acute systolic CHF exacerbation EF of 15% Lasix 40 mg IV twice daily, with 1 dose of metolazone, if urine output does not improve, will increase Lasix to 40 mg IV every 8 hours start enteresto Daily weight Monitor I's and O's Resume home medications Patient declines LifeVest, understands morbidity or mortality Continue Coreg Continue aspirin Continue statin Scrotal swelling, elevation, pain control, continue diuresis, Urinary tract infection, continue Rocephin Type 2 diabetes mellitus, low-dose sliding scale, glargine 10 units at bedtime IV Pepcid 20 mg twice a day for stress ulcer prophylaxis Subcutaneous Lovenox 40 mg daily for DVT prophylaxis He is full code for now as per the discussion with the patient Plan for today continue to diurese, 1 dose of metolazone, watch urine output, continue scrotal elevation, add on nystatin powder, follow scrotal ultrasound, start Entresto monitor blood pressures, telemetry monitoring Attestations Medical Necessity Statement*: Patient requires hospitalization for CAD, systolic CHF, type 2 diabetes mellitus, requiring further diuresis Diagnoses Anasarca R60.1 CHF (congestive heart failure) I50.9 UTI (urinary tract infection) N39.0 CAD (coronary artery disease) I25.10 Coronary Disease-Associated Artery/Lesion type: [place] artery [place] vs. transplanted heart: [place] heart Associated angina: without angina Acute exacerbation of CHF (congestive heart failure) I50.9 Systolic CHF, acute on chronic I50.23 Scrotal swelling N50.89
[2023-07-07 16:47] LABS: Glucose Point of Care 175 mg/dL (70-110)
[2023-07-07] MEDS: nystatin powder 15 gm Btl 1 APPLIC TOPICAL (17:44)
[2023-07-07] MEDS: atorvastatin 40 mg Tablet 20 MG PO (20:35)
[2023-07-07] MEDS: enoxaparin 40 mg/0.4 mL Syringe SUBCUT (20:38)
[2023-07-07] MEDS: insulin glargine 100 units/1 mL 10 UNIT SUBCUT (20:38)
[2023-07-07 21:18] LABS: Glucose Point of Care 254 mg/dL (70-110)
[2023-07-08] VITALS (9 sets, daily range): BP systolic 106–134; BP diastolic 70–85; PULSE 78–87; RESP 16–22; TEMP 36.6–36.9; O2SAT 90–99
[2023-07-08] MEDS: acetaminophen 325 mg Tablet 650 MG PO ×3 (05:28→22:45)
[2023-07-08 05:36] LABS: Basophils # 0.1 10^3/uL (0.0-0.1); Basophils % 0.9 %; Eosinophils # 0.5 10^3/uL (0.0-0.8); Eosinophils % 5.9 %; Lymphocytes # 1.4 10^3/uL (0.8-4.8); Lymphocytes % 15.5 %; Mean Corpuscular Hemoglobin 28.2 pg (27-33); Mean Corpuscular Volume 91.1 fl (82-101); Monocytes # 0.9 10^3/uL (0.2-0.9); Monocytes % 9.7 %; Neutrophils # 6.14 10^3/uL (1.8-7.7); Neutrophils % 66.9 %; Nucleated Red Blood Cells % 0 %; Platelet Count 311 10^3/cmm (157-399); Red Blood Count 4.61 10^6/uL (3.85-5.65); Red Cell Distribution Width 15.7 % (12.1-15.1); White Blood Count 9.17 10^3/uL (3.29-11.43)
[2023-07-08 05:55] LABS: Magnesium 1.9 mg/dL (1.7-2.3); Phosphorus 3.9 mg/dL (2.5-4.5)
[2023-07-08 06:06] LABS: Anion Gap 13.5 (5-19); Blood Urea Nitrogen 28 mg/dL (6-20); Calcium 9.2 mg/dL (8.5-10.5); Carbon Dioxide 27 mmol/L (22-29); Chloride 100 mmol/L (98-107); Glomerular Filtration Rate 77.3 mL/min (90-130); Glucose 207 mg/dL (65-115); NT Pro B Type Natriuretic Pept 1893 pg/mL (0-125); Osmolality Calculated 294 mOsm/kg (285-295); Potassium 4.5 mmol/L (3.5-5.1); Sodium 136 mmol/L (136-145)
[2023-07-08 06:56] LABS: Glucose Point of Care 218 mg/dL (70-110)
[2023-07-08] MEDS: tamsulosin 0.4 mg Capsule PO (08:38)
[2023-07-08] MEDS: sacubitril/valsartan 24-26 mg Tablet 1 EACH PO ×2 (08:38→17:53)
[2023-07-08] MEDS: carvedilol 6.25 mg Tablet PO ×2 (08:38→17:53)
[2023-07-08] MEDS: insulin lispro 100 unit/1 mL SUBCUT ×3 (08:39→17:53)
[2023-07-08] MEDS: spironolactone 25 mg Tablet PO (08:39)
[2023-07-08] MEDS: aspirin 81 mg Chew Tablet PO (08:39)
[2023-07-08] MEDS: nystatin powder 15 gm Btl 1 APPLIC TOPICAL ×2 (08:40→17:53)
[2023-07-08] MEDS: cefTRIAXone 1,000 MG in sodium chloride 0.9% (plus) 50 ML 100 MG IV (08:40)
[2023-07-08] MEDS: FUROsemide 10 mg/mL SDV 4mL 40 MG IVP ×2 (09:23→16:48)
[2023-07-08] MEDS: metOLazone 5 MG Tablet PO (09:24)
[2023-07-08] MEDS: potassium chloride ER 20 mEq Tablet 40 MEQ PO (09:24)
[2023-07-08 11:49] LABS: Glucose Point of Care 186 mg/dL (70-110)
[2023-07-08] MEDS: famotidine 20 mg/2 mL INJ IVP ×2 (12:08→22:45)
[2023-07-08 17:01] LABS: Glucose Point of Care 233 mg/dL (70-110)
--- NOTE | 2023-07-08 18:12 | P.PN_ITS ---
Subjective Subjective: Patient was seen this morning, he continues to have lower extremity edema, he continues to diurese, continues to have scrotal edema, no fevers, no chills Vitals/I&O/Wt Last Vital Signs Temp 98.0 F 07/08/23 15:29 Pulse 84 07/08/23 15:29 Resp 22 H 07/08/23 15:29 BP 108/75 07/08/23 15:29 Pulse Ox 92 07/08/23 15:29 O2 Del Method Room Air 07/08/23 15:29 07/08/23 07/08/23 07/08/23 06:59 14:59 22:59 Intake Total 240 / 830 240 / 240 240 / 480 Output Total 1175 / 3525 800 / 800 975 / 1775 Balance -935 / -2695 -560 / -560 -735 / -1295 Weight last 48 hrs Weight 142.541 kg Weight 136.645 kg Physical Exam Const: COMMON NORMALS: no acute distress and patient oriented x3 Neck/C-Spine: COMMON NORMALS: no JVD Resp: COMMON NORMALS: normal respiratory effort, No retractions, No use of accessory muscles and clear to auscultation bilaterally AUSCULTATION: clear to auscultation bilaterally Cardio: COMMON NORMALS: no JVD, regular rate, regular rhythm, S1 normal heart sound present and S2 normal heart sound present RATE: regular rate RHYTHM: regular rhythm HEART SOUNDS: S1 normal heart sound present and S2 normal heart sound present GI: COMMON NORMALS: Normal to inspection, nondistended, normoactive bowel sounds present, Soft to palpation and non-tender PALPATION: Yes Soft to palpation Extremity: NARRATIVE EXTREMITY EXAM: 2+ pitting edema, scrotal edema Neuro: COMMON NORMALS: patient oriented x3 Psych: COMMON NORMALS: mental status grossly normal Data 07/08/23 05:23 07/08/23 05:23 A&P Assessment and plan (1) Anasarca: (2) CHF (congestive heart failure): (3) UTI (urinary tract infection): (4) CAD (coronary artery disease): Qualifiers: Coronary Disease-Associated Artery/Lesion type: [place] artery [place] vs. transplanted heart: [place] heart Associated angina: without angina Qualified Code(s): I25.10 - Atherosclerotic heart disease of [place] coronary artery without angina pectoris (5) Acute exacerbation of CHF (congestive heart failure): (6) Systolic CHF, acute on chronic: (7) Scrotal swelling: Plan 58 year old male Acute urinary retention CAD (coronary artery disease) CHF (congestive heart failure) Diabetes Hyperlipidemia Hypertension Presented with complaint of bilateral lower extremity swelling abdominal swelling and genital and scrotal swelling since 1 week and found to have BNP of 3400 and chest x-ray consistent with pulmonary edema likely secondary to acute on chronic congestive heart failure. Acute systolic CHF exacerbation EF of 15% Lasix 40 mg IV twice daily, with 1 dose of metolazone, if urine output does not improve, will increase Lasix to 40 mg IV every 8 hours start enteresto Daily weight Monitor I's and O's Resume home medications Patient declines LifeVest, understands morbidity or mortality Continue Coreg Continue aspirin Continue statin Scrotal swelling, elevation, pain control, continue diuresis, Urinary tract infection, continue Rocephin Type 2 diabetes mellitus, low-dose sliding scale, glargine 10 units at bedtime IV Pepcid 20 mg twice a day for stress ulcer prophylaxis Subcutaneous Lovenox 40 mg daily for DVT prophylaxis He is full code for now as per the discussion with the patient Plan for today, 1 dose of Lasix with metolazone with potassium, resume Lasix 40 mg IV twice daily tonight, watch urine output monitor creatinine, up out of bed, Attestations Medical Necessity Statement*: Patient requires hospitalization for CHF exacerbation systolic, requiring further IV diuresis, Coding Level of Care Code 52806 Moderate MDM includes number and complexity of problems actively addressed during encounter, amount and/or complexity of data reviewed/ordered and described risk of complication, morbidity or mortality of management as d ocumented Diagnoses Anasarca R60.1 CHF (congestive heart failure) I50.9 UTI (urinary tract infection) N39.0 CAD (coronary artery disease) I25.10 Coronary Disease-Associated Artery/Lesion type: [place] artery [place] vs. transplanted heart: [place] heart Associated angina: without angina Acute exacerbation of CHF (congestive heart failure) I50.9 Systolic CHF, acute on chronic I50.23 Scrotal swelling N50.89
[2023-07-08] MEDS: morphine 4 mg/mL SDV 1 mL 1 MG IVP (19:50)
[2023-07-08] MEDS: enoxaparin 40 mg/0.4 mL Syringe SUBCUT (19:51)
[2023-07-08] MEDS: atorvastatin 40 mg Tablet 20 MG PO (20:24)
[2023-07-08] MEDS: insulin glargine 100 units/1 mL 10 UNIT SUBCUT (20:25)
[2023-07-08 20:56] LABS: Glucose Point of Care 134 mg/dL (70-110)
[2023-07-09] MEDS: FUROsemide 10 mg/mL SDV 4mL 40 MG IVP ×2 (03:29→16:51)
[2023-07-09 04:00] VITALS: BP 125/77; PULSE 85; RESP 13; TEMP 36.5; O2SAT 93
[2023-07-09 06:16] LABS: Glucose Point of Care 166 mg/dL (70-110)
[2023-07-09 06:27] LABS: Basophils # 0.1 10^3/uL (0.0-0.1); Basophils % 0.8 %; Eosinophils # 0.5 10^3/uL (0.0-0.8); Eosinophils % 7.2 %; Hematocrit 44.2 % (37-53); Lymphocytes # 1.3 10^3/uL (0.8-4.8); Lymphocytes % 17.9 %; Mean Corpuscular HGB Conc 31.4 g/dL (30-55); Mean Corpuscular Hemoglobin 27.9 pg (27-33); Mean Corpuscular Volume 88.8 fl (82-101); Monocytes # 0.6 10^3/uL (0.2-0.9); Monocytes % 7.7 %; Neutrophils # 4.83 10^3/uL (1.8-7.7); Nucleated Red Blood Cells % 0 %; Platelet Count 365 10^3/cmm (157-399); Red Blood Count 4.98 10^6/uL (3.85-5.65); Red Cell Distribution Width 15.7 % (12.1-15.1); White Blood Count 7.32 10^3/uL (3.29-11.43)
[2023-07-09 06:52] LABS: Anion Gap 12.3 (5-19); Blood Urea Nitrogen 27 mg/dL (6-20); Calcium 9.5 mg/dL (8.5-10.5); Carbon Dioxide 29 mmol/L (22-29); Chloride 101 mmol/L (98-107); Glomerular Filtration Rate 87.3 mL/min (90-130); Glucose 187 mg/dL (65-115); NT Pro B Type Natriuretic Pept 1760 pg/mL (0-125); Osmolality Calculated 296 mOsm/kg (285-295); Potassium 4.3 mmol/L (3.5-5.1); Sodium 138 mmol/L (136-145)
[2023-07-09] MEDS: morphine 4 mg/mL SDV 1 mL 1 MG IVP (06:53)
[2023-07-09 08:00] VITALS: BP 107/67; PULSE 81; RESP 16; TEMP 36.7; O2SAT 94
[2023-07-09] MEDS: insulin lispro 100 unit/1 mL SUBCUT ×2 (08:35→17:08)
[2023-07-09] MEDS: spironolactone 25 mg Tablet PO (08:36)
[2023-07-09] MEDS: tamsulosin 0.4 mg Capsule PO (08:36)
[2023-07-09] MEDS: carvedilol 6.25 mg Tablet PO ×2 (08:36→16:51)
[2023-07-09] MEDS: aspirin 81 mg Chew Tablet PO (08:36)
[2023-07-09] MEDS: sacubitril/valsartan 24-26 mg Tablet 1 EACH PO ×2 (08:36→16:51)
[2023-07-09] MEDS: potassium chloride ER 20 mEq Tablet 40 MEQ PO (09:39)
[2023-07-09] MEDS: metOLazone 5 MG Tablet PO (09:39)
--- NOTE | 2023-07-09 11:29 | P.PN_ITS ---
Subjective Subjective: Patient was seen this morning continues to have lower extremity edema This is progress note from 07/09/2023 Vitals/I&O/Wt Last Vital Signs Temp 98.0 F 07/09/23 08:00 Pulse 81 07/09/23 08:00 Resp 16 07/09/23 08:00 BP 107/67 07/09/23 08:00 Pulse Ox 94 07/09/23 08:00 O2 Del Method Room Air 07/09/23 08:00 07/08/23 07/09/23 07/09/23 22:59 06:59 14:59 Intake Total 290 / 530 240 / 240 Output Total 1375 / 2175 1425 / 3600 Balance -1085 / -1645 -1425 / -3070 240 / 240 Weight last 48 hrs Weight 138.884 kg Weight 142.541 kg Physical Exam Const: COMMON NORMALS: no acute distress and patient oriented x3 Resp: COMMON NORMALS: normal respiratory effort, No retractions, No use of a ccessory muscles and clear to auscultation bilaterally AUSCULTATION: clear to auscultation bilaterally Cardio: COMMON NORMALS: regular rate, regular rhythm, S1 normal heart sound present and S2 normal heart sound present RATE: regular rate RHYTHM: regular rhythm HEART SOUNDS: S1 normal heart sound present and S2 normal heart sound present GI: COMMON NORMALS: Normal to inspection, nondistended, normoactive bowel sounds present and non-tender Extremity: COMMON NORMALS: no pedal edema Neuro: COMMON NORMALS: patient oriented x3 Psych: COMMON NORMALS: mental status grossly normal Data 07/10/23 05:07 07/10/23 05:07 A&P Assessment and plan (1) Anasarca: (2) CHF (congestive heart failure): (3) UTI (urinary tract infection): (4) CAD (coronary artery disease): Qualifiers: Associated angina: without angina Coronary Disease-Associated Artery/Lesion type: [place] artery [place] vs. transplanted heart: [place] heart Qualified Code(s): I25.10 - Atherosclerotic heart disease of [place] coronary artery without angina pectoris (5) Acute exacerbation of CHF (congestive heart failure): (6) Systolic CHF, acute on chronic: (7) Scrotal swelling: Plan 58 year old male Acute urinary retention CAD (coronary artery disease) CHF (congestive heart failure) Diabetes Hyperlipidemia Hypertension Presented with complaint of bilateral lower extremity swelling abdominal swelling and genital and scrotal swelling since 1 week and found to have BNP of 3400 and chest x-ray consistent with pulmonary edema likely secondary to acute on chronic congestive heart failure. Acute systolic CHF exacerbation EF of 15% Lasix 40 mg IV twice daily, with 1 dose of metolazone, if urine output does not improve, will increase Lasix to 40 mg IV every 8 hours start enteresto Daily weight Monitor I's and O's Resume home medications Patient declines LifeVest, understands morbidity or mortality Continue Coreg Continue aspirin Continue statin Scrotal swelling, elevation, pain control, continue diuresis, Urinary tract infection, continue Rocephin Type 2 diabetes mellitus, low-dose sliding scale, glargine 10 units at bedtime IV Pepcid 20 mg twice a day for stress ulcer prophylaxis Subcutaneous Lovenox 40 mg daily for DVT prophylaxis He is full code for now as per the discussion with the patient Plan for today, 1 dose of Lasix with metolazone with potassium, resume Lasix 40 mg IV twice daily tonight, watch urine output monitor creatinine, up out of bed, Attestations Medical Necessity Statement*: Patient requires hospitalization for fluid overload, requiring diuresis Diagnoses Anasarca R60.1 CHF (congestive heart failure) I50.9 UTI (urinary tract infection) N39.0 CAD (coronary artery disease) I25.10 Associated angina: without angina Coronary Disease-Associated Artery/Lesion type: [place] artery [place] vs. transplanted heart: [place] heart Acute exacerbation of CHF (congestive heart failure) I50.9 Systolic CHF, acute on chronic I50.23 Scrotal swelling N50.89
[2023-07-09 11:40] LABS: Glucose Point of Care 178 mg/dL (70-110)
[2023-07-09 12:00] VITALS: BP 94/65; PULSE 87; RESP 15; TEMP 36.8; O2SAT 94
[2023-07-09] MEDS: acetaminophen 325 mg Tablet 650 MG PO ×2 (13:40→23:18)
[2023-07-09 16:00] VITALS: BP 125/77; PULSE 64; RESP 16; TEMP 36.8; O2SAT 94
[2023-07-09] MEDS: nystatin powder 15 gm Btl 1 APPLIC TOPICAL (16:51)
[2023-07-09 16:55] LABS: Glucose Point of Care 191 mg/dL (70-110)
[2023-07-09 19:50] VITALS: BP 110/74; PULSE 73; RESP 16; TEMP 36.6; O2SAT 93
[2023-07-09] MEDS: enoxaparin 40 mg/0.4 mL Syringe SUBCUT (20:33)
[2023-07-09] MEDS: insulin glargine 100 units/1 mL 10 UNIT SUBCUT (20:33)
[2023-07-09] MEDS: atorvastatin 40 mg Tablet 20 MG PO (20:33)
[2023-07-09 20:48] LABS: Glucose Point of Care 225 mg/dL (70-110)
[2023-07-09] MEDS: famotidine 20 mg/2 mL INJ IVP (23:12)
[2023-07-09 23:41] VITALS: BP 142/82; PULSE 75; RESP 18; TEMP 36.7; O2SAT 93
[2023-07-10 00:05] VITALS: RESP 16
[2023-07-10] MEDS: morphine 4 mg/mL SDV 1 mL 1 MG IVP (00:05)
[2023-07-10 03:51] VITALS: BP 114/61; PULSE 81; RESP 18; TEMP 36.7; O2SAT 91
[2023-07-10 05:19] LABS: Basophils # 0.1 10^3/uL (0.0-0.1); Eosinophils # 0.5 10^3/uL (0.0-0.8); Eosinophils % 6.9 %; Lymphocytes # 1.5 10^3/uL (0.8-4.8); Lymphocytes % 19.8 %; Mean Corpuscular HGB Conc 30.7 g/dL (30-55); Mean Corpuscular Hemoglobin 27.8 pg (27-33); Mean Corpuscular Volume 90.7 fl (82-101); Mean Platelet Volume 9.4 fL (7.4-10.4); Monocytes # 0.6 10^3/uL (0.2-0.9); Monocytes % 7.7 %; Neutrophils # 4.94 10^3/uL (1.8-7.7); Neutrophils % 64.1 %; Nucleated Red Blood Cells % 0 %; Platelet Count 408 10^3/cmm (157-399); Red Blood Count 5.07 10^6/uL (3.85-5.65); Red Cell Distribution Width 15.8 % (12.1-15.1); White Blood Count 7.71 10^3/uL (3.29-11.43)
[2023-07-10 06:03] LABS: Blood Urea Nitrogen 27 mg/dL (6-20); Calcium 9.3 mg/dL (8.5-10.5); Carbon Dioxide 30 mmol/L (22-29); Chloride 101 mmol/L (98-107); Glomerular Filtration Rate 69.2 mL/min (90-130); Glucose 183 mg/dL (65-115); NT Pro B Type Natriuretic Pept 1749 pg/mL (0-125); Osmolality Calculated 298 mOsm/kg (285-295); Sodium 139 mmol/L (136-145)
[2023-07-10] MEDS: acetaminophen 325 mg Tablet 650 MG PO ×3 (06:20→17:33)
[2023-07-10 06:55] LABS: Glucose Point of Care 199 mg/dL (70-110)
[2023-07-10 08:00] VITALS: BP 118/74; PULSE 83; RESP 18; TEMP 36.4; O2SAT 94
[2023-07-10] MEDS: carvedilol 6.25 mg Tablet PO ×2 (08:23→17:33)
[2023-07-10] MEDS: sacubitril/valsartan 24-26 mg Tablet 1 EACH PO ×2 (08:23→17:33)
[2023-07-10] MEDS: tamsulosin 0.4 mg Capsule PO (08:23)
[2023-07-10] MEDS: aspirin 81 mg Chew Tablet PO (08:23)
[2023-07-10] MEDS: insulin lispro 100 unit/1 mL SUBCUT ×3 (08:23→17:33)
[2023-07-10] MEDS: spironolactone 25 mg Tablet PO (08:24)
[2023-07-10] MEDS: nystatin powder 15 gm Btl 1 APPLIC TOPICAL ×2 (08:25→17:34)
[2023-07-10] MEDS: metOLazone 5 MG Tablet PO (10:03)
[2023-07-10] MEDS: FUROsemide 10 mg/mL SDV 4mL 40 MG IVP ×2 (10:04→18:15)
[2023-07-10 12:00] VITALS: BP 108/70; PULSE 78; RESP 18; TEMP 36.3; O2SAT 94
[2023-07-10] MEDS: famotidine 20 mg/2 mL INJ IVP (12:03)
[2023-07-10 13:55] LABS: Glucose Point of Care 223 mg/dL (70-110)
[2023-07-10 17:03] VITALS: BP 122/78; PULSE 80; RESP 18; TEMP 36.6; O2SAT 94
[2023-07-10 17:04] LABS: Glucose Point of Care 182 mg/dL (70-110)
[2023-07-10 20:00] VITALS: BP 105/69; PULSE 74; RESP 19; TEMP 36.7; O2SAT 92
[2023-07-10] MEDS: enoxaparin 40 mg/0.4 mL Syringe SUBCUT (20:58)
[2023-07-10] MEDS: atorvastatin 40 mg Tablet 20 MG PO (20:58)
[2023-07-10 21:20] LABS: Glucose Point of Care 191 mg/dL (70-110)
[2023-07-10] MEDS: insulin glargine 100 units/1 mL 10 UNIT SUBCUT (22:22)
[2023-07-11] VITALS (9 sets, daily range): BP systolic 94–148; BP diastolic 61–86; PULSE 73–88; RESP 14–20; TEMP 36.5–36.6; O2SAT 92–95
[2023-07-11] MEDS: famotidine 20 mg/2 mL INJ IVP ×3 (00:31→22:42)
[2023-07-11 04:32] LABS: Basophils # 0.1 10^3/uL (0.0-0.1); Eosinophils # 0.5 10^3/uL (0.0-0.8); Eosinophils % 6.5 %; Hematocrit 42.8 % (37-53); Lymphocytes # 1.2 10^3/uL (0.8-4.8); Lymphocytes % 14.8 %; Mean Corpuscular HGB Conc 30.4 g/dL (30-55); Mean Corpuscular Hemoglobin 27.7 pg (27-33); Mean Corpuscular Volume 91.3 fl (82-101); Mean Platelet Volume 9.3 fL (7.4-10.4); Monocytes # 0.8 10^3/uL (0.2-0.9); Monocytes % 9.6 %; Neutrophils # 5.41 10^3/uL (1.8-7.7); Neutrophils % 67.7 %; Nucleated Red Blood Cells % 0 %; Platelet Count 330 10^3/cmm (157-399); Red Blood Count 4.69 10^6/uL (3.85-5.65); Red Cell Distribution Width 15.7 % (12.1-15.1); White Blood Count 7.99 10^3/uL (3.29-11.43)
[2023-07-11 05:03] LABS: Anion Gap 11.6 (5-19); Blood Urea Nitrogen 27 mg/dL (6-20); Calcium 9.4 mg/dL (8.5-10.5); Carbon Dioxide 30 mmol/L (22-29); Chloride 101 mmol/L (98-107); Glomerular Filtration Rate 77.3 mL/min (90-130); Glucose 193 mg/dL (65-115); NT Pro B Type Natriuretic Pept 1727 pg/mL (0-125); Osmolality Calculated 296 mOsm/kg (285-295); Potassium 4.6 mmol/L (3.5-5.1); Sodium 138 mmol/L (136-145)
[2023-07-11] MEDS: morphine 4 mg/mL SDV 1 mL 1 MG IVP ×2 (05:48→22:42)
[2023-07-11] MEDS: FUROsemide 10 mg/mL SDV 4mL 40 MG IVP ×2 (05:48→18:24)
[2023-07-11 06:46] LABS: Glucose Point of Care 192 mg/dL (70-110)
[2023-07-11] MEDS: carvedilol 6.25 mg Tablet PO ×2 (08:19→17:22)
[2023-07-11] MEDS: sacubitril/valsartan 24-26 mg Tablet 1 EACH PO ×2 (08:19→17:22)
[2023-07-11] MEDS: tamsulosin 0.4 mg Capsule PO (08:19)
[2023-07-11] MEDS: insulin lispro 100 unit/1 mL SUBCUT ×3 (08:19→17:22)
[2023-07-11] MEDS: spironolactone 25 mg Tablet PO (08:19)
[2023-07-11] MEDS: acetaminophen 325 mg Tablet 650 MG PO ×2 (08:20→14:29)
[2023-07-11] MEDS: aspirin 81 mg Chew Tablet PO (08:20)
[2023-07-11] MEDS: nystatin powder 15 gm Btl 1 APPLIC TOPICAL ×2 (08:22→17:23)
[2023-07-11] MEDS: metOLazone 5 MG Tablet PO (09:36)
[2023-07-11] MEDS: potassium chloride ER 20 mEq Tablet 40 MEQ PO (09:36)
[2023-07-11 11:33] LABS: Glucose Point of Care 188 mg/dL (70-110)
--- NOTE | 2023-07-11 17:04 | PM.PN ---
Subjective Subjective: Patient was seen this morning, he tells me his edema is improving, continues to have scrotal edema, he is -10 L, is ambulating more, but continues to have shortness of breath with exertion Vitals/I&O/Wt Last Vital Signs Temp 97.8 F 07/11/23 12:00 Pulse 81 07/11/23 12:00 Resp 18 07/11/23 12:00 BP 122/68 07/11/23 12:00 Pulse Ox 92 07/11/23 12:00 O2 Del Method Room Air 07/11/23 04:00 07/11/23 07/11/23 07/11/23 06:59 14:59 22:59 Intake Total 240 / 720 480 / 480 Output Total 1150 / 3200 Balance -910 / -2480 480 / 480 Weight last 48 hrs Weight 134.802 kg Weight 138.034 kg Physical Exam Const: COMMON NORMALS: no acute distress and patient oriented x3 Resp: COMMON NORMALS: normal respiratory effort, No retractions, No use of accessory muscles and clear to auscultation bilaterally AUSCULTATION: clear to auscultation bilaterally Cardio: COMMON NORMALS: regular rate, regular rhythm, S1 normal heart sound present and S2 normal heart sound present RATE: regular rate RHYTHM: regular rhythm HEART SOUNDS: S1 normal heart sound present and S2 normal heart sound present GI: COMMON NORMALS: Normal to inspection, nondistended, normoactive bowel sounds present and non-tender Extremity: NARRATIVE EXTREMITY EXAM: 1+ pitting edema Neuro: COMMON NORMALS: patient oriented x3 Psych: COMMON NORMALS: mental status grossly normal Data 07/11/23 04:19 07/11/23 Unknown A&P Assessment and plan (1) Anasarca: (2) CHF (congestive heart failure): (3) UTI (urinary tract infection): (4) CAD (coronary artery disease): Qualifiers: Coronary Disease-Associated Artery/Lesion type: [place] artery [place] vs. transplanted heart: [place] heart Associated angina: without angina Qualified Code(s): I25.10 - Atherosclerotic heart disease of [place] coronary artery without angina pectoris (5) Acute exacerbation of CHF (congestive heart failure): (6) Systolic CHF, acute on chronic: (7) Scrotal swelling: Plan 58 year old male Acute urinary retention CAD (coronary artery disease) CHF (congestive heart failure) Diabetes Hyperlipidemia Hypertension Presented with complaint of bilateral lower extremity swelling abdominal swelling and genital and scrotal swelling since 1 week and found to have BNP of 3400 and chest x-ray consistent with pulmonary edema likely secondary to acute on chronic congestive heart failure. Acute systolic CHF exacerbation EF of 15% Lasix 40 mg IV twice daily, with 1 dose of metolazone, if urine output does not improve, -10 L continue enteresto Daily weight Monitor I's and O's Resume home medications Patient declines LifeVest, understands morbidity or mortality Continue Coreg Continue aspirin Continue statin Scrotal swelling, elevation, pain control, continue diuresis, Urinary tract infection, continue Rocephin Type 2 diabetes mellitus, low-dose sliding scale, glargine 10 units at bedtime IV Pepcid 20 mg twice a day for stress ulcer prophylaxis Subcutaneous Lovenox 40 mg daily for DVT prophylaxis He is full code for now as per the discussion with the patient Plan for today, 1 dose of Lasix with metolazone with potassium, resume Lasix 40 mg IV twice daily tonight, watch urine output monitor creatinine, up out of bed, will plan on discharging the next 24 hours, he is -10 L needs further diuresis Attestations Medical Necessity Statement*: Patient requires hospitalization for systolic CHF exacerbation requiring further diuresis Diagnoses Anasarca R60.1 CHF (congestive heart failure) I50.9 UTI (urinary tract infection) N39.0 CAD (coronary artery disease) I25.10 Coronary Disease-Associated Artery/Lesion type: [place] artery [place] vs. transplanted heart: [place] heart Associated angina: without angina Acute exacerbation of CHF (congestive heart failure) I50.9 Systolic CHF, acute on chronic I50.23 Scrotal swelling N50.89
[2023-07-11 17:15] LABS: Glucose Point of Care 163 mg/dL (70-110)
[2023-07-11] MEDS: enoxaparin 40 mg/0.4 mL Syringe SUBCUT (20:03)
[2023-07-11] MEDS: atorvastatin 40 mg Tablet 20 MG PO (20:04)
[2023-07-11 20:56] LABS: Glucose Point of Care 251 mg/dL (70-110)
[2023-07-11] MEDS: insulin glargine 100 units/1 mL 10 UNIT SUBCUT (22:21)
[2023-07-12] VITALS (8 sets, daily range): BP systolic 99–118; BP diastolic 63–81; PULSE 59–82; RESP 13–22; TEMP 36.3–37; O2SAT 93–97
[2023-07-12] MEDS: acetaminophen 325 mg Tablet 650 MG PO ×3 (02:52→15:01)
[2023-07-12] MEDS: morphine 4 mg/mL SDV 1 mL 1 MG IVP ×2 (04:42→20:51)
[2023-07-12 05:49] LABS: Basophils # 0.1 10^3/uL (0.0-0.1); Basophils % 1.1 %; Eosinophils # 0.5 10^3/uL (0.0-0.8); Hematocrit 42.1 % (37-53); Lymphocytes # 1.3 10^3/uL (0.8-4.8); Lymphocytes % 17.2 %; Mean Corpuscular HGB Conc 30.9 g/dL (30-55); Mean Corpuscular Hemoglobin 27.7 pg (27-33); Mean Corpuscular Volume 89.8 fl (82-101); Monocytes # 0.7 10^3/uL (0.2-0.9); Monocytes % 9.2 %; Neutrophils # 4.86 10^3/uL (1.8-7.7); Nucleated Red Blood Cells % 0 %; Platelet Count 363 10^3/cmm (157-399); Red Blood Count 4.69 10^6/uL (3.85-5.65); Red Cell Distribution Width 15.6 % (12.1-15.1); White Blood Count 7.48 10^3/uL (3.29-11.43)
[2023-07-12] MEDS: FUROsemide 10 mg/mL SDV 4mL 40 MG IVP ×2 (06:03→18:51)
[2023-07-12 06:08] LABS: Alanine Aminotransferase 25 U/L (0-41); Albumin Level 3.3 g/dL (3.5-5.2); Alkaline Phosphatase 127 U/L (40-130); Anion Gap 13.7 (5-19); Aspartate Amino Transferase 23 U/L (0-40); Blood Urea Nitrogen 25 mg/dL (6-20); Calcium 9.3 mg/dL (8.5-10.5); Carbon Dioxide 28 mmol/L (22-29); Chloride 101 mmol/L (98-107); Glomerular Filtration Rate 77.3 mL/min (90-130); Glucose 164 mg/dL (65-115); Magnesium 1.9 mg/dL (1.7-2.3); Osmolality Calculated 294 mOsm/kg (285-295); Potassium 4.7 mmol/L (3.5-5.1); Sodium 138 mmol/L (136-145); Total Bilirubin 0.4 mg/dL (0.15-1.2); Total Protein 6.3 g/dL (6.6-8.7)
[2023-07-12 06:21] LABS: NT Pro B Type Natriuretic Pept 1947 pg/mL (0-125)
[2023-07-12 06:53] LABS: Glucose Point of Care 171 mg/dL (70-110)
[2023-07-12] MEDS: insulin lispro 100 unit/1 mL SUBCUT ×3 (08:09→17:58)
[2023-07-12] MEDS: aspirin 81 mg Chew Tablet PO (08:10)
[2023-07-12] MEDS: nystatin powder 15 gm Btl 1 APPLIC TOPICAL (08:10)
[2023-07-12] MEDS: spironolactone 25 mg Tablet PO (08:10)
[2023-07-12] MEDS: sacubitril/valsartan 24-26 mg Tablet 1 EACH PO ×2 (08:10→17:58)
[2023-07-12] MEDS: carvedilol 6.25 mg Tablet PO ×2 (08:10→17:58)
[2023-07-12] MEDS: tamsulosin 0.4 mg Capsule PO (08:10)
[2023-07-12] MEDS: potassium chloride ER 20 mEq Tablet 40 MEQ PO (08:46)
[2023-07-12] MEDS: metOLazone 5 MG Tablet PO (08:46)
[2023-07-12 11:55] LABS: Glucose Point of Care 222 mg/dL (70-110)
[2023-07-12] MEDS: famotidine 20 mg/2 mL INJ IVP ×2 (12:44→23:35)
--- NOTE | 2023-07-12 15:48 | P.PN_ITS ---
Subjective Subjective: This is progress note from 07/10/2023, patient continues to have lower extreme edema, no fevers, chills continues to have some scrotal edema, he tells me that he had generalized weakness, Vitals/I&O/Wt Last Vital Signs Temp 97.4 F L 07/12/23 08:00 Pulse 82 07/12/23 12:00 Resp 17 07/12/23 12:00 BP 99/73 07/12/23 12:00 Pulse Ox 95 07/12/23 12:00 O2 Del Method Room Air 07/12/23 03:46 07/12/23 07/12/23 07/12/23 06:59 14:59 22:59 Intake Total 480 / 1200 480 / 480 Output Total 1100 / 2375 1300 / 1300 675 / 1975 Balance -620 / -1175 -820 / -820 -675 / -1495 Weight last 48 hrs Weight 131.343 kg Weight 134.802 kg Physical Exam Const: COMMON NORMALS: no acute distress and patient oriented x3 Resp: COMMON NORMALS: normal respiratory effort, No retractions, No use of accessory muscles and clear to auscultation bilaterally AUSCULTATION: clear to auscultation bilaterally Cardio: COMMON NORMALS: regular rate, regular rhythm, S1 normal heart sound present and S2 normal heart sound present RATE: regular rate RHYTHM: regular rhythm HEART SOUNDS: S1 normal heart sound present and S2 normal heart sound present GI: COMMON NORMALS: Normal to inspection, nondistended, normoactive bowel sounds present and non-tender Extremity: NARRATIVE EXTREMITY EXAM: 1+ pitting edema Neuro: COMMON NORMALS: patient oriented x3 Psych: COMMON NORMALS: mental status grossly normal Data 07/12/23 05:18 07/12/23 05:18 A&P Assessment and plan (1) Anasarca: (2) CHF (congestive heart failure): (3) UTI (urinary tract infection): (4) CAD (coronary artery disease): Qualifiers: Coronary Disease-Associated Artery/Lesion type: [place] artery [place] vs. transplanted heart: [place] heart Associated angina: without angina Qualified Code(s): I25.10 - Atherosclerotic heart disease of [place] coronary artery without angina pectoris (5) Acute exacerbation of CHF (congestive heart failure): (6) Systolic CHF, acute on chronic: (7) Scrotal swelling: Plan 58 year old male Acute urinary retention CAD (coronary artery disease) CHF (congestive heart failure) Diabetes Hyperlipidemia Hypertension Presented with complaint of bilateral lower extremity swelling abdominal swelling and genital and scrotal swelling since 1 week and found to have BNP of 3400 and chest x-ray consistent with pulmonary edema likely secondary to acute on chronic congestive heart failure. Acute systolic CHF exacerbation EF of 15% Lasix 40 mg IV twice daily, with 1 dose of metolazone, if urine output does not improve, -10 L continue enteresto Daily weight Monitor I's and O's Resume home medications Patient declines LifeVest, understands morbidity or mortality Continue Coreg Continue aspirin Continue statin Scrotal swelling, elevation, pain control, continue diuresis, Urinary tract infection, continue Rocephin Type 2 diabetes mellitus, low-dose sliding scale, glargine 10 units at bedtime IV Pepcid 20 mg twice a day for stress ulcer prophylaxis Subcutaneous Lovenox 40 mg daily for DVT prophylaxis He is full code for now as per the discussion with the patient Plan for today, continue diuresis Attestations Medical Necessity Statement*: Patient requires hospitalization for systolic CHF, requiring inpatient diuresis EF of 15% Diagnoses Anasarca R60.1 CHF (congestive heart failure) I50.9 UTI (urinary tract infection) N39.0 CAD (coronary artery disease) I25.10 Coronary Disease-Associated Artery/Lesion type: [place] artery [place] vs. transplanted heart: [place] heart Associated angina: without angina Acute exacerbation of CHF (congestive heart failure) I50.9 Systolic CHF, acute on chronic I50.23 Scrotal swelling N50.89
--- NOTE | 2023-07-12 15:50 | P.PN_ITS ---
Subjective Subjective: Patient was seen this morning, he is -13 L, he tells me that he is edema is improving, he continues to have scrotal edema, his shortness of breath is improving, but does report generalized weakness, f deconditioning, we had an extensive discussion about his tiredness, I am not exactly sure if further diuresis will improve the fatigue certainly further diuresis will help with his edema and shortness of breath, but if he feels that he needs to get physical therapy we could see if we could set up follow-up with outpatient physical therapy or even inpatient rehab at a assisted facility, he is more agreeable Vitals/I&O/Wt Last Vital Signs Temp 97.4 F L 07/12/23 08:00 Pulse 82 07/12/23 12:00 Resp 17 07/12/23 12:00 BP 99/73 07/12/23 12:00 Pulse Ox 95 07/12/23 12:00 O2 Del Method Room Air 07/12/23 03:46 07/12/23 07/12/23 07/12/23 06:59 14:59 22:59 Intake Total 480 / 1200 480 / 480 Output Total 1100 / 2375 1300 / 1300 675 / 1975 Balance -620 / -1175 -820 / -820 -675 / -1495 Weight last 48 hrs Weight 131.343 kg Weight 134.802 kg Physical Exam Const: COMMON NORMALS: no acute distress and patient oriented x3 Resp: COMMON NORMALS: normal respiratory effort, No retractions, No use of accessory muscles and clear to auscultation bilaterally AUSCULTATION: clear to auscultation bilaterally Cardio: COMMON NORMALS: regular rate, regular rhythm, S1 normal heart sound present and S2 normal heart sound present RATE: regular rate RHYTHM: regular rhythm HEART SOUNDS: S1 normal heart sound present and S2 normal heart sound present GI: COMMON NORMALS: Normal to inspection, nondistended, normoactive bowel sounds present and non-tender Extremity: NARRATIVE EXTREMITY EXAM: 1+ pitting edema Neuro: COMMON NORMALS: patient oriented x3 Psych: COMMON NORMALS: mental status grossly normal Data 07/12/23 05:18 07/12/23 05:18 A&P Assessment and plan (1) Anasarca: (2) CHF (congestive heart failure): (3) UTI (urinary tract infection): (4) CAD (coronary artery disease): Qualifiers: Coronary Disease-Associated Artery/Lesion type: [place] artery [place] vs. transplanted heart: [place] heart Associated angina: without angina Qualified Code(s): I25.10 - Atherosclerotic heart disease of [place] coronary artery without angina pectoris (5) Acute exacerbation of CHF (congestive heart failure): (6) Systolic CHF, acute on chronic: (7) Scrotal swelling: Plan 58 year old male Acute urinary retention CAD (coronary artery disease) CHF (congestive heart failure) Diabetes Hyperlipidemia Hypertension Presented with complaint of bilateral lower extremity swelling abdominal swelling and genital and scrotal swelling since 1 week and found to have BNP of 3400 and chest x-ray consistent with pulmonary edema likely secondary to acute on chronic congestive heart failure. Acute systolic CHF exacerbation EF of 15% Lasix 40 mg IV twice daily, with 1 dose of metolazone, -13 L, continue enteresto Daily weight Monitor I's and O's Resume home medications Patient declines LifeVest, understands morbidity or mortality Continue Coreg Continue aspirin Continue statin Scrotal swelling, elevation, pain control, continue diuresis, Urinary tract infection, continue Rocephin Type 2 diabetes mellitus, low-dose sliding scale, glargine 10 units at bedtime IV Pepcid 20 mg twice a day for stress ulcer prophylaxis Subcutaneous Lovenox 40 mg daily for DVT prophylaxis He is full code for now as per the discussion with the patient Plan for today, continue diuresis, 1 dose of metolazone, continue IV Lasix, plan on discharging the next 24 hours, continue PT OT Attestations Medical Necessity Statement*: Patient requires hospitalization for CHF exacerbation systolic, requiring diuresis, so far is -13 L, continues to require dialysis Coding Level of Care Code 22724 Moderate MDM includes number and complexity of problems actively addressed during encounter, amount and/or complexity of data reviewed/ordered and described risk of complication, morbidity or mortality of management as do cumented Diagnoses Anasarca R60.1 CHF (congestive heart failure) I50.9 UTI (urinary tract infection) N39.0 CAD (coronary artery disease) I25.10 Coronary Disease-Associated Artery/Lesion type: [place] artery [place] vs. transplanted heart: [place] heart Associated angina: without angina Acute exacerbation of CHF (congestive heart failure) I50.9 Systolic CHF, acute on chronic I50.23 Scrotal swelling N50.89
[2023-07-12 17:24] LABS: Glucose Point of Care 190 mg/dL (70-110)
[2023-07-12] MEDS: enoxaparin 40 mg/0.4 mL Syringe SUBCUT (20:58)
[2023-07-12] MEDS: atorvastatin 40 mg Tablet 20 MG PO (20:58)
[2023-07-12] MEDS: insulin glargine 100 units/1 mL 10 UNIT SUBCUT (20:59)
[2023-07-12 21:00] LABS: Glucose Point of Care 188 mg/dL (70-110)
[2023-07-13] MEDS: acetaminophen 325 mg Tablet 650 MG PO ×2 (01:45→13:37)
[2023-07-13 03:16] VITALS: BP 148/91; PULSE 80; RESP 17; TEMP 36.8; O2SAT 91
[2023-07-13 04:38] VITALS: RESP 20
[2023-07-13] MEDS: morphine 4 mg/mL SDV 1 mL 1 MG IVP (04:38)
[2023-07-13 05:34] LABS: Basophils # 0.1 10^3/uL (0.0-0.1); Basophils % 0.9 %; Eosinophils # 0.5 10^3/uL (0.0-0.8); Eosinophils % 6.4 %; Hematocrit 45.5 % (37-53); Lymphocytes # 1.4 10^3/uL (0.8-4.8); Lymphocytes % 19.3 %; Mean Corpuscular HGB Conc 30.8 g/dL (30-55); Mean Corpuscular Hemoglobin 28.1 pg (27-33); Mean Corpuscular Volume 91.4 fl (82-101); Monocytes # 0.7 10^3/uL (0.2-0.9); Monocytes % 9.1 %; Neutrophils # 4.74 10^3/uL (1.8-7.7); Neutrophils % 63.8 %; Nucleated Red Blood Cells % 0 %; Platelet Count 342 10^3/cmm (157-399); Red Blood Count 4.98 10^6/uL (3.85-5.65); Red Cell Distribution Width 15.5 % (12.1-15.1); White Blood Count 7.45 10^3/uL (3.29-11.43)
[2023-07-13 05:49] LABS: Alanine Aminotransferase 27 U/L (0-41); Albumin Level 3.3 g/dL (3.5-5.2); Alkaline Phosphatase 134 U/L (40-130); Anion Gap 14.7 (5-19); Aspartate Amino Transferase 23 U/L (0-40); Blood Urea Nitrogen 31 mg/dL (6-20); Calcium 9.7 mg/dL (8.5-10.5); Carbon Dioxide 27 mmol/L (22-29); Chloride 98 mmol/L (98-107); Globulin 3.2 g/dL (1.3-4.6); Glomerular Filtration Rate 77.3 mL/min (90-130); Glucose 216 mg/dL (65-115); Magnesium 1.9 mg/dL (1.7-2.3); Osmolality Calculated 293 mOsm/kg (285-295); Phosphorus 4.6 mg/dL (2.5-4.5); Potassium 4.7 mmol/L (3.5-5.1); Sodium 135 mmol/L (136-145); Total Bilirubin 0.3 mg/dL (0.15-1.2); Total Protein 6.5 g/dL (6.6-8.7)
[2023-07-13 06:01] LABS: NT Pro B Type Natriuretic Pept 2120 pg/mL (0-125)
[2023-07-13 07:00] LABS: Glucose Point of Care 189 mg/dL (70-110)
[2023-07-13 07:10] VITALS: BP 125/73; PULSE 78; RESP 15; TEMP 36.6; O2SAT 92
[2023-07-13] MEDS: insulin lispro 100 unit/1 mL SUBCUT ×2 (07:38→12:01)
[2023-07-13] MEDS: tamsulosin 0.4 mg Capsule PO (07:39)
[2023-07-13] MEDS: spironolactone 25 mg Tablet PO (07:39)
[2023-07-13] MEDS: carvedilol 6.25 mg Tablet PO (07:39)
[2023-07-13] MEDS: aspirin 81 mg Chew Tablet PO (07:39)
[2023-07-13] MEDS: sacubitril/valsartan 24-26 mg Tablet 1 EACH PO (07:39)
[2023-07-13] MEDS: nystatin powder 15 gm Btl 1 APPLIC TOPICAL (07:40)
[2023-07-13] MEDS: famotidine 20 mg/2 mL INJ IVP (10:22)
[2023-07-13] MEDS: potassium chloride ER 20 mEq Tablet PO (10:22)
[2023-07-13] MEDS: metOLazone 5 MG Tablet PO (10:22)
[2023-07-13 11:24] VITALS: BP 130/76; PULSE 78; RESP 16; TEMP 36.7; O2SAT 100
[2023-07-13 11:34] LABS: Glucose Point of Care 207 mg/dL (70-110)
--- NOTE | 2023-07-13 12:33 | PM.DCS ---
Discharge Providers Date of Admission: 07/04/23 18:57 Date of Discharge: July 13, 2023 Attending Provider at Admission: Husam Espinoza MD Attending Provider at Discharge: Aaron Fink MD Primary Care Provider: Fidelina Espinal MD Diagnoses at Discharge Discharge Diagnosis (1) Anasarca: Status: Acute (2) CHF (congestive heart failure): Status: Acute (3) UTI (urinary tract infection): Status: Acute (4) CAD (coronary artery disease): Status: Acute Qualifiers: Associated angina: without angina Coronary Disease-Associated Artery/Lesion type: [place] artery [place] vs. transplanted heart: [place] heart Qualified Code(s): I25.10 - Atherosclerotic heart disease of [place] coronary artery without angina pectoris (5) Acute exacerbation of CHF (congestive heart failure): Status: Acute (6) Systolic CHF, acute on chronic: Status: Acute (7) Scrotal swelling: Status: Acute Reason for Visit Reason for Visit: urinary / rash on legs Hospital Course Hospital Course luana Clement is a 58 year old male ?Acute urinary retention CAD (coronary artery disease) CHF (congestive heart failure) Diabetes Hyperlipidemia Hypertension Presented with complaint of bilateral lower extremity swelling abdominal swelling and genital and scrotal swelling since 1 week.? He denies any complaint of fever cold cough chest pain shortness of breath abdominal pain nausea vomiting diarrhea or urinary complaints.? He admits taking his medications regularly but has missed his Lasix for 2 days.? Last time he saw his PCP was November 2022. This is a 58-year-old male with a past medical history of CAD, CHF, diabetes, EF of 15%, who presents to [facility] for shortness of breath, anasarca, lower extreme edema, scrotal edema, required inpatient diuresis for systolic CHF exacerbation, received Lasix, metolazone, diuresed over 15 L. Patient's edema and shortness of breath have significantly improved, will be discharged on Lasix 40 mg every 8 hours, with potassium replacement therapy, with Aldactone, with close follow-up with primary care provider for recheck creatinine and potassium as outpatient in the next week. Repeat echocardiogram showed an EF of 15%, I had extensive discussion with patient about LifeVest, he has declined LifeVest for now, understands morbidity and mortality, voices understanding, all questions answered, declines for now. He has had an coronary angiogram in 2019, which showed severe coronary artery disease with subtotal occlusion of mid LAD, also subtotal occlusion of OM1, which has a small size vessel, subtotal occlusion of mid LAD, managed with aspirin, statin, beta-sil, diuresis. No recurrent chest pain during his hospitalization. Discussed with cardiology, given diminished ejection fraction and persistent low EF, difficult to with diuresis, discussed Entresto, discussed with patient, discussed risk and benefits, he voiced understanding, all questions answered, agreed to proceed. He received low-dose Entresto during his hospitalization, he tolerated well, diuresed quite well with Entresto, and Lasix on board. Will be discharged with close follow-up with cardiology as outpatient. For scrotal swelling and edema, improved with diuresis but persist to some degree, continue diuresis outpatient, continue scrotal elevation, follow-up with urology Physical Exam Const: COMMON NORMALS: no acute distress and patient oriented x3 Resp: COMMON NORMALS: normal respiratory effort, No retractions, No use of accessory muscles and clear to auscultation bilaterally AUSCULTATION: clear to auscultation bilaterally Cardio: COMMON NORMALS: regular rate, regular rhythm, S1 normal heart sound present and S2 normal heart sound present RATE: regular rate RHYTHM: regular rhythm HEART SOUNDS: S1 normal heart sound present and S2 normal heart sound present GI: COMMON NORMALS: Normal to inspection, nondistended, normoactive bowel sounds present and non-tender Extremity: COMMON NORMALS: no pedal edema Neuro: COMMON NORMALS: patient oriented x3 Psych: COMMON NORMALS: mental status grossly normal Discharge Data Studies Completed and Pending Completed Studies During Hospitalization Category Date Time Status XR chest 1V portable [id number] Stat Exams 07/04/23 17:33 Completed CV. echo wo/w contrast [id number] Stat Ultrasound 07/05/23 19:10 Completed US scrotum [id number] Routine Ultrasound 07/06/23 18:24 Completed Pending at discharge Category Date Time Status Complete Blood Count w/Auto AM LABS Lab 07/14/23 04:00 Ordered Comprehensive Metabolic Panel AM LABS Lab 07/14/23 04:00 Ordered Magnesium AM LABS Lab 07/14/23 04:00 Ordered NT Pro B Type Natriuretic Pept QAM Lab 07/14/23 06:00 Ordered Phosphorus AM LABS Lab 07/14/23 04:00 Ordered Radiology Impressions Chest X-Ray 07/04/23 17:33 IMPRESSION: Cardiomegaly and minimal pulmonary vascular congestion. Laboratory Results WBC 7.45 10^3/uL (3.29-11.43) 07/13/23 05:09 RBC 4.98 10^6/uL (3.85-5.65) 07/13/23 05:09 Hgb 14.00 g/dL (11.27-16.99) 07/13/23 05:09 Hct 45.5 % (37-53) 07/13/23 05:09 MCV 91.4 fl (82-101) 07/13/23 05:09 MCH 28.1 pg (27-33) 07/13/23 05:09 MCHC 30.8 g/dL (30-55) 07/13/23 05:09 RDW 15.5 % (12.1-15.1) H 07/13/23 05:09 Plt Count 342 10^3/cmm (157-399) 07/13/23 05:09 MPV 10.0 fL (7.4-10.4) 07/13/23 05:09 Neut % (Auto) 63.8 % 07/13/23 05:09 Lymph % (Auto) 19.3 % 07/13/23 05:09 [place] % (Auto) 9.1 % 07/13/23 05:09 Eos % (Auto) 6.4 % 07/13/23 05:09 Baso % (Auto) 0.9 % 07/13/23 05:09 Neut # (Auto) 4.74 10^3/uL (1.8-7.7) 07/13/23 05:09 Lymph # (Auto) 1.4 10^3/uL (0.8-4.8) 07/13/23 05:09 [place] # (Auto) 0.7 10^3/uL (0.2-0.9) 07/13/23 05:09 Eos # (Auto) 0.5 10^3/uL (0.0-0.8) 07/13/23 05:09 Baso # (Auto) 0.1 10^3/uL (0.0-0.1) 07/13/23 05:09 Nucleated RBC % (auto) 0 % 07/13/23 05:09 Nucleated RBCs # 0.0 /100WBC 07/13/23 05:09 Sodium 135 mmol/L (136-145) L 07/13/23 05:09 Potassium 4.7 mmol/L (3.5-5.1) 07/13/23 05:09 Chloride 98 mmol/L (98-107) 07/13/23 05:09 Carbon Dioxide 27 mmol/L (22-29) 07/13/23 05:09 Anion Gap 14.7 (5-19) 07/13/23 05:09 BUN 31 mg/dL (6-20) H 07/13/23 05:09 Creatinine 1.0 mg/dL (0.7-1.2) 07/13/23 05:09 GFR Calculation 77.3 mL/min (90-130) L 07/13/23 05:09 Glucose 216 mg/dL (65-115) H 07/13/23 05:09 POC Glucose 207 mg/dL (70-110) H 07/13/23 11:29 Calculated Osmolality 293 mOsm/kg (285-295) 07/13/23 05:09 Calcium 9.7 mg/dL (8.5-10.5) 07/13/23 05:09 Phosphorus 4.6 mg/dL (2.5-4.5) H 07/13/23 05:09 Magnesium 1.9 mg/dL (1.7-2.3) 07/13/23 05:09 Total Bilirubin 0.3 mg/dL (0.15-1.2) 07/13/23 05:09 AST 23 U/L (0-40) 07/13/23 05:09 ALT 27 U/L (0-41) 07/13/23 05:09 Alkaline Phosphatase 134 U/L (40-130) H 07/13/23 05:09 Creatine Kinase 145 U/L (39-308) 07/04/23 16:50 Troponin T Baseline 39 ng/L (0-15) H 07/05/23 09:30 Troponin T 120 Minute 41.69 ng/L (0-15) H 07/05/23 11:20 Delta Troponin T 2.69 ABS# (0-10) 07/05/23 11:20 Troponin T Hi Sens 6Hr 30.05 ng/L (0-15) H 07/05/23 15:37 Troponin T Hi Sens 6Hr Delta -8.95 ng/L (0-12) L 07/05/23 15:37 NT-Pro-B Natriuret Pep 2120 pg/mL (0-125) H 07/13/23 05:09 Total Protein 6.5 g/dL (6.6-8.7) L 07/13/23 05:09 Albumin 3.3 g/dL (3.5-5.2) L 07/13/23 05:09 Globulin 3.2 g/dL (1.3-4.6) 07/13/23 05:09 Urine Color Yellow (Yellow) 07/04/23 18:50 Urine Appearance Clear (CLEAR) 07/04/23 18:50 Urine pH 6 (5-7) 07/04/23 18:50 Ur Specific [place] 1.015 (1.005-1.030) 07/04/23 18:50 Urine Protein 3+ (Negative) H 07/04/23 18:50 Urine Glucose (UA) Norm (Normal) 07/04/23 18:50 Urine Ketones 1+ (Negative) H 07/04/23 18:50 Urine Blood 2+ (Negative) H 07/04/23 18:50 Urine Nitrate Positive (Negative) H 07/04/23 18:50 Urine Bilirubin Neg (Negative) 07/04/23 18:50 Urine Urobilinogen 1 mg/dL (Negative) H 07/04/23 18:50 Ur Leukocyte Esterase Negative (Negative) 07/04/23 18:50 Urine RBC 5-10 /hpf (0-2) H 07/04/23 18:50 Urine WBC 0-4 /hpf (0-5) H 07/04/23 18:50 Ur Squamous Epith Cells 0-4 /hpf (0-5) H 07/04/23 18:50 Amorphous Sediment 2+ /hpf 07/04/23 18:50 Urine Bacteria Trace /hpf (NONE) 07/04/23 18:50 Vitals Last Vital Signs Temp 98.0 F 07/13/23 11:24 Pulse 78 07/13/23 11:24 Resp 16 07/13/23 11:24 BP 130/76 07/13/23 11:24 Pulse Ox 100 07/13/23 11:24 O2 Del Method Room Air 07/13/23 11:24 Discharge Plan Discharge Patient Disposition: Home Condition: Stable Prescriptions: New nystatin [Nystop] 100,000 unit/gram Powder 1 applic topical BID PRN (Reason: rash) 30 Days Qty: 60 0RF Entresto 24-26 mg Tablet 1 ea PO BID 30 Days Qty: 60 0RF potassium chloride [Klor-Con M20] 20 mEq tablet,ER particles/crystals 10 meq PO BID 30 Days Qty: 30 0RF Continued (DME) lancets Misc See Rx Instructions .ROUTE .MEDSUPPLY Qty: 100 11RF Rx Instructions: For use with glucose meter, brand/type per insurance ([facility]) Blood Glucose Test Strip See Rx Instructions .ROUTE .MEDSUPPLY Qty: 100 11RF Rx Instructions: x3-4 daily, Brand/type to go with meter per insurance coverage, pt has one touch ultra 2 ([facility]) Comfort EZ Pen [place] 33 gauge x 3/16 needle See Rx Instructions .ROUTE .MEDSUPPLY Qty: 100 12RF Rx Instructions: 1 needle three times daily with insulin (DME) lancets Misc See Rx Instructions .ROUTE .MEDSUPPLY Qty: 100 11RF Rx Instructions: For use with glucose meter, brand/type per insurance aspirin 81 mg tablet,chewable 81 mg PO DAILY Qty: 90 3RF (DME) Dexcom G6 Transmitter Device See Rx Instructions .ROUTE .COMPLEX Qty: 1 11RF Dose Instruction: USE TO CHECK BLOOD SUGAR 4 TIMES DAILY Rx Instructions: USE TO CHECK BLOOD SUGAR 4 TIMES DAILY tamsulosin 0.4 mg capsule 0.4 mg PO DAILY 90 Days Qty: 90 1RF atorvastatin 20 mg tablet 20 mg PO BEDTIME 90 Days Qty: 90 3RF albuterol sulfate [ProAir HFA] 90 mcg/actuation HFA aerosol inhaler 2 puff inhalation QID PRN (Reason: shortness of breath or wheezing) 30 Days Qty: 18 5RF (DME) Dexcom G6 White Lead Grinder Misc See Rx Instructions .Route Qty: 1 0RF Rx Instructions: As directed (DME) Dexcom G6 Sensor Device See Rx Instructions .ROUTE .COMPLEX Qty: 3 3RF Dose Instruction: USE SUB-Q TO MONITOR BLOOD GLUCOSE DIRECTED BY DOCTOR Rx Instructions: USE SUB-Q TO MONITOR BLOOD GLUCOSE DIRECTED BY DOCTOR carvedilol 6.25 mg tablet 6.25 mg PO BID 90 Days Qty: 180 0RF acetaminophen 325 mg Tablet 650 mg PO Q6H PRN (Reason: Mild Pain) Qty: 0 0RF (DME) Accu-Chek Azeb Plus test strp Strip See Rx Instructions .ROUTE .MEDSUPPLY Qty: 10 0RF Rx Instructions: As directed (DME) blood-glucose meter [Accu-Chek Azeb Plus Meter] Misc See Rx Instructions .ROUTE .MEDSUPPLY Qty: 1 0RF Rx Instructions: As directed spironolactone 25 mg tablet 25 mg PO DAILY Changed Novolog FlexPen U-100 Insulin 100 unit/mL (3 mL) insulin pen See Rx Instructions .ROUTE .COMPLEX 30 Days Qty: 15 5RF Rx Instructions: inject, subcut, three times daily after meals, based on sliding scale provided Lantus Solostar U-100 Insulin 100 unit/mL (3 mL) insulin pen 10 unit SUBCUT QPM 30 Days Qty: 6 5RF furosemide 80 mg tablet 40 mg PO Q8H 90 Days Qty: 180 0RF Discharge Orders: Discharge Order (Routine); Ordered 07/13/23 Ordered By: Aaron Fink Referrals: Christiano Mason MD [Referring] - 2 weeks Nati Rubio MD [Physician] - 1 week Fidelina Espinal MD [Primary Care Provider] - 07/15/23 11:00 am () Discharge Diet: Cardiac Discharge Activity: Resume usual activity Patient Instructions: Opioid Safety Activity Restrictions/Additional Instructions: -Please monitor your blood sugars closely -Monitor your blood sugars 3 times daily as after meals -Please record your blood sugars, and a blood sugar log -For your NovoLog -Please inject blood sugar after meals based on sliding scale provided -Do not inject insulin if you do not eat as hypoglycemia kills -This is a NovoLog sliding scale -Insulin sliding ?fingerstick? Insulin ?141-180?0 units/sq 181-220?2 units/sq ?221-260?4 units/sq ?261-300 6 units/sq ?301-350?8 units/sq ?351-400 10 units/sq ?401-450?12 units/sq >450? 14units/sq -If your blood sugar is greater than 500 go to the emergency room -If your blood sugar is less than 60 or at anytime you feel lightheaded or dizzy or diaphoretic or have chest palpitations check your blood sugar, and eat a hard candy or drink orange juice and go immediately to the emergency room -Remember hypoglycemia kills, so if his blood sugar is less than 60 we have to increase it by taking in a sugary meal such as a hard candy or orange juice and go to the emergency room -If you have any questions please call us where here to help -Please take Lasix as prescribed ? Please take potassium as prescribed ? Please take Entresto, follow-up with cardiology in 1 week ? Continue scrotal elevation ? Follow-up with urology for scrotal edema Discharge Attestations Time Spent in Discharge Care*: greater than 30 min Quality Metrics Clinical Quality Measures [ No reported AMI, CVA or VTE this stay] Coding Level of Care Code 43353 Total time (in minutes) for Discharge: 45 Diagnoses Anasarca R60.1 CHF (congestive heart failure) I50.9 UTI (urinary tract infection) N39.0 CAD (coronary artery disease) I25.10 Associated angina: without angina Coronary Disease-Associated Artery/Lesion type: [place] artery [place] vs. transplanted heart: [place] heart Acute exacerbation of CHF (congestive heart failure) I50.9 Systolic CHF, acute on chronic I50.23 Scrotal swelling N50.89
--- NOTE | 2023-07-13 15:57 | PC.NURSE ---
Discharge instructions provided to pt. No questions at this time. Walker arrives from HOME and new RX have arrived from [facility]. All belongings sent with pt. via wheelchair to private vehicle.
[2023-07-13 15:58] VITALS: BP 130/76; PULSE 78; RESP 16; TEMP 36.7; O2SAT 100
== END 2023-07-13 16:00 | disposition home or self-care (01) | DRG 291 ==
LOC: ER 16:26 → MEDSURG 19:51
PROVIDERS: Internal Medicine; Admitting Provider Student in an Organized Health Care Education/Training Program; Emergency Provider Family Medicine; PCP Family Medicine; Visit Provider Family Medicine
DX: I11.0 Hypertensive heart disease with heart failure (principal); I50.23 Acute on chronic systolic (congestive) heart failure; N39.0 Urinary tract infection, site not specified; F17.210 Nicotine dependence, cigarettes, uncomplicated; I25.5 Ischemic cardiomyopathy; I25.10 Atherosclerotic heart disease of native coronary artery without angina pectoris; E11.9 Type 2 diabetes mellitus without complications; E78.5 Hyperlipidemia, unspecified; R33.9 Retention of urine, unspecified; N50.89 Other specified disorders of the male genital organs
CPT/HCPCS: 36415; 36416; 71045; 76870; 80048; 80053; 81001; 82550; 82962; 83735; 83880; 84100; 84484; 85025; 87086; 93005; 96372; 96374; 97163; 97166; 97535; 99285; C8929; J0696; J1650; J1815; J1940; J2270; J3490; Q9956

== ENCOUNTER 2023-09-06 21:49 | Inpatient (IN) | payer MEDICAID, SELFPAY ==
[2023-09-06 21:52] VITALS: BP 109/89; PULSE 86; RESP 26; TEMP 36.4; O2SAT 95; BMI 35.9
[2023-09-06 22:26] VITALS: PULSE 79
--- NOTE | 2023-09-06 22:28 | CTR_ITS ---
PROCEDURE INFORMATION: Exam: CT Lumbar Spine Without Contrast Exam date and time: 09/06/2023 10:54 PM Age: 58 years old Clinical indication: Injury or trauma; Fall; Blunt trauma (contusions or hematomas); Patient HX: Patient fell onto floor at home. C/O low back pain. ; Additional info: Fall back pain TECHNIQUE: Imaging protocol: Computed tomography of the lumbar spine without contrast. Radiation optimization: All CT scans at this facility use at least one of these dose optimization techniques: automated exposure control; mA and/or kV adjustment per patient size (includes targeted exams where dose is matched to clinical indication); or iterative reconstruction. REPORTING DATA: Count of CT and Cardiac NM exams in prior 12 months: This patient has received 0 known CTs and 0 known cardiac nuclear medicine studies in the 12 months prior to the current study. COMPARISON: CT angio chest w abd pel w con 08/30/2020 9:52 PM RADIATION DOSE METRICS: Total DLP (mGy-cm): 1866.09 FINDINGS: Bones/joints: Facet alignment normal. Vertebral body heights maintained. No acute fracture. No high-grade neural foraminal or spinal canal stenosis. Intraperitoneal space: Partially imaged ascites. Soft tissues: No large hematoma. Subcutaneous edema. CT/CT lumbar spine wo con* [id number] IMPRESSION: 1. No acute fracture or traumatic malalignment. 2. Partially imaged ascites.
--- NOTE | 2023-09-06 23:13 | XRR_ITS ---
PROCEDURE INFORMATION: Exam: XR Chest Exam date and time: 09/06/2023 11:39 PM Age: 58 years old Clinical indication: Other: General weakness TECHNIQUE: Imaging protocol: Radiologic exam of the chest. Views: 1 view. COMPARISON: CR XR chest 1V portable [id number] 07/04/2023 6:17 PM FINDINGS: Lungs: No consolidation. No pulmonary edema. Pleural spaces: No large pleural effusion. No pneumothorax. Heart/Mediastinum: Mild cardiomegaly, unchanged. Bones/joints: No acute abnormality. XR/XR chest 1V portable [id number] IMPRESSION: No acute findings.
--- NOTE | 2023-09-06 23:15 | ECG_ITS ---
[facility] Test Date: 2023-09-07 Pat Name: Aby Clement Department: Room: Gender: Male Box Spinner: : [id number] Requested By: Demetrio Johnson Order Number: [id number] Mavis MD: Reynaldo Vizcaino M.D. Measurements Intervals [place] Rate: 89 P: 66 [place]: 167 QRS: 53 QRSD: 80 T: 240 QT: 354 QTc: 431 Interpretive Statements SINUS RHYTHM LOW QRS VOLTAGE [QRS DEFLECTION < 0.5/1.0 mV IN LIMB/CHEST LEADS] ANTEROSEPTAL MYOCARDIAL INFARCTION , PROBABLY OLD [40+ ms Q WAVE IN V1-V4] Compared to ECG 09/07/2023 00:12:55 No significant changes Electronically Signed On 09-08-2023 0:30:04 MOTOR ADJUSTER by Reynaldo Vizcaino M.D. [id number]
[2023-09-07] VITALS (40 sets, daily range): BP systolic 80–130; BP diastolic 51–94; PULSE 0–102; RESP 16–130; TEMP 36.3–37; O2SAT 82–100; BMI 41.5
--- NOTE | 2023-09-07 00:28 | ED_ITS ---
Documented by User: EMERALD Eagle 09/07/23 00:53 HPI - Fall 2 General: Chief Complaint: Fall Stated Complaint: FALL Time Seen by Provider: 09/06/23 22:34 History of Present Illness: Patient is a 58-year-old man that presents to the emergency department with complaints of lower extremity pain. Patient reports that pain is localized to bilateral lower extremities below the level of the knee. There is redness and chronic changes with skin. No warmth and no open wounds. His legs are pretty filthy. He reports ongoing swelling it has been increasing over recent months. He has intermittent weakness in the lower extremities and today caused him to have a fall. He denies striking his head or loss of consciousness when he fell. Patient is a poor historian and does not appear to be taking care of himself well. He lives alone and has family nearby. His medical history includes cardiovascular disease, CHF, peripheral vascular disease, hypertension, hyperlipidemia, diabetes, COPD Associated symptoms-after fall: Denies abdominal pain, chest pain, confusion, difficulty walking, headache(s), hematuria or neck pain Review of Systems 2 General: Reports: 10 or more systems reviewed and unremarkable except in HPI and below Const: Denies: fever(s), chills, change in appetite, change in weight, fatigue or malaise Eyes: Denies: change in vision, eye discomfort, eye discharge or eye redness ENMT: Denies: throat pain, enlarged tonsils, odynophagia, hoarseness, ear or mastoid pain, ear discharge, change in hearing, tinnitus, nasal discharge, nasal congestion, post nasal drip or sinus pain Card: Denies: chest pain, palpitations, irregular heart rhythm, edema, dyspnea on exertion, orthopnea or leg pain with exertion Resp: Denies: dyspnea, productive cough, non-productive cough, wheezing, stridor or chest congestion GI: Denies: abdominal pain, nausea, vomiting, dysphagia, diarrhea, constipation, bloating, GI cramping or hematochezia : Denies: flank pain, dysuria, urinary frequency, urinary urgency, urinary hesitancy, oliguria or hematuria Musc: Reports: back pain, extremity pain and muscle weakness; Denies: neck pain, joint pain, joint swelling, joint redness or joint warmth Skin/Breast: Reports: erythema and skin swelling; Denies: rash, pruritus, photosensitivity or new lesions Neuro: Denies: headache(s), numbness in extremities, weakness in extremities, sensory changes, lack of coordination, difficulty walking, frequent falls, dizziness, confusion, Slurred speech present, difficulty communicating thoughts, seizure-like activity or involuntary movements Endo: Denies: polyuria, polydipsia or tired all the time Sorin/Lymph: Denies: easy bruising or easy bleeding PFSH ED 2 PFSH: Medical History Hyperlipidemia Hypertension CHF (congestive heart failure) CAD (coronary artery disease) Acute urinary retention Diabetes Surgical History No pertinent past surgical history Family History Mother CAD (coronary artery disease) Grandmother Diabetes Denies family history of Stroke Social History Smoking and tobacco/nicotine status: current every day tobacco/nicotine user cigarettes Packs smoked per day: 0.5 [ Other cigarette details: Has been smoking 2 packs/day, currently 1 pack/day] Alcohol intake: current Alcohol intake frequency: holidays/special occasions only Substance/Drug Use: never Household members: spouse Housing: House Physical Exam 2 Const: COMMON NORMALS: no acute distress, patient oriented x3 and alert G ENERAL APPEARANCE: cooperative ORIENTATION/CONSCIOUSNESS: Yes awake, Yes oriented to person, Yes oriented to place and Yes oriented to time HENMT: COMMON NORMALS: normocephalic and atraumatic HEAD & SCALP: n ormocephalic and atraumatic FACE & SINUS: normal facial exam MOUTH: Normal oral and palatal mucosa present THROAT: posterior oropharynx normal Eye: COMMON NORMALS: Equal, round and reactive pupils present, EOMs intact bilaterally, conjunctivae normal and no scleral icterus GENERAL EYE: a ppearance normal, both eyes and all related structures ALIGNMENT: Yes alignment normal PERIORBITAL: periorbital findings normal CONJUNCTIVA: Yes conjunctivae normal PUPIL: Yes Equal, round and reactive pupils present Neck/C-Spine: COMMON NORMALS: full ROM GENERAL: Yes normal visual inspection Lymph: LYMPHATIC: no lymphadenopathy noted Chest: COMMONS NORMALS: normal inspection of the chest Breast/axilla inspection: Yes no chest deformity, asymmetry, normal contours, no nodules, masses, tenderness Resp: COMMON NORMALS: normal respiratory effort, No retractions, No use of accessory muscles and clear to auscultation bilaterally EFFORT & INSPECTION: Yes able to speak in complete sentences and Yes symmetric chest movement A USCULTATION: clear to auscultation bilaterally Cardio: COMMON NORMALS: regular rate, regular rhythm and Peripheral pulses 2+ throughout RATE: regular rate RHYTHM: regular rhythm PERIPHERAL PULSES: Peripheral pulses 2+ throughout GI: COMMON NORMALS: Normal to inspection, nondistended, normoactive bowel sounds present, Soft to palpation, non-tender and No hepatosplenomegaly present INSPECTION: Yes normal to inspection AUSCULTATION: Yes normoactive bowel sounds PALPATION: Yes Soft to palpation and Yes No hepatosplenomegaly present RECTAL EXAM: Yes deferred Extremity: COMMON NORMALS: no calf tenderness; negative for normal to inspection GENERAL: Yes normal exam except as noted EXTREMITY IMAGE (FRONT): 1. Erythema and chronic skin changes below the level marked. There is no warmth to the skin. Skin is filthy 2. Erythema and chronic skin changes bel ow the level marked. There is no warmth to the skin. Skin is filthy Neuro: COMMON NORMALS: patient oriented x3 SENSORIUM/ORIENTATION: Yes alert, Yes oriented to person, Yes oriented to place and Yes oriented to time CRANIAL NERVES: Yes CN normal except as noted Psych: COMMON NORMALS: mental status grossly normal, Normal thought process present, cooperative, activity/motor behavior normal, denies homicidal ideation and denies suicidal ideation THOUGHT PROCESS: Normal thought process present Skin: COMMON NORMALS: no rashes or lesions noted, no wounds and turgor normal GENERAL SKIN EXAM: no rashes or lesions noted and turgor normal Course 2 Vital Signs: Vital signs: Vital Signs Temperature 97.7 F 09/08/23 07:53 Pulse Rate 67 09/08/23 15:01 Respiratory Rate 22 H 09/08/23 15:01 Blood Pressure 100/76 09/08/23 15:01 Pulse Oximetry 95 09/08/23 15:01 Oxygen Delivery Me thod Room Air 09/08/23 15:01 MDM - Fall Medical Decision Making Patient was evaluated in the emergency department today for fall. He is complaining of lower extremity swelling and pain. There is a clear demarcation line mid tibia with erythema below the level and chronic skin changes. No warmth to the tissue Patient does complain of intermittent weakness although he does not display any weakness today. He denies any other general complaints but he is a very poor historian, has significant cardiac history, and does not take care of himself well. Initial lab values revealed hyponatremia, hyperglycemia, hyperkalemia, and a troponin of 2400 and BNP of 6000. His initial EKG at 0012 reveals a sinus rhythm at a ventricular rate of 86 beats a minute. There is evidence of a prior anteroseptal myocardial infarction. He has undergone an echo in the last 6 months that reveals an EF of 15%. I have talked with Dr. Butler who will assume care. Lab Data 09/08/23 05:58 09/08/23 05:58 Radiology Impressions Lumbar Spine CT 09/06/23 22:28 IMPRESSION: 1. No acute fracture or traumatic malalignment. 2. Partially imaged ascites. Chest X-Ray 09/06/23 23:13 IMPRESSION: No acute findings. Laboratory Results WBC 13.46 10^3/uL (3.29-11.43) H 09/06/23 23:57 RBC 5.45 10^6/uL (3.85-5.65) 09/06/23 23:57 Hgb 15.00 g/dL (11.27-16.99) 09/06/23 23:57 Hct 46.8 % (37-53) 09/06/23 23:57 MCV 85.9 fl (82-101) 09/06/23 23:57 MCH 27.5 pg (27-33) 09/06/23 23:57 MCHC 32.1 g/dL (30-55) 09/06/23 23:57 RDW 16.6 % (12.1-15.1) H 09/06/23 23:57 Plt Count 413 10^3/cmm (157-399) H 09/06/23 23:57 MPV 9.2 fL (7.4-10.4) 09/06/23 23:57 Neut % (Auto) 72.0 % 09/06/23 23:57 Lymph % (Auto) 12.3 % 12/25/23 23:57 Shannon % (Auto) 7.1 % 09/06/23 23:57 Eos % (Auto) 0.5 % 09/06/23 23:57 Baso % (Auto) 0.7 % 09/06/23 23:57 Neut # (Auto) 9.68 10^3/uL (1.8-7.7) H 09/06/23 23:57 Lymph # (Auto) 1.7 10^3/uL (0.8-4.8) 09/06/23 23:57 Shannon # (Auto) 1.0 10^3/uL (0.2-0.9) H 09/06/23 23:57 Eos # (Auto) 0.1 10^3/uL (0.0-0.8) 09/06/23 23:57 Baso # (Auto) 0.1 10^3/uL (0.0-0.1) 09/06/23 23:57 Nucleated RBC % (auto) 0 % 09/06/23 23:57 Nucleated RBCs # 0.0 /100WBC 09/06/23 23:57 Sodium 130 mmol/L (136-145) L 09/06/23 23:57 Potassium 5.4 mmol/L (3.5-5.1) H 09/06/23 23:57 Chloride 95 mmol/L (98-107) L 09/06/23 23:57 Carbon Dioxide 25 mmol/L (22-29) 09/06/23 23:57 Anion Gap 15.4 (5-19) 09/06/23 23:57 BUN 66 mg/dL (6-20) H 09/06/23 23:57 Creatinine 1.2 mg/dL (0.7-1.2) 09/06/23 23:57 GFR Calculation 62.6 mL/min (90-130) L 09/06/23 23:57 Glucose 407 mg/dL (65-115) H 09/06/23 23:57 Calculated Osmolality 306 mOsm/kg (285-295) H 09/06/23 23:57 Calcium 8.8 mg/dL (8.5-10.5) 09/06/23 23:57 Total Bilirubin 0.4 mg/dL (0.15-1.2) 09/06/23 23:57 AST 36 U/L (0-40) 09/06/23 23:57 ALT 222 U/L (0-41) H 09/06/23 23:57 Alkaline Phosphatase 454 U/L (40-130) H 09/06/23 23:57 Troponin T Baseline 2413 ng/L (0-15) H* 09/06/23 23:57 NT-Pro-B Natriuret Pep 5669 pg/mL (0-125) H 09/06/23 23:57 Total Protein 6.0 g/dL (6.6-8.7) L 09/06/23 23:57 Albumin 3.2 g/dL (3.5-5.2) L 09/06/23 23:57 Globulin 2.8 g/dL (1.3-4.6) 09/06/23 23:57 Urine Color Yellow (Yellow) 09/06/23 23:59 Urine Appearance Clear (CLEAR) 09/06/23 23:59 Urine pH 5 (5-7) 09/06/23 23:59 Ur Specific [place] 1.010 (1.005-1.030) 09/06/23 23:59 Urine Protein 3+ (Negative) H 09/06/23 23:59 Urine Glucose (UA) 4+ (Normal) H 09/06/23 23:59 Urine Ketones Negative (Negative) 09/06/23 23:59 Urine Blood 2+ (Negative) H 09/06/23 23:59 Urine Nitrate Negative (Negative) 09/06/23 23:59 Urine Bilirubin Neg (Negative) 09/06/23 23:59 Urine Urobilinogen Neg mg/dL (Negative) 09/06/23 23:59 Ur Leukocyte Esterase Negative (Negative) 09/06/23 23:59 Urine RBC 0-4 /hpf (0-2) H 09/06/23 23:59 Urine WBC None /hpf (0-5) 09/06/23 23:59 Ur Squamous Epith Cells None /hpf (0-5) 09/06/23 23:59 Amorphous Sediment 1+ /hpf 09/06/23 23:59 Urine Bacteria 1+ /hpf (NONE) H 09/06/23 23:59 Urine Mucus 1+ /hpf 09/06/23 23:59 Acetaminophen < 5.0 ug/mL (10-30) L 09/06/23 23:57 Ethyl Alcohol 53 mg/dL (0-10) H 09/06/23 23:57 All radiology interpretation(s) finalized by discharge Discharge Plan Discharge Patient Disposition: Admitted As Inpatient Admit Provider: Isha Sloan Clinical Impression: Alcohol abuse, NSTEMI (non-ST elevated myocardial infarction), CHF (congestive heart failure), COPD (chronic obstructive pulmonary disease), Ischemic cardiomyopathy Condition: Stable Coding Level of Care Code ED Table And Desk Finisher for Chg Fwd Documented by User: Roosevelt Butler, 09/08/23 15:21 HPI - Fall 2 General: Chief Complaint: Fall Stated Complaint: FALL Time Seen by Provider: 09/06/23 22:34 PFSH ED 2 PFSH: Medical History Hyperlipidemia Hypertension CHF (congestive heart failure) CAD (coronary artery disease) Acute urinary retention Diabetes Surgical History No pertinent past surgical history Family History Mother CAD (coronary artery disease) Grandmother Diabetes Denies family history of Stroke Social History Smoking and tobacco/nicotine status: current every day tobacco/nicotine user cigarettes Packs smoked per day: 0.5 [ Other cigarette details: Has been smoking 2 packs/day, currently 1 pack/day] Alcohol intake: current Alcohol intake frequency: holidays/special occasions only Substance/Drug Use: never Household members: spouse Housing: House Physical Exam 2 Extremity: EXTREMITY IMAGE (FRONT): 1. Erythema and chronic skin changes below the level marked. There is no warmth to the skin. Skin is filthy 2. Erythema and chronic skin changes bel ow the level marked. There is no warmth to the skin. Skin is filthy Course 2 Vital Signs: Vital signs: Vital Signs Temperature 97.7 F 09/08/23 07:53 Pulse Rate 67 09/08/23 15:01 Respiratory Rate 22 H 09/08/23 15:01 Blood Pressure 100/76 09/08/23 15:01 Pulse Oximetry 95 09/08/23 15:01 Oxygen Delivery Me thod Room Air 09/08/23 15:01 MDM - Fall Medical Decision Making Patient was evaluated in the emergency department today for fall. He is complaining of lower extremity swelling and pain. There is a clear demarcation line mid tibia with erythema below the level and chronic skin changes. No warmth to the tissue Patient does complain of intermittent weakness although he does not display any weakness today. He denies any other general complaints but he is a very poor historian, has significant cardiac history, and does not take care of himself well. Initial lab values revealed hyponatremia, hyperglycemia, hyperkalemia, and a troponin of 2400 and BNP of 6000. His initial EKG at 0012 reveals a sinus rhythm at a ventricular rate of 86 beats a minute. There is evidence of a prior anteroseptal myocardial infarction. He has undergone an echo in the last 6 months that reveals an EF of 15%. I have talked with Dr. Butler who will assume care. This patient was initially evaluated by MADDISON Boogie. I agree with her history, evaluation, and treatment. This patient has a very high troponin level, and is in acute heart failure. We have begun diuresis in the ER. Heparin is started, for a non stemi picture. he will go to [facility]. Lab Data 09/08/23 05:58 09/08/23 05:58 Radiology Impressions Lumbar Spine CT 09/06/23 22:28 IMPRESSION: 1. No acute fracture or traumatic malalignment. 2. Partially imaged ascites. Chest X-Ray 09/06/23 23:13 IMPRESSION: No acute findings. Laboratory Results WBC 13.46 10^3/uL (3.29-11.43) H 09/06/23 23:57 RBC 5.45 10^6/uL (3.85-5.65) 09/06/23 23:57 Hgb 15.00 g/dL (11.27-16.99) 09/06/23 23:57 Hct 46.8 % (37-53) 09/06/23 23:57 MCV 85.9 fl (82-101) 09/06/23 23:57 MCH 27.5 pg (27-33) 09/06/23 23:57 MCHC 32.1 g/dL (30-55) 09/06/23 23:57 RDW 16.6 % (12.1-15.1) H 09/06/23 23:57 Plt Count 413 10^3/cmm (157-399) H 09/06/23 23:57 MPV 9.2 fL (7.4-10.4) 09/06/23 23:57 Neut % (Auto) 72.0 % 09/06/23 23:57 Lymph % (Auto) 12.3 % 09/06/23 23:57 Shannon % (Auto) 7.1 % 09/06/23 23:57 Eos % (Auto) 0.5 % 09/06/23 23:57 Baso % (Auto) 0.7 % 09/06/23 23:57 Neut # (Auto) 9.68 10^3/uL (1.8-7.7) H 09/06/23 23:57 Lymph # (Auto) 1.7 10^3/uL (0.8-4.8) 09/06/23 23:57 Shannon # (Auto) 1.0 10^3/uL (0.2-0.9) H 09/06/23 23:57 Eos # (Auto) 0.1 10^3/uL (0.0-0.8) 09/06/23 23:57 Baso # (Auto) 0.1 10^3/uL (0.0-0.1) 09/06/23 23:57 Nucleated RBC % (auto) 0 % 09/06/23 23:57 Nucleated RBCs # 0.0 /100WBC 09/06/23 23:57 Sodium 130 mmol/L (136-145) L 09/06/23 23:57 Potassium 5.4 mmol/L (3.5-5.1) H 09/06/23 23:57 Chloride 95 mmol/L (98-107) L 09/06/23 23:57 Carbon Dioxide 25 mmol/L (22-29) 09/06/23 23:57 Anion Gap 15.4 (5-19) 09/06/23 23:57 BUN 66 mg/dL (6-20) H 09/06/23 23:57 Creatinine 1.2 mg/dL (0.7-1.2) 09/06/23 23:57 GFR Calculation 62.6 mL/min (90-130) L 09/06/23 23:57 Glucose 407 mg/dL (65-115) H 09/06/23 23:57 Calculated Osmolality 306 mOsm/kg (285-295) H 09/06/23 23:57 Calcium 8.8 mg/dL (8.5-10.5) 09/06/23 23:57 Total Bilirubin 0.4 mg/dL (0.15-1.2) 09/06/23 23:57 AST 36 U/L (0-40) 09/06/23 23:57 ALT 222 U/L (0-41) H 09/06/23 23:57 Alkaline Phosphatase 454 U/L (40-130) H 09/06/23 23:57 Troponin T Baseline 2413 ng/L (0-15) H* 09/06/23 23:57 NT-Pro-B Natriuret Pep 5669 pg/mL (0-125) H 09/06/23 23:57 Total Protein 6.0 g/dL (6.6-8.7) L 09/06/23 23:57 Albumin 3.2 g/dL (3.5-5.2) L 09/06/23 23:57 Globulin 2.8 g/dL (1.3-4.6) 09/06/23 23:57 Urine Color Yellow (Yellow) 09/06/23 23:59 Urine Appearance Clear (CLEAR) 09/06/23 23:59 Urine pH 5 (5-7) 09/06/23 23:59 Ur Specific [place] 1.010 (1.005-1.030) 09/06/23 23:59 Urine Protein 3+ (Negative) H 09/06/23 23:59 Urine Glucose (UA) 4+ (Normal) H 09/06/23 23:59 Urine Ketones Negative (Negative) 09/06/23 23:59 Urine Blood 2+ (Negative) H 09/06/23 23:59 Urine Nitrate Negative (Negative) 09/06/23 23:59 Urine Bilirubin Neg (Negative) 09/06/23 23:59 Urine Urobilinogen Neg mg/dL (Negative) 09/06/23 23:59 Ur Leukocyte Esterase Negative (Negative) 09/06/23 23:59 Urine RBC 0-4 /hpf (0-2) H 09/06/23 23:59 Urine WBC None /hpf (0-5) 09/06/23 23:59 Ur Squamous Epith Cells None /hpf (0-5) 09/06/23 23:59 Amorphous Sediment 1+ /hpf 09/06/23 23:59 Urine Bacteria 1+ /hpf (NONE) H 09/06/23 23:59 Urine Mucus 1+ /hpf 09/06/23 23:59 Acetaminophen < 5.0 ug/mL (10-30) L 09/06/23 23:57 Ethyl Alcohol 53 mg/dL (0-10) H 09/06/23 23:57 Critical Care Time 2 Critical Care Time: Critical Care Time: Yes Total Critical Care Time: 35 Attestation: This case had a high probability of a clinically significant, sudden, or life threatening deterioration of this patient's condition which required my full and direct attention, intervention and personal management. Time is independent of any procedures performed. Discharge Plan Discharge Patient Disposition: Admitted As Inpatient Admit Provider: Isha Sloan Clinical Impression: Alcohol abuse, NSTEMI (non-ST elevated myocardial infarction), CHF (congestive heart failure), COPD (chronic obstructive pulmonary disease), Ischemic cardiomyopathy Condition: Stable Coding Level of Care Code ED Table And Desk Finisher for Dale Castillo
[2023-09-07 00:37] LABS: Add Urine Culture? No; Add Urine Microscopic? YES; Amorphous Sediment Urine 1+ /hpf; Bacteria Urine 1+ /hpf; Bilirubin Urine Neg (Negative); Blood Urine 2+ (Negative); Glucose Urine UA 4+ (Normal); Ketones Urine Negative (Negative); Leukocyte Esterase Urine Negative (Negative); Mucus Urine 1+ /hpf; Nitrate Urine Negative (Negative); Protein Urine 3+ (Negative); RBC Urine 0-4 /hpf (0-2); Urine Appearance Clear (CLEAR); Urine Color Yellow (Yellow); Urobilinogen Urine Neg (Negative); pH Urine 5 (5-7)
[2023-09-07 00:41] LABS: Alanine Aminotransferase 222 U/L (0-41); Albumin Level 3.2 g/dL (3.5-5.2); Alcohol Level 53 mg/dL (0-10); Alkaline Phosphatase 454 U/L (40-130); Anion Gap 15.4 (5-19); Aspartate Amino Transferase 36 U/L (0-40); Blood Urea Nitrogen 66 mg/dL (6-20); Calcium 8.8 mg/dL (8.5-10.5); Carbon Dioxide 25 mmol/L (22-29); Chloride 95 mmol/L (98-107); Globulin 2.8 g/dL (1.3-4.6); Glomerular Filtration Rate 62.6 mL/min (90-130); Glucose 407 mg/dL (65-115); NT Pro B Type Natriuretic Pept 5669 pg/mL (0-125); Osmolality Calculated 306 mOsm/kg (285-295); Potassium 5.4 mmol/L (3.5-5.1); Sodium 130 mmol/L (136-145); Total Bilirubin 0.4 mg/dL (0.15-1.2)
[2023-09-07 00:46] LABS: Acetaminophen < 5.0 ug/mL (10-30)
[2023-09-07 00:47] LABS: Troponin(5th) Baseline 2413 ng/L (0-15)
[2023-09-07 01:04] LABS: Basophils # 0.1 10^3/uL (0.0-0.1); Basophils % 0.7 %; Eosinophils # 0.1 10^3/uL (0.0-0.8); Eosinophils % 0.5 %; Hematocrit 46.8 % (37-53); Lymphocytes # 1.7 10^3/uL (0.8-4.8); Lymphocytes % 12.3 %; Mean Corpuscular HGB Conc 32.1 g/dL (30-55); Mean Corpuscular Hemoglobin 27.5 pg (27-33); Mean Corpuscular Volume 85.9 fl (82-101); Mean Platelet Volume 9.2 fL (7.4-10.4); Monocytes % 7.1 %; Neutrophils # 9.68 10^3/uL (1.8-7.7); Nucleated Red Blood Cells % 0 %; Platelet Count 413 10^3/cmm (157-399); Red Blood Count 5.45 10^6/uL (3.85-5.65); Red Cell Distribution Width 16.6 % (12.1-15.1); White Blood Count 13.46 10^3/uL (3.29-11.43)
[2023-09-07 01:05] LABS: Slide Review Slide Review Perform
--- NOTE | 2023-09-07 01:15 | ECG_ITS ---
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 Measurements Intervals Joshua Rate: 86 P: 55 TN: 157 QRS: 28 QRSD: 82 T: 0 QT: 360 QTc: 431 Interpretive Statements SINUS RHYTHM LOW QRS VOLTAGE [QRS DEFLECTION < 0.5/1.0 mV IN LIMB/CHEST LEADS] ANTEROSEPTAL MYOCARDIAL INFARCTION , OF INDETERMINATE AGE [40+ ms Q WAVE IN V1-V4] Compared to ECG 07/05/2023 15:43:20 Myocardial infarct finding now present Electronically Signed On 09-08-2023 0:32:59 FOOT TENDER by Reynaldo Vizcaino M.D. [id number]
[2023-09-07] MEDS: FUROsemide 10 mg/mL SDV 10mL 80 MG IVP ×3 (02:04→16:12)
[2023-09-07] MEDS: insulin regular-human 100 units/1 mL 10 UNIT IVP (02:16)
[2023-09-07 02:49] LABS: Troponin 5 2HR 2537 ng/L (0-15); Troponin 5 2HR Delta 124 ABS# (0-10)
--- NOTE | 2023-09-07 02:51 | PC.NURSE ---
Luana called to ED. After accepting critical value patient was already gone to [facility]. Critical called to Fiona DOMINGUEZ in [facility].
[2023-09-07] MEDS: heparin drip 25,000 UNIT/500 ML PREMIX 32 UNIT IV (03:36)
[2023-09-07] MEDS: heparin 5,000 unit/mL INJ 1 mL IV ×3 (03:38→17:29)
--- NOTE | 2023-09-07 05:06 | P.HP_ITS ---
Providers/Chief Complaint 2 Admitting Physician: Isha Sloan MD Primary Care Provider: Fidelina Espinal MD Chief Complaint: FALL History of Present Illness Aby Clement is a 58 year old male with a past medical history of CAD, CHF, diabetes, EF of 15%, who presents to [facility] for shortness of breath, anasarca, lower extreme edema. He was recently discharged on 07/13 after being treated for systolic CHF exacerbation. He declined life vest on previous admission. He presents today due to worsened B/L LE weakness from increased swelling and difficulty maintaining balance. He denies any chest pain. Patient in the ER is notable for troponins, baseline at 2400, pending 2.6-hour trend.EKG showing sinus rhythm, low voltage QRS complexes. Review of Systems 2 General: Reports: 10 or more systems reviewed and unremarkable except in HPI and below Const: Denies: fever(s), chills or body aches Eyes: Denies: change in vision, blurry vision or photophobia ENMT: Reports: hoarseness; Denies: throat pain, enlarged tonsils, odynophagia or nasal congestion Card: Denies: chest pain, palpitations, irregular heart rhythm, edema, swelling of feet/ankles, lightheadedness, pre-syncope, dyspnea on exertion or orthopnea Resp: Denies: dyspnea, productive cough, non-productive cough, wheezing, stridor, pain on inspiration, change in phlegm color, hemoptysis or chest congestion GI: Denies: abdominal pain, nausea, vomiting, hematemesis, coffee ground emesis, dysphagia, heartburn, diarrhea, constipation, GI cramping, change in stool character, hematochezia or melena : Denies: flank pain, dysuria, urinary frequency, urinary urgency, urinary hesitancy or hematuria Musc: Denies: neck pain, back pain, extremity pain, joint swelling, joint warmth or deformity Neuro: Denies: headache(s), numbness in extremities, weakness in extremities, sensory changes, difficulty walking, frequent falls, dizziness, vertigo, behavioral changes, Slurred speech present or seizure-like activity Psych: Denies: anxiety, depression, suicidal ideation or homicidal ideation Endo: Denies: polyuria, polydipsia, tired all the time, cold intolerance or hot flashes Sorin/Lymph: Denies: easy bruising or easy bleeding Medications/Allergies Home Medications Medication Instructions Recorded Confirmed Last Taken Type acetaminophen 325 mg tablet 650 mg (2 x 325 mg) PO Q6H PRN 09/12/20 09/07/23 Unknown Rx Mild Pain #0 tabs blood sugar diagnostic (Accu-Chek #10 ea 09/12/20 09/07/23 Unknown Rx Azeb Plus test strips) blood-glucose meter (Accu-Chek #1 ea 09/12/20 09/07/23 Unknown Rx Azeb Plus Meter) lancets #100 ea 10/14/20 09/07/23 Unknown Rx blood sugar diagnostic (Blood #100 ea 01/14/22 09/07/23 Unknown Rx Glucose Test strips) lancets #100 ea 01/14/22 09/07/23 Unknown Rx pen needle, diabetic 33 gauge x #100 ea 01/14/22 09/07/23 Unknown Rx 3/16 (Comfort EZ Pen [place]) blood-glucose meter,continuous #1 ea 01/26/22 09/07/23 Unknown Rx (Dexcom G6 Conventions Reservationist) aspirin 81 mg chewable tablet 81 mg PO DAILY #90 tabs 08/11/22 09/07/23 Unknown Rx albuterol sulfate 90 mcg/actuation 2 puff inhalation QID PRN 11/12/22 09/07/23 Unknown Rx aerosol inhaler (ProAir HFA) shortness of breath or wheezing 30 days #18 grams atorvastatin 20 mg tablet 20 mg PO BEDTIME 90 days #90 tabs 11/12/22 09/07/23 Unknown Rx blood-glucose transmitter (Dexcom #1 ea 11/12/22 09/07/23 Unknown Rx G6 Transmitter device) tamsulosin 0.4 mg capsule 0.4 mg PO DAILY 90 days #90 caps 11/12/22 09/07/23 Unknown Rx blood-glucose sensor (Dexcom G6 #3 ea 05/24/23 09/07/23 Unknown Rx Sensor device) carvedilol 6.25 mg tablet 6.25 mg PO BID 90 days #180 tabs 05/24/23 09/07/23 Unknown Rx spironolactone 25 mg tablet 25 mg PO DAILY 07/05/23 09/07/23 Unknown History furosemide 80 mg tablet 40 mg (1/2 x 80 mg) PO Q8H 90 days 07/13/23 09/07/23 Unknown Rx #180 tabs insulin aspart U-100 100 unit/mL See Rx Instructions .Route 07/13/23 09/07/23 Unknown Rx (3 mL) subcutaneous pen (Novolog .COMPLEX 30 days #15 mL FlexPen U-100 Insulin aspart) insulin glargine 100 unit/mL (3 10 unit (0.1 mL) SUBCUT QPM 30 07/13/23 09/07/23 Unknown Rx mL) subcutaneous pen (Lantus days #6 mL Solostar U-100 Insulin) Allergies Allergy/AdvReac Type Severity Reaction Status Date / Time lisinopril AdvReac Mild Cough Verified 08/24/23 07:51 PFSH Acute 2 PFSH: Medical History Hyperlipidemia Hypertension CHF (congestive heart failure) CAD (coronary artery disease) Acute urinary retention Diabetes Surgical History No pertinent past surgical history Family History Mother CAD (coronary artery disease) Grandmother Diabetes Denies family history of Stroke Social History Smoking and tobacco/nicotine status: current every day tobacco/nicotine user cigarettes Packs smoked per day: 0.5 [ Other cigarette details: Has been smoking 2 packs/day, currently 1 pack/day] Alcohol intake: current Alcohol intake frequency: holidays/special occasions only Substance/Drug Use: never Household members: spouse Housing: House Vitals/I&O/Wt Last Vital Signs Temp 98.1 F 09/07/23 03:18 Pulse 92 09/07/23 03:18 Resp 24 H 09/07/23 03:18 BP 130/94 09/07/23 03:18 Pulse Ox 95 09/07/23 03:18 O2 Del Method Room Air 09/07/23 03:18 Weight last 48 hrs Weight 132.086 kg Weight 132.086 kg Weight 131.542 kg Weight 113.398 kg Physical Exam 2 Narrative: General: No acute distress, AO x3 HEENT: PERRLA, pupils bilaterally equal and reactive, pallors not present Chest: Normal vesicular breath sounds, no added sounds, equal good air entry bilaterally CVS: S1-S2 regular, no murmurs, no tachycardia, no gallops, no rubs Abdomen: Soft, nontender, no organomegaly, bowel sounds present Neuro: No focal deficits, no facial deformity, AO x3, power 5/5 in all limbs Extremities: B/L LE pitting edema with stasis dermatitis . Data 09/06/23 23:57 09/06/23 23:57 A&P Assessment and plan (1) NSTEMI (non-ST elevated myocardial infarction): Patient presenting today with worsening dyspnea and lower extremity edema. Troponin series with baseline at 2400, awaiting 2.6-hour trend Overall concern for NSTEMI per recent echocardiogram from 2022. Unknown last EF at 15%. Admit to CSU Start heparin drip Aspirin 325 mg now followed by 81 mg p.o. daily Statin 40 mg p.o. daily Continue carvedilol Consult cardiology NPO until cardiology assessment (2) CHF (congestive heart failure): Congestive heart failure, acute on chronic systolic Received Lasix 80 mg IV in the emergency room, continue Lasix 80 mg IV every 12 hours Monitor KADEN', creatinine Hold spironolactone due to hyperkalemia Plan Diabetes mellitus: High-dose insulin sliding scale DVT prophylaxis: Currently on heparin infusion Full code Attestations 2 Medical Necessity Statement*: Greater than 2 midnight admission is anticipated for management of NSTEMI, need for IV diuresis, acute on chronic CHF exacerbation Coding Level of Care Code Acute Code for Chg Fwd High MDM includes number and complexity of problems actively addressed during encounter, amount and/or complexity of data reviewed/ordered and described risk of complication, morbidity or mortality of management as documented Diagnoses NSTEMI (non-ST elevated myocardial infarction) I21.4 Chronic congestive heart failure, unspecified heart failure type I50.9
[2023-09-07] MEDS: acetaminophen 325 mg Tablet 650 MG PO ×3 (05:53→23:39)
[2023-09-07] MEDS: aspirin 325 mg Tablet PO (05:53)
[2023-09-07 06:31] LABS: Glucose Point of Care 331 mg/dL (70-110)
[2023-09-07 07:01] LABS: Troponin 5 6HR 2556 ng/L (0-15); Troponin 5 6HR Delta 143 ng/L (0-12)
[2023-09-07] MEDS: tamsulosin 0.4 mg Capsule PO (08:45)
[2023-09-07] MEDS: carvedilol 6.25 mg Tablet PO ×2 (08:45→17:29)
[2023-09-07] MEDS: atorvastatin 40 mg Tablet 20 MG PO (08:45)
[2023-09-07] MEDS: thiamine 100 mg Tablet PO (08:46)
[2023-09-07] MEDS: aspirin 81 mg EC Tablet PO (08:46)
[2023-09-07] MEDS: pantoprazole DR 40 mg Tablet PO (08:46)
[2023-09-07] MEDS: insulin lispro 100 unit/1 mL SUBCUT ×4 (08:46→21:38)
--- NOTE | 2023-09-07 08:53 | PM.CONSULT ---
Providers/Reason For Consult Consulting Physician/Specialty*: MELIZA Vizcaino MD/cardiology Reason for Consult*: Patient with decompensated heart failure/elevated troponin T Requesting Physician: Dr Lenin Sloan Attending Physician: Isha Sloan MD Primary Care Provider: Fidelina Espinal MD History of Present Illness History of Present Illness Aby Clement is a 58 year old male with a history of coronary disease, ischemic cardiomyopathy and congestive heart failure, he is admitted to hospital through the emergency room, very present with complaints of generalized weakness, increasing swelling of the lower extremities and shortness of breath. Patient seems to be a very poor historian. Information is from the patient and also from the medical records. This patient is known to be very poorly compliant with medications and follow-up. He had multiple hospital admissions in the past for decompensated heart failure. According to the patient, he has been feeling weak and tired for some time. He also has been noticing swelling of the extremities, slowly getting worse. Yesterday he was unable to lift his leg off the bed because of the swelling and some generalized weakness. He denies any chest pain or palpitations. Might have had some shortness of breath. Does not seem to have any orthopnea or PND. The patient had a cardiac realization 2019. At that time, he was found to have relatively small caliber coronary arteries with a subtotal occlusion of the mid LAD and the first obtuse marginal branch artery. Based on the angiogram findings, it was opted to treat him medically. The plan was to do a viability study and consider PCI of the LAD lesion. Apparently the viability study was never done. According to the patient, he has been taking the medications as prescribed. He is being followed by Dr. Fidelina Espinal. No chest pain or palpitations. No dizziness or syncopal episode. No fever or chills. Has a dry cough. No other specific complaints He had the most recent echocardiogram in June. The low ejection fraction was 15 to 20%. Had discussions about LifeVest. But the patient consistently refused it. He also no episodes of nonsustained ventricular tachycardia on the monitor, since the hospital admission. He denies any palpitations or dizziness with the spells. Review of Systems Narrative: CONSTITUTIONAL: No fever or chills. Has generalized weakness EYES: No blurring of vision or other visual disturbances lately. ENT: No hoarseness of voice, auditory disturbances or sore throat. CARDIOVASCULAR: As mentioned above. RESPIRATORY: No significant cough. GASTROINTESTINAL: No hematemesis or melena. GENITOURINARY: No dysuria or hematuria. INTEGUMENTARY: No skin rashes or history of skin cancer. NEURO: No transient ischemic attacks or amaurosis. PSYCHIATRIC: No history of psychosis or major depression. HEMATOLOGIC: No bleeding disorders or significant anemia. ENDOCRINE: No history of polyuria or polydipsia. MUSCULOSKELETAL: No recent joint pain or swelling. ALLERGY/IMMUNOLOGY: As mentioned above. Medications/Allergies Home Medications Medication Instructions Recorded Confirmed Last Taken Type acetaminophen 325 mg tablet 650 mg (2 x 325 mg) PO Q6H PRN 09/12/20 09/07/23 Unknown Rx Mild Pain #0 tabs blood sugar diagnostic (Accu-Chek #10 ea 09/12/20 09/07/23 Unknown Rx Azeb Plus test strips) blood-glucose meter (Accu-Chek #1 ea 09/12/20 09/07/23 Unknown Rx Azeb Plus Meter) lancets #100 ea 10/14/20 09/07/23 Unknown Rx blood sugar diagnostic (Blood #100 ea 01/14/22 09/07/23 Unknown Rx Glucose Test strips) lancets #100 ea 01/14/22 09/07/23 Unknown Rx pen needle, diabetic 33 gauge x #100 ea 01/14/22 09/07/23 Unknown Rx 3/16 (Comfort EZ Pen [place]) blood-glucose meter,continuous #1 ea 01/26/22 09/07/23 Unknown Rx (Dexcom G6 Internist Medical Doctor Md) aspirin 81 mg chewable tablet 81 mg PO DAILY #90 tabs 08/11/22 09/07/23 Unknown Rx albuterol sulfate 90 mcg/actuation 2 puff inhalation QID PRN 11/12/22 09/07/23 Unknown Rx aerosol inhaler (ProAir HFA) shortness of breath or wheezing 30 days #18 grams atorvastatin 20 mg tablet 20 mg PO BEDTIME 90 days #90 tabs 11/12/22 09/07/23 Unknown Rx blood-glucose transmitter (Dexcom #1 ea 11/12/22 09/07/23 Unknown Rx G6 Transmitter device) tamsulosin 0.4 mg capsule 0.4 mg PO DAILY 90 days #90 caps 11/12/22 09/07/23 Unknown Rx blood-glucose sensor (Dexcom G6 #3 ea 05/24/23 09/07/23 Unknown Rx Sensor device) carvedilol 6.25 mg tablet 6.25 mg PO BID 90 days #180 tabs 05/24/23 09/07/23 Unknown Rx spironolactone 25 mg tablet 25 mg PO DAILY 07/05/23 09/07/23 Unknown History furosemide 80 mg tablet 40 mg (1/2 x 80 mg) PO Q8H 90 days 07/13/23 09/07/23 Unknown Rx #180 tabs insulin aspart U-100 100 unit/mL See Rx Instructions .Route 07/13/23 09/07/23 Unknown Rx (3 mL) subcutaneous pen (Novolog .COMPLEX 30 days #15 mL FlexPen U-100 Insulin aspart) insulin glargine 100 unit/mL (3 10 unit (0.1 mL) SUBCUT QPM 30 07/13/23 09/07/23 Unknown Rx mL) subcutaneous pen (Lantus days #6 mL Solostar U-100 Insulin) Allergies Allergy/AdvReac Type Severity Reaction Status Date / Time lisinopril AdvReac Mild Cough Verified 08/24/23 07:51 Current Medications Generic Name Dose Route Start Last Admin Trade Name Freq PRN Reason Stop Dose Admin Acetaminophen 650 mg 09/07/23 05:02 09/07/23 05:53 Acetaminophen 325 Mg Tablet PO 650 mg Q6H PRN Administration Mild/Mod Pain Or Temp >/= 101 Aspirin 81 mg 09/07/23 09:00 09/07/23 08:46 Aspirin 81 Mg Ec Tablet PO 81 mg DAILY DUKE Administration Atorvastatin Calcium 20 mg 09/07/23 09:00 09/07/23 08:45 Atorvastatin 40 Mg Tablet PO 20 mg DAILY DUKE Administration Carvedilol 6.25 mg 09/07/23 09:00 09/07/23 08:45 Carvedilol 6.25 Mg Tablet PO 6.25 mg BID DUKE Administration Furosemide 80 mg 09/07/23 05:15 09/07/23 05:50 Furosemide 10 Mg/Ml Sdv 10ml IVP 80 mg Q12H DUKE Administration Heparin Sodium (Porcine) 0 unit 09/07/23 01:52 09/07/23 03:38 Heparin 5,000 Unit/Ml Inj 1 Ml IV 5,800 unit PRN PRN Administration Heparin weight-base protocol Protocol Heparin Sodium/Sodium Chloride 25,000 unit in 500 mls @ 0 mls/hr 09/07/23 02:00 09/07/23 03:36 Heparin Drip IV 14.11 unit/kg/hr .Q0M DUKE 32 mls/hr Administration Protocol Per Protocol Insulin Human Lispro 0 unit 09/07/23 08:00 09/07/23 08:46 Insulin Lispro 100 Unit/1 Ml SUBCUT 14 unit WM&BEDTIME DUKE Administration Protocol Pantoprazole Sodium 40 mg 09/07/23 09:00 09/07/23 08:[address] 40 Mg Tablet PO 40 mg DAILY DUKE Administration Tamsulosin HCl 0.4 mg 09/07/23 09:00 09/07/23 08:45 Tamsulosin 0.4 Mg Capsule PO 0.4 mg DAILY DUKE Administration Thiamine Mononitrate 100 mg 09/07/23 09:00 09/07/23 08:46 Thiamine 100 Mg Tablet PO 100 mg DAILY DUKE Administration PFSH Acute PFSH: Medical History Hyperlipidemia Hypertension CHF (congestive heart failure) CAD (coronary artery disease) Acute urinary retention Diabetes Surgical History No pertinent past surgical history Family History Mother CAD (coronary artery disease) Grandmother Diabetes Denies family history of Stroke Social History Smoking and tobacco/nicotine status: current every day tobacco/nicotine user cigarettes Packs smoked per day: 0.5 [ Other cigarette details: Has been smoking 2 packs/day, currently 1 pack/day] Alcohol intake: current Alcohol intake frequency: holidays/special occasions only Substance/Drug Use: never Household members: spouse Housing: House Vitals/I&O/Wt Last Vital Signs Temp 98.1 F 09/07/23 03:18 Pulse 99 09/07/23 07:45 Resp 20 H 09/07/23 07:45 BP 130/94 09/07/23 03:18 Pulse Ox 93 09/07/23 07:45 O2 Del Method Room Air 09/07/23 07:45 09/06/23 09/07/23 09/07/23 22:59 06:59 14:59 Output Total 1000 / 1000 Balance -1000 / -1000 Weight last 48 hrs Weight 291 lb Weight 291 lb 3.2 oz Weight 291 lb 3.2 oz Weight 290 lb Weight 250 lb Physical Exam Narrative: GENERAL: The patient is alert and oriented times three. Not in any acute distress. [] HEENT: No significant pallor, icterus or lymphadenopathy.Oral cavity: There are no mucous membrane lesions. NECK: Trachea appears to be central. No masses noted. No JVD or thyromegaly appreciated. RESPIRATORY: Chest is symmetrical. No intercostals muscle retraction or any accessory muscle activation. There is no chest wall tenderness. Breath sounds are heard bilaterally. No rales or rhonchi heard. No evidence of any consolidation. [] BREASTS: Deferred. HEART: The heart sounds are normal. No S3 or S4. Short systolic murmur in the left sternal border. No diastolic murmurs. No pericardial rub ABDOMEN: No vessel pulsations or distention. No tenderness. No organomegaly appreciated. Bowel sounds are normally heard. : Deferred. RECTAL: Deferred. LYMPHATIC: No lymphadenopathy noted in the neck. EXTREMITIES: 1-2+ edema both lower extremities. No cyanosis. MUSCULOSKELETAL: No acute joint deformities or swelling SKIN: There are no significant rashes or ecchymosis NEUROPSYCHIATRIC: The patient is alert and oriented x3. Somewhat lethargic. Data 09/06/23 23:57 09/06/23 23:57 Other Labs: Laboratory Last Values WBC 13.46 10^3/uL (3.29-11.43) H 09/06/23 23:57 RBC 5.45 10^6/uL (3.85-5.65) 09/06/23 23:57 Hgb 15.00 g/dL (11.27-16.99) 09/06/23 23:57 Hct 46.8 % (37-53) 09/06/23 23:57 MCV 85.9 fl (82-101) 09/06/23 23:57 MCH 27.5 pg (27-33) 09/06/23 23:57 MCHC 32.1 g/dL (30-55) 09/06/23 23:57 RDW 16.6 % (12.1-15.1) H 09/06/23 23:57 Plt Count 413 10^3/cmm (157-399) H 09/06/23 23:57 MPV 9.2 fL (7.4-10.4) 09/06/23 23:57 Neut % (Auto) 72.0 % 09/06/23 23:57 Lymph % (Auto) 12.3 % 09/06/23 23:57 [place] % (Auto) 7.1 % 09/06/23 23:57 Eos % (Auto) 0.5 % 09/06/23 23:57 Baso % (Auto) 0.7 % 09/06/23 23:57 Neut # (Auto) 9.68 10^3/uL (1.8-7.7) H 09/06/23 23:57 Lymph # (Auto) 1.7 10^3/uL (0.8-4.8) 09/06/23 23:57 [place] # (Auto) 1.0 10^3/uL (0.2-0.9) H 09/06/23 23:57 Eos # (Auto) 0.1 10^3/uL (0.0-0.8) 09/06/23 23:57 Baso # (Auto) 0.1 10^3/uL (0.0-0.1) 09/06/23 23:57 Nucleated RBC % (auto) 0 % 09/06/23 23:57 Nucleated RBCs # 0.0 /100WBC 09/06/23 23:57 APTT 46.4 SECONDS (23.9-36.7) H 09/07/23 16:17 Sodium 130 mmol/L (136-145) L 09/06/23 23:57 Potassium 5.4 mmol/L (3.5-5.1) H 09/06/23 23:57 Chloride 95 mmol/L (98-107) L 09/06/23 23:57 Carbon Dioxide 25 mmol/L (22-29) 09/06/23 23:57 Anion Gap 15.4 (5-19) 09/06/23 23:57 BUN 66 mg/dL (6-20) H 09/06/23 23:57 Creatinine 1.2 mg/dL (0.7-1.2) 09/06/23 23:57 GFR Calculation 62.6 mL/min (90-130) L 09/06/23 23:57 Glucose 407 mg/dL (65-115) H 09/06/23 23:57 POC Glucose 291 mg/dL (70-110) H 09/07/23 20:42 Calculated Osmolality 306 mOsm/kg (285-295) H 09/06/23 23:57 Calcium 8.8 mg/dL (8.5-10.5) 09/06/23 23:57 Magnesium 2.2 mg/dL (1.7-2.3) 09/07/23 06:16 Total Bilirubin 0.4 mg/dL (0.15-1.2) 09/06/23 23:57 AST 36 U/L (0-40) 09/06/23 23:57 ALT 222 U/L (0-41) H 09/06/23 23:57 Alkaline Phosphatase 454 U/L (40-130) H 09/06/23 23:57 Troponin T Baseline 2413 ng/L (0-15) H* 09/06/23 23:57 Troponin T 120 Minute 2537 ng/L (0-15) H 09/07/23 02:04 Delta Troponin T 124 ABS# (0-10) H* 09/07/23 02:04 Troponin T Hi Sens 6Hr 2556 ng/L (0-15) H 09/07/23 06:16 Troponin T Hi Sens 6Hr Delta 143 ng/L (0-12) H* 09/07/23 06:16 NT-Pro-B Natriuret Pep 5669 pg/mL (0-125) H 09/06/23 23:57 Total Protein 6.0 g/dL (6.6-8.7) L 09/06/23 23:57 Albumin 3.2 g/dL (3.5-5.2) L 09/06/23 23:57 Globulin 2.8 g/dL (1.3-4.6) 09/06/23 23:57 Urine Color Yellow (Yellow) 09/06/23 23:59 Urine Appearance Clear (CLEAR) 09/06/23 23:59 Urine pH 5 (5-7) 09/06/23 23:59 Ur Specific [place] 1.010 (1.005-1.030) 09/06/23 23:59 Urine Protein 3+ (Negative) H 09/06/23 23:59 Urine Glucose (UA) 4+ (Normal) H 09/06/23 23:59 Urine Ketones Negative (Negative) 09/06/23 23:59 Urine Blood 2+ (Negative) H 09/06/23 23:59 Urine Nitrate Negative (Negative) 09/06/23 23:59 Urine Bilirubin Neg (Negative) 09/06/23 23:59 Urine Urobilinogen Neg mg/dL (Negative) 09/06/23 23:59 Ur Leukocyte Esterase Negative (Negative) 09/06/23 23:59 Urine RBC 0-4 /hpf (0-2) H 09/06/23 23:59 Urine WBC None /hpf (0-5) 09/06/23 23:59 Ur Squamous Epith Cells None /hpf (0-5) 09/06/23 23:59 Amorphous Sediment 1+ /hpf 09/06/23 23:59 Urine Bacteria 1+ /hpf (NONE) H 09/06/23 23:59 Urine Mucus 1+ /hpf 09/06/23 23:59 Acetaminophen < 5.0 ug/mL (10-30) L 09/06/23 23:57 Ethyl Alcohol 53 mg/dL (0-10) H 09/06/23 23:57 EKG 1: My Interpretation: The EKG showed a normal sinus rhythm with diffuse nonspecific ST-T changes. Poor R wave progression. Low voltage QRS complexes throughout. Possible left atrial enlargement. A&P Assessment and plan (1) Acute on chronic systolic heart failure: Patient has some features of cardiac decompensation. The lung seems to be fairly clear at this time. No evidence of consolidation. Patient was given Lasix in the emergency room. (2) Elevated troponin: Patient has markedly elevated troponin T. This may suggest a recent coronary event. Patient denies any chest pain at all. His symptoms were gradually getting worse. The EKG changes are nonspecific. He may be kept on the IV heparin, aspirin, Plavix and other current medications. (3) Atherosclerotic heart disease of the [place] coronary artery with other forms of angina pectoris: Need to consider a Myocardial perfusion imaging to evaluate for any underlying coronary ischemia. In the meanwhile, may continue on the current medications. (4) Ischemic cardiomyopathy: Patient has severe LV systolic dysfunction. Once again I discussed the patient about the need for prophylactic Internal cardiac defibrillator/ CRTD. Patient is still refusing it.He was on Entresto for some time. It is not clear whether he is still taking it or not. (5) Benign essential hypertension with target blood pressure below 140/90: (6) Dyslipidemia: Patient seems to have a soft blood pressure. This needs to be closely monitored. (7) T2DM (type 2 diabetes mellitus): Aggressive manage . of the diabetes would be appropriate. Also needs to be on Jardiance. Qualifiers: Diabetes mellitus fci insulin use: with terminal carman use Diabetes mellitus complication status: without complication Qualified Code(s): E11.9 - Type 2 diabetes mellitus without complications; Z79.4 - exterminator (current) use of insulin (8) Non-sustained ventricular tachycardia: Patient was started on IV amiodarone. This may be continued. Need to closely monitor the rhythm and the heart rate. (9) High blood urea nitrogen (BUN): Patient has a high blood urea nitrogen/creatinine ratio. This could be multifactorial. Low output state, intravascular volume contraction are considerations. Plan Patient may be given 300 mg of Plavix followed by 75 mg p.o. daily. Patients blood pressure dropped into the 80s after the IV amio. With the fluid challenge, the blood pressure came up. I may hold off on Entresto for the time being. Once the blood pressure is stabilized, it might be appropriate to start him on Entresto. Also consider doing a Myocardial perfusion imaging to evaluate for any underlying coronary ischemia, warranting a cardiac catheterization Based on the patient clinical progress, further recommendations will be made Thank you for the opportunity to eval this patient and make this recommendation Coding Level of Care Code 98545 Diagnoses Acute on chronic systolic heart failure I50.23 Elevated troponin R79.89 Atherosclerotic heart disease of the [place] coronary artery with other forms of angina pectoris I25.118 Ischemic cardiomyopathy I25.5 Benign essential hypertension with target blood pressure below 140/90 I10 Dyslipidemia E78.5 Type 2 diabetes mellitus without complication, with long-term current use of insulin E11.9; Z79.4 Diabetes mellitus terminal carman insulin use: with fci use Diabetes mellitus complication status: without complication Non-sustained ventricular tachycardia I47.29 High blood urea nitrogen (BUN) R79.9
[2023-09-07 09:08] LABS: Magnesium 2.2 mg/dL (1.7-2.3)
[2023-09-07 09:29] LABS: Partial Thromboplastin Time 37.1 SECONDS (23.9-36.7)
[2023-09-07] MEDS: amiodarone 150 MG/100 ML PREMIX 400 MG IV (09:49)
--- NOTE | 2023-09-07 11:30 | PM.MISC ---
Miscellaneous Note Note: Patient evaluated by Dr. Vizcaino, plan is to continue diuresis Added phenobarbital for his alcohol abuse Continue thiamine Echo is pending No active chest pain Right-sided heart failure symptoms present Currently patient is on room air Patient does not want AICD or LifeVest Continue diuresis Full code Cardiac diet
[2023-09-07 11:47] LABS: Glucose Point of Care 303 mg/dL (70-110)
[2023-09-07] MEDS: sodium chloride 0.9% 250 ML IV (13:48)
[2023-09-07 16:38] LABS: Glucose Point of Care 266 mg/dL (70-110)
[2023-09-07 17:14] LABS: Partial Thromboplastin Time 46.4 SECONDS (23.9-36.7)
[2023-09-07] MEDS: heparin drip 25,000 UNIT/500 ML PREMIX 39 UNIT IV (17:40)
[2023-09-07] MEDS: insulin glargine 100 units/1 mL 10 UNIT SUBCUT (18:08)
[2023-09-07 20:52] LABS: Glucose Point of Care 291 mg/dL (70-110)
[2023-09-07] MEDS: PHENobarbital 32.4 mg Tablet 64.8 MG PO (21:39)
[2023-09-07] MEDS: clopidogrel 300 mg Tablet PO (21:39)
[2023-09-07 23:52] LABS: Partial Thromboplastin Time 58.9 SECONDS (23.9-36.7)
[2023-09-08] VITALS (10 sets, daily range): BP systolic 88–106; BP diastolic 60–78; PULSE 64–99; RESP 17–22; TEMP 36.4–36.7; O2SAT 94–99
[2023-09-08] MEDS: FUROsemide 10 mg/mL SDV 10mL 80 MG IVP ×2 (05:48→18:31)
[2023-09-08 06:25] LABS: Glucose Point of Care 144 mg/dL (70-110)
[2023-09-08 06:36] LABS: Basophils # 0.1 10^3/uL (0.0-0.1); Basophils % 0.6 %; Eosinophils # 0.2 10^3/uL (0.0-0.8); Eosinophils % 1.2 %; Hematocrit 43.4 % (37-53); Lymphocytes # 1.6 10^3/uL (0.8-4.8); Lymphocytes % 10.2 %; Mean Corpuscular HGB Conc 31.3 g/dL (30-55); Mean Corpuscular Hemoglobin 27.3 pg (27-33); Mean Platelet Volume 9.3 fL (7.4-10.4); Monocytes # 1.2 10^3/uL (0.2-0.9); Monocytes % 7.8 %; Neutrophils # 12.06 10^3/uL (1.8-7.7); Nucleated Red Blood Cells % 0 %; Platelet Count 326 10^3/cmm (157-399); Red Blood Count 4.99 10^6/uL (3.85-5.65); Red Cell Distribution Width 16.8 % (12.1-15.1); White Blood Count 15.46 10^3/uL (3.29-11.43)
[2023-09-08] MEDS: heparin drip 25,000 UNIT/500 ML PREMIX 39 UNIT IV (06:40)
[2023-09-08 06:54] LABS: Alanine Aminotransferase 143 U/L (0-41); Albumin Level 2.8 g/dL (3.5-5.2); Alkaline Phosphatase 311 U/L (40-130); Anion Gap 16.6 (5-19); Aspartate Amino Transferase 28 U/L (0-40); Blood Urea Nitrogen 70 mg/dL (6-20); Calcium 8.7 mg/dL (8.5-10.5); Carbon Dioxide 21 mmol/L (22-29); Chloride 95 mmol/L (98-107); Glomerular Filtration Rate 36.9 mL/min (90-130); Glucose 179 mg/dL (65-115); Magnesium 2.1 mg/dL (1.7-2.3); Osmolality Calculated 291 mOsm/kg (285-295); Partial Thromboplastin Time 80.4 SECONDS (23.9-36.7); Potassium 4.6 mmol/L (3.5-5.1); Sodium 128 mmol/L (136-145); Total Bilirubin 0.3 mg/dL (0.15-1.2); Total Protein 5.8 g/dL (6.6-8.7)
--- NOTE | 2023-09-08 06:54 | PC.NURSE ---
patient bp ran soft all shift, 80mg furosemide due at 0515. Consulted with Dr Sloan about possibly holding furosemide. was ordered to give medication.
--- NOTE | 2023-09-08 08:07 | P.PN_ITS ---
Subjective 2 Subjective: Patient still short of breath. No chest pain. Vitals/I&O/Wt Last Vital Signs Temp 97.7 F 09/08/23 07:53 Pulse 66 09/08/23 07:53 Resp 20 H 09/08/23 07:53 BP 106/67 09/08/23 07:53 Pulse Ox 97 09/08/23 07:53 O2 Del Method Room Air 09/08/23 07:53 09/07/23 09/08/23 09/08/23 22:59 06:59 14:59 Intake Total 1644.517 / 2844.517 845 / 3689.517 22.75 / 22.75 Output Total 425 / 825 200 / 1025 Balance 1219.517 / 2019.517 645 / 2664.517 22.75 / 22.75 Weight last 48 hrs Weight 296 lb 12.8 oz Weight 291 lb Weight 291 lb 3.2 oz Weight 291 lb 3.2 oz Weight 290 lb Weight 250 lb Physical Exam 2 Narrative: GENERAL: Patient is alert, awake and oriented x3. [] NECK: No jugular vein distension. [] HEENT: No cyanosis. No icterus. No pallor. [] HEART: Regular S1 and S2. No murmur, rub or gallop. [] LUNGS: Diminished air entry bilaterally CENTRAL NERVOUS SYSTEM: Grossly nonfocal. [] EXTREMITIES: Lower extremities with 1+ edema bilaterally Data 09/09/23 00:58 09/09/23 00:58 A&P Assessment and plan (1) Acute on chronic systolic heart failure: Patient's renal function has worsened. Lungs clear at this time. Decrease diuretic therapy. (2) Elevated troponin: Marked elevation. Creatinine has worsened. Ideally should get coronary angiogram once stable. Discussed with patient. May have recent cardiac event (3) Atherosclerotic heart disease of [place] coronary artery with other forms of angina pectoris: Once renal function stabilizes and if patient has agreeable, we will proceed with coronary angiogram. (4) Ischemic cardiomyopathy: Patient does not want to ICD/LifeVest (5) Benign essential hypertension with target blood pressure below 140/90: (6) Dyslipidemia: Monitor for (7) T2DM (type 2 diabetes mellitus): Therapy per medicine team Qualifiers: Diabetes mellitus halfway insulin use: with halfway use Diabetes mellitus complication status: without complication Qualified Code(s): E11.9 - Type 2 diabetes mellitus without complications; Z79.4 - lobsterman (current) use of insulin (8) Non-sustained ventricular tachycardia: Can be switched to p.o. amiodarone. (9) High blood urea nitrogen (BUN): Down titrate to diuretic therapy. Plan Thank you for involving us with care of this patient. We will continue to follow. Please call with questions. Attestations 2 Medical Necessity Statement*: Care expected to cross 2 midnights. Coding Level of Care Code Acute Code for Chg Fwd Diagnoses Acute on chronic systolic heart failure I50.23 Elevated troponin R79.89 Atherosclerotic heart disease of [place] coronary artery with other forms of angina pectoris I25.118 Ischemic cardiomyopathy I25.5 Benign essential hypertension with target blood pressure below 140/90 I10 Dyslipidemia E78.5 Type 2 diabetes mellitus without complication, with long-term current use of insulin E11.9; Z79.4 Diabetes mellitus halfway insulin use: with terminal gauger supervisor use Diabetes mellitus complication status: without complication Non-sustained ventricular tachycardia I47.29 High blood urea nitrogen (BUN) R79.9
[2023-09-08] MEDS: atorvastatin 40 mg Tablet 20 MG PO (08:21)
[2023-09-08] MEDS: aspirin 81 mg EC Tablet PO (08:21)
[2023-09-08] MEDS: pantoprazole DR 40 mg Tablet PO (08:21)
[2023-09-08] MEDS: clopidogrel 75 mg Tablet PO (08:21)
[2023-09-08] MEDS: amiodarone 200 mg Tablet 400 MG PO ×2 (08:21→18:30)
[2023-09-08] MEDS: insulin lispro 100 unit/1 mL SUBCUT ×4 (08:21→21:39)
[2023-09-08] MEDS: thiamine 100 mg Tablet PO (08:21)
[2023-09-08] MEDS: tamsulosin 0.4 mg Capsule PO (08:21)
--- NOTE | 2023-09-08 09:53 | PC.NURSE ---
Attempted to place clay catheter in the pt and had the clay completely inserted as far as it could go and did not have any urine return. Started to inflate the balloon with approx 2 ml saline and the pt started complaining. Deflated the balloon and attempted to manipulate the clay to see if it could go in further and again started to inflated the clay catheter balloon and the pt complained. I then removed clay catheter and informed the hospitalist for further orders.
--- NOTE | 2023-09-08 10:56 | PC.CHAP ---
Pastoral Care Encounter/Spiritual Assessment Type of Contact [] Declined media supervisor visit [] Patient/Family/Request visit [] Outpatient visit [] Follow-up visit [] Physician referral [] Code/Alert [x] Routine visit [] Staff referral [] Actively dying [] Patient sleeping [] Family support [] [] Out of room [] Palliative care [] [] Receiving care in room [] Pre-surgical visit [] Trauma [] Long length of stay [] ICU visit [] Other: Relational/Emotional Strength [] Patient feels connected with others/family/visitors/staff [] Distress [x] Loneliness/isolation [] Abandonment Spirituality of Patient [] Person of [place] [] Attends Confucianism of their [place] [] Believes in Prayer [] Reads Bible or Latter-Day materials [] There are Spiritual issues to be addressed [employer]ier Interventions [x] Prayer [] Active listening [] Non-anxious presence [x] Spiritual/emotional support [] Crisis/trauma care [x] Spiritual counseling [] Bereavement support [] Provided bereavement packet [] Provided Bible/devotional materials [] Provided toy/stuffed animal, coloring book to patient or family member [] Provided Communion [] Anointing/[place] [] Salvation [] Completed spiritual assessment [] Other: Impact on Illness or Injury [] Angry [x] Fearful [] Anxious [] Often cries [] Exhaustion [] Unable to work [] Unable to attend protestant [] Unable to walk/stand [] Unable to read [] Unable to drive [] Unable to eat/drink [] Unable to sleep [] Unable to be with family [] Patient intubated [] Other: Summary prayer for Janina spiritual well being Time spent with patient 15 min
--- NOTE | 2023-09-08 10:57 | P.PN_ITS ---
Subjective 2 Subjective: This morning we were not able to place Light catheter because of edema, patient is stating that he has not made enough urine Creatinine worsening Still looks fluid overloaded Will switch amiodarone IV to p.o. regimen Urine output about 1 L today Patient still does not want LifeVest he is not a candidate for coronary angiogram as of now No active signs of withdrawal I will hold off on phenobarbital continue thiamine Vitals/I&O/Wt Last Vital Signs Temp 97.7 F 09/08/23 07:53 Pulse 67 09/08/23 08:00 Resp 18 09/08/23 08:00 BP 106/67 09/08/23 07:53 Pulse Ox 94 09/08/23 08:00 O2 Del Method Room Air 09/08/23 08:00 09/07/23 09/08/23 09/08/23 22:59 06:59 14:59 Intake Total 1644.517 / 2844.517 845 / 3689.517 382.75 / 382.75 Output Total 425 / 825 200 / 1025 Balance 1219.517 / 2019.517 645 / 2664.517 382.75 / 382.75 Weight last 48 hrs Weight 134.626 kg Weight 131.995 kg Weight 132.086 kg Weight 132.086 kg Weight 131.542 kg Weight 113.398 kg Physical Exam 2 Narrative: Patient still looks fluid overloaded Currently on room air Hemodynamically stable Pulse around 70 Currently on room air Anasarca Venous stasis dermatitis No active sign of ischemic ulcer of lower extremity S1, S2 Pleasant and cooperative GCS 15 Data 09/08/23 05:58 09/08/23 05:58 A&P Assessment and plan (1) Hypertension: (2) CHF (congestive heart failure): (3) Acute on chronic systolic heart failure: (4) Ischemic cardiomyopathy: (5) NSTEMI (non-ST elevated myocardial infarction): (6) Non-sustained ventricular tachycardia: (7) Diabetes: (8) T2DM (type 2 diabetes mellitus): Qualifiers: Diabetes mellitus long term acute care registered nurse insulin use: with long term acute care registered nurse use Diabetes mellitus complication status: without complication Qualified Code(s): E11.9 - Type 2 diabetes mellitus without complications; Z79.4 - custodial (current) use of insulin (9) Scrotal swelling: (10) COPD (chronic obstructive pulmonary disease): (11) Tobacco use: (12) Alcohol abuse: Plan Acute systolic CHF exacerbation Noncompliant Alcohol abuse Active smoker Continue aggressive diuresis Could not place a Light catheter today due to scrotal edema 1 L urine output noted today Hypervolemia with hyponatremia does carry poor prognosis Reduced EF below 35%, patient is stating that he does not want LifeVest KRISTINE Cardiorenal Bladder scan showed 67 mL urine in the bladder This most likely is cardiorenal due to congestive heart failure In case of further worsening might need nephro consultation Patient is not acidotic, potassium 4.6 Nonsustained V. tach PVCs Amiodarone was started yesterday Convert to p.o. regimen today Non-STEMI Patient will finish 48 hours around evening of heparin No active chest pain Will follow-up with recommendations of cardiology Not a candidate for angiogram at this point Continue medical management Alcohol abuse I will hold off of phenobarbital for now Continue thiamine and folic acid Active smoker Noncompliant Type II diabetic Code cardiac consistent carb diet Insulin per sliding scale Attestations 2 Medical Necessity Statement*: Continue medical management Diagnoses Essential hypertension I10 Chronic congestive heart failure, unspecified heart failure type I50.9 Acute on chronic systolic heart failure I50.23 Ischemic cardiomyopathy I25.5 NSTEMI (non-ST elevated myocardial infarction) I21.4 Non-sustained ventricular tachycardia I47.29 Type 2 diabetes mellitus without complication, with long-term current use of insulin E11.9 Type 2 diabetes mellitus without complication, with long-term current use of insulin E11.9; Z79.4 Diabetes mellitus long term acute care registered nurse insulin use: with shelter use Diabetes mellitus complication status: without complication Scrotal swelling N50.89 COPD (chronic obstructive pulmonary disease) J44.9 Tobacco use Z72.0 Alcohol abuse F10.10
--- NOTE | 2023-09-08 11:03 | USCV_ITS ---
Aby Clement Age: 58 Gender: M : 1965 Exam Date: 09/08/2023 15:44 Ordering Phys: Misael Quinonez MD Technologist: SOLOMON Exam Location: [facility] [place] Indication: Swelling HISTORY: Lower extremity swelling. PROCEDURES: Venous duplex imaging was performed in bilateral lower extremities. The following venous structures were evaluated: common femoral vein, profunda vein, proximal portion of the greater saphenous vein, superficial femoral vein, and the popliteal vein. In addition, the posterior tibial and peroneal trunk were evaluated. Serial compression, augmentation maneuvers, and spectral Doppler flow evaluation were performed. FINDINGS: No evidence of DVT seen in any vessel visualized at this time. CONCLUSIONS No evidence of right lower extremity DVT. No evidence of left lower extremity DVT. Garry Deras MD (Electronically Signed) Final Date: 09 September 2023 09:34 S
[2023-09-08 11:48] LABS: Glucose Point of Care 304 mg/dL (70-110)
[2023-09-08] MEDS: doxycycline 100 mg Tablet PO ×2 (12:16→18:30)
[2023-09-08 13:38] LABS: Partial Thromboplastin Time 64.2 SECONDS (23.9-36.7)
[2023-09-08] MEDS: acetaminophen 325 mg Tablet 650 MG PO ×2 (13:57→22:05)
[2023-09-08 16:53] LABS: Glucose Point of Care 298 mg/dL (70-110)
[2023-09-08 18:20] LABS: Potassium, Radom Urine 44 mmol/L
[2023-09-08 18:24] LABS: Urine Random Sodium 10 mmol/L
[2023-09-08 18:25] LABS: Creatinine Urine, Random 145 mg/dL (39-259)
[2023-09-08 18:27] LABS: Urine Random Chloride < 10 mmol/L
[2023-09-08] MEDS: metOLazone 5 MG Tablet PO (18:30)
[2023-09-08] MEDS: insulin glargine 100 units/1 mL 10 UNIT SUBCUT (18:31)
[2023-09-08 18:37] LABS: Microalbum Creatinine Ratio Ur 310 mg/dL (0-20); Microalbumin Random Urine 45 ug/dL (0-20)
[2023-09-08 19:13] LABS: Eosinophil Urine Eosinophils Seen; Urine Eosinophil Count 3 (0-0)
[2023-09-08 20:21] LABS: Partial Thromboplastin Time 55.6 SECONDS (23.9-36.7)
[2023-09-08] MEDS: heparin drip 25,000 UNIT/500 ML PREMIX 37 UNIT IV (21:07)
[2023-09-08 21:21] LABS: Glucose Point of Care 190 mg/dL (70-110)
[2023-09-09] VITALS (13 sets, daily range): BP systolic 101–112; BP diastolic 70–75; PULSE 46–69; RESP 14–21; TEMP 35.6–36.9; O2SAT 90–99
[2023-09-09 01:16] LABS: Basophils # 0.1 10^3/uL (0.0-0.1); Basophils % 0.5 %; Eosinophils # 0.3 10^3/uL (0.0-0.8); Hematocrit 40.8 % (37-53); Lymphocytes # 1.7 10^3/uL (0.8-4.8); Lymphocytes % 13.3 %; Mean Corpuscular HGB Conc 32.4 g/dL (30-55); Mean Corpuscular Hemoglobin 27.6 pg (27-33); Mean Corpuscular Volume 85.4 fl (82-101); Mean Platelet Volume 9.1 fL (7.4-10.4); Monocytes % 7.9 %; Neutrophils # 9.66 10^3/uL (1.8-7.7); Neutrophils % 74.5 %; Nucleated Red Blood Cells % 0 %; Platelet Count 319 10^3/cmm (157-399); Red Blood Count 4.78 10^6/uL (3.85-5.65); Red Cell Distribution Width 16.6 % (12.1-15.1); White Blood Count 12.99 10^3/uL (3.29-11.43)
[2023-09-09 01:24] LABS: Partial Thromboplastin Time 63.9 SECONDS (23.9-36.7)
[2023-09-09 01:31] LABS: Anion Gap 19.6 (5-19); Blood Urea Nitrogen 74 mg/dL (6-20); Calcium 8.8 mg/dL (8.5-10.5); Carbon Dioxide 19 mmol/L (22-29); Chloride 96 mmol/L (98-107); Glomerular Filtration Rate 32.8 mL/min (90-130); Glucose 138 mg/dL (65-115); Osmolality Calculated 294 mOsm/kg (285-295); Potassium 4.6 mmol/L (3.5-5.1); Sodium 130 mmol/L (136-145)
[2023-09-09] MEDS: morphine 4 mg/mL SDV 1 mL 2 MG IVP ×4 (01:58→21:23)
[2023-09-09] MEDS: FUROsemide 10 mg/mL SDV 10mL 80 MG IVP (05:06)
[2023-09-09 06:34] LABS: Glucose Point of Care 162 mg/dL (70-110)
[2023-09-09 07:40] LABS: Partial Thromboplastin Time 56.4 SECONDS (23.9-36.7)
[2023-09-09] MEDS: doxycycline 100 mg Tablet PO ×2 (08:18→17:55)
[2023-09-09] MEDS: metOLazone 5 MG Tablet PO (08:18)
[2023-09-09] MEDS: clopidogrel 75 mg Tablet PO (08:18)
[2023-09-09] MEDS: pantoprazole DR 40 mg Tablet PO (08:18)
[2023-09-09] MEDS: thiamine 100 mg Tablet PO (08:18)
[2023-09-09] MEDS: aspirin 81 mg EC Tablet PO (08:19)
[2023-09-09] MEDS: atorvastatin 40 mg Tablet 20 MG PO (08:19)
[2023-09-09] MEDS: acetaminophen 325 mg Tablet 650 MG PO (08:19)
[2023-09-09] MEDS: insulin lispro 100 unit/1 mL SUBCUT ×4 (08:19→21:23)
[2023-09-09] MEDS: amiodarone 200 mg Tablet 400 MG PO ×2 (08:19→17:55)
[2023-09-09] MEDS: tamsulosin 0.4 mg Capsule PO (08:19)
--- NOTE | 2023-09-09 10:02 | PM.PN ---
Subjective Subjective: Patient is volume overloaded. Has shortness of breath Vitals/I&O/Wt Last Vital Signs Temp 97.9 F 09/09/23 07:03 Pulse 66 09/09/23 08:00 Resp 20 H 09/09/23 08:00 BP 104/74 09/09/23 07:03 Pulse Ox 96 09/09/23 08:00 O2 Del Method Room Air 09/09/23 08:00 09/08/23 09/09/23 09/09/23 22:59 06:59 14:59 Intake Total 1177.25 / 1585.283 300 / 1885.283 480 / 480 Output Total 920 / 920 450 / 1370 Balance 257.25 / 665.283 -150 / 515.283 480 / 480 Weight last 48 hrs Weight 305 lb 12.8 oz Weight 296 lb 12.8 oz Physical Exam Narrative: GENERAL: Patient is alert, awake and oriented x3. [] NECK: No jugular vein distension. [] HEENT: No cyanosis. No icterus. No pallor. [] HEART: Regular S1 and S2. No murmur, rub or gallop. [] LUNGS: Diminished air entry bilaterally CENTRAL NERVOUS SYSTEM: Grossly nonfocal. [] EXTREMITIES: Lower extremities with 1+ edema bilaterally Urinary Catheter Management: Coude: Cath Placed During This Visit: yes Reason for Continuing Indwelling Catheter: Accurate Measurement of Urinary Output in Critically Ill Patients Urinary Catheter Date of Insertion: 09/08/23 Urinary Catheter Time of Insertion: 16:48 Data 09/09/23 00:58 09/11/23 02:47 A&P Assessment and plan (1) Acute on chronic systolic heart failure: Patient appears volume overloaded. Will need higher Lasix dose. Renal function worsening. Nephrology on board. Appreciate recs. (2) Elevated troponin: Marked elevation. Once renal function is stable, will again discuss need for angiogram. (3) Atherosclerotic heart disease of [place] coronary artery with other forms of angina pectoris: At this time patient wants medical therapy. Will discuss further once renal function stabilizes. (4) Ischemic cardiomyopathy: Patient does not want to ICD/LifeVest (5) Benign essential hypertension with target blood pressure below 140/90: (6) Dyslipidemia: Monitor (7) T2DM (type 2 diabetes mellitus): Therapy per medicine team Qualifiers: Diabetes mellitus long term care phlebotomist insulin use: with long term care phlebotomist use Diabetes mellitus complication status: without complication Qualified Code(s): E11.9 - Type 2 diabetes mellitus without complications; Z79.4 - long term care phlebotomist (current) use of insulin (8) Non-sustained ventricular tachycardia: Continue p.o. amiodarone (9) High blood urea nitrogen (BUN): Patient became significantly more volume overload. Will need higher dose of Lasix and close monitoring of renal function and electrolytes. Plan Thank you for involving us with care of this patient. We will continue to follow. Please call with questions. Attestations Medical Necessity Statement*: Care expected to cross 2midnights Coding Level of Care Code Acute Code for Chg Fwd Diagnoses Acute on chronic systolic heart failure I50.23 Elevated troponin R79.89 Atherosclerotic heart disease of [place] coronary artery with other forms of angina pectoris I25.118 Ischemic cardiomyopathy I25.5 Benign essential hypertension with target blood pressure below 140/90 I10 Dyslipidemia E78.5 Type 2 diabetes mellitus without complication, with long-term current use of insulin E11.9; Z79.4 Diabetes mellitus long term care phlebotomist insulin use: with long term care phlebotomist use Diabetes mellitus complication status: without complication Non-sustained ventricular tachycardia I47.29 High blood urea nitrogen (BUN) R79.9
--- NOTE | 2023-09-09 10:59 | USR_ITS ---
PROCEDURE INFORMATION: Exam: US Retroperitoneal; Complete; Kidneys and Bladder Exam date and time: 09/09/2023 1:03 PM Age: 58 years old Clinical indication: Condition or disease; Other: Jovanny TECHNIQUE: Imaging protocol: Real-time ultrasound of the retroperitoneum with image documentation. Complete exam focused on the kidneys and bladder. COMPARISON: CT angio chest w abd pel w con 08/30/2020 9:52 PM FINDINGS: Right kidney: The right kidney is unremarkable. Cortical thickness and echotexture is normal. There is no hydronephrosis. No visible stones. Left kidney: Left kidney is obscured by overlying structures. Aorta: A short segment of the mid abdominal aorta is visible and is nondilated. The remainder of the aorta is obscured by overlying bowel gas. Urinary bladder: The urinary bladder is decompressed. US/US renal BI* [id number] IMPRESSION: 1. Normal right kidney. 2. Nonvisualization of the left kidney. 3. Decompressed urinary bladder.
[2023-09-09 12:06] LABS: Glucose Point of Care 213 mg/dL (70-110)
--- NOTE | 2023-09-09 13:26 | P.CONIM_ITS ---
Providers/Reason For Consult 2 Consulting Physician/Specialty*: K OMM JUANJO/nephrology Reason for Consult*: Acute kidney injury Attending Physician: Dawson Cruz Primary Care Provider: Fidelina Espinal MD History of Present Illness History of Present Illness Aby Clement is a 58 year old male Patient is a 58-year-old male with multiple medical problems including coronary artery disease, congestive cardiac failure with EF of 15%, diabetes, dyslipidemia, presented to the emergency department on 09/07/2023 due to progressively worsening shortness of breath, anasarca. Also noted to have elevated troponin, was started on heparin drip. Seen by cardiology as well. Patient was started on Lasix 80 mg IV every 12 hours with reasonable response. Patient currently on Lasix and metolazone. Blood pressures were noted to be lower in the 80s systolic. His creatinine was 1.2 on presentation gotten worse to 2.1 today also has hyponatremia with a sodium of 130 and bicarbonate level was low at 19. Renal ultrasound showed normal right kidney, nonvisualization of left kidney. No hydronephrosis. Review of Systems 2 Narrative: Other review of systems negative Medications/Allergies Home Medications Medication Instructions Recorded Confirmed Last Taken Type acetaminophen 325 mg tablet 650 mg (2 x 325 mg) PO Q6H PRN 09/12/20 09/07/23 Unknown Rx Mild Pain #0 tabs blood sugar diagnostic (Accu-Chek #10 ea 09/12/20 09/07/23 Unknown Rx Azeb Plus test strips) blood-glucose meter (Accu-Chek #1 ea 09/12/20 09/07/23 Unknown Rx Azeb Plus Meter) lancets #100 ea 10/14/20 09/07/23 Unknown Rx blood sugar diagnostic (Blood #100 ea 01/14/22 09/07/23 Unknown Rx Glucose Test strips) lancets #100 ea 01/14/22 09/07/23 Unknown Rx pen needle, diabetic 33 gauge x #100 ea 01/14/22 09/07/23 Unknown Rx 3/16 (Comfort EZ Pen [place]) blood-glucose meter,continuous #1 ea 01/26/22 09/07/23 Unknown Rx (Dexcom G6 Documentation Liaison) aspirin 81 mg chewable tablet 81 mg PO DAILY #90 tabs 08/11/22 09/07/23 Unknown Rx albuterol sulfate 90 mcg/actuation 2 puff inhalation QID PRN 11/12/22 09/07/23 Unknown Rx aerosol inhaler (ProAir HFA) shortness of breath or wheezing 30 days #18 grams atorvastatin 20 mg tablet 20 mg PO BEDTIME 90 days #90 tabs 11/12/22 09/07/23 Unknown Rx blood-glucose transmitter (Dexcom #1 ea 11/12/22 09/07/23 Unknown Rx G6 Transmitter device) tamsulosin 0.4 mg capsule 0.4 mg PO DAILY 90 days #90 caps 11/12/22 09/07/23 Unknown Rx blood-glucose sensor (Dexcom G6 #3 ea 05/24/23 09/07/23 Unknown Rx Sensor device) carvedilol 6.25 mg tablet 6.25 mg PO BID 90 days #180 tabs 05/24/23 09/07/23 Unknown Rx spironolactone 25 mg tablet 25 mg PO DAILY 07/05/23 09/07/23 Unknown History furosemide 80 mg tablet 40 mg (1/2 x 80 mg) PO Q8H 90 days 07/13/23 09/07/23 Unknown Rx #180 tabs insulin aspart U-100 100 unit/mL See Rx Instructions .Route 07/13/23 09/07/23 Unknown Rx (3 mL) subcutaneous pen (Novolog .COMPLEX 30 days #15 mL FlexPen U-100 Insulin aspart) insulin glargine 100 unit/mL (3 10 unit (0.1 mL) SUBCUT QPM 30 07/13/23 09/07/23 Unknown Rx mL) subcutaneous pen (Lantus days #6 mL Solostar U-100 Insulin) Allergies Allergy/AdvReac Type Severity Reaction Status Date / Time lisinopril AdvReac Mild Cough Verified 08/24/23 07:51 Current Medications Generic Name Dose Route Start Last Admin Trade Name Freq PRN Reason Stop Dose Admin Acetaminophen 650 mg 09/07/23 05:02 09/09/23 08:19 Acetaminophen 325 Mg Tablet PO 650 mg Q6H PRN Administration Mild/Mod Pain Or Temp >/= 101 Amiodarone HCl 400 mg 09/08/23 09:00 09/09/23 08:19 Amiodarone 200 Mg Tablet PO 400 mg BID DUKE Administration Aspirin 81 mg 09/07/23 09:00 09/09/23 08:19 Aspirin 81 Mg Ec Tablet PO 81 mg DAILY DUKE Administration Atorvastatin Calcium 20 mg 09/07/23 09:00 09/09/23 08:19 Atorvastatin 40 Mg Tablet PO 20 mg DAILY DUKE Administration Carvedilol 6.25 mg 09/07/23 09:00 09/07/23 17:29 Carvedilol 6.25 Mg Tablet PO 6.25 mg BID DUKE Administration Clopidogrel Bisulfate 75 mg 09/08/23 09:00 09/09/23 08:18 Clopidogrel 75 Mg Tablet PO 75 mg DAILY DUKE Administration Doxycycline Monohydrate 100 mg 09/08/23 11:05 09/09/23 08:18 Doxycycline 100 Mg Tablet PO 100 mg BID DUKE Administration Protocol Furosemide 80 mg 09/07/23 05:15 09/09/23 05:06 Furosemide 10 Mg/Ml Sdv 10ml IVP 80 mg Q12H DUKE Administration Heparin Sodium (Porcine) 0 unit 09/07/23 01:52 09/07/23 17:29 Heparin 5,000 Unit/Ml Inj 1 Ml IV 2,300 unit PRN PRN Administration Heparin weight-base protocol Protocol Heparin Sodium/Sodium Chloride 25,000 unit in 500 mls @ 0 mls/hr 09/07/23 02:00 09/08/23 21:07 Heparin Drip IV 16.31 unit/kg/hr .Q0M DUKE 37 mls/hr Administration Protocol Per Protocol Amiodarone HCl/Dextrose 360 mg in 200 mls @ 0 mls/hr 09/07/23 09:31 09/08/23 08:10 Nexterone IV 0 mg/min .Q0M DUKE 0 mls/hr Titration Protocol Per Protocol Insulin Glargine 10 unit 09/07/23 18:00 09/08/23 18:31 Insulin Glargine 100 Units/1 Ml SUBCUT 10 unit QPM DUKE Administration Insulin Human Lispro 0 unit 09/07/23 08:00 09/09/23 12:22 Insulin Lispro 100 Unit/1 Ml SUBCUT 8 unit WM&BEDTIME DUKE Administration Protocol Metolazone 5 mg 09/08/23 18:00 09/09/23 08:18 Metolazone 5 Mg Tablet PO 5 mg BID DUKE Administration Morphine Sulfate 2 mg 09/07/23 05:02 09/09/23 12:22 Morphine 4 Mg/Ml Sdv 1 Ml IVP 2 mg Q4H PRN Administration SEVERE PAIN Pantoprazole Sodium 40 mg 09/07/23 09:00 09/09/23 08:[address] 40 Mg Tablet PO 40 mg DAILY DUKE Administration Phenobarbital 64.8 mg 09/07/23 21:00 09/07/23 21:39 Phenobarbital 32.4 Mg Tablet PO 64.8 mg BID DUKE Administration Tamsulosin HCl 0.4 mg 09/07/23 09:00 09/09/23 08:19 Tamsulosin 0.4 Mg Capsule PO 0.4 mg DAILY DUKE Administration Thiamine Mononitrate 100 mg 09/07/23 09:00 09/09/23 08:18 Thiamine 100 Mg Tablet PO 100 mg DAILY DUKE Administration PFSH Acute 2 PFSH: Medical History Hyperlipidemia Hypertension CHF (congestive heart failure) CAD (coronary artery disease) Acute urinary retention Diabetes Surgical History No pertinent past surgical history Family History Mother CAD (coronary artery disease) Grandmother Diabetes Denies family history of Stroke Social History Smoking and tobacco/nicotine status: current every day tobacco/nicotine user cigarettes Packs smoked per day: 0.5 [ Other cigarette details: Has been smoking 2 packs/day, currently 1 pack/day] Alcohol intake: current Alcohol intake frequency: holidays/special occasions only Substance/Drug Use: never Household members: spouse Housing: House Vitals/I&O/Wt Last Vital Signs Temp 97.5 F L 09/09/23 11:10 Pulse 69 09/09/23 11:10 Resp 15 09/09/23 11:10 BP 110/70 09/09/23 11:10 Pulse Ox 96 09/09/23 11:10 O2 Del Method Room Air 09/09/23 11:10 09/08/23 09/09/23 09/09/23 22:59 06:59 14:59 Intake Total 1177.25 / 1585.283 300 / 1885.283 720 / 720 Output Total 920 / 920 450 / 1370 900 / 900 Balance 257.25 / 665.283 -150 / 515.283 -180 / -180 Weight last 48 hrs Weight 138.709 kg Weight 134.626 kg Physical Exam 2 Narrative: Awake alert, mild distress, has lower extremity edema Urinary Catheter Management: Coude: Cath Placed During This Visit: yes Reason for Continuing Indwelling Catheter: Accurate Measurement of Urinary Output in Critically Ill Patients Urinary Catheter Date of Insertion: 09/08/23 Urinary Catheter Time of Insertion: 16:48 Data 09/09/23 00:58 09/09/23 00:58 A&P Assessment and plan (1) KRISTINE (acute kidney injury): Plan 1. Acute kidney injury: Likely multifactorial-was hypotensive on presentation- may have developed ATN in the setting of underlying cardiorenal etiology. -Status post aggressive diuresis, hold metolazone and decrease Lasix dose, added IV albumin -Will try Lasix drip if does not have adequate diuresis -2 g sodium restriction 1500 mill fluid restriction, avoid nephrotoxins 2. Coronary artery disease, NSTEMI on presentation, cardiology following 3.History of CHF with low ejection fraction of 15%, patient has declined LifeVest 4. History of A-fib 5. Metabolic acidosis: Will add Bicitra Patient evaluated using audiovisual cart. Time spent 40 minutes. Consult Attestations 2 Medical Necessity Statement: per medicine Coding Level of Care Code Acute Code for Chg Fwd Diagnoses KRISTINE (acute kidney injury) N17.9
[2023-09-09 13:37] LABS: Partial Thromboplastin Time 48.4 SECONDS (23.9-36.7)
[2023-09-09] MEDS: heparin drip 25,000 UNIT/500 ML PREMIX 40 UNIT IV (13:59)
[2023-09-09] MEDS: heparin 5,000 unit/mL INJ 1 mL IV (14:01)
[2023-09-09] MEDS: albumin 25 G/100 ML BAG 60 G IV ×2 (14:01→21:22)
[2023-09-09 16:46] LABS: Glucose Point of Care 216 mg/dL (70-110)
[2023-09-09] MEDS: FUROsemide 10 mg/mL SDV 10mL 40 MG IVP (17:55)
[2023-09-09] MEDS: insulin glargine 100 units/1 mL 10 UNIT SUBCUT (17:56)
[2023-09-09 20:51] LABS: Partial Thromboplastin Time 79.9 SECONDS (23.9-36.7)
[2023-09-09] MEDS: citric acid-sodium citrate 30 mL UDC PO (21:12)
--- NOTE | 2023-09-09 21:35 | P.PN_ITS ---
Subjective 2 Subjective: He reports he has been generally very weak recently. Discussed with him risk of life-threatening arrhythmia with severe cardiomyopathy. Discussed purpose and consideration of LifeVest. Discussed possible downside/erroneous shocks. Discussed potential benefit of life-threatening arrhythmia reversal. He states he will think about it. Vitals/I&O/Wt Last Vital Signs Temp 98.4 F 09/09/23 19:19 Pulse 60 09/09/23 21:00 Resp 18 09/09/23 21:23 BP 101/73 09/09/23 19:19 Pulse Ox 92 09/09/23 21:23 O2 Del Method Room Air 09/09/23 21:00 09/09/23 09/09/23 09/09/23 06:59 14:59 22:59 Intake Total 300 / 9705.309 8311 / 1220 390 / 1610 Output Total 450 / 1370 900 / 900 480 / 1380 Balance -150 / 515.283 320 / 320 -90 / 230 Weight last 48 hrs Weight 138.709 kg Weight 134.626 kg Physical Exam 2 Const: COMMON NORMALS: patient oriented x3 and alert GENERAL APPEARANCE: c ooperative ORIENTATION/CONSCIOUSNESS: Yes awake HENMT: COMMON NORMALS: oropharynx normal Neck/C-Spine: COMMON NORMALS: no JVD Resp: COMMON NORMALS: normal respiratory effort and clear to auscultation bilaterally AUSCULTATION: clear to auscultation bilaterally Cardio: COMMON NORMALS: no JVD, regular rhythm, S1 normal heart sound present, S2 normal heart sound present and No murmurs present (Cardio) RHYTHM: regular rhythm HEART SOUNDS: S1 normal heart sound present and S2 normal heart sound present GI: COMMON NORMALS: Normal to inspection, nondistended, normoactive bowel sounds present, Soft to palpation and non-tender PALPATION: Yes Soft to palpation Extremity: COMMON NORMALS: no joint enlargement GENERAL: Yes edema (2+) Neuro: COMMON NORMALS: patient oriented x3 and moves all extremities S ENSORIUM/ORIENTATION: Yes alert Skin: NARRATIVE SKIN EXAM: Chronic venous stasis bilateral lower extremities. Urinary Catheter Management: Coude: Cath Placed During This Visit: yes Reason for Continuing Indwelling Catheter: Accurate Measurement of Urinary Output in Critically Ill Patients Urinary Catheter Date of Insertion: 09/08/23 Urinary Catheter Time of Insertion: 16:48 Data 09/09/23 00:58 09/09/23 00:58 A&P Assessment and plan (1) Hypertension: (2) CHF (congestive heart failure): (3) Acute on chronic systolic heart failure: (4) Ischemic cardiomyopathy: (5) NSTEMI (non-ST elevated myocardial infarction): (6) Non-sustained ventricular tachycardia: (7) Diabetes: (8) T2DM (type 2 diabetes mellitus): Qualifiers: Diabetes mellitus buttermaker continuous churn insulin use: with senior living use Diabetes mellitus complication status: without complication Qualified Code(s): E11.9 - Type 2 diabetes mellitus without complications; Z79.4 - intermission coordinator (current) use of insulin (9) Scrotal swelling: (10) COPD (chronic obstructive pulmonary disease): (11) Tobacco use: (12) Alcohol abuse: Plan Acute systolic CHF exacerbation Discussed with him need for abstinence from alcohol. She denies using any other illicit substances. Understands the danger of worsening cardiomyopathy with alcohol. Risk of arrhythmia. Other complications. With severe cardiomyopathy discussed with him risk of life-threatening or severely disabling complications of arrhythmia. Increased risk of arrhythmia. Discussed consideration potential benefits, downsides of LifeVest. He will think about it. Continue diuretic treatment, however, noted worsening renal function. Discussed with cardiology. Cardiology note reviewed. Discussed with nephrology, requested consultation. Appreciate assessment and recommendations. Noted eosinophils in urine. Noted Lasix dose decreased to 40 mg twice daily. At risk of further worsening renal function, reassess chemistry. At risk of electrolyte abnormality with diuresis, reassess chemistry. Monitor on telemetry due to risk of arrhythmia. Discussed with shoe parts caser. Could not have Light placed due to scrotal edema 1 L urine output noted today Hypervolemia with hyponatremia does carry poor prognosis KRISTINE Appreciate nephrology consultation. Reviewed BUN, creatinine, noted worsened today. Noted eosinophils in urine. Reviewed nephrology note. Noted likely multifactorial etiology of KRISTINE. ATN in the setting of hypotension, possibility of cardiorenal etiology. Lasix dose adjusted. Albumin is added. Consideration of Lasix drip. Bicitra for metabolic acidosis. Requested kidney ultrasound. Reassess chemistry. Nonsustained V. tach PVCs Amiodarone p.o. regimen Non-STEMI Stop heparin drip. Reviewed PTT. No active chest pain At some point would benefit from angiogram after improvement in renal function Continue medical management Alcohol abuse Continue to encourage cessation. Discussed with him. Monitor for withdrawal. Continue thiamine and folic acid Active smoker: Encourage cessation. Noncompliant Type II diabetic Code cardiac consistent carb diet Insulin per sliding scale Attestations 2 Medical Necessity Statement*: Continue admission for assessment management of decompensated CHF, worsening renal function with KRISTINE, Indomod with severe cardiomyopathy. Diagnoses Essential hypertension I10 Chronic congestive heart failure, unspecified heart failure type I50.9 Acute on chronic systolic heart failure I50.23 Ischemic cardiomyopathy I25.5 NSTEMI (non-ST elevated myocardial infarction) I21.4 Non-sustained ventricular tachycardia I47.29 Type 2 diabetes mellitus without complication, with long-term current use of insulin E11.9 Type 2 diabetes mellitus without complication, with long-term current use of insulin E11.9; Z79.4 Diabetes mellitus buttermaker continuous churn insulin use: with senior living use Diabetes mellitus complication status: without complication Scrotal swelling N50.89 COPD (chronic obstructive pulmonary disease) J44.9 Tobacco use Z72.0 Alcohol abuse F10.10
[2023-09-09 21:42] LABS: Glucose Point of Care 189 mg/dL (70-110)
[2023-09-10] VITALS (14 sets, daily range): BP systolic 97–118; BP diastolic 69–85; PULSE 53–60; RESP 16–20; TEMP 36.4–36.6; O2SAT 89–97
[2023-09-10 04:16] LABS: Blood Urea Nitrogen 79 mg/dL (6-20); Calcium 9.2 mg/dL (8.5-10.5); Carbon Dioxide 19 mmol/L (22-29); Chloride 91 mmol/L (98-107); Glomerular Filtration Rate 31.1 mL/min (90-130); Glucose 126 mg/dL (65-115); Osmolality Calculated 281 mOsm/kg (285-295); Sodium 123 mmol/L (136-145)
[2023-09-10 04:21] LABS: Anion Gap 18.1 (5-19); Potassium 5.1 mmol/L (3.5-5.1)
--- NOTE | 2023-09-10 05:02 | PC.NURSE ---
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 said it was ok to administer 40 mg lasix.
[2023-09-10] MEDS: albumin 25 G/100 ML BAG 60 G IV ×3 (05:13→21:03)
[2023-09-10] MEDS: FUROsemide 10 mg/mL SDV 10mL 40 MG IVP (05:14)
--- NOTE | 2023-09-10 05:30 | P.PN_ITS ---
Subjective 2 Subjective: Cr worse UOP 1300 ml Medications: Reviewed: Yes Vitals/I&O/Wt Last Vital Signs Temp 97.9 F 09/10/23 03:49 Pulse 56 L 09/10/23 03:49 Resp 20 H 09/10/23 03:49 BP 104/75 09/10/23 03:49 Pulse Ox 89 L 09/10/23 03:49 O2 Del Method Room Air 09/10/23 03:49 09/09/23 09/09/23 09/10/23 14:59 22:59 06:59 Intake Total 1220 / 1220 789.4 / 2009.4 Output Total 900 / 900 680 / 1580 Balance 320 / 320 109.4 / 429.4 Weight last 48 hrs Weight 138.709 kg Weight 134.626 kg Physical Exam 2 Narrative: Awake alert, mild distress, has lower extremity edema Urinary Catheter Management: Coude: Cath Placed During This Visit: yes Reason for Continuing Indwelling Catheter: Accurate Measurement of Urinary Output in Critically Ill Patients Urinary Catheter Date of Insertion: 09/08/23 Urinary Catheter Time of Insertion: 16:48 Data 09/09/23 00:58 09/11/23 02:47 A&P Assessment and plan (1) KRISTINE (acute kidney injury): Plan 1. Acute kidney injury: Likely multifactorial-was hypotensive on presentation- may have developed ATN in the setting of underlying cardiorenal etiology. - Cr worse , and has worsening , added IV albumin - will try IV lasix drip, if no adequate diuretic response , will need temporary HD for volume management -2 g sodium restriction 1500 mill fluid restriction, avoid nephrotoxins 2. Coronary artery disease, NSTEMI on presentation, cardiology following 3.History of CHF with low ejection fraction of 15%, patient has declined LifeVest 4. History of A-fib 5. Metabolic acidosis: Will add Bicitra Patient evaluated using audiovisual cart. Time spent 40 minutes. Attestations 2 Medical Necessity Statement*: per medicine Coding Level of Care Code Acute Code for [facility] Fwd Diagnoses KRISTINE (acute kidney injury) N17.9
[2023-09-10] MEDS: morphine 4 mg/mL SDV 1 mL 2 MG IVP ×2 (05:32→19:02)
[2023-09-10 06:27] LABS: Glucose Point of Care 120 mg/dL (70-110)
[2023-09-10] MEDS: FUROsemide 100 MG in sodium chloride 0.9% 40 ML 20 MG IV (07:32)
[2023-09-10] MEDS: doxycycline 100 mg Tablet PO ×2 (08:54→18:50)
[2023-09-10] MEDS: aspirin 81 mg EC Tablet PO (08:55)
[2023-09-10] MEDS: clopidogrel 75 mg Tablet PO (08:55)
[2023-09-10] MEDS: thiamine 100 mg Tablet PO (08:55)
[2023-09-10] MEDS: tamsulosin 0.4 mg Capsule PO (08:55)
[2023-09-10] MEDS: pantoprazole DR 40 mg Tablet PO (08:55)
[2023-09-10] MEDS: amiodarone 200 mg Tablet 400 MG PO ×2 (08:55→18:50)
[2023-09-10] MEDS: atorvastatin 40 mg Tablet 20 MG PO (08:55)
[2023-09-10 11:17] LABS: Glucose Point of Care 192 mg/dL (70-110)
[2023-09-10] MEDS: insulin lispro 100 unit/1 mL SUBCUT ×3 (12:09→21:03)
[2023-09-10] MEDS: FUROsemide 100 MG in sodium chloride 0.9% 40 ML IV (12:09)
[2023-09-10 15:12] LABS: Calcium 8.9 mg/dL (8.5-10.5); Carbon Dioxide 17 mmol/L (22-29); Chloride 89 mmol/L (98-107); Glomerular Filtration Rate 36.9 mL/min (90-130); Glucose 209 mg/dL (65-115); Osmolality Calculated 281 mOsm/kg (285-295); Sodium 120 mmol/L (136-145)
[2023-09-10 15:15] LABS: Anion Gap 19.3 (5-19); Creatinine Clr Calc Pharmacy 61.4536; Potassium 5.3 mmol/L (3.5-5.1)
[2023-09-10 15:17] LABS: Blood Urea Nitrogen 82 mg/dL (6-20)
--- NOTE | 2023-09-10 16:29 | P.PN_ITS ---
Subjective 2 Subjective: Patient feeling better. Still volume overloaded. Urine output increased Vitals/I&O/Wt Last Vital Signs Temp 97.8 F 09/10/23 12:00 Pulse 58 L 09/10/23 14:00 Resp 19 H 09/10/23 12:00 BP 103/71 09/10/23 12:00 Pulse Ox 95 09/10/23 12:00 O2 Del Method Room Air 09/10/23 12:00 09/10/23 09/10/23 09/10/23 06:59 14:59 22:59 Intake Total 475 / 2484.4 480 / 480 Output Total 250 / 1830 3650 / 3650 Balance 225 / 654.4 -3170 / -3170 Weight last 48 hrs Weight 310 lb 3.2 oz Weight 305 lb 12.8 oz Physical Exam 2 Narrative: GENERAL: Patient is alert, awake and oriented x3. [] NECK: No jugular vein distension. [] HEENT: No cyanosis. No icterus. No pallor. [] HEART: Regular S1 and S2. No murmur, rub or gallop. [] LUNGS: Diminished air entry bilaterally CENTRAL NERVOUS SYSTEM: Grossly nonfocal. [] EXTREMITIES: Lower extremities with 1+ edema bilaterally Urinary Catheter Management: Coude: Cath Placed During This Visit: yes Reason for Continuing Indwelling Catheter: Accurate Measurement of Urinary Output in Critically Ill Patients Urinary Catheter Date of Insertion: 09/08/23 Urinary Catheter Time of Insertion: 16:48 Data 09/09/23 00:58 09/11/23 02:47 A&P Assessment and plan (1) Acute on chronic systolic heart failure: On higher dose of Lasix, urine output has improved. He is feeling slightly better. Has developed hyponatremia. Will need close monitoring. (2) Elevated troponin: Marked elevation. Once renal function is stable, will again discuss need for angiogram. (3) Atherosclerotic heart disease of [place] coronary artery with other forms of angina pectoris: At this time patient wants medical therapy. Will discuss further once renal function stabilizes. (4) Ischemic cardiomyopathy: Patient does not want to ICD/LifeVest (5) Benign essential hypertension with target blood pressure below 140/90: (6) Dyslipidemia: Monitor (7) T2DM (type 2 diabetes mellitus): Therapy per medicine team Qualifiers: Diabetes mellitus mcc insulin use: with intermediate card tender use Diabetes mellitus complication status: without complication Qualified Code(s): E11.9 - Type 2 diabetes mellitus without complications; Z79.4 - long term care phlebotomist (current) use of insulin (8) Non-sustained ventricular tachycardia: Continue p.o. amiodarone (9) High blood urea nitrogen (BUN): Has some worsening however higher doses of Lasix has improved urine output and improving volume status overall. Plan Thank you for involving us with care of this patient. We will continue to follow. Please call with questions. Attestations 2 Medical Necessity Statement*: Care expected to cross 2midnights Coding Level of Care Code Acute Code for [facility] Fwd Diagnoses Acute on chronic systolic heart failure I50.23 Elevated troponin R79.89 Atherosclerotic heart disease of [place] coronary artery with other forms of angina pectoris I25.118 Ischemic cardiomyopathy I25.5 Benign essential hypertension with target blood pressure below 140/90 I10 Dyslipidemia E78.5 Type 2 diabetes mellitus without complication, with long-term current use of insulin E11.9; Z79.4 Diabetes mellitus intermediate card tender insulin use: with intermediate card tender use Diabetes mellitus complication status: without complication Non-sustained ventricular tachycardia I47.29 High blood urea nitrogen (BUN) R79.9
[2023-09-10 17:34] LABS: Glucose Point of Care 202 mg/dL (70-110)
[2023-09-10] MEDS: insulin glargine 100 units/1 mL 10 UNIT SUBCUT (18:50)
[2023-09-10 20:12] LABS: Glucose Point of Care 285 mg/dL (70-110)
[2023-09-10 22:27] LABS: Anion Gap 19.8 (5-19); Calcium 9.2 mg/dL (8.5-10.5); Carbon Dioxide 21 mmol/L (22-29); Chloride 90 mmol/L (98-107); Glomerular Filtration Rate 32.8 mL/min (90-130); Glucose 205 mg/dL (65-115); Osmolality Calculated 293 mOsm/kg (285-295); Potassium 4.8 mmol/L (3.5-5.1); Sodium 126 mmol/L (136-145)
[2023-09-10 22:35] LABS: Blood Urea Nitrogen 84 mg/dL (6-20)
[2023-09-11] VITALS (12 sets, daily range): BP systolic 100–111; BP diastolic 66–80; PULSE 51–65; RESP 16–38; TEMP 36.5–36.7; O2SAT 92–96
--- NOTE | 2023-09-11 00:05 | PM.PN ---
Subjective Subjective: He is feeling tired. No chest pain. Discussed with him further regarding chest vest and he is leaning towards getting it at the time of discharge. Vitals/I&O/Wt Last Vital Signs Temp 97.5 F L 09/10/23 19:23 Pulse 55 L 09/10/23 21:02 Resp 16 09/10/23 21:02 BP 98/69 09/10/23 19:23 Pulse Ox 96 09/10/23 21:02 O2 Del Method Room Air 09/10/23 21:02 09/10/23 09/10/23 09/11/23 14:59 22:59 06:59 Intake Total 480 / 480 714.717 / 1194.717 Output Total 3650 / 3650 2500 / 6150 Balance -3170 / -3170 -1785.283 / -4955.283 Weight last 48 hrs Weight 140.704 kg Weight 138.709 kg Physical Exam Const: COMMON NORMALS: patient oriented x3 and alert GENERAL APPEARANCE: cooperative ORIENTATION/CONSCIOUSNESS: Yes awake HENMT: COMMON NORMALS: oropharynx normal Neck/C-Spine: COMMON NORMALS: no JVD Resp: COMMON NORMALS: normal respiratory effort and clear to auscultation bilaterally AUSCULTATION: clear to auscultation bilaterally Cardio: COMMON NORMALS: no JVD, regular rhythm, S1 normal heart sound present, S2 normal heart sound present and No murmurs present (Cardio) RHYTHM: regular rhythm HEART SOUNDS: S1 normal heart sound present and S2 normal heart sound present GI: COMMON NORMALS: Normal to inspection, nondistended, normoactive bowel sounds present, Soft to palpation and non-tender PALPATION: Yes Soft to palpation Extremity: COMMON NORMALS: no joint enlargement GENERAL: Yes edema (2+) Neuro: COMMON NORMALS: patient oriented x3 and moves all extremities SENSORIUM/ORIENTATION: Yes alert Skin: NARRATIVE SKIN EXAM: Chronic venous stasis bilateral lower extremities. Urinary Catheter Management: Coude: Cath Placed During This Visit: yes Reason for Continuing Indwelling Catheter: Accurate Measurement of Urinary Output in Critically Ill Patients Urinary Catheter Date of Insertion: 09/08/23 Urinary Catheter Time of Insertion: 16:48 Data 09/09/23 00:58 09/10/23 22:05 A&P Assessment and plan (1) Hypertension: (2) CHF (congestive heart failure): (3) Acute on chronic systolic heart failure: (4) Ischemic cardiomyopathy: (5) NSTEMI (non-ST elevated myocardial infarction): (6) Non-sustained ventricular tachycardia: (7) Diabetes: (8) T2DM (type 2 diabetes mellitus): Qualifiers: Diabetes mellitus correction insulin use: with predatory animal exterminator use Diabetes mellitus complication status: without complication Qualified Code(s): E11.9 - Type 2 diabetes mellitus without complications; Z79.4 - buttermaker continuous churn (current) use of insulin (9) Scrotal swelling: (10) COPD (chronic obstructive pulmonary disease): (11) Tobacco use: (12) Alcohol abuse: Plan Acute systolic CHF exacerbation: Has been switched to Lasix drip. At risk of electrolyte abnormality. Monitor chemistry. Reviewed vitals, BMP. Recheck chemistry, magnesium. Discussed with cardiology. Discussed with nephrology. Reviewed nephrology note. Reviewed disease case manager rn note. Continue diuresis for now, however, difficult to assess volume status. Reassess condition. Continue albumin. At risk of hypovolemia. Monitor vitals. Noted blood pressure soft. Hold further drip for now. With severe cardiomyopathy discussed with him risk of life-threatening or severely disabling complications of arrhythmia. Could not have Light placed due to scrotal edema Hypervolemia with hyponatremia does carry poor prognosis KRISTINE noted without much renal function improvement but producing urine. Discussed eosinophils in the urine. Other symptoms not suggestive of AIN. Consideration of other possibility. Cholesterol crystals with recent cardiac event? Monitor for other symptoms of AIN. Did discontinue Protonix just in case. As per discussion with nephrology. Reviewed nephrology note. Reassess chemistry. Nonsustained V. tach PVCs Amiodarone p.o. regimen Non-STEMI Stop heparin drip. Reviewed PTT. No active chest pain At some point would benefit from angiogram after improvement in renal function Continue medical management Alcohol abuse Continue to encourage cessation. Discussed with him. Monitor for withdrawal. Continue thiamine and folic acid Active smoker: Encourage cessation. Noncompliant Type II diabetic Code cardiac consistent carb diet Insulin per sliding scale Discussed with disease case manager rn. Attestations Medical Necessity Statement*: Continue admission for assessment of management of decompensated CHF in setting of KRISTINE in a gentleman with severe cardiomyopathy, recent NSTEMI. Diagnoses Essential hypertension I10 Chronic congestive heart failure, unspecified heart failure type I50.9 Acute on chronic systolic heart failure I50.23 Ischemic cardiomyopathy I25.5 NSTEMI (non-ST elevated myocardial infarction) I21.4 Non-sustained ventricular tachycardia I47.29 Type 2 diabetes mellitus without complication, with long-term current use of insulin E11.9 Type 2 diabetes mellitus without complication, with long-term current use of insulin E11.9; Z79.4 Diabetes mellitus predatory animal exterminator insulin use: with correction use Diabetes mellitus complication status: without complication Scrotal swelling N50.89 COPD (chronic obstructive pulmonary disease) J44.9 Tobacco use Z72.0 Alcohol abuse F10.10
[2023-09-11 03:29] LABS: Calcium 9.3 mg/dL (8.5-10.5); Carbon Dioxide 20 mmol/L (22-29); Chloride 94 mmol/L (98-107); Glomerular Filtration Rate 34.7 mL/min (90-130); Glucose 113 mg/dL (65-115); Osmolality Calculated 295 mOsm/kg (285-295); Sodium 129 mmol/L (136-145)
[2023-09-11 03:30] LABS: Anion Gap 19.5 (5-19); Potassium 4.5 mmol/L (3.5-5.1)
[2023-09-11 03:31] LABS: Blood Urea Nitrogen 87 mg/dL (6-20)
[2023-09-11] MEDS: acetaminophen 325 mg Tablet 650 MG PO ×2 (05:54→20:43)
[2023-09-11] MEDS: albumin 25 G/100 ML BAG 60 G IV ×3 (05:55→21:14)
[2023-09-11 06:19] LABS: Glucose Point of Care 159 mg/dL (70-110)
--- NOTE | 2023-09-11 07:14 | P.PN_ITS ---
Subjective 2 Subjective: lasix gtt on hold Medications: Reviewed: Yes Vitals/I&O/Wt Last Vital Signs Temp 97.7 F 09/11/23 04:00 Pulse 64 09/11/23 06:00 Resp 22 H 09/11/23 04:00 BP 100/66 09/11/23 04:00 Pulse Ox 94 09/11/23 04:00 O2 Del Method Room Air 09/11/23 04:00 09/10/23 09/11/23 09/11/23 22:59 06:59 14:59 Intake Total 714.717 / 9427.666 6740 / 2194.717 Output Total 2500 / 6150 600 / 6750 Balance -1785.283 / -4955.283 400 / -4555.283 Weight last 48 hrs Weight 142.655 kg Weight 140.704 kg Physical Exam 2 Narrative: Awake alert, mild distress, has lower extremity edema Urinary Catheter Management: Coude: Cath Placed During This Visit: yes Reason for Continuing Indwelling Catheter: Accurate Measurement of Urinary Output in Critically Ill Patients Urinary Catheter Date of Insertion: 09/08/23 Urinary Catheter Time of Insertion: 16:48 Data 09/09/23 00:58 09/11/23 02:47 A&P Assessment and plan (1) KRISTINE (acute kidney injury): Plan 1. Acute kidney injury: Likely multifactorial-was hypotensive on presentation- may have developed ATN in the setting of underlying cardiorenal etiology.+ Urine eosinophills -s/p lasix gtt, good diuresis , on hold now , - will resume Po lasix in 1-2 days -2 g sodium restriction 1500 mill fluid restriction, avoid nephrotoxins 2. Coronary artery disease, NSTEMI on presentation, cardiology following 3.History of CHF with low ejection fraction of 15%, patient has declined LifeVest 4. History of A-fib 5. Metabolic acidosis: added Bicitra 6. Hyponatremia :Na dropped to 120 , now 129 , monitor Patient evaluated using audiovisual cart. Time spent 40 minutes. Attestations 2 Medical Necessity Statement*: per medicine Coding Level of Care Code Acute Code for [facility] Fwd Diagnoses KRISTINE (acute kidney injury) N17.9
[2023-09-11] MEDS: doxycycline 100 mg Tablet PO ×2 (09:07→17:36)
[2023-09-11] MEDS: aspirin 81 mg EC Tablet PO (09:08)
[2023-09-11] MEDS: tamsulosin 0.4 mg Capsule PO (09:08)
[2023-09-11] MEDS: amiodarone 200 mg Tablet 400 MG PO ×2 (09:08→17:36)
[2023-09-11] MEDS: atorvastatin 40 mg Tablet 20 MG PO (09:08)
[2023-09-11] MEDS: clopidogrel 75 mg Tablet PO (09:08)
[2023-09-11] MEDS: insulin lispro 100 unit/1 mL SUBCUT ×4 (09:09→20:44)
[2023-09-11] MEDS: thiamine 100 mg Tablet PO (09:09)
[2023-09-11] MEDS: gabapentin 100 mg Capsule PO ×2 (10:16→17:36)
[2023-09-11 11:28] LABS: Glucose Point of Care 189 mg/dL (70-110)
[2023-09-11] MEDS: lanolin oint 7 gm 1 APPLIC TOPICAL (12:52)
[2023-09-11] MEDS: insulin glargine 100 units/1 mL 10 UNIT SUBCUT (17:36)
[2023-09-11 20:29] LABS: Glucose Point of Care 195 mg/dL (70-110)
--- NOTE | 2023-09-11 21:33 | PM.PN ---
Subjective Subjective: He had difficult time sleeping overnight, tried to catch up on some sleep this morning. Vitals/I&O/Wt Last Vital Signs Temp 97.7 F 09/11/23 18:58 Pulse 62 09/11/23 21:05 Resp 16 09/11/23 21:05 BP 104/73 09/11/23 18:58 Pulse Ox 94 09/11/23 21:05 O2 Del Method Room Air 09/11/23 21:05 09/11/23 09/11/23 09/11/23 06:59 14:59 22:59 Intake Total 1000 / 2194.717 1680 / 1680 240 / 1920 Output Total 600 / 6750 2500 / 2500 1500 / 4000 Balance 400 / -4555.283 -820 / -820 -1260 / -2080 Weight last 48 hrs Weight 142.655 kg Weight 140.704 kg Physical Exam Const: COMMON NORMALS: patient oriented x3 and alert GENERAL APPEARANCE: cooperative ORIENTATION/CONSCIOUSNESS: Yes awake HENMT: COMMON NORMALS: oropharynx normal Neck/C-Spine: COMMON NORMALS: no JVD Resp: COMMON NORMALS: normal respiratory effort and clear to auscultation bilaterally AUSCULTATION: clear to auscultation bilaterally Cardio: COMMON NORMALS: no JVD, regular rhythm, S1 normal heart sound present, S2 normal heart sound present and No murmurs present (Cardio) RHYTHM: regular rhythm HEART SOUNDS: S1 normal heart sound present and S2 normal heart sound present GI: COMMON NORMALS: Normal to inspection, nondistended, normoactive bowel sounds present, Soft to palpation and non-tender PALPATION: Yes Soft to palpation Extremity: COMMON NORMALS: no joint enlargement GENERAL: Yes edema (1+) Neuro: COMMON NORMALS: patient oriented x3 and moves all extremities SENSORIUM/ORIENTATION: Yes alert Skin: NARRATIVE SKIN EXAM: Chronic venous stasis bilateral lower extremities. Urinary Catheter Management: Coude: Cath Placed During This Visit: yes Reason for Continuing Indwelling Catheter: Accurate Measurement of Urinary Output in Critically Ill Patients Urinary Catheter Date of Insertion: 09/08/23 Urinary Catheter Time of Insertion: 16:48 Data 09/09/23 00:58 09/11/23 02:47 A&P Assessment and plan (1) Hypertension: (2) CHF (congestive heart failure): (3) Acute on chronic systolic heart failure: (4) Ischemic cardiomyopathy: (5) NSTEMI (non-ST elevated myocardial infarction): (6) Non-sustained ventricular tachycardia: (7) Diabetes: (8) T2DM (type 2 diabetes mellitus): Qualifiers: Diabetes mellitus mcc insulin use: with termite control representative use Diabetes mellitus complication status: without complication Qualified Code(s): E11.9 - Type 2 diabetes mellitus without complications; Z79.4 - termite control representative (current) use of insulin (9) Scrotal swelling: (10) COPD (chronic obstructive pulmonary disease): (11) Tobacco use: (12) Alcohol abuse: Plan Acute systolic CHF exacerbation: Diuretics for now have been held given appears to be intravascularly depleted, soft blood pressures, worsened hyponatremia. Today with noted improvement. Reassess fluid status, reassess chemistry. Renal function. Follow-up magnesium. Reviewed nephrology note. Fluid restriction. Cardiac diet. Follow-up with him regarding LifeVest. Could not have Light placed due to scrotal edema Hypervolemia with hyponatremia does carry poor prognosis KRISTINE reviewed kidney function, chemistry, with improving sodium. Diuretics on hold. Reviewed nephrology note. Reassess kidney function, electrolytes. Noted without much renal function improvement but producing urine. Discussed eosinophils in the urine. Other symptoms not suggestive of AIN. Consideration of other possibility. Cholesterol crystals with recent cardiac event? Monitor for other symptoms of AIN. Did discontinue Protonix just in case. As per discussion with nephrology. Reviewed nephrology note. Reassess chemistry. Hyponatremia: Noted improving. Follow-up chemistry. Nonsustained V. tach PVCs Amiodarone p.o. regimen Non-STEMI Stop heparin drip. Reviewed PTT. No active chest pain At some point would benefit from angiogram after improvement in renal function Continue medical management Complaining of burning in his feet, suspected neuropathic pain. Started on low-dose gabapentin, discussed risks with him, caution with increasing dose, with renal dysfunction, risk of accumulation. Risk of encephalopathy, hypotension. Monitor vitals, mental status. Symptoms. Alcohol abuse Continue to encourage cessation. Discussed with him. Monitor for withdrawal. Continue thiamine and folic acid Active smoker: Encourage cessation. Noncompliant Type II diabetic Code cardiac consistent carb diet Insulin per sliding scale Attestations Medical Necessity Statement*: Continue admission for assessment of management of decompensated CHF in setting of KRISTINE in a gentleman with severe cardiomyopathy, recent NSTEMI. and High MDM includes described risk of complication, morbidity or mortality of management as documented Diagnoses Essential hypertension I10 Chronic congestive heart failure, unspecified heart failure type I50.9 Acute on chronic systolic heart failure I50.23 Ischemic cardiomyopathy I25.5 NSTEMI (non-ST elevated myocardial infarction) I21.4 Non-sustained ventricular tachycardia I47.29 Type 2 diabetes mellitus without complication, with long-term current use of insulin E11.9 Type 2 diabetes mellitus without complication, with long-term current use of insulin E11.9; Z79.4 Diabetes mellitus mcc insulin use: with termite control representative use Diabetes mellitus complication status: without complication Scrotal swelling N50.89 COPD (chronic obstructive pulmonary disease) J44.9 Tobacco use Z72.0 Alcohol abuse F10.10
--- NOTE | 2023-09-11 21:35 | P.PN_ITS ---
Subjective 2 Subjective: Patient is drowsy and sleepy today. Denies chest pain Vitals/I&O/Wt Last Vital Signs Temp 97.7 F 09/11/23 18:58 Pulse 62 09/11/23 21:05 Resp 16 09/11/23 21:05 BP 104/73 09/11/23 18:58 Pulse Ox 94 09/11/23 21:05 O2 Del Method Room Air 09/11/23 21:05 09/11/23 09/11/23 09/11/23 06:59 14:59 22:59 Intake Total 1000 / 2194.717 1680 / 1680 240 / 1920 Output Total 600 / 6750 2500 / 2500 1500 / 4000 Balance 400 / -4555.283 -820 / -820 -1260 / -2080 Weight last 48 hrs Weight 314 lb 8 oz Weight 310 lb 3.2 oz Physical Exam 2 Narrative: GENERAL: Patient is alert, awake and oriented x3. [] NECK: No jugular vein distension. [] HEENT: No cyanosis. No icterus. No pallor. [] HEART: Regular S1 and S2. No murmur, rub or gallop. [] LUNGS: Diminished air entry bilaterally CENTRAL NERVOUS SYSTEM: Grossly nonfocal. [] EXTREMITIES: Lower extremities with 1+ edema bilaterally Urinary Catheter Management: Coude: Cath Placed During This Visit: yes Reason for Continuing Indwelling Catheter: Accurate Measurement of Urinary Output in Critically Ill Patients Urinary Catheter Date of Insertion: 09/08/23 Urinary Catheter Time of Insertion: 16:48 Data 09/09/23 00:58 09/12/23 03:23 A&P Assessment and plan (1) Acute on chronic systolic heart failure: Diuretics are on hold secondary to intravascular volume depletion and hyponatremia. Labs have improved. May need to start oral diuretics later. Monitor labs. (2) Elevated troponin: Marked elevation. Once renal function is stable, will again discuss need for angiogram. (3) Atherosclerotic heart disease of [place] coronary artery with other forms of angina pectoris: At this time patient wants medical therapy. Will discuss further once renal function stabilizes. (4) Ischemic cardiomyopathy: Patient does not want to ICD/LifeVest (5) Benign essential hypertension with target blood pressure below 140/90: (6) Dyslipidemia: Monitor (7) T2DM (type 2 diabetes mellitus): Therapy per medicine team Qualifiers: Diabetes mellitus exterminator helper insulin use: with exterminator helper use Diabetes mellitus complication status: without complication Qualified Code(s): E11.9 - Type 2 diabetes mellitus without complications; Z79.4 - equipment operator intermodal yard (current) use of insulin (8) Non-sustained ventricular tachycardia: Continue p.o. amiodarone (9) High blood urea nitrogen (BUN): Monitor for renal labs. Diuretic therapy is on hold secondary to hyponatremia. Plan Thank you for involving us with care of this patient. We will continue to follow. Please call with questions. Attestations 2 Medical Necessity Statement*: Care expected to cross 2 midnights. Coding Level of Care Code Acute Code for Chg Fwd Diagnoses Acute on chronic systolic heart failure I50.23 Elevated troponin R79.89 Atherosclerotic heart disease of [place] coronary artery with other forms of angina pectoris I25.118 Ischemic cardiomyopathy I25.5 Benign essential hypertension with target blood pressure below 140/90 I10 Dyslipidemia E78.5 Type 2 diabetes mellitus without complication, with long-term current use of insulin E11.9; Z79.4 Diabetes mellitus mcfp insulin use: with exterminator helper use Diabetes mellitus complication status: without complication Non-sustained ventricular tachycardia I47.29 High blood urea nitrogen (BUN) R79.9
[2023-09-12] VITALS (13 sets, daily range): BP systolic 85–139; BP diastolic 55–83; PULSE 53–96; RESP 16–26; TEMP 36.3–36.6; O2SAT 90–95
[2023-09-12] MEDS: acetaminophen 325 mg Tablet 650 MG PO ×4 (02:25→21:11)
[2023-09-12 03:50] LABS: Calcium 9.3 mg/dL (8.5-10.5); Carbon Dioxide 21 mmol/L (22-29); Chloride 92 mmol/L (98-107); Glomerular Filtration Rate 41.9 mL/min (90-130); Glucose 161 mg/dL (65-115); Osmolality Calculated 295 mOsm/kg (285-295); Sodium 128 mmol/L (136-145)
[2023-09-12 03:51] LABS: Magnesium 1.9 mg/dL (1.7-2.3)
[2023-09-12 03:56] LABS: Anion Gap 19.9 (5-19); Blood Urea Nitrogen 83 mg/dL (6-20); Potassium 4.9 mmol/L (3.5-5.1)
[2023-09-12] MEDS: albumin 25 G/100 ML BAG 60 G IV ×3 (06:21→21:45)
--- NOTE | 2023-09-12 07:19 | P.PN_ITS ---
Vitals/I&O/Wt Last Vital Signs Temp 97.6 F 09/12/23 07:03 Pulse 96 09/12/23 07:03 Resp 19 H 09/12/23 07:03 BP 139/66 09/12/23 07:03 Pulse Ox 93 09/12/23 07:03 O2 Del Method Room Air 09/12/23 07:03 09/11/23 09/12/23 09/12/23 22:59 06:59 14:59 Intake Total 990 / 2670 100 / 2770 Output Total 2450 / 4950 750 / 5700 Balance -1460 / -2280 -650 / -2930 Weight last 48 hrs Weight 140.75 kg Weight 142.655 kg Physical Exam 2 Urinary Catheter Management: Coude: Cath Placed During This Visit: yes Reason for Continuing Indwelling Catheter: Accurate Measurement of Urinary Output in Critically Ill Patients Urinary Catheter Date of Insertion: 09/08/23 Urinary Catheter Time of Insertion: 16:48 Data 09/09/23 00:58 09/12/23 03:23 A&P Assessment and plan (1) KRISTINE (acute kidney injury): Plan 1. Acute kidney injury: Likely multifactorial-was hypotensive on presentation- may have developed ATN in the setting of underlying cardiorenal etiology.+ Urine eosinophills -s/p lasix gtt, good diuresis , on hold now , - will resume Po lasix in Am -2 g sodium restriction 1500 mill fluid restriction, avoid nephrotoxins 2. Coronary artery disease, NSTEMI on presentation, cardiology following 3.History of CHF with low ejection fraction of 15%, patient has declined LifeVest 4. History of A-fib 5. Metabolic acidosis: added Bicitra 6. Hyponatremia :Na dropped to 120 , now 129 , monitor Patient evaluated using audiovisual cart. Time spent 40 minutes. Attestations 2 Medical Necessity Statement*: per medicine Coding Level of Care Code Acute Code for [facility] Fw Diagnoses KRISTINE (acute kidney injury) N17.9
[2023-09-12 07:42] LABS: Glucose Point of Care 180 mg/dL (70-110)
[2023-09-12] MEDS: thiamine 100 mg Tablet PO (08:45)
[2023-09-12] MEDS: atorvastatin 40 mg Tablet 20 MG PO (08:45)
[2023-09-12] MEDS: clopidogrel 75 mg Tablet PO (08:45)
[2023-09-12] MEDS: aspirin 81 mg EC Tablet PO (08:45)
[2023-09-12] MEDS: doxycycline 100 mg Tablet PO ×2 (08:45→17:55)
[2023-09-12] MEDS: amiodarone 200 mg Tablet 400 MG PO ×2 (08:46→17:55)
[2023-09-12] MEDS: tamsulosin 0.4 mg Capsule PO (08:46)
[2023-09-12] MEDS: insulin lispro 100 unit/1 mL SUBCUT ×4 (08:46→21:45)
[2023-09-12] MEDS: gabapentin 100 mg Capsule PO ×3 (08:46→21:11)
[2023-09-12] MEDS: magnesium sulfate premix 1 GM/100 ML PIGGYBACK IV (11:09)
--- NOTE | 2023-09-12 11:20 | PM.PN ---
Subjective Subjective: Patient feels fatigued. No chest pain. Creatinine has improved. Vitals/I&O/Wt Last Vital Signs Temp 97.5 F L 09/12/23 08:00 Pulse 69 09/12/23 08:00 Resp 16 09/12/23 08:00 BP 99/76 09/12/23 08:00 Pulse Ox 95 09/12/23 07:17 O2 Del Method Room Air 09/12/23 08:00 09/11/23 09/12/23 09/12/23 22:59 06:59 14:59 Intake Total 990 / 2670 100 / 2770 340 / 340 Output Total 2450 / 4950 750 / 5700 Balance -1460 / -2280 -650 / -2930 340 / 340 Weight last 48 hrs Weight 310 lb 4.8 oz Weight 314 lb 8 oz Physical Exam Narrative: GENERAL: Patient is alert, awake and oriented x3. [] NECK: No jugular vein distension. [] HEENT: No cyanosis. No icterus. No pallor. [] HEART: Regular S1 and S2. No murmur, rub or gallop. [] LUNGS: Diminished air entry bilaterally CENTRAL NERVOUS SYSTEM: Grossly nonfocal. [] EXTREMITIES: Lower extremities with 1+ edema bilaterally Urinary Catheter Management: Coude: Cath Placed During This Visit: yes Reason for Continuing Indwelling Catheter: Accurate Measurement of Urinary Output in Critically Ill Patients Urinary Catheter Date of Insertion: 09/08/23 Urinary Catheter Time of Insertion: 16:48 Data 09/09/23 00:58 09/12/23 03:23 A&P Assessment and plan (1) Acute on chronic systolic heart failure: Diuretics are on hold. May restart p.o. Lasix tomorrow. Monitor renal function closely. (2) Elevated troponin: Marked elevation. Once patient's renal function improves and he is agreeable, should ideally get coronary angiogram. (3) Atherosclerotic heart disease of [place] coronary artery with other forms of angina pectoris: At this time patient wants medical therapy. Continue dual antiplatelet therapy. Will discuss further once renal function stabilizes. (4) Ischemic cardiomyopathy: Patient does not want to ICD/LifeVest (5) Benign essential hypertension with target blood pressure below 140/90: (6) Dyslipidemia: Monitor (7) T2DM (type 2 diabetes mellitus): Therapy per medicine team Qualifiers: Diabetes mellitus buttermilk drier operator insulin use: with buttermilk drier operator use Diabetes mellitus complication status: without complication Qualified Code(s): E11.9 - Type 2 diabetes mellitus without complications; Z79.4 - intermodal customer service (current) use of insulin (8) Non-sustained ventricular tachycardia: Continue p.o. amiodarone (9) High blood urea nitrogen (BUN): Slight improvement. Diuretic therapy is on hold. Plan Thank you for involving us with care of this patient. We will continue to follow. Please call with questions. Attestations Medical Necessity Statement*: Care expected to cross 2 midnights. Coding Level of Care Code Acute Code for g Fwd Diagnoses Acute on chronic systolic heart failure I50.23 Elevated troponin R79.89 Atherosclerotic heart disease of [place] coronary artery with other forms of angina pectoris I25.118 Ischemic cardiomyopathy I25.5 Benign essential hypertension with target blood pressure below 140/90 I10 Dyslipidemia E78.5 Type 2 diabetes mellitus without complication, with long-term current use of insulin E11.9; Z79.4 Diabetes mellitus long-term insulin use: with long-term use Diabetes mellitus complication status: without complication Non-sustained ventricular tachycardia I47.29 High blood urea nitrogen (BUN) R79.9
[2023-09-12 12:11] LABS: Glucose Point of Care 258 mg/dL (70-110)
[2023-09-12 16:43] LABS: Glucose Point of Care 214 mg/dL (70-110)
[2023-09-12] MEDS: insulin glargine 100 units/1 mL 10 UNIT SUBCUT (17:56)
[2023-09-12 21:41] LABS: Glucose Point of Care 261 mg/dL (70-110)
--- NOTE | 2023-09-12 23:03 | PM.PN ---
Subjective Subjective: He states he got a little better rest overnight. No new symptoms. No chest pain. Vitals/I&O/Wt Last Vital Signs Temp 97.9 F 09/12/23 20:00 Pulse 62 09/12/23 20:00 Resp 23 H 09/12/23 20:00 BP 109/79 09/12/23 20:00 Pulse Ox 90 09/12/23 20:00 O2 Del Method Room Air 09/12/23 20:00 09/12/23 09/12/23 09/13/23 14:59 22:59 06:59 Intake Total 680 / 680 340 / 1020 Output Total 600 / 600 1130 / 1730 Balance 80 / 80 -790 / -710 Weight last 48 hrs Weight 140.75 kg Weight 142.655 kg Physical Exam Narrative: Sitting up at the side of the bed. Const: COMMON NORMALS: patient oriented x3 and alert GENERAL APPEARANCE: cooperative ORIENTATION/CONSCIOUSNESS: Yes awake HENMT: COMMON NORMALS: oropharynx normal Neck/C-Spine: COMMON NORMALS: no JVD Resp: COMMON NORMALS: normal respiratory effort and clear to auscultation bilaterally AUSCULTATION: clear to auscultation bilaterally Cardio: COMMON NORMALS: no JVD, regular rhythm, S1 normal heart sound present, S2 normal heart sound present and No murmurs present (Cardio) RHYTHM: regular rhythm HEART SOUNDS: S1 normal heart sound present and S2 normal heart sound present GI: COMMON NORMALS: Normal to inspection, nondistended, normoactive bowel sounds present, Soft to palpation and non-tender PALPATION: Yes Soft to palpation Extremity: COMMON NORMALS: no joint enlargement GENERAL: Yes edema (1+) Neuro: COMMON NORMALS: patient oriented x3 and moves all extremities SENSORIUM/ORIENTATION: Yes alert Skin: NARRATIVE SKIN EXAM: Chronic venous stasis bilateral lower extremities. Urinary Catheter Management: Coude: Cath Placed During This Visit: yes Reason for Continuing Indwelling Catheter: Accurate Measurement of Urinary Output in Critically Ill Patients Urinary Catheter Date of Insertion: 09/08/23 Urinary Catheter Time of Insertion: 16:48 Data 09/09/23 00:58 09/12/23 03:23 A&P Assessment and plan (1) Hypertension: (2) CHF (congestive heart failure): (3) Acute on chronic systolic heart failure: (4) Ischemic cardiomyopathy: (5) NSTEMI (non-ST elevated myocardial infarction): (6) Non-sustained ventricular tachycardia: (7) Diabetes: (8) T2DM (type 2 diabetes mellitus): Qualifiers: Diabetes mellitus custodial insulin use: with adjunct faculty for medical terminology use Diabetes mellitus complication status: without complication Qualified Code(s): E11.9 - Type 2 diabetes mellitus without complications; Z79.4 - director long term care (current) use of insulin (9) Scrotal swelling: (10) COPD (chronic obstructive pulmonary disease): (11) Tobacco use: (12) Alcohol abuse: Plan Acute systolic CHF exacerbation: Discussed with cardiology, KRISTINE with some mild improvement today, creatinine down to 1.7. Continue to withhold diuretics for now with suspected intravascular depletion, reassess renal function. Reassess chemistry, electrolytes in the morning. Reviewed nephrology note. Plan to resume oral Lasix in the morning. Fluid restriction. Cardiac diet. Follow-up with him regarding LifeVest. Could not have Light placed due to scrotal edema Hypervolemia with hyponatremia does carry poor prognosis KRISTINE reviewed kidney function, chemistry, with improving sodium. Diuretics on hold. Reassess chemistry. Reviewed nephrology note. Noted with mild renal function improvement but producing urine. Discussed eosinophils in the urine. Other symptoms not suggestive of AIN. Consideration of other possibility. Cholesterol crystals with recent cardiac event? Monitor for other symptoms of AIN. Did discontinue Protonix just in case. Hyponatremia: Noted improving. Follow-up chemistry. Nonsustained V. tach PVCs Amiodarone p.o. regimen Non-STEMI No active chest pain At some point would benefit from angiogram after improvement in renal function, Discussed with cardiology, given renal difficulties likely not during the current hospitalization. Continue medical management Neuropathic pain: Still having burning in his feet with some improvement but persistent symptoms reported. Gabapentin cautiously increased up to 100 mg 3 times daily, discussed risks. Monitor vitals, mental status. Symptoms. Alcohol abuse Continue to encourage cessation. Discussed with him. Monitor for withdrawal. Continue thiamine and folic acid Active smoker: Encourage cessation. Noncompliant Type II diabetic Code cardiac consistent carb diet Insulin per sliding scale Attestations Medical Necessity Statement*: Continue admission for assessment of management of decompensated CHF in setting of KRISTINE in a gentleman with severe cardiomyopathy, recent NSTEMI. Coding Level of Care Code Acute Code for [facility] Fwd Diagnoses Essential hypertension I10 Chronic congestive heart failure, unspecified heart failure type I50.9 Acute on chronic systolic heart failure I50.23 Ischemic cardiomyopathy I25.5 NSTEMI (non-ST elevated myocardial infarction) I21.4 Non-sustained ventricular tachycardia I47.29 Type 2 diabetes mellitus without complication, with long-term current use of insulin E11.9 Type 2 diabetes mellitus without complication, with long-term current use of insulin E11.9; Z79.4 Diabetes mellitus custodial insulin use: with adjunct faculty for medical terminology use Diabetes mellitus complication status: without complication Scrotal swelling N50.89 COPD (chronic obstructive pulmonary disease) J44.9 Tobacco use Z72.0 Alcohol abuse F10.10
[2023-09-13] VITALS (11 sets, daily range): BP systolic 95–120; BP diastolic 57–85; PULSE 61–82; RESP 16–28; TEMP 36.4–36.6; O2SAT 90–99
[2023-09-13] MEDS: acetaminophen 325 mg Tablet 650 MG PO ×4 (01:33→18:34)
[2023-09-13] MEDS: albumin 25 G/100 ML BAG 60 G IV ×3 (05:30→21:14)
[2023-09-13 07:34] LABS: Glucose Point of Care 178 mg/dL (70-110)
[2023-09-13] MEDS: amiodarone 200 mg Tablet 400 MG PO ×2 (10:04→17:46)
[2023-09-13] MEDS: gabapentin 100 mg Capsule PO ×3 (10:04→21:03)
[2023-09-13] MEDS: thiamine 100 mg Tablet PO (10:04)
[2023-09-13] MEDS: atorvastatin 40 mg Tablet 20 MG PO (10:05)
[2023-09-13] MEDS: doxycycline 100 mg Tablet PO ×2 (10:05→17:46)
[2023-09-13] MEDS: clopidogrel 75 mg Tablet PO (10:05)
[2023-09-13] MEDS: tamsulosin 0.4 mg Capsule PO (10:05)
[2023-09-13] MEDS: aspirin 81 mg EC Tablet PO (10:06)
[2023-09-13] MEDS: insulin lispro 100 unit/1 mL SUBCUT ×4 (10:06→21:11)
[2023-09-13 10:13] LABS: Anion Gap 17.4 (5-19); Calcium 9.4 mg/dL (8.5-10.5); Carbon Dioxide 22 mmol/L (22-29); Chloride 98 mmol/L (98-107); Glomerular Filtration Rate 48.4 mL/min (90-130); Glucose 232 mg/dL (65-115); Osmolality Calculated 309 mOsm/kg (285-295); Potassium 4.4 mmol/L (3.5-5.1); Sodium 133 mmol/L (136-145)
[2023-09-13 10:22] LABS: Blood Urea Nitrogen 84 mg/dL (6-20)
[2023-09-13 11:58] LABS: Glucose Point of Care 251 mg/dL (70-110)
--- NOTE | 2023-09-13 13:36 | PM.PN ---
Subjective Subjective: Patient is slowly improving. Still has the shortness of breath. Denies any chest pain or palpitations. No fever or chills. No significant cough. The leg edema seems to be improving. Medications: Medication Review Details: Current Medications Acetaminophen (Acetaminophen 325 Mg Tablet) 650 mg PO Q6H PRN PRN Reason: Mild/Mod Pain Or Temp >/= 101 Last Admin: 09/13/23 12:11 Dose: 650 mg Albuterol Sulfate (Albuterol 2.5 Mg/3 Ml Neb) 2 mg INHALATION QID PRN PRN Reason: shortness of breath or wheezing Amiodarone HCl (Amiodarone 200 Mg Tablet) 400 mg PO BID [facility] Last Admin: 09/13/23 10:04 Dose: 400 mg Aspirin (Aspirin 81 Mg Ec Tablet) 81 mg PO DAILY [facility] Last Admin: 09/13/23 10:06 Dose: 81 mg Atorvastatin Calcium (Atorvastatin 40 Mg Tablet) 20 mg PO DAILY [facility] Last Admin: 09/13/23 10:05 Dose: 20 mg Carvedilol (Carvedilol 6.25 Mg Tablet) 6.25 mg PO BID [facility] Last Admin: 09/07/23 17:29 Dose: 6.25 mg Clopidogrel Bisulfate (Clopidogrel 75 Mg Tablet) 75 mg PO DAILY [facility] Last Admin: 09/13/23 10:05 Dose: 75 mg Dextrose (Dextrose 50% Syringe 50 Ml) 25 ml IVP ONCE PRN; Protocol PRN Reason: hypoglycemia protocol Dextrose (Dextrose 50% Syringe 50 Ml) 50 ml IVP PRN PRN; Protocol PRN Reason: hypoglycemia protocol Doxycycline Monohydrate (Doxycycline 100 Mg Tablet) 100 mg PO BID [facility]; Protocol Last Admin: 09/13/23 10:05 Dose: 100 mg Furosemide (Furosemide 40 Mg Tablet) 40 mg PO DAILY@0800 [facility] Gabapentin (Gabapentin 100 Mg Capsule) 100 mg PO TID [facility] Last Admin: 09/13/23 10:04 Dose: 100 mg Dextrose (D5w) 500 mls @ 0 mls/hr IV ONCE PRN; Protocol PRN Reason: Adult Acute Hypoglycemia Prot Amiodarone HCl/Dextrose (Nexterone) 360 mg in 200 mls @ 0 mls/hr IV .Q0M [facility]; Protocol Last Titration: 09/10/23 19:54 Dose: Infused Albumin Human (Albumin) 25 g in 100 mls @ 60 mls/hr IV Q8H [facility] Last Infusion: 09/13/23 07:08 Dose: Infused Insulin Glargine (Insulin Glargine 100 Units/1 Ml) 10 unit SUBCUT QPM [facility] Last Admin: 09/12/23 17:56 Dose: 10 unit Insulin Human Lispro (Insulin Lispro 100 Unit/1 Ml) 0 unit SUBCUT WM&BEDTIME [facility]; Protocol Last Admin: 09/13/23 12:10 Dose: 10 unit Lanolin (Lanolin Oint 7 Gm) 1 applic TOPICAL PRN PRN PRN Reason: DRYNESS Last Admin: 09/11/23 12:52 Dose: 1 applic Metolazone (Metolazone 5 Mg Tablet) 5 mg PO BID [facility] Last Admin: 09/09/23 08:18 Dose: 5 mg Naloxone HCl (Naloxone 0.4 Mg/Ml Sdv) 0.1 mg IVP Q2M PRN PRN Reason: OPIATERV Ondansetron HCl (Ondansetron 2 Mg/Ml Sdv 2 Ml) 4 mg IVP Q8H PRN PRN Reason: vomiting, or N/V if npo Phenobarbital (Phenobarbital 32.4 Mg Tablet) 64.8 mg PO BID [facility] Last Admin: 09/07/23 21:39 Dose: 64.8 mg Tamsulosin HCl (Tamsulosin 0.4 Mg Capsule) 0.4 mg PO DAILY [facility] Last Admin: 09/13/23 10:05 Dose: 0.4 mg Thiamine Mononitrate (Thiamine 100 Mg Tablet) 100 mg PO DAILY [facility] Last Admin: 09/13/23 10:04 Dose: 100 mg Vitals/I&O/Wt Last Vital Signs Temp 97.6 F 09/13/23 07:57 Pulse 66 09/13/23 12:00 Resp 21 H 09/13/23 12:00 BP 107/75 09/13/23 12:00 Pulse Ox 96 09/13/23 12:00 O2 Del Method Room Air 09/13/23 12:00 09/12/23 09/13/23 09/13/23 22:59 06:59 14:59 Intake Total 340 / 1020 100 / 1120 560 / 560 Output Total 1130 / 1730 400 / 2130 800 / 800 Balance -790 / -710 -300 / -1010 -240 / -240 Weight last 48 hrs Weight 309 lb 14.4 oz Weight 310 lb 4.8 oz Physical Exam Narrative: GENERAL: The patient is alert and oriented times three. Not in any acute distress. HEENT: No significant pallor, icterus or lymphadenopathy.Oral cavity: There are no mucous membrane lesions. NECK: Trachea appears to be central. No masses noted. No JVD or thyromegaly appreciated. RESPIRATORY: Chest is symmetrical. No intercostals muscle retraction or any accessory muscle activation. There is no chest wall tenderness. Breath sounds are heard bilaterally. No rales or rhonchi heard. No evidence of any consolidation. BREASTS: Deferred. HEART: The heart sounds are normal. No S3 or S4. Short systolic murmur in the left sternal border. No pericardial rub ABDOMEN: No vessel pulsations or distention. No tenderness. No organomegaly appreciated. Bowel sounds are normally heard. : Deferred. RECTAL: Deferred. LYMPHATIC: No lymphadenopathy noted in the neck. EXTREMITIES: Features of chronic venous stasis of both lower extremities. 1-2+ edema. Massive scrotal edema and some edema of the penis. MUSCULOSKELETAL: No acute joint deformities or swelling SKIN: There are no significant rashes or ecchymosis NEUROPSYCHIATRIC: The patient is alert and oriented x3. Appears to be in a good mood. No tremors or rigidity noted. Urinary Catheter Management: Coude: Cath Placed During This Visit: yes Reason for Continuing Indwelling Catheter: Acute Urinary Retention or Obstruction Urinary Catheter Date of Insertion: 09/08/23 Urinary Catheter Time of Insertion: 16:48 Data 09/09/23 00:58 09/13/23 09:41 Other Labs: Laboratory Last Values WBC 12.99 10^3/uL (3.29-11.43) H 09/09/23 00:58 RBC 4.78 10^6/uL (3.85-5.65) 09/09/23 00:58 Hgb 13.20 g/dL (11.27-16.99) 09/09/23 00:58 Hct 40.8 % (37-53) 09/09/23 00:58 MCV 85.4 fl (82-101) 09/09/23 00:58 MCH 27.6 pg (27-33) 09/09/23 00:58 MCHC 32.4 g/dL (30-55) 09/09/23 00:58 RDW 16.6 % (12.1-15.1) H 09/09/23 00:58 Plt Count 319 10^3/cmm (157-399) 09/09/23 00:58 Plt Count Cancelled 09/09/23 00:58 MPV 9.1 fL (7.4-10.4) 09/09/23 00:58 Neut % (Auto) 74.5 % 09/09/23 00:58 Lymph % (Auto) 13.3 % 09/09/23 00:58 Bates % (Auto) 7.9 % 09/09/23 00:58 Eos % (Auto) 2.0 % 09/09/23 00:58 Baso % (Auto) 0.5 % 09/09/23 00:58 Neut # (Auto) 9.66 10^3/uL (1.8-7.7) H 09/09/23 00:58 Lymph # (Auto) 1.7 10^3/uL (0.8-4.8) 09/09/23 00:58 Bates # (Auto) 1.0 10^3/uL (0.2-0.9) H 09/09/23 00:58 Eos # (Auto) 0.3 10^3/uL (0.0-0.8) 09/09/23 00:58 Baso # (Auto) 0.1 10^3/uL (0.0-0.1) 09/09/23 00:58 Nucleated RBC % (auto) 0 % 09/09/23 00:58 Nucleated RBCs # 0.0 /100WBC 09/09/23 00:58 APTT 79.9 SECONDS (23.9-36.7) H D 09/09/23 20:15 Sodium 133 mmol/L (136-145) L 09/13/23 09:41 Potassium 4.4 mmol/L (3.5-5.1) 09/13/23 09:41 Chloride 98 mmol/L (98-107) 09/13/23 09:41 Carbon Dioxide 22 mmol/L (22-29) 09/13/23 09:41 Anion Gap 17.4 (5-19) 09/13/23 09:41 BUN 84 mg/dL (6-20) H* 09/13/23 09:41 Creatinine 1.5 mg/dL (0.7-1.2) H 09/13/23 09:41 GFR Calculation 48.4 mL/min (90-130) L 09/13/23 09:41 Glucose 232 mg/dL (65-115) H 09/13/23 09:41 POC Glucose 251 mg/dL (70-110) H 09/13/23 11:51 Calculated Osmolality 309 mOsm/kg (285-295) H 09/13/23 09:41 Calcium 9.4 mg/dL (8.5-10.5) 09/13/23 09:41 Magnesium 1.9 mg/dL (1.7-2.3) 09/12/23 03:23 Total Bilirubin 0.3 mg/dL (0.15-1.2) 09/08/23 05:58 AST 28 U/L (0-40) 09/08/23 05:58 ALT 143 U/L (0-41) H 09/08/23 05:58 Alkaline Phosphatase 311 U/L (40-130) H 09/08/23 05:58 Troponin T Baseline 2413 ng/L (0-15) H* 09/06/23 23:57 Troponin T 120 Minute 2537 ng/L (0-15) H 09/07/23 02:04 Delta Troponin T 124 ABS# (0-10) H* 09/07/23 02:04 Troponin T Hi Sens 6Hr 2556 ng/L (0-15) H 09/07/23 06:16 Troponin T Hi Sens 6Hr Delta 143 ng/L (0-12) H* 09/07/23 06:16 NT-Pro-B Natriuret Pep 5669 pg/mL (0-125) H 09/06/23 23:57 Total Protein 5.8 g/dL (6.6-8.7) L 09/08/23 05:58 Albumin 2.8 g/dL (3.5-5.2) L 09/08/23 05:58 Globulin 3.0 g/dL (1.3-4.6) 09/08/23 05:58 Urine Color Yellow (Yellow) 09/06/23 23:59 Urine Appearance Clear (CLEAR) 09/06/23 23:59 Urine pH 5 (5-7) 09/06/23 23:59 Ur Specific [place] 1.010 (1.005-1.030) 09/06/23 23:59 Urine Protein 3+ (Negative) H 09/06/23 23:59 Urine Glucose (UA) 4+ (Normal) H 09/06/23 23:59 Urine Ketones Negative (Negative) 09/06/23 23:59 Urine Blood 2+ (Negative) H 09/06/23 23:59 Urine Nitrate Negative (Negative) 09/06/23 23:59 Urine Bilirubin Neg (Negative) 09/06/23 23:59 Urine Urobilinogen Neg mg/dL (Negative) 09/06/23 23:59 Ur Leukocyte Esterase Negative (Negative) 09/06/23 23:59 Urine RBC 0-4 /hpf (0-2) H 09/06/23 23:59 Urine WBC None /hpf (0-5) 09/06/23 23:59 Ur Eosinophil Smear 3 (0-0) H 09/08/23 17:48 Ur Squamous Epith Cells None /hpf (0-5) 09/06/23 23:59 Amorphous Sediment 1+ /hpf 09/06/23 23:59 Urine Bacteria 1+ /hpf (NONE) H 09/06/23 23:59 Urine Mucus 1+ /hpf 09/06/23 23:59 Urine Eosinophils Eosinophils seen H 09/08/23 17:48 Ur Random Microalbumin 45 ug/dL (0-20) H 09/08/23 17:48 Ur Random Sodium 10 mmol/L 09/08/23 17:48 Ur Random Potassium 44 mmol/L 09/08/23 17:48 Ur Random Chloride < 10 mmol/L 09/08/23 17:48 Urine Creatinine 145 mg/dL (39-259) 09/08/23 17:48 Microalb/Creat Ratio 310 mg/dL (0-20) H 09/08/23 17:48 Acetaminophen < 5.0 ug/mL (10-30) L 09/06/23 23:57 Ethyl Alcohol 53 mg/dL (0-10) H 09/06/23 23:57 A&P Assessment and plan (1) NSTEMI (non-ST elevated myocardial infarction): Patient has no chest pain. May continue on the current medications for the time being. (2) Acute on chronic systolic heart failure: May continue the careful diuresis. (3) Atherosclerotic heart disease of unga coronary artery with other forms of angina pectoris: Consider doing a Myocardial perfusion imaging to evaluate for the ischemic burden. Because of the high BUN/creatinine ratio, we may hold off on the coronary angiogram for the time being. Patient is at high risk for contrast-induced nephropathy. (4) Ischemic cardiomyopathy: Because of the relatively low blood pressure and the abnormal kidney function, medication options are limited. Will continue to optimize the dose of the medications that he can tolerate. (5) Dyslipidemia: May continue on the current medications. (6) Non-sustained ventricular tachycardia: No recurrence of ventricular arrhythmia. Will continue on the current dose of the amiodarone for the time being. (7) Acute kidney injury superimposed on chronic kidney disease: May closely monitor the kidney function. Plan We may go ahead and schedule for a Lexiscan/sestamibi stress sestamibi stress test for tomorrow. Based on the results, further recommendations will be made Attestations Medical Necessity Statement*: Deferred to the primary Coding Level of Care Code 19436 Diagnoses NSTEMI (non-ST elevated myocardial infarction) I21.4 Acute on chronic systolic heart failure I50.23 Atherosclerotic heart disease of unga coronary artery with other forms of angina pectoris I25.118 Ischemic cardiomyopathy I25.5 Dyslipidemia E78.5 Non-sustained ventricular tachycardia I47.29 Acute kidney injury superimposed on chronic kidney disease N17.9; N18.9
[2023-09-13 17:15] LABS: Glucose Point of Care 222 mg/dL (70-110)
[2023-09-13] MEDS: insulin glargine 100 units/1 mL 10 UNIT SUBCUT (17:47)
--- NOTE | 2023-09-13 18:51 | PM.PN ---
Subjective Subjective: doing well Medications: Reviewed: Yes Vitals/I&O/Wt Last Vital Signs Temp 97.5 F L 09/13/23 16:00 Pulse 62 09/13/23 16:00 Resp 28 H 09/13/23 16:00 BP 102/79 09/13/23 16:00 Pulse Ox 95 09/13/23 16:00 O2 Del Method Room Air 09/13/23 16:00 09/13/23 09/13/23 09/13/23 06:59 14:59 22:59 Intake Total 100 / 1120 1010 / 1010 540 / 1550 Output Total 400 / 2130 800 / 800 Balance -300 / -1010 210 / 210 540 / 750 Weight last 48 hrs Weight 140.568 kg Weight 140.75 kg Physical Exam Narrative: awake ,alert HEENT S1S RRR per report lungs clear per report + edema Urinary Catheter Management: Coude: Cath Placed During This Visit: yes Reason for Continuing Indwelling Catheter: Accurate Measurement of Urinary Output in Critically Ill Patients Urinary Catheter Date of Insertion: 09/08/23 Urinary Catheter Time of Insertion: 16:48 Data 09/09/23 00:58 09/13/23 09:41 A&P Assessment and plan (1) KRISTINE (acute kidney injury): Plan 1. Acute kidney injury: Likely multifactorial-was hypotensive on presentation-may have developed ATN in the setting of underlying cardiorenal etiology.+ Urine eosinophills -s/p lasix gtt, good diuresis , on hold now , - started PO lasix -2 g sodium restriction 1500 mill fluid restriction, avoid nephrotoxins 2. Coronary artery disease, NSTEMI on presentation, cardiology following 3.History of CHF with low ejection fraction of 15%, patient has declined LifeVest 4. History of A-fib 5. Metabolic acidosis: added Bicitra 6. Hyponatremia :Na 133 , monitor Patient evaluated using audiovisual cart. Time spent 40 minutes. Attestations Medical Necessity Statement*: per anirudh Coding Level of Care Code Acute Code for [facility] Diagnoses KRISTINE (acute kidney injury) N17.9
--- NOTE | 2023-09-13 19:30 | PC.NURSE ---
Nurse spoke with patient regarding Stress test scheduled for morning. Asked patient when the last time he had any caffeine or chocolate was, and patient states it has been a few days. Nurse educated patient that he can not have any caffeine or chocolate from now till after the procedure and that after midnight he would not be able to eat. The patient voiced understanding.
--- NOTE | 2023-09-13 19:59 | P.PN_ITS ---
Subjective 2 Subjective: He is feeling tired. Otherwise no additional new symptoms. He has not quite decided regarding the LifeVest, he is concerned regarding LifeVest misinterpreting rhythms and shocking him unnecessarily. Vitals/I&O/Wt Last Vital Signs Temp 97.5 F L 09/13/23 16:00 Pulse 62 09/13/23 16:00 Resp 28 H 09/13/23 16:00 BP 102/79 09/13/23 16:00 Pulse Ox 95 09/13/23 16:00 O2 Del Method Room Air 09/13/23 16:00 09/13/23 09/13/23 09/13/23 06:59 14:59 22:59 Intake Total 100 / 1120 1010 / 1010 540 / 1550 Output Total 400 / 2130 800 / 800 Balance -300 / -1010 210 / 210 540 / 750 Weight last 48 hrs Weight 140.568 kg Weight 140.75 kg Physical Exam 2 Narrative: Sitting up at the side of the bed. Const: COMMON NORMALS: patient oriented x3 and alert GENERAL APPEARANCE: c ooperative ORIENTATION/CONSCIOUSNESS: Yes awake HENMT: COMMON NORMALS: oropharynx normal Neck/C-Spine: COMMON NORMALS: no JVD Resp: COMMON NORMALS: normal respiratory effort and clear to auscultation bilaterally AUSCULTATION: clear to auscultation bilaterally Cardio: COMMON NORMALS: no JVD, regular rhythm, S1 normal heart sound present, S2 normal heart sound present and No murmurs present (Cardio) RHYTHM: regular rhythm HEART SOUNDS: S1 normal heart sound present and S2 normal heart sound present GI: COMMON NORMALS: Normal to inspection, nondistended, normoactive bowel sounds present, Soft to palpation and non-tender PALPATION: Yes Soft to palpation Extremity: COMMON NORMALS: no joint enlargement GENERAL: Yes edema (1+) Neuro: COMMON NORMALS: patient oriented x3 and moves all extremities S ENSORIUM/ORIENTATION: Yes alert Skin: NARRATIVE SKIN EXAM: Chronic venous stasis bilateral lower extremities. Urinary Catheter Management: Coude: Cath Placed During This Visit: yes Reason for Continuing Indwelling Catheter: Accurate Measurement of Urinary Output in Critically Ill Patients Urinary Catheter Date of Insertion: 09/08/23 Urinary Catheter Time of Insertion: 16:48 Data 09/09/23 00:58 09/13/23 09:41 A&P Assessment and plan (1) Hypertension: (2) CHF (congestive heart failure): (3) Acute on chronic systolic heart failure: (4) Ischemic cardiomyopathy: (5) NSTEMI (non-ST elevated myocardial infarction): (6) Non-sustained ventricular tachycardia: (7) Diabetes: (8) T2DM (type 2 diabetes mellitus): Qualifiers: Diabetes mellitus personnel supervisor insulin use: with prison use Diabetes mellitus complication status: without complication Qualified Code(s): E11.9 - Type 2 diabetes mellitus without complications; Z79.4 - livestock farmers (current) use of insulin (9) Scrotal swelling: (10) COPD (chronic obstructive pulmonary disease): (11) Tobacco use: (12) Alcohol abuse: Plan Acute systolic CHF exacerbation: Severe cardiomyopathy. Decompensated CHF difficult to manage with renal dysfunction, hyponatremia. Discussed with cardiology, noted with still persistent scrotal, penile edema, decompensated CHF, reviewed nephrology documentation. Started on oral diuretic. Continue. With treatment with diuretics reassess renal function, at risk of kidney injury, reassess electrolytes, at risk of deficiency, reassess sodium and risk of hyponatremia. Monitor on telemetry due to risk of arrhythmia. He has not quite decided regarding LifeVest, states he is quite concerned regarding LifeVest misinterpreting rhythms and unnecessarily shocking him. Fluid restriction. Cardiac diet. Follow-up with him regarding LifeVest. Could not have Light placed due to scrotal edema Reviewed cardiology note. Hypervolemia with hyponatremia does carry poor prognosis KRISTINE reviewed vitals, chemistry. Reviewed nephrology note. Reassess renal function. Noted with mild renal function improvement but producing urine. Discussed eosinophils in the urine. Other symptoms not suggestive of AIN. Consideration of other possibility. Cholesterol crystals with recent cardiac event? Monitor for other symptoms of AIN. Did discontinue Protonix just in case. Hyponatremia: Noted improving. Follow-up chemistry. Nonsustained V. tach PVCs Amiodarone p.o. regimen Non-STEMI No active chest pain At some point would benefit from angiogram after improvement in renal function, given renal difficulties likely not during the current hospitalization. Continue medical management Neuropathic pain: Still having burning in his feet with some improvement but persistent symptoms reported. Gabapentin cautiously increased up to 100 mg 3 times daily, discussed risks. Monitor vitals, mental status. Symptoms. Alcohol abuse Continue to encourage cessation. Discussed with him. Monitor for withdrawal. Continue thiamine and folic acid Active smoker: Encourage cessation. Noncompliant Type II diabetic Code cardiac consistent carb diet Insulin per sliding scale Attestations 2 Medical Necessity Statement*: Continue admission for assessment management of decompensated CHF with severe cardiomyopathy, KRISTINE, hyponatremia. Diagnoses Essential hypertension I10 Chronic congestive heart failure, unspecified heart failure type I50.9 Acute on chronic systolic heart failure I50.23 Ischemic cardiomyopathy I25.5 NSTEMI (non-ST elevated myocardial infarction) I21.4 Non-sustained ventricular tachycardia I47.29 Type 2 diabetes mellitus without complication, with long-term current use of insulin E11.9 Type 2 diabetes mellitus without complication, with long-term current use of insulin E11.9; Z79.4 Diabetes mellitus personnel supervisor insulin use: with personnel supervisor use Diabetes mellitus complication status: without complication Scrotal swelling N50.89 COPD (chronic obstructive pulmonary disease) J44.9 Tobacco use Z72.0 Alcohol abuse F10.10
[2023-09-13 21:37] LABS: Glucose Point of Care 183 mg/dL (70-110)
--- NOTE | 2023-09-14 | PC.NURSE ---
Upon entering the room to make sure patient did not have any food or drink at bedside the nurse found an empty chocolate pudding cup. The nurse asked the patient about it and he said he ate it at about 23:45 and that he had another nurse get it for him. The nurse told patient that he was not suppose to have eaten chocolate due to the stress test scheduled for tomorrow and told patient this may delay his stress test. The nurse told patient that he still would be NPO after midnight in the chance they can take him later in the day. Nurse will make Radiology aware in the morning.
[2023-09-14 04:17] VITALS: BP 102/71; PULSE 63; RESP 21; O2SAT 93
[2023-09-14] MEDS: albumin 25 G/100 ML BAG 60 G IV (04:57)
[2023-09-14 05:26] VITALS: PULSE 68
[2023-09-14] MEDS: acetaminophen 325 mg Tablet 650 MG PO (05:48)
[2023-09-14 05:51] LABS: Anion Gap 16.6 (5-19); Calcium 9.6 mg/dL (8.5-10.5); Carbon Dioxide 23 mmol/L (22-29); Chloride 99 mmol/L (98-107); Glomerular Filtration Rate 44.9 mL/min (90-130); Glucose 175 mg/dL (65-115); Magnesium 2.1 mg/dL (1.7-2.3); Osmolality Calculated 308 mOsm/kg (285-295); Potassium 4.6 mmol/L (3.5-5.1); Sodium 134 mmol/L (136-145)
[2023-09-14 05:53] LABS: Blood Urea Nitrogen 84 mg/dL (6-20)
[2023-09-14 06:29] LABS: Glucose Point of Care 166 mg/dL (70-110)
[2023-09-14 08:00] VITALS: BP 123/88; PULSE 75; RESP 25; TEMP 36.7; O2SAT 100
[2023-09-14] MEDS: atorvastatin 40 mg Tablet 20 MG PO (08:24)
[2023-09-14] MEDS: gabapentin 100 mg Capsule PO (08:24)
[2023-09-14] MEDS: doxycycline 100 mg Tablet PO (08:24)
[2023-09-14] MEDS: FUROsemide 40 mg Tablet PO (08:24)
[2023-09-14] MEDS: clopidogrel 75 mg Tablet PO (08:24)
[2023-09-14] MEDS: aspirin 81 mg EC Tablet PO (08:24)
[2023-09-14] MEDS: thiamine 100 mg Tablet PO (08:24)
[2023-09-14] MEDS: tamsulosin 0.4 mg Capsule PO (08:24)
[2023-09-14] MEDS: insulin lispro 100 unit/1 mL SUBCUT (08:25)
[2023-09-14] MEDS: amiodarone 200 mg Tablet 400 MG PO (08:25)
[2023-09-14 09:48] LABS: Basophils # 0.1 10^3/uL (0.0-0.1); Basophils % 0.6 %; Eosinophils # 0.3 10^3/uL (0.0-0.8); Eosinophils % 1.9 %; Lymphocytes # 1.5 10^3/uL (0.8-4.8); Lymphocytes % 10.9 %; Mean Corpuscular HGB Conc 31.2 g/dL (30-55); Mean Corpuscular Hemoglobin 27.5 pg (27-33); Mean Corpuscular Volume 88.1 fl (82-101); Mean Platelet Volume 9.7 fL (7.4-10.4); Monocytes # 1.1 10^3/uL (0.2-0.9); Monocytes % 7.6 %; Neutrophils # 10.58 10^3/uL (1.8-7.7); Neutrophils % 76.2 %; Nucleated Red Blood Cells % 0 %; Platelet Count 312 10^3/cmm (157-399); Red Blood Count 4.77 10^6/uL (3.85-5.65); Red Cell Distribution Width 17.3 % (12.1-15.1); White Blood Count 13.88 10^3/uL (3.29-11.43)
[2023-09-14 11:11] LABS: Glucose Point of Care 194 mg/dL (70-110)
[2023-09-14 11:23] VITALS: RESP 31
--- NOTE | 2023-09-14 11:31 | ECG_ITS ---
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 Measurements Intervals Emmalena Rate: 76 P: 72 RI: 227 QRS: 122 QRSD: 165 T: 261 QT: 410 QTc: 463 Interpretive Statements SINUS RHYTHM WITH FIRST DEGREE AV BLOCK WITH FREQUENT VENTRICULAR PREMATURE COMPLEXES INTRAVENTRICULAR CONDUCTION DELAY [130+ ms QRS DURATION] INTERPRETATION BASED ON A DEFAULT AGE OF 40 YEARS Compared to ECG 09/07/2023 01:15:45 First degree AV block now present Intraventricular conduction delay now present Myocardial infarct finding still present Defective EKG Electronically Signed On 09-14-2023 17:49:41 [employer]W by Reynaldo Vizcaino M.D. [id number]
[2023-09-14] MEDS: morphine 4 mg/mL SDV 1 mL IVP (11:42)
--- NOTE | 2023-09-14 11:42 | PC.NURSE ---
Patient arrived to ICU from [facility] after code was called overhead. Upon arrival patient did have a pulse, within 5-10 mins of arrival patient lost a pulse and a new code was initiated. See MAR and code paperwork for details. TOD was called at [address] Feliciano after speaking to brother in law on the phone to verify code status.
[2023-09-14 12:01] LABS: Alveolar-Arterial Oxygen Gradi 1.3 mmHg (5-10); Arterial Blood Gas Hematocrit 42.8 % (42-52); Base Excess ABG -7.2 mmol/L (-2.0-2.0); Blood Gas Operator Identificat BROMA; Blood Gas Sample Site Brachial, right; Blood Gas Sample Type Arterial; Carboxyhemoglobin 1.7 %THgb (0.4-20.1); HCO3 ABG 23.1 mmol/L (22-26); HGB O2 Sat 78.1 % (95-100); Ionized Calcium Level - ABG 1.2 mmol/L (1.1-1.4); Methemoglobin 0.6 % (0.4-1.5); Oxygen Device AMBU; Oxygen Saturation ABG 79.9; PO2 ABG 59.4 mmHg (80.0-100.0); Potassium Level - ABG 5.2 mmol/L (3.5-5.0)
[2023-09-14 12:02] LABS: ABG PCO2 68.3 mmHg (35-45); ABG PH Result 7.14 (7.35-7.45)
--- NOTE | 2023-09-14 12:53 | PM.DDS ---
Discharge Providers DDS Date of Admission: 09/07/23 00:15 Date Summary Completed: 09/14/23 Attending Provider at Admission: Isha Sloan MD Time of : 11:36 Attending Provider at Discharge: Dawson Cruz Primary Care Provider: Fidelina Espinal MD DS Diagnoses Hospital Diagnoses (1) Hypertension: (2) CHF (congestive heart failure): (3) Acute on chronic systolic heart failure: (4) Ischemic cardiomyopathy: (5) NSTEMI (non-ST elevated myocardial infarction): (6) Non-sustained ventricular tachycardia: (7) Diabetes: (8) T2DM (type 2 diabetes mellitus): Qualifiers: Diabetes mellitus complication status: without complication Diabetes mellitus predatory animal exterminator insulin use: with care home use Qualified Code(s): E11.9 - Type 2 diabetes mellitus without complications; Z79.4 - custodial (current) use of insulin (9) Scrotal swelling: (10) COPD (chronic obstructive pulmonary disease): (11) Tobacco use: (12) Alcohol abuse: Reason for Visit Reason for Visit FALL Summary Date and Time of Date of : 09/14/23 Time of : 11:36 Summary Summary: 58-year-old gentleman with history noncompliance, EtOH use disorder, current smoker, CAD, ischemic cardiomyopathy, systolic and diastolic CHF, ejection fraction 15%, grade 3 diastolic dysfunction, diabetes, hypertension, hyperlipidemia, other conditions, presented due to shortness of breath, anasarca, lower extremity edema, stasis dermatitis, fatigue, with another recent admission for CHF exacerbation during which he declined LifeVest. On angiogram in 2019 he had small caliber coronary arteries with a present 95% subtotal occlusion of mid LAD and first obtuse marginal branch artery. Based on the angiogram found not amenable to intervention and it was opted to treat him medically. On return to the hospital with generalized weakness, decompensated CHF, without chest pain but was found to have NSTEMI, cardiology was consulted, was treated per NSTEMI protocol, also started on IV diuretics 80 mg IV Lasix every 12 hours for CHF exacerbation. No DVT found on duplex of lower extremities. Again refused LifeVest/ICD despite discussion of risk of arrhythmia. Renal function found to be worsening. Eosinophils found in urine. Nephrology consulted, however, was not felt to have AIN, with possibility of additional cardiac event with cholesterol crystals. Protonix were discontinued just in case. Would benefit from coronary angiography as per cardiology assessment, however, renal function has not been permissive with progressive KRISTINE. No obstruction on ultrasound. Diuresis transiently held with concern for intravascular depletion, received albumin, KRISTINE with some gradual improvement to the point of trying to resume oral diuretic, however, at 1030 this morning the monitor alerted he developed ventricular fibrillation, JORDY MOJICA was called and he underwent 2 rounds of CPR 30 minutes, followed by additional 15 minutes for V-fib, regaining pulse for about 5 minutes inbetween then with subsequent arrest again. His next of kin, [id number] Mr. Kee Wilson was contacted regarding cardiac arrest, on discussion of his condition per family based on severity of underlying comorbidities request was made to not reinitiate resuscitative efforts in case of further arrest which occurred shortly thereafter with additional ventricular fibrillation. On assessment without palpable pulse, no respirations, time of noted at 1136. Additional Data Advance directives?: No Discharge Plan Discharge Patient Disposition: Condition: Stable Probable Cause of Probable cause of : Cardiac arrest DS Attestations Time Spent in /Discharge Care*: greater than 30 min Quality - AMI: AMI present?: Yes Quality - Stroke: CVA present?: No Quality - VTE: VTE present?: No Coding Level of Care Code 88640 Diagnoses Essential hypertension I10 Chronic congestive heart failure, unspecified heart failure type I50.9 Acute on chronic systolic heart failure I50.23 Ischemic cardiomyopathy I25.5 NSTEMI (non-ST elevated myocardial infarction) I21.4 Non-sustained ventricular tachycardia I47.29 Type 2 diabetes mellitus without complication, with long-term current use of insulin E11.9 Type 2 diabetes mellitus without complication, with long-term current use of insulin E11.9; Z79.4 Diabetes mellitus complication status: without complication Diabetes mellitus predatory animal exterminator insulin use: with care home use Scrotal swelling N50.89 COPD (chronic obstructive pulmonary disease) J44.9 Tobacco use Z72.0 Alcohol abuse F10.10
--- NOTE | 2023-09-14 13:49 | PC.NURSE ---
Nursing staff checked on patient at 1000. He was resting in his bed with his eyes closed. He opened his eyes when I entered the room said he was okay. Nursing staff was at nurses station noticed that he went into [facility] at 1030. Two nurses ran down to room upon entering the room patient was unresponsive and a rapid was called by one of the nurses while the other nurse was checking for a pulse and lowering the head of the bed to start compressions. Nursing staff started compressions at 1033. Rapid response team arrived.
--- NOTE | 2023-09-14 17:59 | P.PNCC_ITS ---
Critical Care Event Note The high probability of a clinically significant, sudden or life threatening deterioration of the patient's [] system(s) required my full and direct attention, intervention and personal management. The critical care time is as shown. 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, patient had 2 rounds of CPR each being roughly 15 minutes, his arrhythmia was V-fib, had episodes of PEA, but kept going back into V-fib, requiring multiple shocks, multiple rounds of amiodarone, epinephrine, placed on a lidocaine drip due to persistent resistant V-fib, without a pulse, requiring labs lidocaine bolus bolus, was moved into the ICU, eventually regained a pulse, on 100% FiO2, he went into a junctional versus normal sinus rhythm, then developed bradycardia, eventually after discussion with family patient was made DNR, patient went back into V-fib, DNR, family did not want any interventions, patient was made comfortable, lost his pulse, terminally extubated, no respirations, no chest rise, no pupillary reflex, flatlined on monitor, time of 1136 Coding Level of Care Code Critical Care Time Spent (min) 65
== END 2023-09-14 14:30 | disposition expired ==
LOC: ER 09-07 00:53 → CSU 09-07 02:21 → ICU 09-14 11:03
PROVIDERS: Hospitalist; Internal Medicine; Internal Medicine Cardiovascular Disease; Nurse Practitioner; Admitting Provider Student in an Organized Health Care Education/Training Program; Emergency Provider Emergency Medicine; PCP Family Medicine; Visit Provider Internal Medicine
DX: I21.4 Non-ST elevation (NSTEMI) myocardial infarction (principal); I50.23 Acute on chronic systolic (congestive) heart failure; I13.0 Hypertensive heart and chronic kidney disease with heart failure and stage 1 through stage 4 chronic kidney disease, or unspecified chronic kidney disease; I47.20 Ventricular tachycardia, unspecified; E87.1 Hypo-osmolality and hyponatremia; E87.20 Acidosis, unspecified; I25.119 Atherosclerotic heart disease of native coronary artery with unspecified angina pectoris; N18.9 Chronic kidney disease, unspecified; E11.22 Type 2 diabetes mellitus with diabetic chronic kidney disease; E11.51 Type 2 diabetes mellitus with diabetic peripheral angiopathy without gangrene; E11.40 Type 2 diabetes mellitus with diabetic neuropathy, unspecified; E78.5 Hyperlipidemia, unspecified; J44.9 Chronic obstructive pulmonary disease, unspecified; F17.210 Nicotine dependence, cigarettes, uncomplicated; F10.10 Alcohol abuse, uncomplicated; E87.5 Hyperkalemia; I25.5 Ischemic cardiomyopathy; I48.91 Unspecified atrial fibrillation; E86.1 Hypovolemia; I87.2 Venous insufficiency (chronic) (peripheral); I49.01 Ventricular fibrillation; Z66 Do not resuscitate; I46.9 Cardiac arrest, cause unspecified; Z91.199 Patient's noncompliance with other medical treatment and regimen due to unspecified reason; Z79.4 Long term (current) use of insulin; Z79.82 Long term (current) use of aspirin
CPT/HCPCS: 36415; 36416; 36600; 51702; 51798; 71045; 72131; 76770; 80048; 80051; 80053; 80307; 81001; 82044; 82330; 82436; 82805; 82962; 83735; 83880; 84133; 84300; 84484; 85025; 85730; 85999; 93005; 93970; 94002; 94799; 96365; 96372; 96375; 96376; 99285; J0283; J1644; J1815; J1940; J2270; J3475; J3535; J7050; P9046; Q3014